=== PATIENT | female | born 1995 | race Caucasian/White ===

== ENCOUNTER 2021-07-13 09:11 | Outpatient (REF) | payer OTHER, SELFPAY ==
--- NOTE | ~2021-07-13 | XR_ITS ---
EXAMINATION: XR THORACIC SPINE XR LUMBAR SPINE CLINICAL INFORMATION: Mid back pain and low back pain. COMPARISON: None TECHNIQUE: Three views of the lumbar spine and 3 views of the dorsal spine. FINDINGS: LUMBAR SPINE: There is a mild levoscoliosis of the lumbar lordosis. The vertebral heights, alignment and disc heights are normal. No visible acute fracture, dislocation or lytic process is seen. The paravertebral soft tissues are normal. DORSAL SPINE: There is a moderate rotatory dextroscoliosis in the mid dorsal spine. The vertebral heights and alignment are otherwise well preserved. No acute fracture or dislocation. The paravertebral soft tissues are normal. XR/XR thoracic spine 2V IMPRESSION: Mild levoscoliosis lumbar spine with rotatory dextroscoliosis mid dorsal spine. No visible acute fracture, dislocation or lytic process seen in the dorsal or lumbar spine. The paravertebral soft tissues are normal.
--- NOTE | ~2021-07-13 | XR_ITS ---
EXAMINATION: XR THORACIC SPINE XR LUMBAR SPINE CLINICAL INFORMATION: Mid back pain and low back pain. COMPARISON: None TECHNIQUE: Three views of the lumbar spine and 3 views of the dorsal spine. FINDINGS: LUMBAR SPINE: There is a mild levoscoliosis of the lumbar lordosis. The vertebral heights, alignment and disc heights are normal. No visible acute fracture, dislocation or lytic process is seen. The paravertebral soft tissues are normal. DORSAL SPINE: There is a moderate rotatory dextroscoliosis in the mid dorsal spine. The vertebral heights and alignment are otherwise well preserved. No acute fracture or dislocation. The paravertebral soft tissues are normal. XR/XR lumbar spine 2-3V IMPRESSION: Mild levoscoliosis lumbar spine with rotatory dextroscoliosis mid dorsal spine. No visible acute fracture, dislocation or lytic process seen in the dorsal or lumbar spine. The paravertebral soft tissues are normal.
[2021-07-13 11:52] LABS: MANUAL DIFF FLAG NO
[2021-07-13 11:59] LABS: Basophils Percent Auto 0.4 % (0-2); Eosinophils Absolute Auto 0.1 X10*3/uL (0.0-0.4); Eosinophils Percent Auto 1.5 % (0-4); Hematocrit 37.7 % (37-47); Hemoglobin 11.2 g/dl (12.0-16.0); Imm Gran Abs Auto 0.02 X10*3/uL (0.00-0.03); Imm Gran Pct Auto 0.2 % (0.0-0.4); Lymphocytes Absolute Auto 1.8 X10*3/uL (1.2-4.9); Lymphocytes Percent Auto 21.4 % (20-40); Mean Corpuscular HGB Conc 29.7 g/dl (31.0-35.0); Mean Corpuscular Volume 70.6 fL (80-98); Mean Platelet Volume 8.7 fL (9.4-12.3); Monocytes Absolute Auto 0.5 X10*3/uL (0.1-1.2); Monocytes Percent Auto 6.3 % (2-11); Neutrophils Percent Auto 70.2 % (45-73); Platelet Count 465 X10*3/uL (160-400); Red Blood Count 5.34 X10*6/uL (4.20-5.50); Red Cell Distribution Width 17.2 % (11.0-16.0); White Blood Count 8.5 X10*3/uL (4.8-10.8)
[2021-07-13 12:32] LABS: TSH reflex Free T4 2.58 uIU/mL (0.32-4.0)
[2021-07-13 12:34] LABS: Alanine Aminotransferase 21 U/L (0-31); Albumin Level 3.9 g/dL (3.5-5.0); Alkaline Phosphatase 82 U/L (39-117); Anion Gap 11 (12-20); Aspartate Amino Transferase 16 U/L (5-31); Bilirubin Total 0.3 mg/dL (0.0-1.0); Blood Urea Nitrogen 12 mg/dL (9-16); Calcium 9.2 mg/dL (8.4-10.2); Carbon Dioxide 24 mmol/L (22-29); Chloride 108 mmol/L (96-108); Estimated Glomerular Filt Rate > 60; Glucose Random 105 mg/dL (60-115); Potassium 4.3 mmol/L (3.3-5.1); Sodium 139 mmol/L (135-145); Total Protein 7.5 g/dL (6.5-8.0)
== END 2021-07-13 09:12 | disposition home or self-care (01) ==
LOC: HO.HMGCX 09:11
PROVIDERS: PCP Internal Medicine; Visit Provider Internal Medicine
DX: I10 Essential (primary) hypertension (principal); R79.89 Other specified abnormal findings of blood chemistry; M54.9 Dorsalgia, unspecified; M54.50 Low back pain, unspecified
CPT/HCPCS: 36415; 72070; 72100; 80053; 84443; 85025

== ENCOUNTER → 2021-09-15 08:04 | Outpatient (BNVA) | payer OTHER, SELFPAY | PROVIDERS: PCP Internal Medicine; Visit Provider Nurse Practitioner Family | DX: M41.86 Other forms of scoliosis, lumbar region (principal); M79.18 Myalgia, other site; E66.01 Morbid (severe) obesity due to excess calories; I10 Essential (primary) hypertension; Z68.42 Body mass index [BMI] 45.0-49.9, adult | CPT/HCPCS: 99202 ==

== ENCOUNTER 2022-01-18 11:26 | Outpatient (REF) | payer OTHER, SELFPAY ==
--- NOTE | ~2022-01-18 | US_ITS ---
EXAMINATION: US VENOUS WITH DOPPLER UPPER EXTREMITY, RIGHT CLINICAL INFORMATION: Pain. Recent IV site. COMPARISON: None TECHNIQUE: Ultrasound of the upper extremity is performed using compression sonography and color and pulse Doppler flow with assessment of augmentation of flow. There is also imaging and Doppler assessment of the jugular and subclavian veins. Spectral analysis with color-flow imaging is performed. FINDINGS: The right internal jugular, subclavian, axillary, brachial and basilic veins are patent. The radial and ulnar veins in the forearm are patent. There is slow rouleaux flow seen in the brachial vein. There is no evidence of DVT. There is superficial thrombophlebitis seen in the cephalic vein. US/US venous duplex UE RT IMPRESSION: No DVT demonstrated in the right upper extremity. Superficial thrombophlebitis in the right cephalic vein.
--- NOTE | ~2022-01-18 | XR_ITS ---
EXAMINATION: XR ELBOW, RIGHT CLINICAL INFORMATION: M79.89 - Other specified soft tissue disorders COMPARISON: None TECHNIQUE: AP, lateral, and oblique views of the right elbow. FINDINGS: There is no acute or healing fracture, dislocation, destructive process, or visible capsular effusion. Bony mineralization is normal. There is no periostitis. No joint narrowing or erosive change or chondrocalcinosis. Visualized soft tissue planes are unremarkable on plain film. XR/XR elbow RT min 3V IMPRESSION: Normal right elbow.
[2022-01-18 14:06] LABS: MANUAL DIFF FLAG NO
[2022-01-18 14:09] LABS: Basophils Percent Auto 0.4 % (0-2); Eosinophils Absolute Auto 0.1 X10*3/uL (0.0-0.4); Eosinophils Percent Auto 0.9 % (0-4); Hematocrit 40.9 % (37.0-47.0); Hemoglobin 12.2 g/dl (12.0-16.0); Imm Gran Abs Auto 0.01 X10*3/uL (0.00-0.03); Imm Gran Pct Auto 0.1 % (0.0-0.4); Lymphocytes Absolute Auto 1.2 X10*3/uL (1.2-4.9); Lymphocytes Percent Auto 14.3 % (20-40); Mean Corpuscular HGB Conc 29.8 g/dl (31.0-35.0); Mean Corpuscular Hemoglobin 21.4 pg (27.0-33.0); Mean Corpuscular Volume 71.6 fL (80.0-98.0); Mean Platelet Volume 8.8 fL (9.4-12.3); Monocytes Absolute Auto 0.8 X10*3/uL (0.1-1.2); Monocytes Percent Auto 9.1 % (2-11); Neutrophils Absolute Auto 6.2 x10*3/uL (2.0-8.3); Neutrophils Percent Auto 75.2 % (45-73); Platelet Count 492 X10*3/uL (160-400); Red Blood Count 5.71 X10*6/uL (4.20-5.50); Red Cell Distribution Width 15.9 % (11.0-16.0); White Blood Count 8.2 X10*3/uL (4.8-10.8)
[2022-01-18 14:36] LABS: Alanine Aminotransferase 16 U/L (0-31); Albumin Level 3.8 g/dL (3.5-5.0); Alkaline Phosphatase 61 U/L (39-117); Anion Gap 14 (12-20); Aspartate Amino Transferase 14 U/L (5-31); Bilirubin Total 0.9 mg/dL (0.0-1.0); Blood Urea Nitrogen 9 mg/dL (9-16); Calcium 9.4 mg/dL (8.4-10.2); Carbon Dioxide 24 mmol/L (22-29); Chloride 104 mmol/L (96-108); Estimated Glomerular Filt Rate > 60; Glucose Random 85 mg/dL (60-115); Potassium 4.6 mmol/L (3.3-5.1); Sodium 137 mmol/L (135-145); Total Protein 7.3 g/dL (6.5-8.0)
== END 2022-01-18 11:27 | disposition home or self-care (01) ==
LOC: HO.HMGCX 11:26
PROVIDERS: Visit Provider Internal Medicine
DX: M79.602 Pain in left arm (principal); M79.89 Other specified soft tissue disorders; D50.9 Iron deficiency anemia, unspecified; E66.01 Morbid (severe) obesity due to excess calories; F33.9 Major depressive disorder, recurrent, unspecified; I10 Essential (primary) hypertension
CPT/HCPCS: 36415; 73080; 80053; 85025; 93971

== ENCOUNTER 2022-01-31 14:58 | Outpatient (REF) | payer OTHER, SELFPAY ==
[2022-01-31 16:51] LABS: Anion Gap 10 (12-20); Blood Urea Nitrogen 12 mg/dL (9-16); Calcium 9.7 mg/dL (8.4-10.2); Carbon Dioxide 31 mmol/L (22-29); Chloride 103 mmol/L (96-108); Estimated Glomerular Filt Rate > 60; Glucose Random 88 mg/dL (60-115); Magnesium 2.2 mg/dL (1.6-2.6); Potassium 4.1 mmol/L (3.3-5.1); Sodium 140 mmol/L (135-145)
== END 2022-01-31 14:59 | disposition home or self-care (01) ==
LOC: HO.HMGCLDS 14:58
PROVIDERS: PCP Internal Medicine; Visit Provider Nurse Practitioner Family
DX: I50.21 Acute systolic (congestive) heart failure (principal)
CPT/HCPCS: 36415; 80048; 83735

== ENCOUNTER 2022-02-22 13:00 | Outpatient (RCR) | payer OTHER, SELFPAY ==
[2022-01-31 14:08] VITALS: BP 108/78; PULSE 87
--- NOTE | 2022-01-31 14:54 | MHC.PT.EP ---
[facility] [place] Office [place] Office [place] Office [address] Jere Montano [address] [phone] F: [phone] F: [phone] F: [phone] F: [phone] Physical Therapy Plan of Care Date of Evaluation: Date of Surgery: Diagnosis: muscle spasm of back Assessment: 27 y/ o F referred to PT wtih muscle spasms of back. 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 Of note, she has recently been diagnosed with cardiomyopathy/ pulmonary edema and she has been restricted from exercise except for TM and elliptical. (Pt states they are aware she is coming to PT). Examination shows decreased lumbar AROM, decreased core/LE strength, scoliosis with LLD, increased tissue tension R scapular region and L lumbar region, decreased muscle length of piriformis/ hip rotators/HS, and impaired postural awareness. Recommend PT 2x/week for 5 weeks to address impairments, implement HEP, and optimize functional mobility. Frequency and Duration: The patient will be seen 2x/week for 5 weeks Short Term Goals: 3 weeks 1. Compliant with HEP 2. Improve Lumbar AROM to WNL 3. Decrease pain levels by 50% per report with functional activity (IR 7-8/10) [place] Goals: 5 weeks 1. I with HEP and self management of sx 2. Pt will be able to stand > 15 min with pain < 3/10 3. Improve B LE strength to 4+/5 throughout to faciliate walkign Treatment Plan: Modalities to reduce pain, spasms and effusion. Manual therapy to restore motion and function. Therapeutic exercise to improve strength and flexibility. Neuromuscular re-education for posture and balance. Therapeutic activities to return to functional activities of daily living. Electronically signed by: Shaye Chapin PT Please sign and return to therapist. Thank you for your referral.
--- NOTE | 2022-03-25 09:48 | MHC.PT.DC ---
[facility] [place] Office [place] Office [place] Office [address] Jere Montano 140 [facility] [phone] F: [phone] F: [phone] F: [phone] F: [phone] Physical Therapy Discharge Report Diagnosis: muscle spasm of back Date of Surgery: Date of Evaluation: 01/31/22 Date of Discharge: 03/25/22 Treatments to Date: 3 Cancellations to Date: 4 No Shows to Date: 2 Discharge Status: Visit Non-compliance Discharge Summary: Pt with poor attendance and noncompliance with scheduling policy therefore d/c at this time Electronically signed by: Shaye Chapin PT Please sign and return to therapist. Thank you for your referral.
== END 2022-03-25 09:49 | disposition home or self-care (01) ==
LOC: HO.PTCHIC 13:00
PROVIDERS: PCP Internal Medicine; Visit Provider Internal Medicine
DX: M62.830 Muscle spasm of back (principal)
CPT/HCPCS: 97110; 97112; 97140; 97162

== ENCOUNTER 2022-03-04 13:45 | Outpatient (REF) | payer OTHER, SELFPAY ==
[2022-03-04 17:00] LABS: Anion Gap 12 (12-20); Blood Urea Nitrogen 11 mg/dL (9-16); Calcium 9.9 mg/dL (8.4-10.2); Carbon Dioxide 27 mmol/L (22-29); Chloride 101 mmol/L (96-108); Estimated Glomerular Filt Rate > 60; Glucose Random 87 mg/dL (60-115); Sodium 136 mmol/L (135-145)
== END 2022-03-04 13:46 | disposition home or self-care (01) ==
LOC: HO.HMGCLDS 13:45
PROVIDERS: PCP Internal Medicine; Visit Provider Nurse Practitioner Family
DX: I50.82 Biventricular heart failure (principal)
CPT/HCPCS: 36415; 80048; 83735

== ENCOUNTER 2022-09-10 09:59 | Outpatient (REF) | payer OTHER, SELFPAY ==
--- NOTE | ~2022-09-10 | XR_ITS ---
EXAMINATION: XR KNEE, LEFT CLINICAL INFORMATION: Left knee pain COMPARISON: None TECHNIQUE: Four views of the left knee. FINDINGS: There is no evidence of acute fracture or dislocation of the left knee. No left knee effusion. Left knee joint spaces are maintained. XR/XR knee LT 4V IMPRESSION: No significant bony abnormality of the left knee.
[2022-09-10 11:01] LABS: MANUAL DIFF FLAG NO
[2022-09-10 11:04] LABS: Basophils Percent Auto 0.6 % (0-2); Eosinophils Absolute Auto 0.1 X10*3/uL (0.0-0.4); Eosinophils Percent Auto 1.5 % (0-4); Hematocrit 38.6 % (37.0-47.0); Hemoglobin 12.1 g/dl (12.0-16.0); Imm Gran Abs Auto 0.02 X10*3/uL (0.00-0.03); Imm Gran Pct Auto 0.3 % (0.0-0.4); Lymphocytes Absolute Auto 1.5 X10*3/uL (1.2-4.9); Lymphocytes Percent Auto 22.2 % (20-40); Mean Corpuscular HGB Conc 31.3 g/dl (31.0-35.0); Mean Corpuscular Hemoglobin 24.6 pg (27.0-33.0); Mean Corpuscular Volume 78.5 fL (80.0-98.0); Mean Platelet Volume 8.8 fL (9.4-12.3); Monocytes Absolute Auto 0.5 X10*3/uL (0.1-1.2); Monocytes Percent Auto 6.6 % (2-11); Neutrophils Absolute Auto 4.7 x10*3/uL (2.0-8.3); Neutrophils Percent Auto 68.8 % (45-73); Platelet Count 420 X10*3/uL (160-400); Red Blood Count 4.92 X10*6/uL (4.20-5.50); Red Cell Distribution Width 14.2 % (11.0-16.0); White Blood Count 6.8 X10*3/uL (4.8-10.8)
== END 2022-09-10 10:00 | disposition home or self-care (01) ==
LOC: HO.HMGCLDS 09:59
PROVIDERS: PCP Internal Medicine; Visit Provider Physician Assistant
DX: D70.9 Neutropenia, unspecified (principal); M25.569 Pain in unspecified knee
CPT/HCPCS: 36415; 73564; 85025

== ENCOUNTER 2022-10-11 12:27 | Outpatient (RCR) | payer OTHER, SELFPAY ==
--- NOTE | 2022-10-11 13:45 | MHC.PT.EP ---
[facility] [place] Office [place] Office [place] Office [address] Jere Montano [address] [phone] F: [phone] F: [phone] F: [phone] F: [phone] Physical Therapy Plan of Care Date of Evaluation: Date of Surgery: n/a Diagnosis: pain in L knee Assessment: Patient is a 27 year old female presenting to PT with complaints of pain in her L knee. Pt reports onset of pain began about 1 month ago due to insidious onset. She presents today with impairments in pain, knee strength, hip strength, and hs muscle length. 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 Pt expresses jail goal of reducing pain, and is motivated to work towards this in PT. Clinical presentation today is most consistent with signs and sx associated with L knee pain and pt will benefit from skilled PT to address the following problems and impairments noted upon evaluation: pain, knee strength, hip strength, and hs muscle length. These problems limit the patient with the following functional activities: squatting, stair negotiation, sleeping. The prescribed treatment plan of care is medically necessary. Co-morbidities of cardiomyopathy, DM, scoliosis, ICD defibrillator were identified and taken into considerations of plan of care. Pt was educated on HEP, role of PT, prognosis, POC. Frequency and Duration: The patient will be seen 2 x week x 4 weeks Short Term Goals: Pt will demonstrate improved hip MMT strength by 1/3 grade in 2 weeks for improved lumbopelvic stability. Pt will demonstrate improved knee MMT strength to 5/5 in 2 weeks. Residential Goals: Pt will demonstrate ability to sleep through the night with min to no pain in 4 weeks for improved QOL. Pt will demonstrate ability to ascend stairs with min to no pain in 4 weeks for improved access to her home. Pt will demonstrate ability to squat with min to no pain in 4 weeks for improved ability to complete ADLs. Treatment Plan: Modalities to reduce pain, spasms and effusion. Manual therapy to restore motion and function. Therapeutic exercise to improve strength and flexibility. Neuromuscular re-education for posture and balance. Therapeutic activities to return to functional activities of daily living. Electronically signed by: Lily Hidalgo, PT, DPT, ATC Please sign and return to therapist. Thank you for your referral.
--- NOTE | 2022-12-16 08:17 | MHC.PT.DC ---
[facility] [place] Office [place] Office [place] Office [address] Jere Montano [address] [phone] F: [phone] F: [phone] F: [phone] F: [phone] Physical Therapy Discharge Report Diagnosis: pain in L knee Date of Surgery: n/a Date of Evaluation: 10/11/22 Date of Discharge: 12/16/22 Treatments to Date: 1 Cancellations to Date: 5 No Shows to Date: 0 Discharge Status: Discharge Summary: Pt has been unable to attend PT due to heart issues. At this point it has been >30 days since eval or an attended appointment. Pt to be d/c at this time per policy. Electronically signed by: Lily Hidalgo, PT, DPT, ATC Please sign and return to therapist. Thank you for your referral.
== END 2022-12-16 08:18 | disposition home or self-care (01) ==
LOC: HO.PTCHIC 12:27
PROVIDERS: PCP Internal Medicine; Visit Provider Physician Assistant
DX: M25.562 Pain in left knee (principal)
CPT/HCPCS: 97110; 97162

== ENCOUNTER 2022-12-15 13:32 | Outpatient (REF) | payer OTHER, SELFPAY ==
--- NOTE | ~2022-12-15 | US_ITS ---
EXAMINATION: US PELVIS CLINICAL INFORMATION: Abnormal CT scan performed at [facility] COMPARISON: Pelvic ultrasound 10/31/2019 TECHNIQUE: Ultrasound of the pelvis is performed using both transabdominal and transvaginal transducers along with Doppler. Transvaginal imaging is performed due to inadequate visualization transabdominally. FINDINGS: UTERUS: The uterus is anteverted and measures 7.4 x 3.9 x 4.4 cm for a volume of 66 mL. Three uterine fibroids are present the largest at the fundus measuring 6.1 x 5.3 x 6.2 cm (previously 3.7 x 2.6 x 3.3 cm. Another fundal fibroid is present measuring 3.4 x 3.0 x 3.5 cm (previously 2.2 x 2.0 x 2.0 cm). The smallest fibroid is in the lower segment measuring 1.4 x 0.9 x 1.6 cm (previously 1.1 x 0.8 x 1.3 cm). ADNEXA: Both ovaries are visualized. There is normal color flow to the adnexa. There is no ovarian torsion. There is no pelvic ascites or fluid collection. Right ovary measures 3.1 x 2.9 x 2.4 cm for a volume of 10.9 mL and includes a complex 1.6 x 1.0 x 0.9 cm cyst. Left ovary measures 4.2 x 3.9 x 3.1 cm for a volume of 26.4 mL which includes a 1.8 x 1.3 x 1.9 cm minimally complex cyst. US/US pelvic and transvaginal IMPRESSION: 1. Uterine fibroids have increased in size. 2. Bilateral minimally complex ovarian cysts need no follow-up.
== END 2022-12-15 13:33 | disposition home or self-care (01) ==
LOC: HO.HMGCX 13:32
PROVIDERS: PCP Internal Medicine; Visit Provider Internal Medicine
DX: R93.5 Abnormal findings on diagnostic imaging of other abdominal regions, including retroperitoneum (principal)
CPT/HCPCS: 76830; 76856

== ENCOUNTER 2022-12-21 08:00 | Outpatient (REF) | payer OTHER, SELFPAY ==
[2022-12-21 13:41] LABS: CT PCR NOT DETECTED (Not Detect.); NG PCR NOT DETECTED (Not Detect.)
== END 2022-12-21 08:01 | disposition home or self-care (01) ==
LOC: HO.LNP 08:00
PROVIDERS: Visit Provider Obstetrics & Gynecology
DX: Z12.4 Encounter for screening for malignant neoplasm of cervix (principal); N93.9 Abnormal uterine and vaginal bleeding, unspecified; D21.9 Benign neoplasm of connective and other soft tissue, unspecified; N83.291 Other ovarian cyst, right side; N83.292 Other ovarian cyst, left side
CPT/HCPCS: 0353U; 88142; 99202

== ENCOUNTER 2023-01-13 08:13 | Outpatient (REF) | payer OTHER, SELFPAY ==
[2023-01-13 12:10] LABS: Estimated Average Glucose 117 mg/dL; Hemoglobin A1c % 5.7 %
[2023-01-13 12:21] LABS: Alanine Aminotransferase 14 U/L (0-31); Albumin Level 3.9 g/dL (3.5-5.0); Alkaline Phosphatase 69 U/L (39-117); Anion Gap 9 (12-20); Aspartate Amino Transferase 15 U/L (5-31); Bilirubin Total 0.6 mg/dL (0.0-1.0); Blood Urea Nitrogen 12 mg/dL (9-16); Calcium 9.4 mg/dL (8.4-10.2); Carbon Dioxide 26 mmol/L (22-29); Chloride 109 mmol/L (96-108); Estimated Glomerular Filt Rate > 60; Glucose Random 95 mg/dL (60-115); Potassium 4.4 mmol/L (3.3-5.1); Sodium 140 mmol/L (135-145); Total Protein 6.9 g/dL (6.5-8.0)
== END 2023-01-13 08:14 | disposition home or self-care (01) ==
LOC: HO.HMGCLDS 08:13
PROVIDERS: PCP Internal Medicine; Visit Provider Internal Medicine
DX: I50.9 Heart failure, unspecified (principal); E13.9 Other specified diabetes mellitus without complications
CPT/HCPCS: 36415; 80053; 83036

== ENCOUNTER 2023-04-13 16:18 | Outpatient (REF) | payer OTHER, SELFPAY ==
--- NOTE | ~2023-04-13 | US_ITS ---
EXAMINATION: US PELVIS CLINICAL INFORMATION: Other ovarian cysts, right side LMP 03/28/2023 COMPARISON: Pelvic ultrasound 12/15/2022 TECHNIQUE: Ultrasound of the pelvis is performed using both transabdominal and transvaginal transducers along with Doppler. Transvaginal imaging is performed due to inadequate visualization transabdominally. FINDINGS: Uterus: The uterus is anteverted and measures 8.0 x 4.6 x 5.1 cm. There are multiple fibroids including the largest fibroid, in the fundus, measuring 6.2 x 5.3 x 5.9 cm, previously measured 6.1 x 5.3 x 6.2 cm. The endometrial thickness is 9.8 mm. Adnexa: Both ovaries are visualized. There is normal color flow to the adnexa. There is no ovarian torsion. There is no pelvic ascites or fluid collection. Right ovary measures 3.8 x 2.4 x 3.0 cm. Volume is 14.3 cm. The right ovary is normal in appearance . Left ovary measures 5.7 x 2.7 x 2.6 cm for a volume of 21.0 cm. The left ovary contains a 3.2 x 1.9 x 1.5 cm minimally complex cyst. US/US pelvic and transvaginal IMPRESSION: 1. Multiple uterine fibroids. 2. The right ovary is normal in appearance. 3. 3.2 cm minimally complex left ovarian cyst is most likely physiologic in origin and needs no further follow-up.
== END 2023-04-13 16:19 | disposition home or self-care (01) ==
LOC: HO.US 16:18
PROVIDERS: PCP Internal Medicine; Visit Provider Obstetrics & Gynecology
DX: N83.292 Other ovarian cyst, left side (principal); N83.291 Other ovarian cyst, right side
CPT/HCPCS: 76830; 76856

== ENCOUNTER 2023-05-09 14:07 | Outpatient (AMB) | payer OTHER, SELFPAY ==
[2023-05-09 14:03] VITALS: BP 116/68; PULSE 115; O2SAT 99; BMI 39.5
--- NOTE | 2023-05-09 14:03 | A.OFFPC_ITS ---
Vital Signs 05/09/23 14:03 Height 5 ft 8 in Weight 260 lb 2 oz BMI 39.5 BP 116/68 Blood Pressure Location Rt brachial Position Sitting Pulse 115 H Pulse Source Pulse Oximeter Pulse Oximetry (%) 99 Oxygen Delivery Method Room Air Intake Visit Reasons: HDF ~ Post hospital discharge FU Allergies cyclobenzaprine [From Flexeril] Adverse Reaction (Unknown, Verified 05/09/23 14:03) syncope Tobacco use date assessed: 05/09/23 Dental Screening Dental Screen Date: 05/09/23 Did you have a dental visit in the last 12 months?: Yes Did you have a dental problem in the last 6 months where you did not have access to dental care?: No Was dental information given to patient?: No HPI HDF ~ Post hospital discharge FU HPI Details Patient is 28-year-old female with medical history of hypertension obesity nonischemic dilated cardiomyopathy diagnosed in 2021 last ejection fraction 20-25% with severe MR and biventricular dilatation. Status post ICD for primary prevention placed April 2022, currently Milrinone infusion pumps at home Presented to hospital emergency room as her PICC line was displaced in her right arm. Which was replaced in left arm Ultrasound legs were negative for DVT Patient is currently being evaluated for heart transplant Awaiting dental evaluation and pulmonary function testing, she has appointment for both coming up in a week time Came in today for evaluation post hospital discharge patient is back to her baseline In-hospital her last BNP was 2691 on 05/03/2023 Glucose 126 Electrolytes stable creatinine stable at 0.71 Hemoglobin 12.6 Her hemoglobin A1c is 5.3 patient is Faexiga 10 mg She wanted to go over her pelvic ultrasound report as well Which showed 1. Multiple uterine fibroids. 2. The right ovary is normal in appearance. 3. 3.2 cm minimally complex left ovarian cyst is most likely physiologic in origin and needs no further follow-up. Report printed and handed to patient she has appointment coming up with consumer electronic retail specialist this Monday in [facility] Medical History Nausea Surgical History History of surgery Family History Father Diabetes mellitus Mother No problems noted. Maternal Grandfather No problems noted. Maternal Grandmother No problems noted. Paternal Grandmother Diabetes mellitus Paternal Grandfather No problems noted. Brother No problems noted. Brother No problems noted. Sister No problems noted. Social History Housing: Apartment Alcohol intake: never Patient Tobacco Use Status: Never used Tobacco e-Cigarette/Vaping Use: Never Used Second Hand Smoke Exposure: No Current occupational status: employed Cognitive needs: No Hearing needs: No Vision needs: No Questionnaire PHQ-9 Over the last 2 weeks, how often have you been bothered by any of the following problems? 1. Little interest or pleasure in doing things: several days 2. Feeling down, depressed, or hopeless: more than half the days 3. Trouble falling or staying asleep, or sleeping too much: nearly every day 4. Feeling tired or having little energy: several days 5. Poor appetite or overeating: more than half the days 6. Feeling bad about yourself - or that you are a failure or have let yourself or your family down: more than half the days 7. Trouble concentrating on things, such as reading the newspaper or watching television: more than half the days 8. Moving or speaking so slowly that other people could have noticed. Or the opposite - being so fidgety or restless that you have been moving around a lot more than usual: not at all 9. Thoughts that you would be better off or of hurting yourself in some way: not at all Total score: 13 Depression Screening Interpretation: Positive 64700 - PHQ-9 Billing: Yes Source: Developed by Drs. eLx Rocha, Marianne Trevino, Eitan Davila and colleagues, with an educational abigail from [employer]. Thrive Questionnaire Date Thrive assessed: 05/09/23 I am a: Patient What is your living situation today?: I have a steady place to live Within the past 12 months, did the food you bought not last and you didn't have the money to get more?: Sometimes True Within the past 12 months, did you worry whether your food would run out before you got money to buy more?: Sometimes True Do you have trouble paying for medicines?: No Do you have trouble getting transportation to medical appointments?: No Do you have trouble paying your heating and electricity bill?: Yes Do you have trouble taking care of your child, family member or friend?: No Do you have trouble with day-to-day activities such as bathing, preparing meals, shopping, managing finances, etc.?: No Are you currently unemployed and looking for a job?: No Are you interested in more education?: Yes AUDIT C Alcohol Use Questionnaire (AUDIT-C) 1. How often do you have a drink containing alcohol?: Never 3. How often do you have six or more drinks on one occasion?: Never Total Score: 0 Score Reviewed/Action Taken: Yes BHARGAVI-7 AMB Questionnaire BHARGAVI-7 Date BHARGAVI - 7 assessed: 05/09/23 Feeling nervous, anxious, or on edge: 2 = More than half the days Not being able to stop or control worryin = More than half the days Worrying too much about different things: 2 = More than half the days Trouble relaxin = Nearly every day Being so restless that it is hard to sit still: 0 = Not at all Becoming easily annoyed or irritable: 2 = More than half the days Feeling afraid as if something awful might happen: 3 = Nearly every day Total BHARGAVI-7 score (0-4 normal; 5-9 mild; 10-14 moderate; 15-21 severe): 14 Source: Developed by Drs. Lex Rocha, Marianne Trevino, Eitan Davila and colleagues, with an educational abigail from [employer]. BHARGAVI-7 Assessment Billing BHARGAVI-7 Assessment Tool: BHARGAVI-7 Assessment 94246 Review of Systems Const Denies chills and Denies fever(s) ENT Denies epistaxis and Denies nasal discharge Card Denies chest pain Resp Denies chest congestion, Denies cough and Denies hemoptysis GI Denies diarrhea and Denies nausea Skin/Breast Denies rash Neuro Reports no additional complaints Psych Reports no additional complaints Endo Reports no additional complaints Physical exam (Primary Care) Vital Signs: Last Vital Signs Pulse 115 H 05/09/23 14:03 BP 116/68 05/09/23 14:03 Pulse Ox 99 05/09/23 14:03 Oxygen Delivery Method Room Air 05/09/23 14:03 BMI result Body Mass Index 39.5 Tobacco/Smoking Status: Tobacco use Status Tobacco use date assessed 05/09/23 05/09/23 14:04 Patient Tobacco Use Status Never used Tobacco 05/09/23 14:04 e-Cigarette/Vaping Use Never Used 05/09/23 14:04 PHQ-9: PHQ-9 Score PHQ-9: Total score 13 05/09/23 14:39 Depression Screening Interpretation: Positive Thrive Assessment: Date of Thrive Assessment Date Thrive assessed 05/09/23 05/09/23 14:39 Const General: cooperative, comfortable and no acute distress Orientation/consciousness: patient oriented x3 HENMT Head: Yes normocephalic Eyes General: appearance normal, both eyes and all related structures Neck Neck: Yes supple Resp Effort & Inspection: normal respiratory effort, no cough and no stridor Cardio Rhythm: regular rhythm Skin General skin exam: turgor normal Neuro General: patient oriented x3, tone normal and moves all extremities Extrem Right lower extremity: no edema Left lower extremity: no edema Results AMB Hemoglobin A1c AMB Hemoglobin A1c 5.3 % Last Edit by SERA Alexander on 05/09/23 14 :35 Results Reviewed Results Reviewed: Laboratory Last Values Hgb A1c (Clinic) 5.3 % (4.0-6.0) 05/09/23 14:34 Assessment and Plan Assessment & Plan (1) Hospital discharge follow-up: Code(s): Z09 - Encounter for follow-up examination after completed treatment for conditions other than malignant neoplasm (2) History of implantable cardioverter-defibrillator (ICD) placement: Code(s): Z95.810 - Presence of automatic (implantable) cardiac defibrillator (3) Diabetes 1.5, managed as type 2: Code(s): E13.9 - Other specified diabetes mellitus without complications (4) Ejection fraction < 50%: Code(s): R94.30 - Abnormal result of cardiovascular function study, unspecified Plan Patient is 28-year-old female with medical history of hypertension obesity nonischemic dilated cardiomyopathy diagnosed in 2021 last ejection fraction 20- 25% with severe MR and biventricular dilatation. Status post ICD for primary prevention placed April 2022, currently Milrinone infusion pumps at home Presented to hospital emergency room as her PICC line was displaced in her right arm. Which was replaced in left arm Ultrasound legs were negative for DVT Patient is currently being evaluated for heart transplant Awaiting dental evaluation and pulmonary function testing, she has appointment for both coming up in a week time Came in today for evaluation post hospital discharge patient is back to her baseline In-hospital her last BNP was 2691 on 05/03/2023 Glucose 126 Electrolytes stable creatinine stable at 0.71 Hemoglobin 12.6 Her hemoglobin A1c is 5.3 patient is Faexiga 10 mg She wanted to go over her pelvic ultrasound report as well Which showed 1. Multiple uterine fibroids. 2. The right ovary is normal in appearance. 3. 3.2 cm minimally complex left ovarian cyst is most likely physiologic in origin and needs no further follow-up. Report printed and handed to patient she has appointment coming up with consumer electronic retail specialist this Monday in [place] Orders: Orders AMB Hemoglobin A1c Today Z13.9 - Encounter for screening, unspecified Coding Level of Care Code Est Pt Level 4 (81651) Diagnoses Hospital discharge follow-up Z09 History of implantable cardioverter-defibrillator (ICD) placement Z95.810 Diabetes 1.5, managed as type 2 E13.9 Ejection fraction < 50% R94.30 Additional Codes BHARGAVI-7 Assessment Billing - BHARGAVI-7 Assessment Tool: BHARGAVI-7 Assessment 44132 ([id number])
== END 2023-05-09 14:46 | disposition home or self-care (01) ==
PROVIDERS: PCP Internal Medicine; Visit Provider Internal Medicine
DX: Z09 Encounter for follow-up examination after completed treatment for conditions other than malignant neoplasm (principal); Z95.810 Presence of automatic (implantable) cardiac defibrillator; E13.9 Other specified diabetes mellitus without complications; R94.30 Abnormal result of cardiovascular function study, unspecified; Z13.9 Encounter for screening, unspecified
CPT/HCPCS: 83036; 99214

== ENCOUNTER 2023-06-21 09:06 | Outpatient (AMB) | payer OTHER, SELFPAY ==
--- NOTE | 2023-06-21 09:10 | A.OFFPC_ITS ---
Intake Visit Reasons: Discharge Follow Up ~ Intake Note: [phone] Allergies cyclobenzaprine [From Flexeril] Adverse Reaction (Unknown, Verified 06/21/23 09:11) syncope Medication List - Last Reconciled 06/21/23 by Murray Dumont MD acetaminophen 650 mg PO Q4H PRN blood sugar diagnostic (FreeStyle Lite Strips) Use to check blood sugar daily once a day blood-glucose meter (FreeStyle Lite Meter kit) Use to check blood sugar daily dapagliflozin propanediol (Farxiga) 10 mg PO DAILY heparin lock flush (porcine) 50 units IV QWEEK lancets (FreeStyle Lancets) Use to check blood sugar once a day milrinone 0.25 mcg/kg/min x 115.3 kg via continuous IV infusion; ondansetron 4 mg PO TID PRN pantoprazole 40 mg PO DAILY potassium chloride (Klor-Con) 20 mEq PO TID sodium chloride 0.9 % (flush) (Normal Saline Flush 0.9 % injection syringe) 10 mL IV QWEEK spironolactone 50 mg PO DAILY torsemide 60 mg PO Tobacco use date assessed: 06/21/23 Dental Screening Dental Screen Date: 06/21/23 Did you have a dental visit in the last 12 months?: Yes Did you have a dental problem in the last 6 months where you did not have access to dental care?: No Was dental information given to patient?: Patient has dentist HPI Discharge Follow Up ~ HPI Details Patient is 28-year-old female with advanced heart failure admitted to [facility], 06/09/2023 for PICC line malfunction Her current medications are Tylenol as needed for aches and pain Forxiga milrinone Pantoprazole spironolactone Torsemide Labs done in ER reviewed Kidney functions intact electrolytes within normal limit Random glucose 94 CBC showed hemoglobin of 12.9 White count within normal limit Platelets 308 Liver enzymes within normal limit Magnesium 2.2 EKG showed sinus tachycardia Probable left atrial abnormality Borderline T-wave abnormality Chest x-ray showed no acute findings Patient have pacemaker/defibrillator , shown on chest x-ray she will have Mitral valve replacement next month in [place] 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 Maternal Grandfather No problems noted. Maternal Grandmother No problems noted. Paternal Grandmother Diabetes mellitus Paternal Grandfather No problems noted. Brother No problems noted. Brother No problems noted. Sister No problems noted. Social History Housing: Apartment Alcohol intake: never Patient Tobacco Use Status: Never used Tobacco e-Cigarette/Vaping Use: Never Used Second Hand Smoke Exposure: No Current occupational status: unemployed Cognitive needs: No Hearing needs: No Vision needs: No Questionnaire Thrive Questionnaire Date Thrive assessed: 05/09/23 AUDIT C Alcohol Use Questionnaire (AUDIT-C) 1. How often do you have a drink containing alcohol?: Monthly or less 2. How many drinks containing alcohol do you have on a typical day when you are drinking?: 1 or 2 3. How often do you have six or more drinks on one occasion?: Never Total Score: 1 BHARGAVI-7 AMB Questionnaire BHARGAVI-7 Date BHARGAVI - 7 assessed: 05/09/23 Source: Developed by Drs. Lex Rocha, Marianne Trevino, Eitan Davila and colleagues, with an educational abigail from [employer]. Review of Systems Const Denies chills and Denies fever(s) ENT Denies epistaxis and Denies nasal discharge Card Denies chest pain Resp Denies chest congestion, Denies cough and Denies hemoptysis GI Denies diarrhea and Denies nausea Skin/Breast Denies rash Neuro Reports no additional complaints Psych Reports no additional complaints Endo Reports no additional complaints Physical exam (Primary Care) Tobacco/Smoking Status: Tobacco use Status Tobacco use date assessed 06/21/23 06/21/23 09:12 Patient Tobacco Use Status Never used Tobacco 06/21/23 09:12 e-Cigarette/Vaping Use Never Used 06/21/23 09:12 Thrive Assessment: Date of Thrive Assessment Date Thrive assessed 05/09/23 06/21/23 09:12 Const General: cooperative, comfortable and no acute distress Orientation/consciousness: patient oriented x3 HENMT Head: Yes normocephalic Eyes General: appearance normal, both eyes and all related structures Neck Neck: Yes supple Resp Effort & Inspection: normal respiratory effort, no cough and no stridor Cardio Rhythm: regular rhythm Heart sounds: S1 normal heart sound present and S2 normal heart sound present Skin General skin exam: turgor normal Neuro General: patient oriented x3, tone normal and moves all extremities Extrem Right lower extremity: no edema Left lower extremity: no edema Telehealth Telehealth Location of provider rendering services: practice address Location of patient: address on file Patient Identification confirmed using: Name, : Yes Telehealth method: voice only Patient verbally consented to treatment: Yes Patient verbally consented to billing insurance company: Yes Patient informed of any privacy concerns related to visit: Yes Assessment and Plan Assessment & Plan (1) Hospital discharge follow-up: Code(s): Z09 - Encounter for follow-up examination after completed treatment for conditions other than malignant neoplasm (2) Heart failure: Code(s): I50.9 - Heart failure, unspecified Qualifiers: Heart failure type: combined systolic and diastolic Heart failure chronicity: chronic Qualified Code(s): I50.42 - Chronic combined systolic (congestive) and diastolic (congestive) heart failure Plan Patient is 28-year-old female with advanced heart failure admitted to [facility], 06/09/2023 for PICC line malfunction Her current medications are Tylenol as needed for aches and pain Forxiga milrinone Pantoprazole spironolactone Torsemide Labs done in ER reviewed Kidney functions intact electrolytes within normal limit Random glucose 94 CBC showed hemoglobin of 12.9 White count within normal limit Platelets 308 Liver enzymes within normal limit Magnesium 2.2 EKG showed sinus tachycardia Probable left atrial abnormality Borderline T-wave abnormality Chest x-ray showed no acute findings Patient have pacemaker/defibrillator , shown on chest x-ray she will have Mitral valve replacement next month in [place] she is seeing Dr Raven marcelo 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
== END 2023-06-21 12:15 | disposition home or self-care (01) ==
LOC: HO.HMGC 09:06
PROVIDERS: PCP Internal Medicine; Visit Provider Internal Medicine
DX: Z09 Encounter for follow-up examination after completed treatment for conditions other than malignant neoplasm (principal); I50.42 Chronic combined systolic (congestive) and diastolic (congestive) heart failure
CPT/HCPCS: 99214

== ENCOUNTER 2023-08-17 13:30 | Outpatient (AMB) | payer OTHER, SELFPAY ==
--- NOTE | 2023-08-17 13:47 | MHC.OFFVIS ---
Intake Vital Signs 08/17/23 13:50 Height 5 ft 8 in Weight 257 lb 15.053 oz BMI 39.2 BP 122/86 Intake Visit Reasons: Ultra sound follow up [employer] Required: No Information Interpreted: non-clinical & clinical Accompanied by: Self / Same As Patient Allergies cyclobenzaprine [From Flexeril] Adverse Reaction (Unknown, Verified 08/17/23 13:51) syncope Is last menstrual period known: Yes Last menstrual period: 08/04/23 HPI HPI Comments History of Present Illness Details Presenting for follow-up regarding bilateral complex ovarian cyst is seen on previous ultrasound done in 12/29. Ultrasound done on 04/30 showed the following: Uterus: The uterus is anteverted and measures 8.0 x 4.6 x 5.1 cm. There are multiple fibroids including the largest fibroid, in the fundus, measuring 6.2 x 5.3 x 5.9 cm, previously measured 6.1 x 5.3 x 6.2 cm. The endometrial thickness is 9.8 mm. Adnexa: Both ovaries are visualized. There is normal color flow to the adnexa. There is no ovarian torsion. There is no pelvic ascites or fluid collection. Right ovary measures 3.8 x 2.4 x 3.0 cm. Volume is 14.3 cm. The right ovary is normal in appearance . Left ovary measures 5.7 x 2.7 x 2.6 cm for a volume of 21.0 cm. The left ovary contains a 3.2 x 1.9 x 1.5 cm minimally complex cyst. The patient has been complaining of irregular menstrual cycles of the last few months. Last co testing/GC/CT in 12/29 were negative [facility] Medical History Nausea Surgical History History of surgery Family History Father Diabetes mellitus Mother No problems noted. Maternal Grandfather No problems noted. Maternal Grandmother No problems noted. Paternal Grandmother Diabetes mellitus Paternal Grandfather No problems noted. Brother No problems noted. Brother No problems noted. Sister No problems noted. Social History Housing: Apartment Alcohol intake: never Patient Tobacco Use Status: Never used Tobacco e-Cigarette/Vaping Use: Never Used Second Hand Smoke Exposure: No Current occupational status: unemployed Cognitive needs: No Hearing needs: No Vision needs: No Female Reproductive History Menstrual Date of last menstrual period: 08/04/23 Review of Systems Const All systems reviewed & are unremarkable except as noted in HPI and below Reports as per HPI and Reports no additional complaints GI Reports no additional complaints Reports no additional complaints Physical Exam Vital Signs: Last Vital Signs BP 122/86 08/17/23 13:50 BMI result Body Mass Index 39.2 Assessment & Plan Assessment & Plan (1) Complex ovarian cyst: Code(s): N83.299 - Other ovarian cyst, unspecified side Plan: Discussed with the patient ultrasound findings showing the previously identified right complex cyst has resolved, in addition left complex ovarian cyst was identified 3.2 cm compared to 1.5 cm by the radiologist impression is that it is a physiologic ovarian cyst and there is no need for further follow-up. Discussed with the patient the Ultrasound findings, the main limitation of transvaginal ultrasonography alone as a diagnostic tool to distinguish benign from malignant masses relates to its lack of specificity and low positive predictive value for cancer. The differential diagnosis discussed with the patient includes the following but not limited to: benign and malignant gynecological and non-gynecological causes. Discussed with the patient options of treatment including laparoscopy ovarian cystectomy/oophorectomy vs. expectant management with repeat US in repeating pelvic US 12 weeks from previous US. If the ovarian complex cyst is persistent larger and / or more complex looking, will refer to gynecologic Oncology. All pros, cons, risks and benefits of each approach were discussed with the patient including but not limited to a delay in the diagnosis and treatment of ovarian cancer affecting the prognosis; The patient decided to go ahead with expectant management. Instructions given the patient to schedule a follow-up ultrasound appointment. All questions were answered & the patient verbalized understanding and agreed with the plan. (2) Myoma: Code(s): D21.9 - Benign neoplasm of connective and other soft tissue, unspecified Plan: Discussed with the patient the findings on pelvic ultrasound & the risk of myosarcoma; discussed with the patient the options of treatment including expectant management versus hysterectomy; the pros and cons, risks benefits of each approach were discussed with the patient including the fact that in cases of myosarcoma, surgical treatment can lead to early diagnosis and positively affects the prognosis; after further discussion, the patient decided to proceed with expectant management. Will repeat pelvic ultrasound periodically. Instructions given to patient to call in case any of the following occurs: pressure symptoms, abnormal uterine bleeding, pelvic pain; and to schedule a future office follow-up appointment for reassessment and to order a repeat ultrasound . All questions answered, the patient verbalized understanding and agreed with the plan . (3) Abnormal uterine bleeding: Comment: Cardiomyopathy Code(s): N93.9 - Abnormal uterine and vaginal bleeding, unspecified Plan: CBC, TSH, HCG, and pelvic ultrasound ordered. Discussed with the patient the different causes of abnormal bleeding including thyroid disorders, uterine and ovarian pathology and other potential causes. Discussed with the patient the work up including CBC (to r/o anemia), TSH, pelvic Ultrasound. All questions answered and the patient verbalized understanding. Instructed the patient to schedule an appointment for an endometrial biopsy in 2 weeks. Orders: Orders TSH reflex Free T4 Today N93.9 - Abnormal uterine and vaginal bleeding, unspecified HCG Quantitative Today N93.9 - Abnormal uterine and vaginal bleeding, unspecified Complete Blood Count no Diff Today N93.9 - Abnormal uterine and vaginal bleeding, unspecified US pelvic and transvaginal 2 Weeks N83.299 - Other ovarian cyst, unspecified side Coding Level of Care Code Est Pt Level 3 (06440) Diagnoses Complex ovarian cyst N83.299 Myoma D21.9 Abnormal uterine bleeding N93.9
[2023-08-17 13:50] VITALS: BP 122/86; BMI 39.2
== END 2023-08-17 14:19 | disposition home or self-care (01) ==
PROVIDERS: PCP Internal Medicine; Visit Provider Obstetrics & Gynecology
DX: N83.299 Other ovarian cyst, unspecified side (principal); D21.9 Benign neoplasm of connective and other soft tissue, unspecified; N93.9 Abnormal uterine and vaginal bleeding, unspecified
CPT/HCPCS: 99213

== ENCOUNTER → 2023-08-17 13:30 | Outpatient (BNVA) | payer OTHER, SELFPAY | PROVIDERS: PCP Internal Medicine; Visit Provider Obstetrics & Gynecology | DX: N83.299 Other ovarian cyst, unspecified side (principal); N93.9 Abnormal uterine and vaginal bleeding, unspecified; D21.9 Benign neoplasm of connective and other soft tissue, unspecified | CPT/HCPCS: 99212 ==

== ENCOUNTER 2023-08-26 11:30 | Outpatient (AMB) | payer OTHER, SELFPAY ==
--- NOTE | 2023-08-26 11:52 | AM.OFFWIN_ITS ---
Intake Vital Signs 08/26/23 12:03 BP 106/70 Blood Pressure Location Lt brachial Pulse 118 H Pulse Source Pulse Oximeter Temp 98.3 F Temp Source Oral Pulse Oximetry (%) 95 Oxygen Delivery Method Room Air Intake Visit Reasons: EST/right knee pain/ [id number] Intake Note: Pt c/o of RT knee pain x 4-5 days. Difficulty getting in/out of vehicle. Has been limping around the house due to pain. Patient Tobacco Use Status: Never used Tobacco Allergies cyclobenzaprine [From Flexeril] Adverse Reaction (Unknown, Verified 08/26/23 12:02) syncope HPI EST/right knee pain/ [id number] HPI Details Patient is a 28-year-old female with history of multiple medical conditions including cardiomyopathy, however denies underlying musculoskeletal issues. She states that she started with acute right knee pain a few days ago, and heating and stretching is not relieving symptoms. She has a history of recent left knee pain for which she just completed a physical therapy course. She states that she was doing her physical therapy at home up until a few months ago. She denies acute trauma to the right knee, and denies chronic repetitive trauma. She reports a mostly sedentary lifestyle. She denies fever or chills, swelling or redness to the area, nausea vomiting or diarrhea, myalgias or malaise, or other significant symptoms associated with systemic infection. [facility] Medical History Nausea Surgical History History of surgery Family History Father Diabetes mellitus Mother No problems noted. Maternal Grandfather No problems noted. Maternal Grandmother No problems noted. Paternal Grandmother Diabetes mellitus Paternal Grandfather No problems noted. Brother No problems noted. Brother No problems noted. Sister No problems noted. Social History Housing: Apartment Alcohol intake: never Patient Tobacco Use Status: Never used Tobacco e-Cigarette/Vaping Use: Never Used Second Hand Smoke Exposure: No Current occupational status: unemployed Cognitive needs: No Hearing needs: No Vision needs: No Review of Systems Const All systems reviewed & are unremarkable except as noted in HPI and below Physical Exam Vital Signs: Last Vital Signs Temp 98.3 F 08/26/23 12:03 Pulse 118 H 08/26/23 12:03 BP 106/70 08/26/23 12:03 Pulse Ox 95 08/26/23 12:03 Oxygen Delivery Method Room Air 08/26/23 12:03 Extrem Other: Right knee with no visible trauma, including no gross edema or effusion. Full range of motion and good strength, although she has a mildly positive posterior drawer test there is no laxity with varus or valgus stress. Some mild lateral joint line tenderness. Steady gait with ambulation. No pedal edema, and neurovascularly intact distally Assessment & Plan Assessment & Plan (1) Knee pain: Code(s): M25.569 - Pain in unspecified knee Qualifiers: Chronicity: acute Laterality: right Qualified Code(s): M25.561 - Pain in right knee Plan Patient had no acute trauma, or apparent repetitive trauma to likely cause knee pain. She also has no signs of septic joint. No underlying inflammatory conditions noted. She has extensive comorbidities for her age however, and she lives overall sedentary lifestyle. She had similar symptoms recently to the left knee, for which she completed a course of physical therapy and seems to have mildly improved her symptoms. An x-ray of the knee is pending, which she will have done next week as radiologist was not available during her visit. We discussed icing the knee in the meantime, as this might be more effective than heating. She will continue Tylenol as needed for pain relief, she cannot tolerate NSAIDs due to her medical history. Orders: Orders XR knee RT 4V Today M25.569 - Pain in unspecified knee Coding Level of Care Code Est Pt Level 4 (90580) Diagnoses Acute pain of right knee M25.561 Chronicity: acute Laterality: right
[2023-08-26 12:03] VITALS: BP 106/70; PULSE 118; TEMP 36.8; O2SAT 95
== END 2023-08-26 12:56 | disposition home or self-care (01) ==
PROVIDERS: PCP Internal Medicine; Visit Provider Physician Assistant Medical
DX: M25.561 Pain in right knee (principal)
CPT/HCPCS: 99051; 99214

== ENCOUNTER 2023-08-28 14:04 | Outpatient (REF) | payer OTHER, SELFPAY ==
--- NOTE | ~2023-08-28 | XR_ITS ---
EXAMINATION: XR KNEE, RIGHT CLINICAL INFORMATION: Right knee pain COMPARISON: None available. TECHNIQUE: Four views of the right knee. FINDINGS: No fracture or joint effusion. Alignment is anatomic. Joint spaces are maintained. No abnormal soft tissue calcification. XR/XR knee RT 4V IMPRESSION: Unremarkable plain radiographs of the right knee.
--- NOTE | ~2023-08-28 | US_ITS ---
EXAMINATION: US PELVIS COMPLETE CLINICAL INFORMATION: Bilateral ovarian complex cysts; the last menstrual period was on 08/26/2023. COMPARISON: Pelvic ultrasound dated 04/13/2023. TECHNIQUE: Transabdominal and transvaginal imaging were performed. FINDINGS: The uterus is of normal size and echogenicity measuring 8.3 x 4.2 x 12.7 cm. The uterus is anteverted. A regular, homogeneous endometrium is identified measuring 0.6 cm. FIBROIDS: There are 5 fibroids seen. 1. Location: Lower leftward body, myometrial. Size: 1.5 x 0.9 x 2.1 cm. Prior: Not seen. Fibroid characteristics: Hypoechoic. 2. Location: Posterior rightward fundus, subserosal. Size: 3.5 x 3.1 x 3.4 cm. Prior: 2.5 x 2.9 x 2.7 cm. Fibroid characteristics: Heterogeneous echotexture. 3. Location: Mid fundus, myometrial. Size: 2.0 x 1.7 x 1.8 cm. Prior: Not seen. Fibroid characteristics: Heterogeneously hyperechoic. 4. Location: Upper anterior rightward body, myometrial. Size: 1.3 x 1.2 x 1.1 cm. Prior: 1.3 x 1.7 x 1.2 cm. Fibroid characteristics: Hypoechoic. 5. Location: Upper rightward body, subserosal. Size: 6.8 x 6.7 x 6.8 cm. Prior: 6.2 x 5.3 x 5.9 cm. Fibroid characteristics: Heterogeneous echotexture. Both ovaries are of normal size and echogenicity. The right ovary measures 3.3 x 2.2 x 2.4 cm for a volume of 9.0 mL. The left ovary measures 3.5 x 2.5 x 1.9 cm for a volume of 9.0 mL. Tiny physiologic follicles are incidentally noted within the bilateral ovaries. There is no pelvic free fluid. No adnexal mass is seen. US/US pelvic and transvaginal IMPRESSION: 1. There is uterine fibroid disease. 2. No complex ovarian cyst is presently seen.
== END 2023-08-28 14:05 | disposition home or self-care (01) ==
LOC: HO.HMGCX 14:04
PROVIDERS: PCP Internal Medicine; Visit Provider Obstetrics & Gynecology
DX: N83.299 Other ovarian cyst, unspecified side (principal); M25.561 Pain in right knee
CPT/HCPCS: 73564; 76830; 76856

== ENCOUNTER 2023-08-30 13:01 | Outpatient (AMB) | payer OTHER, SELFPAY ==
--- NOTE | 2023-08-30 13:15 | MHC.OFFVIS ---
Intake Vital Signs 08/30/23 13:20 Height 5 ft 8 in Weight 257 lb 15.053 oz BMI 39.2 BP 118/80 Intake Visit Reasons: Ultra sound follow up Accounting Policy Consultant Required: No Information Interpreted: non-clinical & clinical Accompanied by: Self / Same As Patient Allergies cyclobenzaprine [From Flexeril] Adverse Reaction (Unknown, Verified 08/30/23 13:21) syncope Is last menstrual period known: Yes Last menstrual period: 08/04/23 HPI HPI Comments History of Present Illness Details Presenting for ultrasound follow-up regarding complex ovarian cyst and EMB. The following was done for abnormal uterine H&H 12.1/38.6 TSH, hCG and prepped and not done yet GC/chlamydia negative Pelvic ultrasound showed the following: 'The uterus is of normal size and echogenicity measuring 8.3 x 4.2 x 12.7 cm. The uterus is anteverted. A regular, homogeneous endometrium is identified measuring 0.6 cm. FIBROIDS: There are 5 fibroids seen. 1. Location: Lower leftward body, myometrial. Size: 1.5 x 0.9 x 2.1 cm. Prior: Not seen. Fibroid characteristics: Hypoechoic. 2. Location: Posterior rightward fundus, subserosal. Size: 3.5 x 3.1 x 3.4 cm. Prior: 2.5 x 2.9 x 2.7 cm. Fibroid characteristics: Heterogeneous echotexture. 3. Location: Mid fundus, myometrial. Size: 2.0 x 1.7 x 1.8 cm. Prior: Not seen. Fibroid characteristics: Heterogeneously hyperechoic. 4. Location: Upper anterior rightward body, myometrial. Size: 1.3 x 1.2 x 1.1 cm. Prior: 1.3 x 1.7 x 1.2 cm. Fibroid characteristics: Hypoechoic. 5. Location: Upper rightward body, subserosal. Size: 6.8 x 6.7 x 6.8 cm. Prior: 6.2 x 5.3 x 5.9 cm. Fibroid characteristics: Heterogeneous echotexture. Both ovaries are of normal size and echogenicity. The right ovary measures 3.3 x 2.2 x 2.4 cm for a volume of 9.0 mL. The left ovary measures 3.5 x 2.5 x 1.9 cm for a volume of 9.0 mL. Tiny physiologic follicles are incidentally noted within the bilateral ovaries. There is no pelvic free fluid. No adnexal mass is seen. [facility] Medical History Nausea Surgical History History of surgery Family History Father Diabetes mellitus Mother No problems noted. Maternal Grandfather No problems noted. Maternal Grandmother No problems noted. Paternal Grandmother Diabetes mellitus Paternal Grandfather No problems noted. Brother No problems noted. Brother No problems noted. Sister No problems noted. Housing: Apartment Alcohol intake: never Patient Tobacco Use Status: Never used Tobacco e-Cigarette/Vaping Use: Never Used Second Hand Smoke Exposure: No Current occupational status: unemployed Cognitive needs: No Hearing needs: No Vision needs: No Female Reproductive History Menstrual Date of last menstrual period: 08/04/23 Review of Systems Const All systems reviewed & are unremarkable except as noted in HPI and below Reports as per HPI and Reports no additional complaints GI Reports no additional complaints Reports no additional complaints Physical Exam Vital Signs: Last Vital Signs BP 118/80 08/30/23 13:20 BMI result Body Mass Index 39.2 Office Procedures Endometrial Biopsy Details: The patient was counseled regarding the indication and benefits of endometrial sampling to rule out endometrial pathology including not limited to endometrial hyperplasia or endometrial cancer and others; The alternatives (Either do nothing vs. hysteroscopy D&C) & the risks were discussed with the patient including but not limited: pain, uterine perforation, bleeding, infection, possible injury to bladder, bowel, ureter, possible need for blood transfusion with all its possible risks. The patient verbalized understanding all questions answered and signed consent. Urine test done in the office was negative The patient was placed into the dorsal lithotomy position; a speculum was inserted in the vagina. Using aseptic technique for the procedure, the cervix was cleansed with Betadine. The anterior lip of the cervix was grasped with a single tooth tenaculum. The uterus was sounded to 7 cm with a 4 mm Pipelle was used. Tissues samples were obtained and placed in formalin, in a patient labeled container and sent to the pathology department. At the end of the procedure, there was minimal bleeding noted The patient tolerated the procedure well and was discharged in good condition with the following instructions: Nothing in the vagina until the bleeding stops. No sex until the bleeding stops, to call if any of the following occurs: fever (>100.4), flu-like symptoms, abdominal pain, heavy bleeding, four smelling vaginal discharge. The patient was instructed to schedule a Follow up appointment in 2 weeks to discuss pathology results of the biopsy and treatment options. This note was generated with a voice recognition program. Some errors may have been overlooked during the review of this note. Sometimes these errors may affect the content or meaning of a given sentence. [id number] Biopsy Assessment & Plan Assessment & Plan (1) Abnormal uterine bleeding: Comment: Cardiomyopathy Code(s): N93.9 - Abnormal uterine and vaginal bleeding, unspecified Plan: EMB done, see procedure note (2) Complex ovarian cyst: Code(s): N83.299 - Other ovarian cyst, unspecified side Plan: Discussed with the patient ultrasound findings showing the previously identified complex cyst has resolved. The patient was instructed to call if symptoms recur. All questions were answered the patient verbalized understanding. (3) Myoma: Code(s): D21.9 - Benign neoplasm of connective and other soft tissue, unspecified Plan: Discussed with the patient the results of the ultrasound and the size of the myomas has increased in size and multiple new onset myoma. Discussed with the patient risk of myosarcoma and symptoms that are caused by myomas including but not limited to pelvic pain, pressure symptoms, abnormal uterine bleeding. In addition discussed with the patient options of treatment for myomas including: Serial ultrasounds periodically to follow-up on the size of the myoma while targeting the treatment against fibroids related symptoms Mirena IUD, progesterone treatment, GnRH agonist/antagonist, uterine artery embolization or endometrial ablation) versus surgical treatment including hysterectomy and /or myomectomy in case the patient is not interested in future fertility. All pros and cons, risks and benefits of all options were discussed with the patient. Will discuss further after EMB results Orders: Orders AMB Endometrial Biopsy Today N93.9 - Abnormal uterine and vaginal bleeding, unspecified Coding Level of Care Code Est Pt Level 3 (07571) Procedure Only Diagnoses Abnormal uterine bleeding N93.9 Complex ovarian cyst N83.299 Myoma D21.9 CPT Codes Endometrial Biopsy - CPT: 15757-[id number] Biopsy ([id number])
[2023-08-30 13:20] VITALS: BP 118/80; BMI 39.2
== END 2023-08-30 14:44 | disposition home or self-care (01) ==
LOC: HO.HWS 13:01
PROVIDERS: PCP Internal Medicine; Visit Provider Obstetrics & Gynecology
DX: N93.9 Abnormal uterine and vaginal bleeding, unspecified (principal); N83.299 Other ovarian cyst, unspecified side; D21.9 Benign neoplasm of connective and other soft tissue, unspecified; Z32.02 Encounter for pregnancy test, result negative
CPT/HCPCS: 58100

== ENCOUNTER 2023-08-30 13:01 | Outpatient (REF) | payer OTHER, SELFPAY | END 2023-08-30 13:02 | disposition home or self-care (01) | LOC: HO.LNP 13:01 | PROVIDERS: PCP Internal Medicine; Visit Provider Obstetrics & Gynecology | DX: N93.9 Abnormal uterine and vaginal bleeding, unspecified (principal); N83.299 Other ovarian cyst, unspecified side; D21.9 Benign neoplasm of connective and other soft tissue, unspecified | CPT/HCPCS: 58100; 81025; 88305 ==

== ENCOUNTER 2023-09-05 14:02 | Outpatient (REF) | payer OTHER, SELFPAY ==
--- NOTE | ~2023-09-05 | XR_ITS ---
EXAMINATION: XR CHEST CLINICAL INFORMATION: PICC line placement confirmation COMPARISON: Chest 11/01/2021 TECHNIQUE: 2 views of the chest were obtained. FINDINGS: The lungs are well-expanded and clear. The heart size is enlarged. Pulmonary vascularity is normal. There is anterior chest wall electrode with hardware along the left lateral chest wall. There is moderate to significant dextroscoliosis of dorsal spine. Otherwise the bony thorax is unremarkable. XR/XR chest 2V IMPRESSION: 1. Mild cardiomegaly. No acute process seen. 2. Moderate to significant dextroscoliosis of dorsal spine.
== END 2023-09-05 14:03 | disposition home or self-care (01) ==
LOC: HO.HMGCX 14:02
PROVIDERS: PCP Internal Medicine; Visit Provider Nurse Practitioner Adult Health
DX: Z45.2 Encounter for adjustment and management of vascular access device (principal)
CPT/HCPCS: 71046

== ENCOUNTER 2023-09-19 13:51 | Outpatient (AMB) | payer OTHER, SELFPAY ==
[2023-09-19 13:52] VITALS: BP 118/76; PULSE 114; O2SAT 98; BMI 39.1
--- NOTE | 2023-09-19 13:52 | A.OFFPC_ITS ---
Vital Signs 09/19/23 13:52 Height 5 ft 8 in Weight 257 lb 2 oz BMI 39.1 BP 118/76 Blood Pressure Location Lt brachial Position Sitting Pulse 114 H Pulse Source Pulse Oximeter Pulse Oximetry (%) 98 Oxygen Delivery Method Room Air Intake Visit Reasons: Annual PE Allergies cyclobenzaprine [From Flexeril] Adverse Reaction (Unknown, Verified 09/19/23 13:53) syncope Tobacco use date assessed: 09/19/23 Dental Screening Dental Screen Date: 09/19/23 Did you have a dental visit in the last 12 months?: Yes Did you have a dental problem in the last 6 months where you did not have access to dental care?: No Was dental information given to patient?: Patient has dentist HPI Annual PE HPI Details Patient is 28-year-old female with cardiomyopathy and is on heart transplant list came in for physical exam At this time patient is stable. She has no shortness of breath no swelling of ankles Her primary management is through Cardiology office including diabetes I have ordered labs once a year patient comes in for physical exam and I also do the labs. She is going to be starting cosmetology program and is requesting a PT1 form We will assist patient Pap smear is up to date patient sees Dr. Chaidez BMI is elevated at 39.1 patient is trying to lose weight PFSH Medical History Nausea Surgical History History of surgery Family History Father Diabetes mellitus Mother No problems noted. Maternal Grandfather No problems noted. Maternal Grandmother No problems noted. Paternal Grandmother Diabetes mellitus Paternal Grandfather No problems noted. Brother No problems noted. Brother No problems noted. Sister No problems noted. Social History Housing: Apartment Alcohol intake: never Patient Tobacco Use Status: Never used Tobacco e-Cigarette/Vaping Use: Never Used Second Hand Smoke Exposure: No Current occupational status: unemployed Cognitive needs: No Hearing needs: No Vision needs: No Questionnaire Thrive Questionnaire Date Thrive assessed: 05/09/23 AUDIT C Alcohol Use Questionnaire (AUDIT-C) 1. How often do you have a drink containing alcohol?: Monthly or less 2. How many drinks containing alcohol do you have on a typical day when you are drinking?: 1 or 2 3. How often do you have six or more drinks on one occasion?: Never Total Score: 1 Score Reviewed/Action Taken: Yes BHARGAVI-7 AMB Questionnaire BHARGAVI-7 Date BHARGAVI - 7 assessed: 05/09/23 Source: Developed by Drs. Lex Rocha, Marianne Trevino, Eitan Davila and colleagues, with an educational abigail from [employer]. Review of Systems Const Denies chills, Denies fever(s) and Denies headache(s) Eyes Denies blurry vision ENT Denies headache(s), Denies nasal discharge, Denies nasal obstruction, Denies odynophagia and Denies sinus pain Card Denies chest pain at rest and Denies chest pain with activity Resp Denies cough and Denies hemoptysis GI Denies diarrhea, Denies odynophagia, Denies vomiting and Denies hematemesis Reports as per HPI Musc Denies abnormal gait Skin/Breast Reports as per HPI Neuro Denies Neuro-related abnormal movements, Denies Abnormal speech present, Denies abnormal gait, Denies headache(s) and Denies Sensory deficit (Neuro) Psych Denies mood swings and Denies paranoia Endo Reports as per HPI Tony/Lymph Reports as per HPI Aller/Immun Reports as per HPI Physical exam (Primary Care) Vital Signs: Last Vital Signs Pulse 114 H 09/19/23 13:52 BP 118/76 09/19/23 13:52 Pulse Ox 98 09/19/23 13:52 Oxygen Delivery Method Room Air 09/19/23 13:52 BMI result Body Mass Index 39.1 Tobacco/Smoking Status: Tobacco use Status Tobacco use date assessed 06/21/23 06/21/23 09:12 Patient Tobacco Use Status Never used Tobacco 08/26/23 11:53 e-Cigarette/Vaping Use Never Used 06/21/23 09:12 Thrive Assessment: Date of Thrive Assessment Date Thrive assessed 05/09/23 06/21/23 09:12 Const General: cooperative, comfortable and no acute distress Orientation/consciousness: patient oriented x3 HENMT Head: Yes normocephalic and Yes atraumatic Eyes General: appearance normal, both eyes and all related structures Pupils: Equal, round and reactive pupils present EOM: EOMs intact bilaterally Neck Neck: Yes supple and No lymphadenopathy Thyroid: Thyroid normal Lymphatic: no lymphadenopathy noted Resp Effort & Inspection: normal respiratory effort and able to speak in complete sentences Auscultation: clear to auscultation bilaterally Cardio Heart sounds: S1 normal heart sound present and S2 normal heart sound present GI Palpation (GI): Soft to palpation and nontender Auscultation: normal bowel sounds General: Yes no CVA tenderness Back/Spine/Pelvis Back: no CVA tenderness Skin General skin exam: elasticity normal and turgor normal Neuro General: patient oriented x3 and gait normal Cranial nerves: Yes Equal, round and reactive pupils present Speech: No Abnormal speech present Sensory Exam: No Sensory deficit (Neuro) Coordination: tandem gait normal and Romberg test negative Extrem General: Yes normal exam except as noted and No edema Assessment and Plan Assessment & Plan (1) Encounter for general adult medical examination with abnormal findings: Code(s): Z00.01 - Encounter for general adult medical examination with abnormal findings (2) Diabetes mellitus type 2 in obese: Code(s): E11.69 - Type 2 diabetes mellitus with other specified complication; E66.9 - Obesity, unspecified (3) Neutropenia: Code(s): D70.9 - Neutropenia, unspecified Qualifiers: Neutropenia type: unspecified Qualified Code(s): D70.9 - Neutropenia, unspecified (4) Cardiomyopathy: Code(s): I42.9 - Cardiomyopathy, unspecified Qualifiers: Cardiomyopathy type: dilated Qualified Code(s): I42.0 - Dilated cardiomyopathy (5) Morbid obesity due to excess calories: Code(s): E66.01 - Morbid (severe) obesity due to excess calories (6) Major depression, recurrent: Code(s): F33.9 - Major depressive disorder, recurrent, unspecified Qualifiers: Active/Remission status: in partial remission Qualified Code(s): F33.41 - Major depressive disorder, recurrent, in partial remission (7) History of implantable cardioverter-defibrillator (ICD) placement: Code(s): Z95.810 - Presence of automatic (implantable) cardiac defibrillator Plan Patient is 28-year-old female with cardiomyopathy and is on heart transplant list came in for physical exam At this time patient is stable. She has no shortness of breath no swelling of ankles Her primary management is through Cardiology office including diabetes I have ordered labs once a year patient comes in for physical exam and I also do the labs. She is going to be starting cosmetology program and is requesting a PT1 form We will assist patient Pap smear is up to date patient sees Dr. Chaidez BMI is elevated at 39.1 patient is trying to lose weight Orders: Orders Complete Blood Count Auto Diff Today D70.9 - Neutropenia, unspecified, E11.69 - Type 2 diabetes mellitus with other specified complication, E66.01 - Morbid (severe) obesity due to excess calories, E66.9 - Obesity, unspecified, F33.9 - Major depressive disorder, recurrent, unspecified, I42.9 - Cardiomyopathy, unspecified, Z00.01 - Encounter for general adult medical examination with abnormal findings, Z95.810 - Presence of automatic (implantable) cardiac defibrillator Comprehensive Met. Panel Today D70.9 - Neutropenia, unspecified, E11.69 - Type 2 diabetes mellitus with other specified complication, E66.01 - Morbid (severe) obesity due to excess calories, E66.9 - Obesity, unspecified, F33.9 - Major depressive disorder, recurrent, unspecified, I42.9 - Cardiomyopathy, unspecified, Z00.01 - Encounter for general adult medical examination with abnormal findings, Z95.810 - Presence of automatic (implantable) cardiac defi brillator LDL Cholesterol Direct Today D70.9 - Neutropenia, unspecified, E11.69 - Type 2 diabetes mellitus with other specified complication, E66.01 - Morbid (severe) obesity due to excess calories, E66.9 - Obesity, unspecified, F33.9 - Major depressive disorder, recurrent, unspecified, I42.9 - Cardiomyopathy, unspecified, Z00.01 - Encounter for general adult medical examination with abnormal findings, Z95.810 - Presence of automatic (implantable) cardiac defibrillator Microalbumin, Random (w Creat) Today D70.9 - Neutropenia, unspecified, E11.69 - Type 2 diabetes mellitus with other specified complication, E66.01 - Morbid (severe) obesity due to excess calories, E66.9 - Obesity, unspecified, F33.9 - Major depressive disorder, recurrent, unspecified, I42.9 - Cardiomyopathy, unspecified, Z00.01 - Encounter for general adult medical examination with abnormal findings, Z95.810 - Presence of automatic (implantable) cardiac defibrillator Hemoglobin A1c Today D70.9 - Neutropenia, unspecified, E11.69 - Type 2 diabetes mellitus with other specified complication, E66.01 - Morbid (severe) obesity due to excess calories, E66.9 - Obesity, unspecified, F33.9 - Major depressive disorder, recurrent, unspecified, I42.9 - Cardiomyopathy, unspecified, Z00.01 - Encounter for general adult medical examination with abnormal findings, Z95.810 - Presence of automatic (implantable) cardiac defibrillator Coding Level of Care Code Est Pt Formerly Named [facility] Care [id number]) Diagnoses Encounter for general adult medical examination with abnormal findings Z00.01 Diabetes mellitus type 2 in obese E11.69; E66.9 Neutropenia, unspecified type D70.9 Neutropenia type: unspecified Dilated cardiomyopathy I42.0 Cardiomyopathy type: dilated Morbid obesity due to excess calories E66.01 Recurrent major depressive disorder, in partial remission F33.41 Active/Remission status: in partial remission History of implantable cardioverter-defibrillator (ICD) placement Z95.810
== END 2023-09-19 15:13 | disposition home or self-care (01) ==
PROVIDERS: Visit Provider Internal Medicine
DX: Z00.00 Encounter for general adult medical examination without abnormal findings (principal); D70.9 Neutropenia, unspecified; E11.69 Type 2 diabetes mellitus with other specified complication; I42.0 Dilated cardiomyopathy; E66.01 Morbid (severe) obesity due to excess calories; F33.41 Major depressive disorder, recurrent, in partial remission; E66.9 Obesity, unspecified; Z95.810 Presence of automatic (implantable) cardiac defibrillator
CPT/HCPCS: 99395

== ENCOUNTER 2023-09-19 14:25 | Outpatient (REF) | payer OTHER, SELFPAY ==
[2023-09-19 16:10] LABS: MANUAL DIFF FLAG NO
[2023-09-19 16:24] LABS: Basophils Absolute Auto 0.1 X10*3/uL (0.0-0.2); Basophils Percent Auto 0.8 % (0-2); Eosinophils Absolute Auto 0.2 X10*3/uL (0.0-0.4); Eosinophils Percent Auto 2.4 % (0-4); Hematocrit 36.8 % (37.0-47.0); Hemoglobin 11.7 g/dl (12.0-16.0); Imm Gran Abs Auto 0.03 X10*3/uL (0.00-0.03); Imm Gran Pct Auto 0.5 % (0.0-0.4); Lymphocytes Absolute Auto 1.2 X10*3/uL (1.2-4.9); Lymphocytes Percent Auto 17.9 % (20-40); Mean Corpuscular HGB Conc 31.8 g/dl (31.0-35.0); Mean Corpuscular Hemoglobin 24.8 pg (27.0-33.0); Mean Corpuscular Volume 78.1 fL (80.0-98.0); Mean Platelet Volume 8.7 fL (9.4-12.3); Monocytes Absolute Auto 0.6 X10*3/uL (0.1-1.2); Monocytes Percent Auto 8.6 % (2-11); Neutrophils Absolute Auto 4.7 x10*3/uL (2.0-8.3); Neutrophils Percent Auto 69.8 % (45-73); Platelet Count 419 X10*3/uL (160-400); Red Blood Count 4.71 X10*6/uL (4.20-5.50); Red Cell Distribution Width 13.2 % (11.0-16.0); White Blood Count 6.7 X10*3/uL (4.8-10.8)
[2023-09-19 16:29] LABS: Estimated Average Glucose 105 mg/dL; Hemoglobin A1c % 5.3 % (<6.0)
[2023-09-19 16:35] LABS: Alanine Aminotransferase 25 U/L (0-31); Alkaline Phosphatase 67 U/L (39-117); Anion Gap 12 (12-20); Aspartate Amino Transferase 19 U/L (5-31); Bilirubin Total 0.3 mg/dL (0.0-1.0); Blood Urea Nitrogen 16 mg/dL (9-16); Calcium 9.7 mg/dL (8.4-10.2); Carbon Dioxide 25 mmol/L (22-29); Chloride 107 mmol/L (96-108); Estimated Glomerular Filt Rate > 60; Glucose Random 102 mg/dL (60-115); Potassium 3.6 mmol/L (3.3-5.1); Sodium 140 mmol/L (135-145); Total Protein 7.9 g/dL (6.5-8.0)
[2023-09-19 17:39] LABS: Creatinine Urine 199.99 mg/dL
[2023-09-20 07:43] LABS: LDL Cholesterol Direct 121 mg/dL (<100)
== END 2023-09-19 14:26 | disposition home or self-care (01) ==
LOC: HO.HMGCLDS 14:25
PROVIDERS: PCP Internal Medicine; Visit Provider Internal Medicine
DX: Z00.01 Encounter for general adult medical examination with abnormal findings (principal); E11.69 Type 2 diabetes mellitus with other specified complication; E66.9 Obesity, unspecified; D70.9 Neutropenia, unspecified; I42.9 Cardiomyopathy, unspecified; E66.01 Morbid (severe) obesity due to excess calories; F33.9 Major depressive disorder, recurrent, unspecified; Z95.810 Presence of automatic (implantable) cardiac defibrillator
CPT/HCPCS: 36415; 80053; 82043; 82570; 83036; 83721; 85025

== ENCOUNTER 2023-10-26 10:00 | Outpatient (AMB) | payer OTHER, SELFPAY ==
[2023-10-26 11:14] VITALS: BP 110/70; PULSE 97; TEMP 36.6; O2SAT 97; BMI 41.5
--- NOTE | 2023-10-26 11:14 | MHC.OFFWIV ---
Intake Vital Signs 10/26/23 11:14 Height 5 ft 8 in Weight 273 lb BMI 41.5 BP 110/70 Blood Pressure Location Lt brachial Position Sitting Pulse 97 Pulse Source Pulse Oximeter Temp 97.8 F Temp Source Temporal Artery Scan Pulse Oximetry (%) 97 Oxygen Delivery Method Room Air Intake Visit Reasons: Est/nausea/ weakness(lobby masked no car) Intake Note: pt is here today for nausea weakness started yesterday Patient Tobacco Use Status: Never used Tobacco Is last menstrual period known: Yes Allergies cyclobenzaprine [From Flexeril] Adverse Reaction (Unknown, Verified 10/26/23 11:19) syncope Do you need a note to return to daycare/school/sports/work: Yes HPI HPI Comments History of Present Illness Details The patient presents to urgent care for evaluation of nausea and vomiting. She reports she had an episode last Monday about a week ago that seemed to self resolve, throughout this past week she has been asymptomatic until last night when she developed vomiting again. She took a dose of Zofran this morning which was helpful. She denies diarrhea. Denies fever chills. She has mild cough but no chest pain/ shortness of breath. [facility] Medical History Nausea Surgical History History of surgery Family History Father Diabetes mellitus Mother No problems noted. Maternal Grandfather No problems noted. Maternal Grandmother No problems noted. Paternal Grandmother Diabetes mellitus Paternal Grandfather No problems noted. Brother No problems noted. Brother No problems noted. Sister No problems noted. Social History Housing: Apartment Alcohol intake: never Patient Tobacco Use Status: Never used Tobacco e-Cigarette/Vaping Use: Never Used Second Hand Smoke Exposure: No Current occupational status: unemployed Cognitive needs: No Hearing needs: No Vision needs: No Physical Exam Vital Signs: Last Vital Signs Temp 97.8 F 10/26/23 11:14 Pulse 97 10/26/23 11:14 BP 110/70 10/26/23 11:14 Pulse Ox 97 10/26/23 11:14 Oxygen Delivery Method Room Air 10/26/23 11:14 BMI result Body Mass Index 41.5 Const General: healthy appearing and no acute distress Orientation/consciousness: patient oriented x3 Eyes Corneas: corneas normal Pupils: Equal, round and reactive pupils present Chest Chest palpation & inspection: no tenderness Resp Effort & Inspection: normal respiratory effort and able to speak in complete sentences Auscultation: clear to auscultation bilaterally GI Palpation (GI): Soft to palpation and Tenderness to palpation present (GI) (Mild diffuse abdominal tenderness no rebound or rigidity) Neuro General: patient oriented x3 Cranial nerves: Yes Equal, round and reactive pupils present Psych Appearance: grossly normal Attitude: cooperative Assessment & Plan Assessment & Plan (1) Vomiting: Code(s): R11.10 - Vomiting, unspecified Plan The patient presents with 2 episodes of vomiting by about a week. Etiology unclear will send patient for outpatient blood work. Well-appearing tolerating clear liquids at this time. She already has Zofran at home we will continue to use if needed. Work note will be given for today. Patient advised to return go to the ER if symptoms change or worsen in any way Orders: Orders Comprehensive Met. Panel Today R10.9 - Unspecified abdominal pain Complete Blood Count Auto Diff Today R53.1 - Weakness Coding Level of Care Code Est Pt Level 3 (23530) Diagnoses Vomiting R11.10
== END 2023-10-26 11:55 | disposition home or self-care (01) ==
PROVIDERS: PCP Internal Medicine; Visit Provider Emergency Medicine
DX: R11.10 Vomiting, unspecified (principal)
CPT/HCPCS: 99213

== ENCOUNTER 2023-10-26 11:50 | Outpatient (REF) | payer OTHER, SELFPAY ==
[2023-10-26 13:16] LABS: MANUAL DIFF FLAG NO
[2023-10-26 13:33] LABS: Basophils Percent Auto 0.4 % (0-2); Eosinophils Absolute Auto 0.1 X10*3/uL (0.0-0.4); Eosinophils Percent Auto 1.2 % (0-4); Hematocrit 38.6 % (37.0-47.0); Imm Gran Abs Auto 0.02 X10*3/uL (0.00-0.03); Imm Gran Pct Auto 0.3 % (0.0-0.4); Lymphocytes Absolute Auto 1.2 X10*3/uL (1.2-4.9); Lymphocytes Percent Auto 16.7 % (20-40); Mean Corpuscular HGB Conc 31.1 g/dl (31.0-35.0); Mean Corpuscular Hemoglobin 24.1 pg (27.0-33.0); Mean Corpuscular Volume 77.7 fL (80.0-98.0); Mean Platelet Volume 8.7 fL (9.4-12.3); Monocytes Absolute Auto 0.5 X10*3/uL (0.1-1.2); Monocytes Percent Auto 7.6 % (2-11); Neutrophils Absolute Auto 5.1 x10*3/uL (2.0-8.3); Neutrophils Percent Auto 73.8 % (45-73); Platelet Count 400 X10*3/uL (160-400); Red Blood Count 4.97 X10*6/uL (4.20-5.50); Red Cell Distribution Width 13.4 % (11.0-16.0); White Blood Count 6.9 X10*3/uL (4.8-10.8)
[2023-10-26 13:58] LABS: Alanine Aminotransferase 25 U/L (0-31); Alkaline Phosphatase 79 U/L (39-117); Anion Gap 12 (12-20); Aspartate Amino Transferase 22 U/L (5-31); Bilirubin Total 0.8 mg/dL (0.0-1.0); Blood Urea Nitrogen 16 mg/dL (9-16); Calcium 9.6 mg/dL (8.4-10.2); Carbon Dioxide 28 mmol/L (22-29); Chloride 104 mmol/L (96-108); Estimated Glomerular Filt Rate > 60; Glucose Random 92 mg/dL (60-115); Potassium 3.6 mmol/L (3.3-5.1); Sodium 140 mmol/L (135-145); Total Protein 8.1 g/dL (6.5-8.0)
== END 2023-10-26 11:51 | disposition home or self-care (01) ==
LOC: HO.HMGCLDS 11:50
PROVIDERS: PCP Internal Medicine; Visit Provider Emergency Medicine
DX: R10.9 Unspecified abdominal pain (principal); R53.1 Weakness
CPT/HCPCS: 36415; 80053; 85025

== ENCOUNTER 2023-11-07 14:15 | Outpatient (AMB) | payer OTHER, SELFPAY ==
[2023-11-07 14:16] VITALS: BP 114/72; PULSE 111; O2SAT 94; BMI 41.7
--- NOTE | 2023-11-07 14:16 | MHC.PC.OV ---
Vital Signs 11/07/23 14:16 Height 5 ft 8 in Weight 274 lb 2 oz BMI 41.7 BP 114/72 Blood Pressure Location Lt brachial Position Sitting Pulse 111 H Pulse Source Pulse Oximeter Pulse Oximetry (%) 94 Oxygen Delivery Method Room Air Intake Visit Reasons: F/u Seizure~ Allergies cyclobenzaprine [From Flexeril] Adverse Reaction (Unknown, Verified 11/07/23 14:16) syncope Medication List - Last Reconciled 11/07/23 by Murray Dumont MD acetaminophen 650 mg PO Q4H PRN blood sugar diagnostic (FreeStyle Lite Strips) Use to check blood sugar daily once a day blood-glucose meter (FreeStyle Lite Meter kit) Use to check blood sugar daily dapagliflozin propanediol (Farxiga) 10 mg PO DAILY heparin lock flush (porcine) 50 units IV QWEEK lancets (FreeStyle Lancets) Use to check blood sugar once a day milrinone 0.25 mcg/kg/min x 115.3 kg via continuous IV infusion; ondansetron 4 mg PO ONCE PRN 90 days pantoprazole 40 mg PO DAILY potassium chloride (Klor-Con) 20 mEq PO TID sodium chloride 0.9 % (flush) (Normal Saline Flush 0.9 % injection syringe) 10 mL IV QWEEK spironolactone 50 mg PO DAILY torsemide 60 mg PO Tobacco use date assessed: 11/07/23 Dental Screening Dental Screen Date: 11/07/23 Did you have a dental visit in the last 12 months?: Yes Did you have a dental problem in the last 6 months where you did not have access to dental care?: No Was dental information given to patient?: Patient has dentist HPI F/u Seizure~ HPI Details Patient is 28-year-old female with a history of congestive heart failure, ejection fraction of 10-15% secondary to nonischemic cardiomyopathy status post ICD, and in on constant Milrinone infusion Patient developed 5 minute of tonic-clonic seizure at home prior to arrival to emergency room on 06 of November She has no seizure history. She did not sustain any injuries as patient was on her bed, there was no tongue bite or urinary incontinence Patient is currently on Trulicity and she did that 2 days before arrival to emergency room Her EKG and lab work was reassuring Patient was discharged home after evaluation with a diagnosis of seizure like activity She has appointment with the neurologist coming up on with [facility] neurology Meanwhile I have sent lorazepam 0.5 mg tablet patient may take 1 at night [facility] Medical History Nausea Surgical History History of surgery Family History Father Diabetes mellitus Mother No problems noted. Maternal Grandfather No problems noted. Maternal Grandmother No problems noted. Paternal Grandmother Diabetes mellitus Paternal Grandfather No problems noted. Brother No problems noted. Brother No problems noted. Sister No problems noted. Social History Housing: Apartment Alcohol intake: never Patient Tobacco Use Status: Never used Tobacco e-Cigarette/Vaping Use: Never Used Second Hand Smoke Exposure: No Current occupational status: unemployed Cognitive needs: No Hearing needs: No Vision needs: No Questionnaire Thrive Questionnaire Date Thrive assessed: 05/09/23 AUDIT C Alcohol Use Questionnaire (AUDIT-C) 1. How often do you have a drink containing alcohol?: Never 3. How often do you have six or more drinks on one occasion?: Never Total Score: 0 Score Reviewed/Action Taken: Yes BHARGAVI-7 AMB Questionnaire BHARGAVI-7 Date BHARGAVI - 7 assessed: 05/09/23 Source: Developed by Drs. Lex Rocha, Marianne Trevino, Eitan Davila and colleagues, with an educational abigail from [employer]. Review of Systems Const Denies chills and Denies fever(s) ENT Denies epistaxis and Denies nasal discharge Card Denies chest pain Resp Denies chest congestion, Denies cough and Denies hemoptysis GI Denies diarrhea and Denies nausea Skin/Breast Denies rash Neuro Reports no additional complaints Psych Reports no additional complaints Endo Reports no additional complaints Physical exam (Primary Care) Vital Signs: Last Vital Signs Pulse 111 H 11/07/23 14:16 BP 114/72 11/07/23 14:16 Pulse Ox 94 11/07/23 14:16 Oxygen Delivery Method Room Air 11/07/23 14:16 BMI result Body Mass Index 41.7 Tobacco/Smoking Status: Tobacco use Status Tobacco use date assessed 11/07/23 11/07/23 14:25 Patient Tobacco Use Status Never used Tobacco 11/07/23 14:16 e-Cigarette/Vaping Use Never Used 11/07/23 14:16 Thrive Assessment: Date of Thrive Assessment Date Thrive assessed 05/09/23 11/07/23 14:16 Const General: cooperative, comfortable and no acute distress Orientation/consciousness: patient oriented x3 HENMT Head: Yes normocephalic Eyes General: appearance normal, both eyes and all related structures Neck Neck: Yes supple Resp Effort & Inspection: normal respiratory effort, no cough and no stridor Cardio Rhythm: regular rhythm Heart sounds: S1 normal heart sound present and S2 normal heart sound present Skin General skin exam: turgor normal Neuro General: patient oriented x3, tone normal and moves all extremities Extrem Right lower extremity: no edema Left lower extremity: no edema Assessment and Plan Assessment & Plan (1) Seizure-like activity: Code(s): R56.9 - Unspecified convulsions (2) Diabetes mellitus type 2 in obese: Code(s): E11.69 - Type 2 diabetes mellitus with other specified complication; E66.9 - Obesity, unspecified (3) Cardiomyopathy: Code(s): I42.9 - Cardiomyopathy, unspecified Qualifiers: Cardiomyopathy type: dilated Qualified Code(s): I42.0 - Dilated cardiomyopathy (4) Congestive heart failure: Code(s): I50.9 - Heart failure, unspecified Plan Patient is 28-year-old female with a history of congestive heart failure, ejection fraction of 10-15% secondary to nonischemic cardiomyopathy status post ICD, and in on constant Milrinone infusion Patient developed 5 minute of tonic-clonic seizure at home prior to arrival to emergency room on 06 of November She has no seizure history. She did not sustain any injuries as patient was on her bed, there was no tongue bite or urinary incontinence Patient is currently on Trulicity and she did that 2 days before arrival to emergency room Her EKG and lab work was reassuring Patient was discharged home after evaluation with a diagnosis of seizure like activity She has appointment with the neurologist coming up on with [facility] neurology Meanwhile I have sent lorazepam 0.5 mg tablet patient may take 1 at night Medications: New lorazepam 0.5 mg PO BEDTIME 14 days PRN 14 tabs 0RF anxiety Coding Level of Care Code Est Pt Level 4 (74944) Diagnoses Seizure-like activity R56.9 Diabetes mellitus type 2 in obese E11.69; E66.9 Dilated cardiomyopathy I42.0 Cardiomyopathy type: dilated Congestive heart failure I50.9
== END 2023-11-07 16:28 | disposition home or self-care (01) ==
PROVIDERS: PCP Internal Medicine; Visit Provider Internal Medicine
DX: E11.69 Type 2 diabetes mellitus with other specified complication (principal); R56.9 Unspecified convulsions; I42.0 Dilated cardiomyopathy; I50.9 Heart failure, unspecified; E66.9 Obesity, unspecified
CPT/HCPCS: 99214

== ENCOUNTER 2023-12-12 12:14 | Outpatient (AMB) | payer OTHER, SELFPAY ==
[2023-12-12 12:22] VITALS: BP 116/72; BMI 41.7
--- NOTE | 2023-12-12 12:22 | MHC.OFFVIS ---
Intake Vital Signs 12/12/23 12:22 Height 5 ft 8 in Weight 274 lb BMI 41.7 BP 116/72 Intake Visit Reasons: emb follow up Regulatory Compliance Director Required: No Allergies cyclobenzaprine [From Flexeril] Adverse Reaction (Unknown, Verified 12/12/23 12:22) syncope Is last menstrual period known: Yes Last menstrual period: 11/16/23 Post menopausal: No HPI HPI Comments History of Present Illness Details Presenting for follow-up post EMB preop The following was done for abnormal uterine H&H 12.1/38.6 TSH, hCG and prepped and not done yet GC/chlamydia negative Endometrial biopsy pathology showed the following: Inactive endometrium; no atypia or hyperplasia identified Pelvic ultrasound showed the following: 'The uterus is of normal size and echogenicity measuring 8.3 x 4.2 x 12.7 cm. The uterus is anteverted. A regular, homogeneous endometriumis identified measuring 0.6 cm. FIBROIDS: There are 5 fibroids seen. 1. Location: Lower leftward body, myometrial. Size: 1.5 x 0.9 x 2.1 cm. Prior: Not seen. Fibroid characteristics: Hypoechoic. 2. Location: Posterior rightward fundus, subserosal. Size: 3.5 x 3.1 x 3.4 cm. Prior: 2.5 x 2.9 x 2.7 cm. Fibroid characteristics: Heterogeneous echotexture. 3. Location: Mid fundus, myometrial. Size: 2.0 x 1.7 x 1.8 cm. Prior: Not seen. Fibroid characteristics: Heterogeneously hyperechoic. 4. Location: Upper anterior rightward body, myometrial. Size: 1.3 x 1.2 x 1.1 cm. Prior: 1.3 x 1.7 x 1.2 cm. Fibroid characteristics: Hypoechoic. 5. Location: Upper rightward body, subserosal. Size: 6.8 x 6.7 x 6.8 cm. Prior: 6.2 x 5.3 x 5.9 cm. Fibroid characteristics: Heterogeneous echotexture. Both ovaries are of normal size and echogenicity. The right ovary measures 3.3 x 2.2 x 2.4 cm for a volume of 9.0 mL. The left ovary measures 3.5 x 2.5 x 1.9 cm for a volume of 9.0 mL. Tiny physiologic follicles are incidentally noted within the bilateral ovaries. There is no pelvic free fluid. No adnexal mass is seen. [facility] Medical History Nausea Surgical History History of surgery Family History Father Diabetes mellitus Mother No problems noted. Maternal Grandfather No problems noted. Maternal Grandmother No problems noted. Paternal Grandmother Diabetes mellitus Paternal Grandfather No problems noted. Brother No problems noted. Brother No problems noted. Sister No problems noted. Social History Housing: Apartment Alcohol intake: never Patient Tobacco Use Status: Never used Tobacco e-Cigarette/Vaping Use: Never Used Second Hand Smoke Exposure: No Current occupational status: unemployed Cognitive needs: No Hearing needs: No Vision needs: No Female Reproductive History Menstrual Date of last menstrual period: 11/16/23 control method: none Date of last pap smear: 12/21/22 (negative) Review of Systems Const All systems reviewed & are unremarkable except as noted in HPI and below Reports as per HPI and Reports no additional complaints GI Reports no additional complaints Reports no additional complaints Physical Exam Vital Signs: Last Vital Signs BP 116/72 12/12/23 12:22 BMI result Body Mass Index 41.7 Assessment & Plan Assessment & Plan (1) Myoma: Code(s): D21.9 - Benign neoplasm of connective and other soft tissue, unspecified Plan: Discussed with the patient the findings on pelvic ultrasound & the risk of myosarcoma; discussed with the patient the options of treatment including expectant management versus hysterectomy; the pros and cons, risks benefits of each approach were discussed with the patient including the fact that in cases of myosarcoma, surgical treatment can lead to early diagnosis and positively affects the prognosis; after further discussion, the patient decided to proceed with expectant management. Will repeat pelvic ultrasound in 6. Instructions given to patient to call in case any of the following occurs: pressure symptoms, abnormal uterine bleeding, pelvic pain; and to schedule a six-month follow-up appointment . All questions answered, the patient verbalized understanding and agreed with the plan . (2) Abnormal uterine bleeding: Comment: Cardiomyopathy Code(s): N93.9 - Abnormal uterine and vaginal bleeding, unspecified Plan: Discussed with the patient the results of the work up done and options of treatment including Mirena IUD, cyclic progesterone. All pros, cons, risks and benefits if each option was discussed with the patient and the patient decided to think about it and get back to us. All questions answered the patient verbalized understanding. Orders: Orders US pelvic and transvaginal 6 Months D21.9 - Benign neoplasm of connective and other soft tissue, unspecified Coding Level of Care Code Est Pt Level 3 (43621) Diagnoses Myoma D21.9 Abnormal uterine bleeding N93.9
== END 2023-12-12 12:41 | disposition home or self-care (01) ==
LOC: HO.HWS 12:15
PROVIDERS: PCP Internal Medicine; Visit Provider Obstetrics & Gynecology
DX: D21.9 Benign neoplasm of connective and other soft tissue, unspecified (principal); N93.9 Abnormal uterine and vaginal bleeding, unspecified
CPT/HCPCS: 99213

== ENCOUNTER → 2023-12-12 12:14 | Outpatient (BNVA) | payer OTHER, SELFPAY | PROVIDERS: PCP Internal Medicine; Visit Provider Obstetrics & Gynecology | DX: D21.9 Benign neoplasm of connective and other soft tissue, unspecified (principal); N93.9 Abnormal uterine and vaginal bleeding, unspecified | CPT/HCPCS: 99212 ==

== ENCOUNTER 2024-01-24 12:52 | Outpatient (AMB) | payer OTHER, SELFPAY ==
--- NOTE | 2024-01-24 12:58 | MHC.PC.OV ---
Vital Signs 01/24/24 12:59 Height 5 ft 8 in Weight 264 lb BMI 40.1 BP 108/80 Blood Pressure Location Rt brachial Position Sitting Pulse 114 H Pulse Source Pulse Oximeter Pulse Oximetry (%) 97 Oxygen Delivery Method Room Air Intake Visit Reasons: [facility] Follow up Allergies cyclobenzaprine [From Flexeril] Adverse Reaction (Unknown, Verified 01/24/24 13:00) syncope Medication List - Last Reconciled 01/24/24 by Murray Dumont MD acetaminophen 650 mg PO Q4H PRN blood sugar diagnostic (FreeStyle Lite Strips) Use to check blood sugar daily once a day blood-glucose meter (FreeStyle Lite Meter kit) Use to check blood sugar daily dapagliflozin propanediol (Farxiga) 10 mg PO DAILY heparin lock flush (porcine) 50 units IV QWEEK lancets (FreeStyle Lancets) Use to check blood sugar once a day milrinone 0.25 mcg/kg/min x 115.3 kg via continuous IV infusion; ondansetron 4 mg PO ONCE PRN 90 days pantoprazole 40 mg PO DAILY potassium chloride (Klor-Con) 20 mEq PO TID sodium chloride 0.9 % (flush) (Normal Saline Flush 0.9 % injection syringe) 10 mL IV QWEEK spironolactone 50 mg PO DAILY torsemide 60 mg PO Tobacco use date assessed: 01/24/24 Dental Screening Dental Screen Date: 01/24/24 Did you have a dental visit in the last 12 months?: Yes Did you have a dental problem in the last 6 months where you did not have access to dental care?: Yes Was dental information given to patient?: Patient has dentist HPI [facility] Follow up HPI Details Patient is 29-year-old female came in after having a visit to emergency room [facility] dated 01/10/2024 Patient have a history of severe cardiomyopathy She presented with a chief complaint of nausea and vomiting since morning of visit. There were no fever chills no headache no sore throat no urinary complaints She have recurrent emergency room visit and admissions secondary to congestive heart failure Her ejection fraction is around 15% with severe mitral regurgitation On examination she had mild left upper quadrant discomfort EKG showed rate of 57 normal sinus rhythm Chest x-ray showed cardiomegaly and thoracic scoliosis and small left pleural effusion which was unchanged from November of 2022 Her UA showed signs of infection with positive leuk esterase Her BNP was 488 She was started on Macrodantin And was discharged with a script of 14 tablets of Zofran and 10 tablets of nitrofurantoin Patient is feeling much better We will be repeating urine again today [facility] Medical History Nausea Surgical History History of surgery Family History Father Diabetes mellitus Mother No problems noted. Maternal Grandfather No problems noted. Maternal Grandmother No problems noted. Paternal Grandmother Diabetes mellitus Paternal Grandfather No problems noted. Brother No problems noted. Brother No problems noted. Sister No problems noted. Social History Housing: Apartment Alcohol intake: never Patient Tobacco Use Status: Never used Tobacco e-Cigarette/Vaping Use: Never Used Second Hand Smoke Exposure: No Current occupational status: unemployed Cognitive needs: No Hearing needs: No Vision needs: No Questionnaire PHQ-9 Over the last 2 weeks, how often have you been bothered by any of the following problems? 1. Little interest or pleasure in doing things: not at all 2. Feeling down, depressed, or hopeless: not at all 3. Trouble falling or staying asleep, or sleeping too much: not at all 4. Feeling tired or having little energy: not at all 5. Poor appetite or overeating: not at all 6. Feeling bad about yourself - or that you are a failure or have let yourself or your family down: not at all 7. Trouble concentrating on things, such as reading the newspaper or watching television: not at all 8. Moving or speaking so slowly that other people could have noticed. Or the opposite - being so fidgety or restless that you have been moving around a lot more than usual: not at all 9. Thoughts that you would be better off or of hurting yourself in some way: not at all Total score: 0 Depression Screening Interpretation: Negative Depression Screening Done: Yes 62282 - PHQ-9 Billing: Yes Source: Developed by Drs. Lex Rocha, Marianne Trevino, Eitan Davila and colleagues, with an educational abigail from [employer]. Thrive Questionnaire Date Thrive assessed: 01/24/24 I am a: Patient What is your living situation today?: I have a steady place to live Within the past 12 months, did the food you bought not last and you didn't have the money to get more?: Never true Within the past 12 months, did you worry whether your food would run out before you got money to buy more?: Never true Do you have trouble paying for medicines?: No Do you have trouble getting transportation to medical appointments?: No Do you have trouble paying your heating and electricity bill?: No Do you have trouble taking care of your child, family member or friend?: No Do you have trouble with day-to-day activities such as bathing, preparing meals, shopping, managing finances, etc.?: No Are you currently unemployed and looking for a job?: No Are you interested in more education?: No THRIVE Score: 0 AUDIT C Alcohol Use Questionnaire (AUDIT-C) 1. How often do you have a drink containing alcohol?: Never Total Score: 0 BHARGAVI-7 AMB Questionnaire BHARGAVI-7 Date BHARGAVI - 7 assessed: 01/24/24 Feeling nervous, anxious, or on edge: 0 = Not at all Not being able to stop or control worryin = Not at all Worrying too much about different things: 0 = Not at all Trouble relaxin = Not at all Being so restless that it is hard to sit still: 0 = Not at all Becoming easily annoyed or irritable: 0 = Not at all Feeling afraid as if something awful might happen: 0 = Not at all Total BHARGAVI-7 score (0-4 normal; 5-9 mild; 10-14 moderate; 15-21 severe): 0 Source: Developed by Drs. Lex Rocha, Marianne Trevino, Eitan Davila and colleagues, with an educational abigail from [employer]. Review of Systems Const Denies chills and Denies fever(s) ENT Denies epistaxis and Denies nasal discharge Card Denies chest pain Resp Denies chest congestion, Denies cough and Denies hemoptysis GI Denies diarrhea and Denies nausea Skin/Breast Denies rash Neuro Reports no additional complaints Psych Reports no additional complaints Endo Reports no additional complaints Physical exam (Primary Care) Vital Signs: Last Vital Signs Pulse 114 H 01/24/24 12:59 BP 108/80 01/24/24 12:59 Pulse Ox 97 01/24/24 12:59 Oxygen Delivery Method Room Air 01/24/24 12:59 BMI result Body Mass Index 40.1 Tobacco/Smoking Status: Tobacco use Status Tobacco use date assessed 01/24/24 01/24/24 13:01 Patient Tobacco Use Status Never used Tobacco 01/24/24 13:01 e-Cigarette/Vaping Use Never Used 01/24/24 13:01 PHQ-9: PHQ-9 Score PHQ-9: Total score 0 01/24/24 13:09 Depression Screening Interpretation: Negative Thrive Assessment: Date of Thrive Assessment Date Thrive assessed 01/24/24 01/24/24 13:04 Const General: cooperative, comfortable and no acute distress Orientation/consciousness: patient oriented x3 HENMT Head: Yes normocephalic Eyes General: appearance normal, both eyes and all related structures Neck Neck: Yes supple Resp Effort & Inspection: normal respiratory effort, no cough and no stridor Cardio Other: Murmur present Rhythm: regular rhythm Skin General skin exam: turgor normal Neuro General: patient oriented x3, tone normal and moves all extremities Extrem Right lower extremity: no edema Left lower extremity: no edema Assessment and Plan Assessment & Plan (1) Urinary tract infection: Code(s): N39.0 - Urinary tract infection, site not specified Qualifiers: Hematuria presence: without hematuria Urinary tract infection type: acute cystitis Qualified Code(s): N30.00 - Acute cystitis without hematuria (2) Nausea and vomiting: Code(s): R11.2 - Nausea with vomiting, unspecified Qualifiers: Vomiting type: unspecified Qualified Code(s): R11.2 - Nausea with vomiting, unspecified (3) Ejection fraction < 50%: Code(s): R94.30 - Abnormal result of cardiovascular function study, unspecified (4) Diabetes 1.5, managed as type 2: Code(s): E13.9 - Other specified diabetes mellitus without complications Plan Patient is 29-year-old female came in after having a visit to emergency room [facility] dated 01/10/2024 Patient have a history of severe cardiomyopathy She presented with a chief complaint of nausea and vomiting since morning of visit. There were no fever chills no headache no sore throat no urinary complaints She have recurrent emergency room visit and admissions secondary to congestive heart failure Her ejection fraction is around 15% with severe mitral regurgitation On examination she had mild left upper quadrant discomfort EKG showed rate of 57 normal sinus rhythm Chest x-ray showed cardiomegaly and thoracic scoliosis and small left pleural effusion which was unchanged from November of 2022 Her UA showed signs of infection with positive leuk esterase Her BNP was 488 She was started on Macrodantin And was discharged with a script of 14 tablets of Zofran and 10 tablets of nitrofurantoin Patient is feeling much better We will be repeating urine again today Orders: Orders UA CC w/rflx Micro + Cult Today N30.00 - Acute cystitis without hematuria Coding Level of Care Code Est Pt Level 3 (44430) Diagnoses Acute cystitis without hematuria N30.00 Hematuria presence: without hematuria Urinary tract infection type: acute cystitis Nausea and vomiting, unspecified vomiting type R11.2 Vomiting type: unspecified Ejection fraction < 50% R94.30 Diabetes 1.5, managed as type 2 E13.9
[2024-01-24 12:59] VITALS: BP 108/80; PULSE 114; O2SAT 97; BMI 40.1
== END 2024-01-24 13:36 | disposition home or self-care (01) ==
PROVIDERS: PCP Internal Medicine; Visit Provider Internal Medicine
DX: N30.00 Acute cystitis without hematuria (principal); E13.9 Other specified diabetes mellitus without complications; R11.2 Nausea with vomiting, unspecified; R94.30 Abnormal result of cardiovascular function study, unspecified
CPT/HCPCS: 99213

== ENCOUNTER 2024-03-08 08:51 | Outpatient (AMB) | payer OTHER, SELFPAY ==
[2024-03-08 08:58] VITALS: BP 110/80; PULSE 110; TEMP 36.3; O2SAT 97; BMI 40.3
--- NOTE | 2024-03-08 08:58 | MHC.OFFWIV ---
Intake Vital Signs 03/08/24 08:58 Height 5 ft 8 in Weight 265 lb BMI 40.3 BP 110/80 Blood Pressure Location Lt brachial Position Sitting Pulse 110 H Pulse Source Pulse Oximeter Temp 97.4 F Temp Source Temporal Artery Scan Pulse Oximetry (%) 97 Oxygen Delivery Method Room Air Intake Visit Reasons: Est/ top right foot pain (lobby) Intake Note: pt is here today for top rt foot pain started monday Patient Tobacco Use Status: Never used Tobacco Allergies cyclobenzaprine [From Flexeril] Adverse Reaction (Unknown, Verified 03/08/24 09:01) syncope Do you need a note to return to daycare/school/sports/work: No HPI HPI Comments History of Present Illness Details R foot pain on top of it Ongoing x a few days Tried soaking it without relief. Also tried elevated No trauma or injury Initially thought it was due to increase fluids in legs due to hx of CHF but she said pain only located in foot From ankle to toes No similar symptoms in past She said legs edema is stable and unchanged. No SOB or CP No redness or rashes No numbness or tingling Worse with walking PFSH Medical History Nausea Surgical History History of surgery Family History Father Diabetes mellitus Mother No problems noted. Maternal Grandfather No problems noted. Maternal Grandmother No problems noted. Paternal Grandmother Diabetes mellitus Paternal Grandfather No problems noted. Brother No problems noted. Brother No problems noted. Sister No problems noted. Social History Housing: Apartment Alcohol intake: never Patient Tobacco Use Status: Never used Tobacco e-Cigarette/Vaping Use: Never Used Second Hand Smoke Exposure: No Current occupational status: unemployed Cognitive needs: No Hearing needs: No Vision needs: No Review of Systems Const Denies chills and Denies fever(s) Card Denies chest pain, Denies pedal edema (no change from baseline), Reports leg edema (chronic and unchanged) and Denies dyspnea Resp Denies chest congestion and Denies dyspnea Musc Reports arthralgias (R foot), Denies numbness, Denies stiffness and Denies tingling Skin/Breast Denies lesions, Denies erythema, Denies rash and Denies sores Neuro Denies numbness and Denies tingling Physical Exam Vital Signs: Last Vital Signs Temp 97.4 F 03/08/24 08:58 Pulse 110 H 03/08/24 08:58 BP 110/80 03/08/24 08:58 Pulse Ox 97 03/08/24 08:58 Oxygen Delivery Method Room Air 03/08/24 08:58 BMI result Body Mass Index 40.3 General: Non-toxic, NAD. Speaking full sentences. Skin: Warm dry throughout. Feet and lower legs bilaterally are symmetrical without skin break down. erythema, rashes, lesions, wounds, discharge Eye: EOMI Respiratory: No respiratoyr distress or stridor Cardiac: No calf tenderness. DP pulse 2+ and equal in strength and timing. MSK: Full ROM dorsal and plantar flexion or R foot at ankle. Tenderness to palpation dorsal aspect R foot extending to MTP joints. No tenderness to palpation digits R foot. No medial or lateral malleoli tenderness to palpation RLE. Neurology: A/O. No aphasia or facial droop. Gait without abnormality Psych: Good mood and affect Assessment & Plan Assessment & Plan (1) Foot pain: Code(s): M79.673 - Pain in unspecified foot Qualifiers: Laterality: right Qualified Code(s): M79.671 - Pain in right foot Plan: Discussed with pt we will obtain xray to look for calcifications No erythema or signs of infection Appears consistent with tendonitis R foot XRay reviewed by myself as normal. No large calcifications or fx/dislocation BELIA badage applied We discussed role of BELIA and not to have too tight or leave on; only to wear when up and ambulating Ice, rest, elevate F/U with PCP Discussed warning signs and symptoms that warrant ED evaluation Pt provided verbal understanding and had no additional questions at time of discharge Orders: Orders XR foot RT min 3V Today M79.673 - Pain in unspecified foot Coding Level of Care Code Est Pt Level 3 (86658) Diagnoses Right foot pain M79.671 Laterality: right
== END 2024-03-08 12:41 | disposition home or self-care (01) ==
PROVIDERS: PCP Internal Medicine; Visit Provider Physician Assistant
DX: M79.671 Pain in right foot (principal)
CPT/HCPCS: 99213

== ENCOUNTER 2024-03-08 09:13 | Outpatient (REF) | payer OTHER, SELFPAY ==
--- NOTE | ~2024-03-08 | XR_ITS ---
EXAMINATION: XR FOOT, RIGHT CLINICAL INFORMATION: Right foot pain. COMPARISON: None available. TECHNIQUE: AP, lateral, and oblique views of the right foot. FINDINGS: Alignment is anatomic. Joint spaces are maintained. No displaced fracture or dislocation. Minimal Achilles enthesopathy. Mild dorsal soft tissue swelling. XR/XR foot RT min 3V IMPRESSION: No acute bony abnormality.
== END 2024-03-08 09:14 | disposition home or self-care (01) ==
LOC: HO.HMGCX 09:13
PROVIDERS: PCP Internal Medicine; Visit Provider Physician Assistant
DX: M79.671 Pain in right foot (principal)
CPT/HCPCS: 73630

== ENCOUNTER 2024-03-27 11:47 | Outpatient (AMB) | payer OTHER, SELFPAY ==
--- NOTE | 2024-03-27 12:13 | A.OFFPC_ITS ---
Vital Signs 03/27/24 12:14 Height 5 ft 8 in Weight 271 lb BMI 41.2 BP 126/80 Blood Pressure Location Rt brachial Position Sitting Pulse 102 H Pulse Source Pulse Oximeter Pulse Oximetry (%) 98 Oxygen Delivery Method Room Air Intake Visit Reasons: ER follow up Allergies cyclobenzaprine [From Flexeril] Adverse Reaction (Unknown, Verified 03/27/24 12:14) syncope Medication List - Last Reconciled 03/27/24 by Murray Dumont MD acetaminophen 650 mg PO Q4H PRN blood sugar diagnostic (FreeStyle Lite Strips) Use to check blood sugar daily once a day blood-glucose meter (FreeStyle Lite Meter kit) Use to check blood sugar daily dapagliflozin propanediol (Farxiga) 10 mg PO DAILY heparin lock flush (porcine) 50 units IV QWEEK lancets (FreeStyle Lancets) Use to check blood sugar once a day milrinone 0.25 mcg/kg/min x 115.3 kg via continuous IV infusion; ondansetron 4 mg PO ONCE PRN 90 days pantoprazole 40 mg PO DAILY potassium chloride (Klor-Con) 20 mEq PO TID sertraline 100 mg PO DAILY sodium chloride 0.9 % (flush) (Normal Saline Flush 0.9 % injection syringe) 10 mL IV QWEEK spironolactone 50 mg PO DAILY torsemide 60 mg PO trazodone 50 mg PO BEDTIME Tobacco use date assessed: 01/24/24 Dental Screening Dental Screen Date: 01/24/24 HPI ER follow up HPI Details Patient is 29-year-old female came in today to be evaluated for neck pain Patient says that it was worse yesterday she went to emergency room, where EKG and labs were done and then she was discharged Patient says that x-ray of neck was not done, she was given a medication in the emergency room And was told that they will send a script but nobody sent anything She is feeling slightly better today , she would like to have x-ray of her neck done which I have ordered for her I have also sent cyclobenzaprine 5 mg to be taken at night as needed until feeling better. PFSH Medical History Nausea Surgical History History of surgery Family History Father Diabetes mellitus Mother No problems noted. Maternal Grandfather No problems noted. Maternal Grandmother No problems noted. Paternal Grandmother Diabetes mellitus Paternal Grandfather No problems noted. Brother No problems noted. Brother No problems noted. Sister No problems noted. Social History Housing: Apartment Alcohol intake: never Patient Tobacco Use Status: Never used Tobacco e-Cigarette/Vaping Use: Never Used Second Hand Smoke Exposure: No Current occupational status: unemployed Cognitive needs: No Hearing needs: No Vision needs: No Questionnaire Thrive Questionnaire Date Thrive assessed: 01/24/24 BHARGAVI-7 AMB Questionnaire BHARGAVI-7 Date BHARGAVI - 7 assessed: 01/24/24 Source: Developed by Drs. Lex Rocha, Marianne Trevino, Eitan Davila and colleagues, with an educational abigail from [email or web address]. Review of Systems Const Denies chills and Denies fever(s) ENT Denies epistaxis and Denies nasal discharge Card Denies chest pain Resp Denies chest congestion, Denies cough and Denies hemoptysis GI Denies diarrhea and Denies nausea Skin/Breast Denies rash Neuro Reports no additional complaints Psych Reports no additional complaints Endo Reports no additional complaints Physical exam (Primary Care) Vital Signs: Last Vital Signs Pulse 102 H 03/27/24 12:14 BP 126/80 03/27/24 12:14 Pulse Ox 98 03/27/24 12:14 Oxygen Delivery Method Room Air 03/27/24 12:14 BMI result Body Mass Index 41.2 Tobacco/Smoking Status: Tobacco use Status Tobacco use date assessed 01/24/24 03/27/24 12:14 Patient Tobacco Use Status Never used Tobacco 03/27/24 12:14 e-Cigarette/Vaping Use Never Used 03/27/24 12:14 Thrive Assessment: Date of Thrive Assessment Date Thrive assessed 01/24/24 03/27/24 12:14 Const General: cooperative, comfortable and no acute distress Orientation/consciousness: patient oriented x3 HENMT Head: Yes normocephalic Eyes General: appearance normal, both eyes and all related structures Neck Other: Discomfort with movement left side cervical head of trapezius muscle, range of motion is intact with slight discomfort Resp Effort & Inspection: normal respiratory effort, no cough and no stridor Cardio Rhythm: regular rhythm Heart sounds: S1 normal heart sound present and S2 normal heart sound present Skin General skin exam: turgor normal Neuro General: patient oriented x3, tone normal and moves all extremities Extrem Right lower extremity: no edema Left lower extremity: no edema Assessment and Plan Assessment & Plan (1) Neck pain: Code(s): M54.2 - Cervicalgia Plan Patient is 29-year-old female came in today to be evaluated for neck pain Patient says that it was worse yesterday she went to emergency room, where EKG and labs were done and then she was discharged Patient says that x-ray of neck was not done, she was given a medication in the emergency room And was told that they will send a script but nobody sent anything She is feeling slightly better today , she would like to have x-ray of her neck done which I have ordered for her I have also sent cyclobenzaprine 5 mg to be taken at night as needed until feeling better. Orders: Orders XR cervical spine 2V Today M54.2 - Cervicalgia Medications: New cyclobenzaprine 5 mg PO BEDTIME 30 days 30 tabs 0RF Muscle spasms M54.9 - Dorsalgia, unspecified Coding Level of Care Code Est Pt Level 3 (89640) Diagnoses Neck pain M54.2
[2024-03-27 12:14] VITALS: BP 126/80; PULSE 102; O2SAT 98; BMI 41.2
== END 2024-03-27 12:40 | disposition home or self-care (01) ==
PROVIDERS: PCP Internal Medicine; Visit Provider Internal Medicine
DX: M54.2 Cervicalgia (principal)
CPT/HCPCS: 99213

== ENCOUNTER 2024-03-27 12:32 | Outpatient (REF) | payer OTHER, SELFPAY ==
--- NOTE | ~2024-03-27 | XR_ITS ---
EXAMINATION: XR CERVICAL SPINE CLINICAL INFORMATION: Neck pain COMPARISON: Thoracic spine of 07/13/2021. TECHNIQUE: 4 views of the cervical spine FINDINGS: Slight reversal of the normal cervical lordosis. Right central line tip projects towards the SVC. Mild spondylosis in the lower cervical spine with mild loss of disc space height at C5-C6 and C6-C7. Minimal anterolisthesis of C4 on C5 and C5 on C6. Epiglottis and aryepiglottic region appears prominent and somewhat difficult to assess due to overlying soft tissues. Correlation with clinical exam is recommended to determine further management including possible additional dedicated imaging. XR/XR cervical spine 2V IMPRESSION: 1. Mild spondylosis in the lower cervical spine. 2. Epiglottis and aryepiglottic region appears prominent and somewhat difficult to assess due to overlying soft tissues. Correlation with clinical exam is recommended to determine further management including possible additional dedicated imaging.
== END 2024-03-27 12:33 | disposition home or self-care (01) ==
LOC: HO.HMGCX 12:32
PROVIDERS: PCP Internal Medicine; Visit Provider Internal Medicine
DX: M54.2 Cervicalgia (principal)
CPT/HCPCS: 72040

== ENCOUNTER 2024-04-18 08:18 | Outpatient (AMB) | payer OTHER, SELFPAY ==
--- NOTE | 2024-04-18 08:35 | A.OFFPC_ITS ---
Intake Visit Reasons: Discuss X-Ray results~ [phone] Allergies cyclobenzaprine [From Flexeril] Adverse Reaction (Unknown, Verified 04/18/24 08:37) syncope Medication List - Last Reconciled 04/18/24 by Murray Dumont MD acetaminophen 650 mg PO Q4H PRN blood sugar diagnostic (FreeStyle Lite Strips) Use to check blood sugar daily once a day blood-glucose meter (FreeStyle Lite Meter kit) Use to check blood sugar daily dapagliflozin propanediol (Farxiga) 10 mg PO DAILY heparin lock flush (porcine) 50 units IV QWEEK lancets (FreeStyle Lancets) Use to check blood sugar once a day milrinone 0.25 mcg/kg/min x 115.3 kg via continuous IV infusion; ondansetron 4 mg PO ONCE PRN 90 days pantoprazole 40 mg PO DAILY potassium chloride (Klor-Con) 20 mEq PO TID sertraline 100 mg PO DAILY sodium chloride 0.9 % (flush) (Normal Saline Flush 0.9 % injection syringe) 10 mL IV QWEEK spironolactone 50 mg PO DAILY torsemide 60 mg PO trazodone 50 mg PO BEDTIME Tobacco use date assessed: 04/18/24 Dental Screening Dental Screen Date: 04/18/24 Did you have a dental visit in the last 12 months?: Yes Did you have a dental problem in the last 6 months where you did not have access to dental care?: No Was dental information given to patient?: Patient has dentist HPI Discuss X-Ray results~ [phone] HPI Details TV visit for neck pain X ray cervical spine showed cervical spondylisis she states flexeril has relieved her neck pain she is unclear finding of prominent epiglottis on xray i offered ENT apt to patient she states she will get back to me on that she always had difficulty swallowing large tablets since she was young she is able to swallow food and no difficulty talking PFSH Medical History Nausea Surgical History History of surgery Family History Father Diabetes mellitus Mother No problems noted. Maternal Grandfather No problems noted. Maternal Grandmother No problems noted. Paternal Grandmother Diabetes mellitus Paternal Grandfather No problems noted. Brother No problems noted. Brother No problems noted. Sister No problems noted. Social History Housing: Apartment Alcohol intake: never Patient Tobacco Use Status: Never used Tobacco e-Cigarette/Vaping Use: Never Used Second Hand Smoke Exposure: No Current occupational status: unemployed Cognitive needs: No Hearing needs: No Vision needs: No Questionnaire Thrive Questionnaire Date Thrive assessed: 01/24/24 AUDIT C Alcohol Use Questionnaire (AUDIT-C) 1. How often do you have a drink containing alcohol?: Never 3. How often do you have six or more drinks on one occasion?: Never Total Score: 0 Score Reviewed/Action Taken: Yes BHARGAVI-7 AMB Questionnaire BHARGAVI-7 Date BHARGAVI - 7 assessed: 01/24/24 Source: Developed by Drs. Lex Rocha, Marianne Trevino, Eitan Davila and colleagues, with an educational abigail from [employer]. Review of Systems Const Denies chills and Denies fever(s) ENT Denies epistaxis and Denies nasal discharge Card Denies chest pain Resp Denies chest congestion, Denies cough and Denies hemoptysis GI Denies diarrhea and Denies nausea Skin/Breast Denies rash Neuro Reports no additional complaints Psych Reports no additional complaints Endo Reports no additional complaints Physical exam (Primary Care) Tobacco/Smoking Status: Tobacco use Status Tobacco use date assessed 04/18/24 04/18/24 08:37 Patient Tobacco Use Status Never used Tobacco 04/18/24 08:37 e-Cigarette/Vaping Use Never Used 04/18/24 08:37 Thrive Assessment: Date of Thrive Assessment Date Thrive assessed 01/24/24 04/18/24 08:37 Telehealth Telehealth Telehealth Platform: [facility] Location of provider rendering services: practice address Location of patient: address on file Patient Identification confirmed using: Name, : Yes Telehealth method: voice only Patient verbally consented to treatment: Yes Patient verbally consented to billing insurance company: Yes Patient informed of any privacy concerns related to visit: Yes Minutes spent on Phone/Video with Pt.: 14 Assessment and Plan Assessment & Plan (1) Neck pain: Code(s): M54.2 - Cervicalgia Plan TV visit for neck pain X ray cervical spine showed cervical spondylisis she states flexeril has relieved her neck pain she is unclear finding of prominent epiglottis on xray i offered ENT apt to patient she states she will get back to me on that she always had difficulty swallowing large tablets since she was young she is able to swallow food and no difficulty talking Coding Level of Care Code Tele Est Pt Level 3 (53046) Diagnoses Neck pain M54.2
== END 2024-04-18 10:40 | disposition home or self-care (01) ==
LOC: HO.HMGC 08:18
PROVIDERS: PCP Internal Medicine; Visit Provider Internal Medicine
DX: M54.2 Cervicalgia (principal)
CPT/HCPCS: 99213

== ENCOUNTER 2024-06-28 11:34 | Outpatient (AMB) | payer OTHER, SELFPAY ==
[2024-06-28 11:41] VITALS: PULSE 121; O2SAT 96; BMI 39.6
--- NOTE | 2024-06-28 11:41 | MHC.PC.OV ---
Vital Signs 06/28/24 11:41 Height 5 ft 8 in Weight 260 lb 6 oz BMI 39.6 Pulse 121 H Pulse Source Pulse Oximeter Pulse Oximetry (%) 96 Oxygen Delivery Method Room Air Comment Pt has lvad, unable to do BP Intake Visit Reasons: Hospital follow up Allergies cyclobenzaprine [From Flexeril] Adverse Reaction (Unknown, Verified 06/28/24 11:41) syncope Medication List - Last Reconciled 06/28/24 by Murray Dumont MD acetaminophen 650 mg PO Q4H PRN blood sugar diagnostic (FreeStyle Lite Strips) Use to check blood sugar daily once a day blood-glucose meter (FreeStyle Lite Meter kit) Use to check blood sugar daily dapagliflozin propanediol (Farxiga) 10 mg PO DAILY heparin lock flush (porcine) 50 units IV QWEEK lancets (FreeStyle Lancets) Use to check blood sugar once a day lisinopril 2.5 mg PO DAILY milrinone 0.25 mcg/kg/min x 115.3 kg via continuous IV infusion; ondansetron 4 mg PO ONCE PRN 90 days pantoprazole 40 mg PO DAILY potassium chloride (Klor-Con) 20 mEq PO TID sertraline 100 mg PO DAILY sodium chloride 0.9 % (flush) (Normal Saline Flush 0.9 % injection syringe) 10 mL IV QWEEK spironolactone 50 mg PO DAILY torsemide 60 mg PO trazodone 50 mg PO BEDTIME warfarin mg PO warfarin mg PO Tobacco use date assessed: 06/28/24 Dental Screening Dental Screen Date: 06/28/24 Did you have a dental visit in the last 12 months?: Yes Did you have a dental problem in the last 6 months where you did not have access to dental care?: No Was dental information given to patient?: Patient has dentist [facility] Hospital follow up HPI Details Patient is 29-year-old female came in today for hospital discharge follow-up She presented to [facility] on 05/13/2024 with a chief complaint of unable to move her bowels and some abdominal discomfort Patient have nonischemic cardiomyopathy, right-sided heart failure and is on diuretics, she has [id number] mitral regurgitation She also noticed increased shortness a breath for the past 2 days before arrival. Her workup did not show any urine infection Hemoglobin was 10.6 hematocrit 34.7 white count 8.6 potassium 3.5 Chest x-ray showed pulmonary vascular prominence bilateral concerning for fluid overload Ultrasound legs showed no DVT Patient was admitted with a diagnosis of abdominal pain, constipation Worsening edema, congestive heart failure From [facility] patient was transferred to [facility] on May 15 Where she remained until discharge on 06/12/2024 Patient had left ventricular assisted device placed Which has helped her a lot, she is feeling more energy She is now on Coumadin Her last INR was 3.2 this past Monday her Coumadin of 12.5 was reduced to 10 She will be taking 10 mg today as Coumadin was on hold She was supposed to have INR order in the lab through the [facility] provider but it is not there I have ordered the INR for the patient She has scoliosis and continued to have back pain, Tylenol helps somewhat but not enough She said Lidoderm patches did not help her I have sent Percocet tablets patient may take 1 or half as needed. She is aware that while taking the Percocet she is not supposed to work with machines Patient does not drive. [facility] Medical History Nausea Surgical History History of surgery Family History Father Diabetes mellitus Mother No problems noted. Maternal Grandfather No problems noted. Maternal Grandmother No problems noted. Paternal Grandmother Diabetes mellitus Paternal Grandfather No problems noted. Brother No problems noted. Brother No problems noted. Sister No problems noted. Social History Housing: Apartment Alcohol intake: never Patient Tobacco Use Status: Never used Tobacco e-Cigarette/Vaping Use: Never Used Second Hand Smoke Exposure: No Current occupational status: unemployed Cognitive needs: No Hearing needs: No Vision needs: No Questionnaire PHQ-9 Over the last 2 weeks, how often have you been bothered by any of the following problems? 1. Little interest or pleasure in doing things: more than half the days 2. Feeling down, depressed, or hopeless: nearly every day 3. Trouble falling or staying asleep, or sleeping too much: several days 4. Feeling tired or having little energy: several days 5. Poor appetite or overeating: not at all 6. Feeling bad about yourself - or that you are a failure or have let yourself or your family down: nearly every day 7. Trouble concentrating on things, such as reading the newspaper or watching television: nearly every day 8. Moving or speaking so slowly that other people could have noticed. Or the opposite - being so fidgety or restless that you have been moving around a lot more than usual: not at all 9. Thoughts that you would be better off or of hurting yourself in some way: several days Total score: 14 Depression Screening Interpretation: Positive Depression Screening Follow-up: Existing condition and In treatment Depression Screening Done: Yes 96402 - PHQ-9 Billing: Yes Source: Developed by Drs. Lex Rocha, Marianne Trevino, Eitan Davila and colleagues, with an educational abigail from [employer]. Thrive Questionnaire Date Thrive assessed: 06/28/24 I am a: Patient What is your living situation today?: I have a steady place to live Within the past 12 months, did the food you bought not last and you didn't have the money to get more?: Often true Within the past 12 months, did you worry whether your food would run out before you got money to buy more?: Often true Do you have trouble paying for medicines?: Yes Do you have trouble getting transportation to medical appointments?: No Do you have trouble paying your heating and electricity bill?: No Do you have trouble taking care of your child, family member or friend?: No Do you have trouble with day-to-day activities such as bathing, preparing meals, shopping, managing finances, etc.?: No Are you interested in more education?: No Please select the resources that you would like help with: Food, Paying for medicine and Daily support Currently or been in a relationship where the following occur: No concerns reported THRIVE Score: 2 AUDIT C Alcohol Use Questionnaire (AUDIT-C) 1. How often do you have a drink containing alcohol?: Monthly or less 2. How many drinks containing alcohol do you have on a typical day when you are drinking?: 1 or 2 3. How often do you have six or more drinks on one occasion?: Never Total Score: 1 Score Reviewed/Action Taken: Yes BHARGAVI-7 AMB Questionnaire BHARGAVI-7 Date BHARGAVI - 7 assessed: 06/28/24 Feeling nervous, anxious, or on edge: 3 = Nearly every day Not being able to stop or control worryin = Nearly every day Worrying too much about different things: 3 = Nearly every day Trouble relaxin = Nearly every day Being so restless that it is hard to sit still: 3 = Nearly every day Becoming easily annoyed or irritable: 3 = Nearly every day Feeling afraid as if something awful might happen: 2 = More than half the days Total BHARGAVI-7 score (0-4 normal; 5-9 mild; 10-14 moderate; 15-21 severe): 20 Source: Developed by Drs. Lex Rocha, Marianne Trevino, Eitan Davila and colleagues, with an educational abigail from [employer]. BHARGAVI-7 Assessment Billing BHARGAVI-7 Assessment Tool: BHARGAVI-7 Assessment 60825 Review of Systems Const Denies chills and Denies fever(s) ENT Denies epistaxis and Denies nasal discharge Card Denies chest pain Resp Denies chest congestion, Denies cough and Denies hemoptysis GI Denies diarrhea and Denies nausea Skin/Breast Denies rash Neuro Reports no additional complaints Psych Reports no additional complaints Endo Reports no additional complaints Physical exam (Primary Care) Vital Signs: Last Vital Signs Pulse 121 H 06/28/24 11:41 Pulse Ox 96 06/28/24 11:41 Oxygen Delivery Method Room Air 06/28/24 11:41 BMI result Body Mass Index 39.6 Tobacco/Smoking Status: Tobacco use Status Tobacco use date assessed 06/28/24 06/28/24 11:41 Patient Tobacco Use Status Never used Tobacco 06/28/24 11:41 e-Cigarette/Vaping Use Never Used 06/28/24 11:41 PHQ-9: PHQ-9 Score PHQ-9: Total score 14 06/28/24 12:28 Depression Screening Interpretation: Positive Depression Screening Follow-up: Existing condition and In treatment Thrive Assessment: Date of Thrive Assessment Date Thrive assessed 06/28/24 06/28/24 11:41 Currently or been in a relationship where the following occur: No concerns reported Const General: cooperative, comfortable and no acute distress Orientation/consciousness: patient oriented x3 [facility] Head: Yes normocephalic Eyes General: appearance normal, both eyes and all related structures Neck Neck: Yes supple Resp Effort & Inspection: normal respiratory effort, no cough and no stridor Cardio Other: Buzzing sound from assistive device heard Rhythm: regular rhythm Heart sounds: S1 normal heart sound present and S2 normal heart sound present Skin General skin exam: turgor normal Neuro General: patient oriented x3, tone normal and moves all extremities Extrem Other: Minimal edema both ankles Assessment and Plan Assessment & Plan (1) Hospital discharge follow-up: Code(s): Z09 - Encounter for follow-up examination after completed treatment for conditions other than malignant neoplasm (2) Left ventricular assist device present: Code(s): Z95.811 - Presence of heart assist device (3) Cardiomyopathy: Code(s): I42.9 - Cardiomyopathy, unspecified Qualifiers: Cardiomyopathy type: dilated Qualified Code(s): I42.0 - Dilated cardiomyopathy (4) Ejection fraction < 50%: Code(s): R94.30 - Abnormal result of cardiovascular function study, unspecified (5) Levoscoliosis of lumbar spine: Code(s): M41.86 - Other forms of scoliosis, lumbar region (6) Lumbar pain: Code(s): M54.5 - Low back pain (7) Anticoagulated on Coumadin: Code(s): Z79.01 - nursing home (current) use of anticoagulants Plan Patient is 29-year-old female came in today for hospital discharge follow-up She presented to [facility] on 05/13/2024 with a chief complaint of unable to move her bowels and some abdominal discomfort Patient have nonischemic cardiomyopathy, right-sided heart failure and is on diuretics, she has baesmuuo-ac-glaeds mitral regurgitation She also noticed increased shortness a breath for the past 2 days before arrival. Her workup did not show any urine infection Hemoglobin was 10.6 hematocrit 34.7 white count 8.6 potassium 3.5 Chest x-ray showed pulmonary vascular prominence bilateral concerning for fluid overload Ultrasound legs showed no DVT Patient was admitted with a diagnosis of abdominal pain, constipation Worsening edema, congestive heart failure From [facility] patient was transferred to [facility] on May 15 Where she remained until discharge on 06/12/2024 Patient had left ventricular assisted device placed Which has helped her a lot, she is feeling more energy She is now on Coumadin Her last INR was 3.2 this past Monday her Coumadin of 12.5 was reduced to 10 She will be taking 10 mg today as Coumadin was on hold She was supposed to have INR order in the lab through the [facility] provider but it is not there I have ordered the INR for the patient She has scoliosis and continued to have back pain, Tylenol helps somewhat but not enough She said Lidoderm patches did not help her I have sent Percocet tablets patient may take 1 or half as needed. She is aware that while taking the Percocet she is not supposed to work with machines Patient does not drive. 45 minutes spent in care of this patient gathering information and obpz-uw-raov, coordination care Orders: Orders Prothrombin Time INR Today Z79.01 - nursing home (current) use of anticoagulants Medications: New oxycodone-acetaminophen 5-325 mg (Percocet) Partial Fill upon patient request. 1 tab PO Q8H PRN 21 tabs 0RF pain 7 days Coding Level of Care Code Est Pt Level 5 (64163) Diagnoses Hospital discharge follow-up Z09 Left ventricular assist device present Z95.811 Dilated cardiomyopathy I42.0 Cardiomyopathy type: dilated Ejection fraction < 50% R94.30 Levoscoliosis of lumbar spine M41.86 Lumbar pain M54.5 Anticoagulated on Coumadin Z79.01 Additional Codes BHARGAVI-7 Assessment Billing - BHARGAVI-7 Assessment Tool: BHARGAVI-7 Assessment 61897 ([id number])
== END 2024-06-28 13:05 | disposition home or self-care (01) ==
PROVIDERS: PCP Internal Medicine; Visit Provider Internal Medicine
DX: I42.0 Dilated cardiomyopathy (principal); Z95.811 Presence of heart assist device; Z09 Encounter for follow-up examination after completed treatment for conditions other than malignant neoplasm; R94.30 Abnormal result of cardiovascular function study, unspecified; M41.86 Other forms of scoliosis, lumbar region; M54.50 Low back pain, unspecified; Z79.01 Long term (current) use of anticoagulants

== ENCOUNTER → 2024-06-28 11:34 | Outpatient (BNVA) | payer OTHER, SELFPAY | PROVIDERS: PCP Internal Medicine; Visit Provider Internal Medicine ==

== ENCOUNTER 2024-06-28 12:12 | Outpatient (REF) | payer OTHER, SELFPAY ==
[2024-06-28 13:39] LABS: Hematocrit 30.2 % (37.0-47.0); Hemoglobin 9.2 g/dl (12.0-16.0); INTERNATIONAL NORM RATIO 2.4 (0.9-1.1); Mean Corpuscular HGB Conc 30.5 g/dl (31.0-35.0); Mean Corpuscular Hemoglobin 23.8 pg (27.0-33.0); Mean Corpuscular Volume 78.2 fL (80.0-98.0); Mean Platelet Volume 8.5 fL (9.4-12.3); Platelet Count 363 X10*3/uL (160-400); Prothrombin Time 27.9 SEC (10.9-12.4); Red Blood Count 3.86 X10*6/uL (4.20-5.50); Red Cell Distribution Width 15.5 % (11.0-16.0); White Blood Count 4.9 X10*3/uL (4.8-10.8)
[2024-06-28 14:23] LABS: Alanine Aminotransferase 20 U/L (0-31); Albumin Level 3.5 g/dL (3.5-5.0); Alkaline Phosphatase 92 U/L (39-117); Anion Gap 10 (12-20); Aspartate Amino Transferase 17 U/L (5-31); Bilirubin Total 0.3 mg/dL (0.0-1.0); Blood Urea Nitrogen 13 mg/dL (9-16); Calcium 9.6 mg/dL (8.4-10.2); Carbon Dioxide 31 mmol/L (22-29); Chloride 103 mmol/L (96-108); Estimated Glomerular Filt Rate > 60; Glucose Random 86 mg/dL (60-115); Lactate Dehydrogenase 241 U/L (122-220); Magnesium 2.1 mg/dL (1.6-2.6); Phosphorus 3.4 mg/dL (2.7-4.5); Potassium 3.4 mmol/L (3.3-5.1); Sodium 141 mmol/L (135-145); Total Protein 7.9 g/dL (6.5-8.0)
== END 2024-06-28 12:13 | disposition home or self-care (01) ==
LOC: HO.HMGCLDS 12:12
PROVIDERS: PCP Internal Medicine; Visit Provider Internal Medicine
DX: Z09 Encounter for follow-up examination after completed treatment for conditions other than malignant neoplasm (principal); I42.0 Dilated cardiomyopathy; R94.30 Abnormal result of cardiovascular function study, unspecified; M41.86 Other forms of scoliosis, lumbar region; M54.50 Low back pain, unspecified; Z79.01 Long term (current) use of anticoagulants; Z95.811 Presence of heart assist device
CPT/HCPCS: 36415; 80053; 83615; 83735; 84100; 85027; 85610; 96127; 99212

== ENCOUNTER 2024-07-01 13:53 | Outpatient (REF) | payer OTHER, SELFPAY ==
--- NOTE | ~2024-07-01 | US_ITS ---
EXAMINATION: US PELVIS CLINICAL INFORMATION: Uterine fibroids. COMPARISON: Ultrasound of the pelvis 08/28/2023, 04/13/2023. TECHNIQUE: Ultrasound of the pelvis is performed using both transabdominal and transvaginal transducers along with Doppler. Transvaginal imaging is performed due to inadequate visualization transabdominally. FINDINGS: UTERUS: The uterus is anteverted and enlarged measuring 9.4 x 4.5 x 13.0 cm for a volume of 286 mL. Four fibroids are seen with sizes as follows: Lower uterine segment 1.9 x 1.0 x 2.2 cm (previously 1.5 x 0.9 x 2.1 cm). Midline at the fundus 1.5 x 1.3 x 1.7 cm (previously 2.0 x 1.7 x 1.8 cm). Right side of the fundus 3.5 x 3.1 x 3.4 cm (previously 3.5 x 3.1 x 3.4 cm). Left side of the fundus: 7.6 x 7.6 x 8.0 cm (previously 6.8 x 6.7 x 6.8 cm). The double wall endometrial thickness is 10 mm. ADNEXA: Both ovaries are visualized. There is normal color flow to the adnexa. There is no ovarian torsion. There is no pelvic ascites or fluid collection. Right ovary measures 4.2 x 3.0 x 3.5 cm for a volume of 33 mL, which includes a complex probable corpus luteal cyst measuring 2.1 cm. Left ovary measures 3.4 x 2.4 x 1.6 cm for a volume of 6.7 mL. US/US pelvic and transvaginal IMPRESSION: Enlarged fibroid uterus. Electronically signed by: Napoleon Encarnacion MD 08/12/2024 12:33 AM [facility]
== END 2024-07-01 13:54 | disposition home or self-care (01) ==
LOC: HO.HMGCX 13:53
PROVIDERS: PCP Internal Medicine; Visit Provider Obstetrics & Gynecology
DX: D21.9 Benign neoplasm of connective and other soft tissue, unspecified (principal)
CPT/HCPCS: 76830; 76856

== ENCOUNTER 2024-08-14 10:27 | Outpatient (AMB) | payer OTHER, SELFPAY ==
[2024-08-14 10:37] VITALS: BP 128/88; PULSE 121; O2SAT 97; BMI 40.3
--- NOTE | 2024-08-14 10:37 | A.OFFPC_ITS ---
Vital Signs 08/14/24 10:37 Height 5 ft 8 in Weight 265 lb 6 oz BMI 40.3 BP 128/88 Blood Pressure Location Rt brachial Position Sitting Pulse 121 H Pulse Source Pulse Oximeter Pulse Oximetry (%) 97 Oxygen Delivery Method Room Air Intake Visit Reasons: EP- LT side rib pain, cardiology told to come in Allergies cyclobenzaprine [From Flexeril] Adverse Reaction (Unknown, Verified 08/14/24 10:40) syncope Medication List - Last Reconciled 08/14/24 by Murray Dumont MD acetaminophen 650 mg PO Q4H PRN blood sugar diagnostic (FreeStyle Lite Strips) Use to check blood sugar daily once a day blood-glucose meter (FreeStyle Lite Meter kit) Use to check blood sugar daily dapagliflozin propanediol (Farxiga) 10 mg PO DAILY heparin lock flush (porcine) 50 units IV QWEEK lancets (FreeStyle Lancets) Use to check blood sugar once a day lisinopril 2.5 mg PO DAILY milrinone 0.25 mcg/kg/min x 115.3 kg via continuous IV infusion; ondansetron 4 mg PO ONCE PRN 90 days oxycodone-acetaminophen 5-325 mg (Percocet) 1 tab PO Q8H PRN 7 days pantoprazole 40 mg PO DAILY potassium chloride (Klor-Con) 20 mEq PO TID sertraline 100 mg PO DAILY sodium chloride 0.9 % (flush) (Normal Saline Flush 0.9 % injection syringe) 10 mL IV QWEEK spironolactone 50 mg PO DAILY torsemide 60 mg PO trazodone 50 mg PO BEDTIME warfarin mg PO warfarin mg PO Tobacco use date assessed: 08/14/24 Dental Screening Dental Screen Date: 08/14/24 Did you have a dental visit in the last 12 months?: Yes Did you have a dental problem in the last 6 months where you did not have access to dental care?: No Was dental information given to patient?: Patient has dentist HPI EP- LT side rib pain, cardiology told to come in HPI Details Patient is 29-year-old female with severe cardiomyopathy Have LVAD [left ventricular assisted device] inserted left side chest Has been having noncardiac chest pain since that Patient called verification engineer who has sent her here for pain management She has already tried gabapentin and Lidoderm patches which did not help She has tried 1 Percocet in the past which does help but does not take the pain away Patient is having difficulty sleeping at night and can not find a comfortable position She is diabetic as well, her hemoglobin A1c is 5.3 I have sent Percocet tablets she may take 2 at night, 60 tablets sent Patient is aware of side effect [facility] Medical History Nausea Surgical History History of surgery Family History Father Diabetes mellitus Mother No problems noted. Maternal Grandfather No problems noted. Maternal Grandmother No problems noted. Paternal Grandmother Diabetes mellitus Paternal Grandfather No problems noted. Brother No problems noted. Brother No problems noted. Sister No problems noted. Social History Housing: Apartment Alcohol intake: never Patient Tobacco Use Status: Never used Tobacco e-Cigarette/Vaping Use: Never Used Second Hand Smoke Exposure: No Current occupational status: unemployed Cognitive needs: No Hearing needs: No Vision needs: No Questionnaire Thrive Questionnaire Date Thrive assessed: 06/28/24 BHARGAVI-7 AMB Questionnaire BHARGAVI-7 Date BHARGAVI - 7 assessed: 06/28/24 Source: Developed by Drs. Lex Rocha, Marianne Trevino, Eitan Davila and colleagues, with an educational abigail from [employer]. Review of Systems Const Denies chills and Denies fever(s) ENT Denies epistaxis and Denies nasal discharge Resp Denies chest congestion, Denies cough and Denies hemoptysis GI Denies diarrhea and Denies nausea Skin/Breast Denies rash Neuro Reports no additional complaints Psych Reports no additional complaints Endo Reports no additional complaints Physical exam (Primary Care) Vital Signs: Last Vital Signs Pulse 121 H 08/14/24 10:37 BP 128/88 08/14/24 10:37 Pulse Ox 97 08/14/24 10:37 Oxygen Delivery Method Room Air 08/14/24 10:37 BMI result Body Mass Index 40.3 Tobacco/Smoking Status: Tobacco use Status Tobacco use date assessed 08/14/24 08/14/24 10:41 Patient Tobacco Use Status Never used Tobacco 08/14/24 10:38 e-Cigarette/Vaping Use Never Used 08/14/24 10:38 Thrive Assessment: Date of Thrive Assessment Date Thrive assessed 06/28/24 08/14/24 10:38 Const General: cooperative, comfortable and no acute distress Orientation/consciousness: patient oriented x3 [facility] Head: Yes normocephalic Eyes General: appearance normal, both eyes and all related structures Neck Neck: Yes supple Chest Other: Left-sided ribs tender to palpation, no skin changes, LVAD device in Resp Effort & Inspection: normal respiratory effort, no cough and no stridor Cardio Heart sounds: S1 normal heart sound present and S2 normal heart sound present Skin General skin exam: turgor normal Neuro General: patient oriented x3, tone normal and moves all extremities Extrem Right lower extremity: no edema Left lower extremity: no edema Coding Level of Care Code Est Pt Level 4 (41178) Diagnoses Non-cardiac chest pain R07.89 Pain management R52 Left ventricular assist device present Z95.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, managed as type 2 E13.9 Assessment & Plan Assessment & Plan (1) Non-cardiac chest pain: Code(s): R07.89 - Other chest pain Category: Medical (2) Pain management: Code(s): R52 - Pain, unspecified Category: Medical (3) Left ventricular assist device present: Code(s): Z95.811 - Presence of heart assist device Category: Medical (4) Diabetes 1.5, managed as type 2: Code(s): 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 - Other specified diabetes mellitus without complications Category: Medical Plan Patient is 29-year-old female with severe cardiomyopathy Have LVAD [left ventricular assisted device] inserted left side chest Has been having noncardiac chest pain since that Patient called verification engineer who has sent her here for pain management She has already tried gabapentin and Lidoderm patches which did not help She has tried 1 Percocet in the past which does help but does not take the pain away Patient is having difficulty sleeping at night and can not find a comfortable position She is diabetic as well, her hemoglobin A1c is 5.3 I have sent Percocet tablets she may take 2 at night, 60 tablets sent Patient is aware of side effect Medications: Changed From oxycodone-acetaminophen 5-325 mg (Percocet) Partial Fill upon patient request. 1 tab PO Q8H 7 days PRN 21 tabs 0RF pain To oxycodone-acetaminophen 5-325 mg (Percocet) Partial Fill upon patient request. 2 tabs PO .qhs PRN 60 tabs 0RF pain 30 days
== END 2024-08-14 11:38 | disposition home or self-care (01) ==
PROVIDERS: PCP Internal Medicine; Visit Provider Internal Medicine
DX: R07.89 Other chest pain (principal); E13.9 Other specified diabetes mellitus without complications; Z95.811 Presence of heart assist device

== ENCOUNTER → 2024-08-14 10:27 | Outpatient (BNVA) | payer OTHER, SELFPAY | PROVIDERS: PCP Internal Medicine; Visit Provider Internal Medicine | DX: R07.89 Other chest pain (principal); E13.9 Other specified diabetes mellitus without complications; Z95.811 Presence of heart assist device | CPT/HCPCS: 99212 ==

== ENCOUNTER 2024-09-24 14:35 | Outpatient (AMB) | payer OTHER, SELFPAY ==
[2024-09-24 14:41] VITALS: BP 126/84; PULSE 64; O2SAT 98; BMI 40.4
--- NOTE | 2024-09-24 14:41 | A.OFFPC_ITS ---
Vital Signs 09/24/24 14:41 Height 5 ft 8 in Weight 266 lb BMI 40.4 BP 126/84 Blood Pressure Location Rt brachial Position Sitting Pulse 64 Pulse Source Pulse Oximeter Pulse Oximetry (%) 98 Oxygen Delivery Method Room Air Intake Visit Reasons: Annual PE- NEEDS A1C Allergies cyclobenzaprine [From Flexeril] Adverse Reaction (Unknown, Verified 09/24/24 14:45) syncope Medication List - Last Reconciled 09/24/24 by Murray Dumont MD acetaminophen 650 mg PO Q4H PRN blood sugar diagnostic (FreeStyle Lite Strips) Use to check blood sugar daily once a day blood-glucose meter (FreeStyle Lite Meter kit) Use to check blood sugar daily dapagliflozin propanediol (Farxiga) 10 mg PO DAILY heparin lock flush (porcine) 50 units IV QWEEK lancets (FreeStyle Lancets) Check blood sugar once a day lisinopril 2.5 mg PO DAILY milrinone 0.25 mcg/kg/min x 115.3 kg via continuous IV infusion; ondansetron 4 mg PO ONCE PRN 90 days oxycodone-acetaminophen 5-325 mg (Percocet) 2 tabs PO .qhs PRN 30 days pantoprazole 40 mg PO DAILY potassium chloride (Klor-Con) 20 mEq PO TID sertraline 100 mg PO DAILY sodium chloride 0.9 % (flush) (Normal Saline Flush 0.9 % injection syringe) 10 mL IV QWEEK spironolactone 50 mg PO DAILY torsemide 60 mg PO trazodone 50 mg PO BEDTIME warfarin mg PO warfarin mg PO Tobacco use date assessed: 09/24/24 Dental Screening Dental Screen Date: 09/24/24 Did you have a dental visit in the last 12 months?: Yes Did you have a dental problem in the last 6 months where you did not have access to dental care?: No Was dental information given to patient?: Patient has dentist HPI Annual PE- NEEDS A1C HPI Details Patient is 29-year-old female came in for a physical exam Patient is moving to [place] end of this month permanently due to loss her housing She has a history of cardiomyopathy and have history of implantable cardioverter defibrillator Patient is on heart transplant list She is diabetic, we did hemoglobin A1c today which is stable All her medications are through Cardiology office She offer no complaints today [facility] Medical History Nausea Surgical History History of surgery Family History Father Diabetes mellitus Mother No problems noted. Maternal Grandfather No problems noted. Maternal Grandmother No problems noted. Paternal Grandmother Diabetes mellitus Paternal Grandfather No problems noted. Brother No problems noted. Brother No problems noted. Sister No problems noted. Social History Housing: Apartment Alcohol intake: never Patient Tobacco Use Status: Never used Tobacco e-Cigarette/Vaping Use: Never Used Second Hand Smoke Exposure: No Current occupational status: unemployed Cognitive needs: No Hearing needs: No Vision needs: No Questionnaire Thrive Questionnaire Date Thrive assessed: 06/28/24 I am a: Patient What is your living situation today?: I have a steady place to live Within the past 12 months, did the food you bought not last and you didn't have the money to get more?: Often true Within the past 12 months, did you worry whether your food would run out before you got money to buy more?: Often true Do you have trouble paying for medicines?: Yes Do you have trouble getting transportation to medical appointments?: No Do you have trouble paying your heating and electricity bill?: No Do you have trouble taking care of your child, family member or friend?: No Do you have trouble with day-to-day activities such as bathing, preparing meals, shopping, managing finances, etc.?: No Are you currently unemployed and looking for a job?: No Are you interested in more education?: No Currently or been in a relationship where the following occur: No concerns reported THRIVE Score: 2 AUDIT C Alcohol Use Questionnaire (AUDIT-C) 1. How often do you have a drink containing alcohol?: Monthly or less 2. How many drinks containing alcohol do you have on a typical day when you are drinking?: 1 or 2 3. How often do you have six or more drinks on one occasion?: Never Total Score: 1 Score Reviewed/Action Taken: Yes BHARGAVI-7 AMB Questionnaire BHARGAVI-7 Date BHARGAVI - 7 assessed: 06/28/24 Source: Developed by Drs. Lex Rocha, Marianne Trevino, Eitan Davila and colleagues, with an educational abigail from [employer]. Review of Systems Const Denies chills, Denies fever(s) and Denies headache(s) Eyes Denies blurry vision ENT Denies headache(s), Denies nasal discharge, Denies nasal obstruction, Denies odynophagia and Denies sinus pain Card Denies chest pain at rest and Denies chest pain with activity Resp Denies cough and Denies hemoptysis GI Denies diarrhea, Denies odynophagia, Denies vomiting and Denies hematemesis Reports as per HPI Musc Denies abnormal gait Skin/Breast Reports as per HPI Neuro Denies Neuro-related abnormal movements, Denies Abnormal speech present, Denies abnormal gait, Denies headache(s) and Denies Sensory deficit (Neuro) Psych Denies mood swings and Denies paranoia Endo Reports as per HPI Tony/Lymph Reports as per HPI Aller/Immun Reports as per HPI Physical exam (Primary Care) Vital Signs: Last Vital Signs Pulse 64 09/24/24 14:41 BP 126/84 09/24/24 14:41 Pulse Ox 98 09/24/24 14:41 Oxygen Delivery Method Room Air 09/24/24 14:41 BMI result Body Mass Index 40.4 Tobacco/Smoking Status: Tobacco use Status Tobacco use date assessed 09/24/24 09/24/24 14:45 Patient Tobacco Use Status Never used Tobacco 09/24/24 14:42 e-Cigarette/Vaping Use Never Used 09/24/24 14:42 Thrive Assessment: Date of Thrive Assessment Date Thrive assessed 06/28/24 09/24/24 14:42 Currently or been in a relationship where the following occur: No concerns reported Const General: cooperative, comfortable and no acute distress Orientation/consciousness: patient oriented x3 HENMT Head: Yes normocephalic and Yes atraumatic Eyes General: appearance normal, both eyes and all related structures Pupils: Equal, round and reactive pupils present EOM: EOMs intact bilaterally Neck Neck: Yes supple and No lymphadenopathy Thyroid: Thyroid normal Lymphatic: no lymphadenopathy noted Resp Effort & Inspection: normal respiratory effort and able to speak in complete sentences Auscultation: clear to auscultation bilaterally Cardio Heart sounds: S1 normal heart sound present and S2 normal heart sound present GI Palpation (GI): Soft to palpation and nontender Auscultation: normal bowel sounds General: Yes no CVA tenderness Back/Spine/Pelvis Back: no CVA tenderness Skin General skin exam: elasticity normal and turgor normal Neuro General: patient oriented x3 and gait normal Cranial nerves: Yes Equal, round and reactive pupils present Speech: No Abnormal speech present Sensory Exam: No Sensory deficit (Neuro) Coordination: Romberg test negative Extrem General: Yes normal exam except as noted and No edema Coding Level of Care Code Est Pt Prev Care 18-39y(82697) Diagnoses Encounter for general adult medical examination without abnormal findings Z00.00 Diabetes mellitus type 2 in obese E11.69; E66.9 Assessment & Plan Assessment & Plan (1) Encounter for general adult medical examination without abnormal findings: Code(s): Z00.00 - Encounter for general adult medical examination without abnormal findings Category: Medical (2) Diabetes mellitus type 2 in obese: Code(s): E11.69 - Type 2 diabetes mellitus with other specified complication; E66.9 - Obesity, unspecified Category: Medical Plan Patient is 29-year-old female came in for a physical exam Patient is moving to [place] end of this month permanently due to loss her housing She has a history of cardiomyopathy and have history of implantable cardioverter defibrillator Patient is on heart transplant list She is diabetic, we did hemoglobin A1c today which is stable at 5.2 All her medications are through Cardiology office She offer no complaints today Medications: Discontinued oxycodone-acetaminophen 5-325 mg (Percocet) Partial Fill upon patient request. Discontinued Reason: Doctor's Order 2 tabs PO .qhs 30 days PRN 60 tabs 0RF pain
== END 2024-09-24 15:28 | disposition home or self-care (01) ==
PROVIDERS: PCP Internal Medicine; Visit Provider Internal Medicine
DX: Z00.00 Encounter for general adult medical examination without abnormal findings (principal); E11.69 Type 2 diabetes mellitus with other specified complication; E66.9 Obesity, unspecified; Z68.41 Body mass index [BMI] 40.0-44.9, adult

== ENCOUNTER → 2024-09-24 14:35 | Outpatient (BNVA) | payer OTHER, SELFPAY | PROVIDERS: PCP Internal Medicine; Visit Provider Internal Medicine | DX: Z00.00 Encounter for general adult medical examination without abnormal findings (principal); E11.69 Type 2 diabetes mellitus with other specified complication; E66.9 Obesity, unspecified; Z68.41 Body mass index [BMI] 40.0-44.9, adult | CPT/HCPCS: 83036; 99395 ==

== ENCOUNTER 2024-10-21 08:37 | Outpatient (AMB) | payer OTHER, SELFPAY ==
--- NOTE | 2024-10-21 08:37 | A.OFFVIS_ITS ---
Intake Visit Reasons: u/s results Allergies cyclobenzaprine [From Flexeril] Adverse Reaction (Unknown, Verified 09/24/24 14:45) syncope HPI Comments Details: The patient scheduled an ultrasound follow-up appointment to discuss the results which showed the following: The uterus is anteverted and enlarged measuring 9.4 x 4.5 x 13.0 cm for a volume of 286 mL. Four fibroids are seen with sizes as follows: Lower uterine segment 1.9 x 1.0 x 2.2 cm (previously 1.5 x 0.9 x 2.1 cm). Midline at the fundus 1.5 x 1.3 x 1.7 cm (previously 2.0 x 1.7 x 1.8 cm). Right side of the fundus 3.5 x 3.1 x 3.4 cm (previously 3.5 x 3.1 x 3.4 cm). Left side of the fundus: 7.6 x 7.6 x 8.0 cm (previously 6.8 x 6.7 x 6.8 cm). The double wall endometrial thickness is 10 mm. ADNEXA: Both ovaries are visualized. There is normal color flow to the adnexa. There is no ovarian torsion. There is no pelvic ascites or fluid collection. Right ovary measures 4.2 x 3.0 x 3.5 cm for a volume of 33 mL, which includes a complex probable corpus luteal cyst measuring 2.1 cm. Left ovary measures 3.4 x 2.4 x 1.6 cm for a volume of 6.7 mL. The patient moved permanently to [place] and is in the process of looking for a new OBGYN. [facility] Medical History Nausea Surgical History History of surgery Family History Father Diabetes mellitus Mother No problems noted. Maternal Grandfather No problems noted. Maternal Grandmother No problems noted. Paternal Grandmother Diabetes mellitus Paternal Grandfather No problems noted. Brother No problems noted. Brother No problems noted. Sister No problems noted. Social History Housing: Apartment Alcohol intake: never Patient Tobacco Use Status: Never used Tobacco e-Cigarette/Vaping Use: Never Used Second Hand Smoke Exposure: No Current occupational status: unemployed Cognitive needs: No Hearing needs: No Vision needs: No Review of Systems Const All systems reviewed & are unremarkable except as noted in HPI and below Reports as per HPI and Reports no additional complaints GI Reports no additional complaints Reports no additional complaints Telehealth Telehealth Telehealth Platform: Telephone Location of provider rendering services: practice address Location of patient: address on file Patient Identification confirmed using: Name, : Yes Telehealth method: video Patient verbally consented to treatment: Yes Patient verbally consented to billing insurance company: Yes Patient informed of any privacy concerns related to visit: Yes Assessment & Plan Assessment & Plan (1) Uterine myoma: Comment: incresing in size Code(s): D25.9 - Leiomyoma of uterus, unspecified Category: Medical Plan: Discussed with the patient the results of the ultrasound and the size of the myomas. Discussed with the patient risk of myosarcoma and symptoms that are caused by myomas including but not limited to pelvic pain, pressure symptoms, abnormal uterine bleeding. In addition discussed with the patient options of treatment for myomas including: Serial ultrasounds periodically to follow-up on the size of the myoma while targeting the treatment against fibroids related symptoms (Mirena IUD, GnRH agonist/antagonist, uterine artery embolization or endometrial ablation) versus surgical treatment including hysterectomy and or myomectomy. All pros and cons, risks and benefits of all options were discussed with the patient. In addition, recommended the patient pelvic MRI to assess the risk of myosarcoma although not highly accurate and endometrial sampling to rule out endometrial pathology including endometrial hyperplasia and malignancy. Recommended the patient to schedule an appointment with a local OBGYN for further management. All questions answered, the patient verbalized understanding and agreed with the plan. I spent a total of 20 minutes reviewing the chart, talking to the patient via video and documenting in the medical record. Coding Level of Care Code Est Pt Level 3 (30454) Diagnoses Uterine myoma D25.9
== END 2024-10-21 09:12 | disposition home or self-care (01) ==
LOC: HO.HWS 08:37
PROVIDERS: PCP Internal Medicine; Visit Provider Obstetrics & Gynecology
DX: D25.9 Leiomyoma of uterus, unspecified (principal)
CPT/HCPCS: 99213

== ENCOUNTER → 2024-10-21 08:37 | Outpatient (BNVA) | payer OTHER, SELFPAY | PROVIDERS: PCP Internal Medicine; Visit Provider Obstetrics & Gynecology | DX: D25.9 Leiomyoma of uterus, unspecified (principal) | CPT/HCPCS: 99212 ==

== ENCOUNTER 2025-05-20 14:52 | Outpatient (REF) | payer MEDICARE, MEDICAID, SELFPAY ==
[2025-05-20 18:37] LABS: CT PCR NOT DETECTED (Not Detect.); NG PCR NOT DETECTED (Not Detect.)
== END 2025-05-20 14:53 | disposition home or self-care (01) ==
LOC: HO.LNP 14:52
PROVIDERS: PCP Internal Medicine; Visit Provider Obstetrics & Gynecology
DX: N93.9 Abnormal uterine and vaginal bleeding, unspecified (principal); I42.9 Cardiomyopathy, unspecified; R10.2 Pelvic and perineal pain; Z32.02 Encounter for pregnancy test, result negative
CPT/HCPCS: 81025; 87491; 87591; 99212

== ENCOUNTER 2025-05-20 14:52 | Outpatient (AMB) | payer MEDICARE, MEDICAID, SELFPAY ==
--- OUTSIDE RECORDS SUMMARY | 2025-04-14 04:15 | XMS_ITS ---
Author Organization [facility], [facility] Address [address] [place] [address] Care Team Providers Care Log Carrier Operator Name Role Phone Herbert Sinha Primary Care Provider [phone] Andrew Muñoz Unavailable [phone] Eyad Gordon Unavailable REASON FOR VISIT PER DR Encounters Encounter Location Date Provider Diagnosis [address] [place] [address] 04/14/2025 Eyad Franks Plan Of Treatment No Information Progress Notes * BELKYS GLOVERDOB:1995 ( 30 yo F)Acc No.[id number]:04/14/2025 Progress Notes Patient: Frandy WALTERS BELKYS Appointment Provider: EMIR Coronel :1995 A ge:30 Y S ex:Female Date:04/14/2025 Address:[address] [place], [place] [id number] Pcp:Herbert Sinha Subjective: * Chief Complaints: * 1 . PER DRJeniffer * Medical History: Objective: * Vitals: Assessment: Plan: * Treatment: * Images: Care Plan Details* * Electronic signature of Eyad Franks APRN on 05/20/2025 at 03:45 PM EDT Sign off status: Pending * Appointment Provider: EMIR Coronel Date: 04/14/2025 Generated for Printi ng/Faxing/eTransmitting on: 05/20/2025 03:45 PM EDT
--- NOTE | 2025-05-20 15:00 | A.OFFVIS_ITS ---
Intake Visit Reasons: AUB/ pelvic pain Intake Note: Patient concerned of mid pelvic pain and right sided ovary pain, a couple of months. Heavier menses, last 2 months more painful some days can't get out of bed. 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 History Present (ALVARO Ho ) Accompanied by: Self / Same As Patient Allergies cyclobenzaprine (From Flexeril) Adverse Reaction (Unknown, Verified 09/24/24 14:45) syncope Is last menstrual period known: Yes Last menstrual period: 05/10/25 Post menopausal: No Patient : No HPI Comments Details: Presenting complaining of few months' history of irregular heavy menstrual cycles associated with passage of blood clots in pelvic cramping. The patient moved to [place] was not able to see an OBGYN and just moved back permanently to the area. Last co testing in 02/28 was negative Last pelvic ultrasound in 08/01 showed multiple myomas [facility] Medical History (Updated 05/20/25 @ 15:32 by Daren Chaidez MD) Congestive heart failure Nausea Surgical History History of surgery Family History Father Diabetes mellitus Mother No problems noted. Maternal Grandfather No problems noted. Maternal Grandmother No problems noted. Paternal Grandmother Diabetes mellitus Paternal Grandfather No problems noted. Brother No problems noted. Brother No problems noted. Sister No problems noted. Social History Housing: Apartment Alcohol intake: never Patient Tobacco Use Status: Never used Tobacco e-Cigarette/Vaping Use: Never Used Second Hand Smoke Exposure: No Patient : No Current occupational status: unemployed Cognitive needs: No Hearing needs: No Vision needs: No Female Reproductive History Menstrual Duration of menses: 6-7 days Date of last menstrual period: 05/10/25 control method: none Review of Systems Const All systems reviewed & are unremarkable except as noted in HPI and below Physical Exam General: Yes no CVA tenderness External Female Exam: normal external appearance and normal appearance of the urethra Speculum Exam - Vagina: normal appearance of the vagina, normal palpation, no lesions and no masses Speculum Exam - Cervix: normal appearance of the cervix, normal palpation, no lesions, no masses and nontender Bimanual exam- vagina & uterus: normal bimanual exam, normal palpation, uterine size normal, normal palpation, uterine shape normal, No Cervical tenderness present and non-tender Bimanual Exam- Adnexa, other: normal adnexae Back/Spine/Pelvis Back: no CVA tenderness Results AMB Test Urine AMB Test Urine Negative Last Edit by Nikki Carolina CMA on 15:23 Assessment & Plan Assessment & Plan (1) Abnormal uterine bleeding: Comment: Cardiomyopathy Uterine myomas Code(s): N93.9 - Abnormal uterine and vaginal bleeding, unspecified Category: Medical Plan: GC and chlamydia taken CBC, TSH, HCG, and pelvic ultrasound ordered. Discussed with the patient the different causes of abnormal bleeding including thyroid disorders, uterine and ovarian pathology, and other potential causes. Discussed with the patient the work up including CBC (to r/o anemia), TSH, pelvic Ultrasound. All questions answered and the patient verbalized understanding. Instructed the patient to schedule an follow-up appointment in 2 weeks Orders: Orders AMB HCG Urine Test Today Z32.02 - Encounter for test, result negative TSH reflex Free T4 Today N93.9 - Abnormal uterine and vaginal bleeding, uns pecified US pelvic and transvaginal Today N93.9 - Abnormal uterine and vaginal bleeding, unspecified AMB Urinalysis Dipstick Today R10.2 - Pelvic and perineal pain CT NG by PCR Vag/Cerv Today N93.9 - Abnormal uterine and vaginal bleeding, unspecified Complete Blood Count no Diff Today N93.9 - Abnormal uterine and vaginal bleeding, unspecified Coding Level of Care Code Est Pt Level 3 (16000) Diagnoses Abnormal uterine bleeding N93.9
--- OUTSIDE RECORDS SUMMARY | 2025-05-20 15:44 | XMS_ITS | Clinical Summary ---
Author Organization [facility]ly [facility] Address [address] [place] [address] Care Team Providers Care Environmental Program Manager Name Role Phone Jose Qucik MD Unavailable [phone] Pcp, No Primary Care Provider Unavailabl e Allergies Active Allergy Reactions Criticality Noted Date Comments Cyclobenzaprine Nausea And Vomiting,Nausea,Unknown Medium 11/01/2021 Other Reaction(s): LOSS OF CONSCIOUSNES Passed out Other reaction(s): Unknown Passed out Other reaction(s): Unknown Passed out Passed out Flavoring Agent Diarrhea,Hives,Nause a And Vomiting,Rash Low 04/14/2023 Latex Hives,Itching,Rash Low 03/10/2022 Medications ARIPiprazole (Abilify) 2 MG tablet Take 1 tablet (2 mg total) by mouth 1 (one) time each day. Active atorvastatin (Lipitor) 10 MG tablet Take 1 tablet (10 mg total) by mouth 1 (one) time each day at the same time. 10/25/2024 Active busPIRone (Buspar) 10 MG tablet Take 1 tablet (10 mg total) by mouth 1 (one) time each day. Active dapagliflozin (Farxiga) 10 MG Take 1 tablet (10 mg total) by mouth 1 (one) time each day at the same time. Active lisinopril 2.5 MG tablet Take 1 tablet (2.5 mg total) by mouth 1 (one) time each day. 06/12/2024 Active metFORMIN (Glucophage) 500 MG tablet Take 1 tablet (500 mg total) by mouth 1 (one) time each day at the same time. 10/25/2024 Active metoprolol succinate XL (Toprol-XL) 25 MG 24 hr tablet Take 0.5 tablets (12.5 mg total) by mouth 1 (one) time each day. 08/26/2024 Active pantoprazole (Protonix) 40 MG EC tablet Take 1 tablet (40 mg total) by mouth 1 (one) time each day before breakfast. 09/23/2024 Active tiZANidine (Zanaflex) 4 MG tablet Take 1 tablet (4 mg total) by mouth every 6 (six) hours if needed. 12/19/2024 Active torsemide (Demadex) 100 MG tablet Take 1 tablet (100 mg total) by mouth 1 (one) time each day. 02/24/2024 Active traZODone (Desyrel) 50 MG tablet Take 1 tablet (50 mg total) by mouth every night. Active zolpidem (Ambien) 10 MG tablet Take 0.5-1 tablets (5-10 mg total) by mouth at night if needed for sleep. 04/25/2024 Active Immunizations Immunization Administration Dates Next Due Covid-19, Mrna, Lnp-s, Pf, 50 Mcg/0.5 Ml 023 Hep B, adult 05/18/2024 Influenza, injectable, quadr ivalent, preservative free 12/06/2022,07/21/2021 Influenza, seasonal, injectable 08/20/2023,07/17,07/31/2019 Pneumococcal Conjugate Pcv20 05/18/2024 Tdap 05/18/2024,02/15/2011 Social History Tobacco Use Types Packs/Day Years Used Date Smoking Tobacco: Never Assessed Comments Unknown Sex and Gender Information Value Date Recorded Sex Assigned at Not on file Legal Sex Female 8:50 PM EDT Gender Identity Not on file Sexual Orientation Not on file Plan of Treatment Health Maintenance Due Date Last Done Comments MMR Vaccines (1 of 1 - Standard series) 01/02/1996 Annual Physical 07/04/1997 Depression Screening 2007 Varicella Vaccines (1 of 2 - 13+ 2-dose series) 01/02/2008 Pap Smear 01/02/2016 HPV Vaccines (1 - 3-dose SCDM series) 2022 Hepatitis B Vaccines (2 of 3 - 19+ 3-dose series) 06/15/2024 05/18/2024 Cervical Cancer Screening 2025 HPV/Cotest 2025 Influenza Vaccine (#1) 2025 , 12/06/2022, 07/17/2022, Additional history exists DTaP/Tdap/Td Vaccines (3 - Td or Tdap) 05/18/2034 05/18/2024, 02/15/2011 Zoster Vaccines (1 of 2) 2045 Respiratory Syncytial Virus (RSV) 60 years and older and/or patients (1 - 1-dose 75+ series) 2070 Hepatitis C Screening Completed 05/15/2024 , 03/29/2023, 03/29/2023, Additional history exists Pneumococcal: Pediatrics (0 to 5 Yrs) and At-Risk Patients (6 to 49 Years) Aged Out 05/18/2024 No longer eligi ble based on patient's age to complete this topic Hepatitis A Vaccines Aged Out No long er eligible based on patient's age to complete this topic Meningococcal B Vaccine Aged Out No l onger eligible based on patient's age to complete this topic Meningococcal Vaccine Aged Out No lucas kimberly eligible based on patient's age to complete this topic Respiratory Syncytial Virus (RSV) <20 months Aged Out No longer eligible based on patient's age to complete this topic Insurance [facility] MEDICAID Care Teams Environmental Program Manager Relationship Specialty Start Date End Date Pcp, No PCP - General 10/15/24 Jose Quick MD [address] [facility] [address] [place] [id number] Referring Physician Cardiology 10/14/24
--- OUTSIDE RECORDS SUMMARY | 2025-05-20 15:45 | XMS_ITS | Clinical Summary ---
Author Organization [facility] Address [address] [place] [address] Care Team Providers Care An/Syq 13 Nav/C2 Operator Name Role Phone Murray Dumont MD Primary Care Provider [phone] Allergies Active Allergy Reactions Criticality Noted Date Comments Cyclobenzaprine 05/02/2022 Latex 05/02/2022 Medications Medication Sig Dispensed Refills Start Date End Date Status carvedilol (COREG) 25 MG tablet Take 25 mg by mouth 2 (two) times a day with meals. 0 03/11/2022 Active Vericiguat 10 MG TABS Take 1 tablet by mouth daily. 0 04/13/2022 Active Semaglutide,0.25 or 0.5MG/DOS, 2 MG/1.5ML SOPN Inject 0.25 mg under the skin every 7 days. 0 04/13/2022 Active empagliflozin (JARDIANCE) tablet 10 mg Take 10 mg by mouth daily. 0 11/10/2021 Active spironolactone (ALDACTONE) tablet 25 mg Take 1 tablet by mouth daily. 0 11/10/2021 Active torsemide (DEMADEX) 20 MG tablet Take 60 mg by mouth daily. 0 04/22/2022 Active Entresto 97-103 MG TABS per tablet Take 1 tablet by mouth 2 (two) times a day. 0 04/17/2022 Active amitriptyline (ELAVIL) 10 MG tablet Take 10 mg by mouth every night at bedtime as needed. 0 12/23/2021 Active oxyCODONE (ROXICODONE) 5 MG immediate release tablet Take 5 mg by mouth 4 (four) times a day as needed for pain. 0 05/05/2022 Active Active Problems Problem Noted Date Diagnosed Date Biventricular heart failure 05/02/2022 Family History Medical History Relation Name Comments Diabetes Brother COPD Father Hypertension Father Diabetes Maternal Grandmother COPD Mother Relation Name Status Comments Brother Father Maternal Grandmother Mother Social History Tobacco Use Types Packs/Day Years Used Date Smoking Tobacco: Never Smokeless Tobacco: Never Alcohol Use Standard Drinks/Week Comments Yes 0 (1 standard drink = 0.6 oz pur e alcohol) RARELY CONSUMES Sex and Gender Information Value Date Recorded Sex Assigned at Female 04/28/2022 2:50 PM EDT Gender Identity Not on file Sexual Orientation Not on file Job Start Date Occupation Industry Not on file Not on file Not on file Last Filed Vital Signs Vital Sign Reading Time Taken Comments Blood Pressure 118/57 05/09/2022 1:33 PM EDT Pulse 95 05/09/2022 1:33 PM EDT Temperature 36.2 C (97.2 F) 05/09/2022 1:33 PM EDT Respiratory Rate 14 05/02/2022 1:38 PM EDT Oxygen Saturation 100% 05/09/2022 1:33 PM EDT Inhaled Oxygen Concentration - - Weight 132.5 kg (292 lb) 05/02/2022 1:38 PM EDT ACTUAL WEIGHT Height - - Body Mass Index - - Plan of Treatment Health Maintenance Due Date Last Done Comments Hepatitis B Vaccines (1 of 3 - 3-dose series) 1995 Hepatitis C Screening 1995 COVID-19 Vaccine (#1) 1995 Depression Screening 2007 Preventative Health Evaluation 2013 DTap / Tdap / Td (1 - Tdap) 2014 Cervical Cancer Screening (P ap Smear) 01/02/2016 Influenza Vaccine (#1) 2025 07/21/2021 Pneumococcal Vaccine Aged Out No long er eligible based on patient's age to complete this topic RSV Ped < 20 months Aged Out No longe r eligible based on patient's age to complete this topic Care Teams An/Syq 13 Nav/C2 Operator Relationship Specialty Start Date End Date Murray Dumont MD [address] [place] [id number] PCP - General Internal Medicine 05/02/22
--- OUTSIDE RECORDS SUMMARY | 2025-05-20 15:45 | XMS_ITS | Clinical Summary ---
Author Organization [address] [phone] Phone Care Team Providers Care Die Finisher Forging Name Role Phone Murray Dumont MD Primary Care Provider [phone] Social History Tobacco Use Types Packs/Day Years Used Date Smoking Tobacco: Never Assessed Comments Unknown Sex and Gender Information Value Date Recorded Sex Assigned at Not on file Legal Sex Female 3:26 PM EST Gender Identity Female 11/15/2023 5:00 PM EST Sexual Orientation Lesbian or Ryan 11/15/2023 5: 00 PM EST Plan of Treatment Health Maintenance Due Date Last Done Comments HIV screening 01/02/2008 Hepatitis C screening 2013 Cervical cancer screening 01/02/2016 Tetanus adult (Td q 10,TDAP once) 02/15/2021 02/15/2011 Covid-19 vaccine series ( season) 2024 08/20/2023 Influenza vaccine 06/09/2025 08/20/2023, , 07/17/2022, Additional history exists RSV Immunization (1 - 1-dose 75+ series) 2070 Meningococcal Vaccine Aged Out No lucas kimberly eligible based on patient's age to complete this topic Pneumococcal Vaccine (2 - 49 years) Aged Out No longer eligible based on patient's age to complete this topic Insurance COMMERCIAL GENERIC COMMERCIAL GENERIC COMMERCIAL GENERIC Care Teams Die Finisher Forging Relationship Specialty Start Date End Date Murray Dumont MD [facility] [place] [phone] PCP - General Internal Medicine 11/15/23
--- OUTSIDE RECORDS SUMMARY | 2025-05-20 15:45 | XMS_ITS | Clinical Summary ---
Author Organization [address] Address [address] [place] [phone] Phone Care Team Providers Care President & Founder Name Role Phone Murray Dumont MD Primary Care Provider [phone] Surgical History Surgery Date Site/Laterality Comments OTHER SURGICAL HISTORY PROCEDURE: HISTORY OTHER; COMMENT: Gallstone Extraction OTHER SURGICAL HISTORY 05/04/2022 PROCEDURE: HISTORICAL ICD Medical History Medical History Date Comments Diabetes ([facility] V24, [facility] V28) DX:Diabetes (HCC) Morbid obesity (CMS/HCC V24, [facility] V28) DX:Morbid obesity (HCC) Chest pain DX:Chest pain; C OMMENT: D/C'd from [facility] on 01/08/22 History of non-insulin depen dent diabetes mellitus DX:History of non-insulin de pendent diabetes mellitus; COMMENT: D/C'd from [facility] on 01/08/22 Anxiety and depression DX:Anxiet y and depression; COMMENT: D/C'd from [facility] on 01/08/22 Insomnia DX:Insomnia; COM MENT: D/C'd from [facility] on 01/08/22 DVT prophylaxis DX:DVT prophylax is; COMMENT: D/C'd from [facility] on 01/08/22 Atypical pneumonia DX:Atypical p neumonia; COMMENT: D/C'd from [facility] on 11/10/21 Hypoxia DX:Hypoxia; COMM ENT: D/C'd from [facility] on 11/10/21 Hypomagnesemia DX:Hypomagnesemi a Hypokalemia DX:Hypokalemia URI (upper respiratory infection) DX:URI (upper respiratory infection) Cardiac device in situ DX:Cardia c device in situ Pneumonia DX:Pneumonia Acute COVID-19 DX:Acute COVID-1 9 Type 2 diabetes mellitus ([facility] V24, [facility] V28) DX:Type 2 diabetes mellitus (HCC) Obesity DX:Obesity Neutropenia ([facility] V24) DX:Tonny tropenia (HCC) Covid-19 DX:COVID-19 Vomiting DX:Vomiting Severe obesity (CMS/[facility] V24, [facility] V28) DX:Severe obesity (HCC) Prediabetes DX:Prediabetes Family History Medical History Relation Name Comments Diabetes Brother Diabetes Father Heart failure Father's side Diabetes Maternal Grandmother Relation Name Status Comments Brother Father Father's side Alive Maternal Grandmother Social History Tobacco Use Types Packs/Day Years Used Date Smoking Tobacco: Never Smokeless Tobacco: Never Alcohol Use Standard Drinks/Week Comments Yes 0 (1 standard drink = 0.6 oz pur e alcohol) Comments Unknown Sex and Gender Information Value Date Recorded Sex Assigned at Not on file Legal Sex Female 9:36 PM EST Gender Identity Not on file Sexual Orientation Not on file Obstetrics History Last Filed Vital Signs Vital Sign Reading Time Taken Comments Blood Pressure 132/100 11/22/2022 12:52 PM EST Sitting L Arm Pulse 110 11/22/2022 12:52 PM EST Temperature - - Respiratory Rate - - Oxygen Saturation - - Inhaled Oxygen Concentration - - Weight 130 kg (286 lb 3.2 oz) 12:52 PM EST Height 172.7 cm (5' 8 ) 11/22/2022 12:5 2 PM EST Body Mass Index 43.52 11/22/2022 12:52 PM EST Plan of Treatment Health Maintenance Due Date Last Done Comments Diabetes: Annual Foot Exam 2005 Diabetes: Annual Retina Eye Exam 2005 Cervical Cancer Screening: Pap Smear 01/02/2016 HIV Screening 09/18/2022 Medicare Annual Wellness Visit 09/18/2022 Social Influencers of Health Screening 09/18/2022 Diabetes: Annual Urine Albumin-Creatinine Ratio (uACR) 09/21/2022 COVID-19 Vaccine ( season) 2024 08/20/2023, 01/17/2022, 04/05/2021, Additional history exists Hepatitis B Vaccines (2 of 3 - 19+ 3-dose series) 06/15/2024 05/18/2024 Depression Screening 10/09/2024 Diabetes: Blood Sugar Control Test (HGBA1C) 01/28/2025 07/30/2024, 05/15/2024 Influenza Vaccine (#1) 2025 , 12/06/2022, 07/17/2022, Additional history exists Diabetes: Annual GFR (Glomerular Filtration Rate) 08/29/2025 08/29/2024, 08/20/2024, 08/13/2024, Additional history exists Hypertension/CHF/CAD Annual BMP Blood Test 08/29/2025 08/29/2024, 08/20/2024, 08/13/2024, Additional history exists Cholesterol Screening (Lipid Panel) 05/15/2029 05/15/2024 DTaP,Tdap,and Td Vaccines (3 - Td or Tdap) 05/18/2034 05/18/2024, 02/15/2011 Hepatitis C Screening Completed 05/15/2024 Pneumococcal Vaccine: Pediatrics (0 to 5 Years) and At-Risk Patients (6 to 49 Years) Completed 05/18/2024 HIB Vaccines Aged Out No longer eligi ble based on patient's age to complete this topic HPV Vaccines Aged Out No longer eligi ble based on patient's age to complete this topic Hepatitis A Vaccines Aged Out No long er eligible based on patient's age to complete this topic IPV Vaccines Aged Out No longer eligi ble based on patient's age to complete this topic MMR Vaccines Aged Out No longer eligi ble based on patient's age to complete this topic Meningococcal ACWY Vaccine Aged Out N o longer eligible based on patient's age to complete this topic Meningococcal B Vaccine Aged Out No l onger eligible based on patient's age to complete this topic RSV Immunization Patients Under 20 months Aged Out No longer eligible based on patient's age to complete this topic Varicella Vaccines Aged Out No longer eligible based on patient's age to complete this topic Procedures Procedure Name Priority Date/Time Associated Diagnosis Comments COMPREHENSIVE METABOLIC PANEL Routine 08/29/2024 12:00 AM EST Essential (primary) hypertension from Last 3 Months or Most Recently Relevant to Health Maintenance Results * (ABNORMAL) Comprehensive metabolic panel (08/29/2024 12:00 AM EST) Sodium 138 133 - 145 mmol/L LAB CHEMISTRY METHOD 08/29/2024 4:42 PM [facility] Potassium 3.6 3.5 - 5.5 mmol/L LAB CHEMISTRY METHOD 08/29/2024 4:42 PM [facility] Chloride 104 96 - 110 mmol/L LAB CHEMISTRY METHOD 08/29/2024 4:42 PM [facility] CO2 26 21 - 32 mmol/L LAB CHEMISTRY METHOD 08/29/2024 4:42 PM [facility] Anion Gap 8 3 - 11 LAB CHEMISTRY METHOD 08/29/2024 4:42 PM [facility] Glucose 157(H) 70 - 100 mg/dL LAB CHEMISTRY METHOD 08/29/2024 4:42 PM [facility] BUN 11 5 - 25 mg/dL LAB CHEMISTRY METHOD 08/29/2024 4:42 PM [facility] Creatinine 0.80 0.50 - 1.10 mg/dL LAB CHEMISTRY METHOD 08/29/2024 4:42 PM [facility] eGFR 102 >=60 mL/min/1. 73m2 LAB CHEMISTRY METHOD 08/29/2024 4:42 PM [facility] Comment:Calculation based on the Chronic Kidney Disease Epidemiology Collaboration (CKD-EPI) equation refit without adjustment for race. BUN/Creatinine Ratio 13.8 LAB CHEMISTRY METHOD 08/29/2024 4:42 PM [facility] Calcium 9.4 8.5 - 10.5 mg/dL LAB CHEMISTRY METHOD 08/29/2024 4:42 PM [facility] AST (SGOT) 22 10 - 42 unit/L LAB CHEMISTRY METHOD 08/29/2024 4:42 PM [facility] ALT (SGPT) 33 10 - 60 unit/L LAB CHEMISTRY METHOD 08/29/2024 4:42 PM EST [facility] Alkaline Phosphatase 78 42 - 121 unit/L LAB CHEMISTRY METHOD 08/29/2024 4:42 PM EST [facility] Total Protein 8.1(H) 6.0 - 8.0 g/dL LAB CHEMISTRY METHOD 08/29/2024 4:42 PM EST [facility] Albumin 3.6 3.2 - 5.0 g/dL LAB CHEMISTRY METHOD 08/29/2024 4:42 PM EST [facility] Total Bilirubin 0.5 0.0 - 1.4 mg/dL LAB CHEMISTRY METHOD 08/29/2024 4:42 PM EST [facility] Blood Venous blood specimen / Unknown 08/29/2024 08/29/2024 3:40 PM EST us Catarina Riley NP LAB BLOOD ORDERABLES Final Res ult [facility] [address] [place] [address], from Last 3 Months or Most Recently Relevant to Health Maintenance Insurance [facility] MEDICARE ADVANTAGE Advance Directives Documents on File Type Date Recorded Patient Field Support Engineer Expl anation Health Care Decision (hx) 05/05/2022 AD RADER DIRECTIVE Health Care Decision (hx) 05/05/2022 AD RADER DIRECTIVE Health Care Decision (hx) 05/05/2022 AD RADER DIRECTIVE Health Care Decision (hx) 05/05/2022 AD RADER DIRECTIVE Health Care Decision (hx) 05/05/2022 AD RADER DIRECTIVE Health Care Decision (hx) 05/05/2022 AD RADER DIRECTIVE Health Care Decision (hx) 05/05/2022 AD RADER DIRECTIVE Health Care Decision (hx) 05/05/2022 AD RADER DIRECTIVE Health Care Decision (hx) 05/05/2022 AD RADER DIRECTIVE Health Care Decision (hx) 05/05/2022 AD RADER DIRECTIVE Health Care Decision (hx) 05/05/2022 AD RADER DIRECTIVE Health Care Decision (hx) 05/05/2022 AD RADER DIRECTIVE Health Care Decision (hx) 05/05/2022 AD RADER DIRECTIVE Health Care Decision (hx) 05/05/2022 AD RADER DIRECTIVE Health Care Decision (hx) 05/05/2022 AD RADER DIRECTIVE Health Care Decision (hx) 05/05/2022 AD RADER DIRECTIVE Health Care Decision (hx) 05/05/2022 AD RADER DIRECTIVE Health Care Decision (hx) 05/05/2022 AD RADER DIRECTIVE Health Care Decision (hx) 05/05/2022 AD RADER DIRECTIVE Health Care Decision (hx) 05/05/2022 AD RADER DIRECTIVE Health Care Decision (hx) 05/05/2022 AD RADER DIRECTIVE Health Care Decision (hx) 05/05/2022 AD RADER DIRECTIVE Health Care Decision (hx) 05/05/2022 AD RADER DIRECTIVE Health Care Decision (hx) 05/05/2022 AD RADER DIRECTIVE Health Care Decision (hx) 05/05/2022 AD RADER DIRECTIVE Health Care Decision (hx) 05/05/2022 AD RADER DIRECTIVE Health Care Decision (hx) 05/05/2022 AD RADER DIRECTIVE Health Care Decision (hx) 05/05/2022 AD RADER DIRECTIVE Care Teams President & Founder Relationship Specialty Start Date End Date Murray Dumont MD [address] [place] [id number] PCP - General Internal Medicine 01/19/22
--- OUTSIDE RECORDS SUMMARY | 2025-05-20 15:45 | XMS_ITS ---
[facility] Name [facility] Organization Unknown Encounters Encounter Type Encounter Reason Primary Diagnosis Location Date Inpatient Unspecified syst olic (congestive) heart failure [facility] 11/01/2021 Care Team Organization Name Specialty Phone Email Start Date End Da te [employer] 11/01/2021 05/27/2024 [facility] 11/01/2021 11/01/2021
--- OUTSIDE RECORDS SUMMARY | 2025-05-20 15:45 | XMS_ITS | Encounter Summary ---
Author Organization [facility] Address [address] [place] [address] Care Team Providers Care Supervisor [employer] Name Role Phone Murray Dumont MD Primary Care Provider [phone] Encounter Details Date Type Department Care Team (Late st Contact Info) Description 05/01/2025 Results Follow-Up [facility] Cardiology [facility] [address] [place] [id number] Dolly Jeong, DNP, SOUND MIXER [address] [facility] [address] [place], [place] [id number] Basic Metabolic Panel Social History Tobacco Use Types Packs/Day Years Used Date Smoking Tobacco: Never Passive Smoke Exposure: Current Smokeless Tobacco: Never Alcohol Use Standard Drinks/Week Comments Not Currently 0 (1 standard drink = 0.6 oz pur e alcohol) Utilities Answer Date Recorded In the past 12 months has [place], gas, oil, or water [employer] threatened to shut off services in your home? No 03/27/2025 Hunger Vital Sign Answer Date Recorded Within the past 12 months, y ou worried that your food would run out before you got the money to buy more. Never true 03/27/20 25 Within the past 12 months, t he food you bought just didn't last and you didn't have money to get more. Never true 03/27/2025 PRAPARE - Transportation Answer Date Re corded In the past 12 months, has l ack of transportation kept you from medical appointments or from getting medications? No 03/09 In the past 12 months, has l ack of transportation kept you from meetings, work, or from getting things needed for daily living? No 03/27/2025 Housing Stability Vital Sign Answer Brayan e Recorded In the last 12 months, was t here a time when you were not able to pay the mortgage or rent on time? No 03/27/2025 Number of Times Moved in the Last Year Not on fi le 03/27/2025 At any time in the past 12 m [facility], were you homeless or living in a retirement (including now)? No 03/27/2025 Comments No Sex and Gender Information Value Date Recorded Sex Assigned at Not on file Legal Sex Female 2:32 PM EST Gender Identity Not on file Sexual Orientation Not on file documented as of this encounter Plan of Treatment Not on file documented as of this encounter Visit Diagnoses Not on filedocumented in this encounter Care Teams Supervisor [employer] Relationship Specialty Start Date End Date Murray Dumont MD [address] [place] [address] [place] [address] PCP - General Family Medicine 11/18/24 documented as of this encounter
--- OUTSIDE RECORDS SUMMARY | 2025-05-20 15:45 | XMS_ITS | Clinical Summary ---
Author Organization [facility] Address [address] [place] [address] Care Team Providers Care Extension Work Director Name Role Phone Unknown Primary Care Provider [phone] Allergies Active Allergy Reactions Criticality Noted Date Comments Cyclobenzaprine Unknown/Patient and Family Unable to Define Medium 11/01/2021 Medications ferrous gluconate (FERGON) 324 MG tablet Take 324 mg by mouth every morning with breakfast. Take 2 hours before or 4 hours after acid reducers. Active empagliflozin (JARDIANCE) 10 MG tabletIndicatio ns:HFrEF (heart failure with reduced ejection fraction) ([facility]) Take 1 tablet (10 mg total) by mouth daily. 30 tablet 11/10/2021 Active carvedilol (COREG) 12.5 MG tabletIndicatio ns:HFrEF (heart failure with reduced ejection fraction) ([facility]) Take 1 tablet (12.5 mg total) by mouth 2 (two) times a day. 60 tablet 11/10/2021 Active spironolactone (ALDACTONE) 25 MG tabletIndicatio ns:HFrEF (heart failure with reduced ejection fraction) ([facility]) Take 1 tablet (25 mg total) by mouth daily. 30 tablet 11/10/2021 Active torsemide (DEMADEX) 20 MG tabletIndicatio ns:HFrEF (heart failure with reduced ejection fraction) ([facility]) Take 2 tablets (40 mg total) by mouth daily. 60 tablet 11/10/2021 Active sacubitril-vals kylie (ENTRESTO) 24-26 mg per tabletIndicatio ns:HFrEF (heart failure with reduced ejection fraction) ([facility]) Take 1 tablet by mouth 2 (two) times a day. 60 tablet 11/10/2021 Active Active Problems Problem Noted Date Diagnosed Date Acute systolic heart failure 11/10/2021 Hypoxia 11/02/2021 Primary hypertension 11/02/2021 Resolved Problems Problem Noted Date Diagnosed Date Resolved Date Atypical pneumonia 11/02/2021 Family History Medical History Relation Name Comments Diabetes Father Pulmonary Hypertension Father Diabetes Maternal Grandmother Relation Name Status Comments Father Maternal Grandmother Social History Tobacco Use Types Packs/Day Years Used Date Smoking Tobacco: Never Smokeless Tobacco: Never Alcohol Use Standard Drinks/Week Comments Yes 0 (1 standard drink = 0.6 oz pur e alcohol) Comments No Sex and Gender Information Value Date Recorded Sex Assigned at Not on file Legal Sex Female 12:05 PM EDT Gender Identity Not on file Sexual Orientation Not on file Last Filed Vital Signs Vital Sign Reading Time Taken Comments Blood Pressure 102/60 11/10/2021 1:38 PM EST Pulse 88 11/10/2021 1:38 PM EST Temperature 36.7 C (98 F) 11/10/2021 1:38 PM EST Respiratory Rate 18 11/10/2021 1:38 PM EST Oxygen Saturation 94% 11/10/2021 1:38 PM EST Inhaled Oxygen Concentration - - Weight 129 kg (283 lb 9.6 oz) 11/10/2021 8:00 AM EST Height 172.7 cm (5' 8 ) 11/04/2021 8:44 AM EST Body Mass Index 43.12 11/04/2021 8:44 AM EST Plan of Treatment Health Maintenance Due Date Last Done Comments Hepatitis C Virus Screening 1995 DTaP/Tdap/Td Vaccines (1 - Tdap) 2014 Hepatitis B Vaccines (1 of 3 - 19+ 3-dose series) 2014 Pneumococcal Vaccine: Pediat jose (0-5 Years) and At-Risk Patients (6 to 49 Years) (1 of 2 - PCV) 2014 Pap Smear (Ages 21-65) 01/02/2016 COVID-19 Vaccine ( - 2023-2 5 season) 2024 Influenza Vaccine 05/09/2025 HIV Screening Completed 11/02/2021 HPV Vaccines Aged Out No longer eligi ble based on patient's age to complete this topic Procedures Procedure Name Priority Date/Time Associated Diagnosis Comments HIV 1/2 AG/AB CMIA REFLEX TO CONFIRMATION STAT 11/02/2021 4:50 PM EST from Last 3 Months or Most Recently Relevant to Health Maintenance Results * HIV 1/2 Ag/Ab CMIA Reflex to Confirmation (11/02/2021 4:50 PM EST) HIV 1/2 Ag/Ab CMIA Nonreactive Nonreactive 11/03/2021 11:32 AM EST [employer] Comment:Results show no evid ence of infection by HIV 1/2. If clinically indicated, repeat CMIA or test by nucleic acid amplification. Blood specimen (specimen) Serum specimen / Unknown 11/02/2021 4:50 PM EST 11/02/2021 5:14 PM EST Kehinde Moffett PA-C LAB BLOOD ORDERABLES Final Re sult Performing Organization Address City/State/[facility] Co de Phone Number HOSPITAL LAB [employer] [address] [place] [address] from Last 3 Months or Most Recently Relevant to Health Maintenance [place] [facility] [place] * Full Code (Latest Code Status on File) Date Activated Date Inactivated Comments 11/01/2021 3:56 PM Care Teams Extension Work Director Relationship Specialty Start Date End Date Unknown Unknow Provider Address PCP - General 11/01/21
--- OUTSIDE RECORDS SUMMARY | 2025-05-20 15:45 | XMS_ITS | Patient Health Record ---
Author Organization [facility] Location Address [address] [address] Care Team Providers Care Tracing Lathe Set Up Operator Name Role Phone Madelin De Santiago Unavailable [phone] Reason For Referral No Information Plan Of Treatment No Information Insurance Providers Payer Name Payer Address Payer Phone Subscriber Number Group Number Insured Name Patient Relationship to Insured Coverage Start Date Coverage End Date Aetna Medicaid [facility] [address] [address] [place] [address] [phone] [id number] BELKYS GLOVER Self - patient is the insured
== END 2025-05-20 15:37 | disposition home or self-care (01) ==
LOC: HO.HWS 14:53
PROVIDERS: PCP Internal Medicine; Visit Provider Obstetrics & Gynecology
DX: Z32.02 Encounter for pregnancy test, result negative (principal); N93.9 Abnormal uterine and vaginal bleeding, unspecified
CPT/HCPCS: 99213

== ENCOUNTER 2025-05-21 10:08 | Outpatient (AMB) | payer MEDICARE, MEDICAID, SELFPAY ==
--- OUTSIDE RECORDS SUMMARY | 2025-04-14 04:15 | XMS_ITS ---
Author Organization [facility], [facility] Address [address] [place] [address] Care Team Providers Care Business Office Associate Name Role Phone Herbert Sinha Primary Care Provider [phone] Andrew Muñoz Unavailable [phone] Eyad Gordon Unavailable REASON FOR VISIT PER DR Encounters Encounter Location Date Provider Diagnosis [address] [place] [address] 04/14/2025 Eyad Franks Plan Of Treatment No Information Progress Notes * BELKYS GLOVERDOB:1995 ( 30 yo F)Acc No.[id number]:04/14/2025 Progress Notes Patient: Frandy WALTERS BELKYS Appointment Provider: EMIR Coronel :1995 A ge:30 Y S ex:Female Date:04/14/2025 Address:[address] [place], [place] [id number] Pcp:Herbert Sinha Subjective: * Chief Complaints: * 1 . PER DRJeniffer * Medical History: Objective: * Vitals: Assessment: Plan: * Treatment: * Images: Care Plan Details* * Electronic signature of Eyad Franks APRN on 05/21/2025 at 10:48 AM EDT Sign off status: Pending * Appointment Provider: EMIR Coronel Date: 04/14/2025 Generated for Printi ng/Faxing/eTransmitting on: 05/21/2025 10:48 AM EDT
[2025-05-21 10:12] VITALS: BP 126/82; PULSE 75; O2SAT 100; BMI 40.1
--- NOTE | 2025-05-21 10:12 | A.OFFPC_ITS ---
Vital Signs 05/21/25 10:12 Height 5 ft 8 in Weight 264 lb BMI 40.1 BP 126/82 Blood Pressure Location Lt brachial Position Sitting Pulse 75 Pulse Source Pulse Oximeter Pulse Oximetry (%) 100 Oxygen Delivery Method Room Air Intake Visit Reasons: HDF Allergies cyclobenzaprine (From Flexeril) Adverse Reaction (Unknown, Verified 05/21/25 10:12) syncope Medication List - Last Reconciled 05/21/25 by Murray Dumont MD acetaminophen 650 mg PO Q4H PRN apixaban (Eliquis) 5 mg PO BID aripiprazole 2 mg PO DAILY blood sugar diagnostic (FreeStyle Lite Strips) Use to check blood sugar daily once a day blood-glucose meter (FreeStyle Lite Meter kit) Use to check blood sugar daily buspirone 10 mg PO TID dapagliflozin propanediol (Farxiga) 10 mg PO DAILY lancets (FreeStyle Lancets) Check blood sugar once a day lisinopril 2.5 mg PO DAILY ondansetron 4 mg PO ONCE PRN 90 days pantoprazole 40 mg PO DAILY potassium chloride ER 10 mEq PO BID spironolactone 50 mg PO DAILY torsemide 60 mg PO trazodone 50 mg PO BEDTIME Tobacco use date assessed: 05/21/25 Dental Screening Dental Screen Date: 05/21/25 Did you have a dental visit in the last 12 months?: Yes Did you have a dental problem in the last 6 months where you did not have access to dental care?: No Was dental information given to patient?: Patient has dentist HPI HDF HPI Details Chief Complaint Hospital discharge follow-up due to ankle swelling History The patient is a 30-year-old female presenting with management and follow-up of lower extremity swelling and cardiac concerns. Ankle swelling: - The patient reports extreme swelling i n her ankle, which led to hospitalization. - The swelling started last week and was associated with fluid weight. - No associated shortness of breath repo rted. - The patient was initially evaluated at [facility] and subsequently transferred to [facility] for further evaluation. - At [facility], tests were conducted, with r esults indicating overall stability, apart from extra fluid weight. - There was symptomatic improvement with Lasix administered during hospitalization. Cardiac concerns: - The patient has a history of cardiac i ssues and is awaiting a cardiac transplant. - She was removed from the transplant [facility] due to relocation to [place] but is now back in the state and expects to resume placement on the list following an upcoming cardiology appointment. - The patient has a defibrillator and an LVAD in place, which were noted to generate significant noise. - No recent heart-related complications were reported. Medical History: - cardiomyopathy requiring heart transpl ant - History of lower extremity swelling du e to fluid retention - Use of defibrillator and LVAD - Previous prescription of diuretics and anticoagulant therapy Surgical History: - Implementation of a defibrillator - LVAD insertion Medications: - Lasix: 60 mg regular dose for managing fluid retention, with additional 60 mg for excess swelling - Eliquis - Abilify - Buspirone - Farxiga - Zestril - Toprol - Pantoprazole - Potassium - Spironolactone - Torsemide: 60 mg dosage - Trazodone Social History: - The patient has recently moved back to the area from [place], appreciating the healthcare system in the current state. - Intentions to re-establish care with a psychiatrist. Problem List - Lower Extremity Edema - Cardiac Condition with Defibrillator a nd LVAD - Awaiting Cardiac Transplant Evaluation - Anxiety/Depression - Fibroids under OBGYN evaluation Diagnostic results reviewed from hospital visit - Labs: - Potassium: Initially low, daren ected with IV fluids - Potassium: 4.2 (Normal) - Creatinine: Normal - GFR: 112 - Glucose: 111 (Normal) - Hemoglobin: 12.4 - Platelets: 339 - Magnesium: 2.4 - Albumin: 4.1 - BNP: 1394 (Elevated) - Liver enzymes: Normal - Tests and diagnostics: - Planning for ultrasound evaluation for fibroids repetition [place] of Care The patient plans to follow up with a sports writer on June 04 to discuss her readiness for cardiac transplant list reactivation. She is also interacting with her OBGYN for fibroid management and re-establishing psychiatric care. Patient Instructions - Continue taking Lasix as prescribed an d monitor for any increase in swelling. - Attend the scheduled sports writer appo intment on June 04. - Discuss with the OBGYN about fibroid m anagement and further testing. - Contact psychiatric services to resume care. Review of Systems General: No fever no chills neurological: No headaches no dizziness ear nose throat: No sore throat no hearing difficulty no ear pain cardiovascular: No syncope, no chest pain, no palpitations gastrointestinal: No nausea vomiting or diarrhea endocrine: No polyuria polydipsia no heat intolerance genitourinary: No dysuria skin: No new complaints Physical Exam general: No acute distress HEENT: No acute findings neck: Supple respiratory system: Unable to hear lungs clearly due to noise from defibrillator and LVAD cardiovascular: S1-S2 RRR, defibrillator and LVAD present gastrointestinal: No pain extremities: Mild ankle swelling bilateral QUILT SEWER: Alert awake oriented x3 motor sensory intact skin: Normal turgor [facility] Medical History Congestive heart failure Nausea Surgical History History of surgery Family History Father Diabetes mellitus Mother No problems noted. Maternal Grandfather No problems noted. Maternal Grandmother No problems noted. Paternal Grandmother Diabetes mellitus Paternal Grandfather No problems noted. Brother No problems noted. Brother No problems noted. Sister No problems noted. Social History Housing: Apartment Alcohol intake: never Patient Tobacco Use Status: Never used Tobacco e-Cigarette/Vaping Use: Never Used Second Hand Smoke Exposure: No Current occupational status: unemployed Cognitive needs: No Hearing needs: No Vision needs: No Questionnaire PHQ-9 Over the last 2 weeks, how often have you been bothered by any of the following problems? 1. Little interest or pleasure in doing things: several days 2. Feeling down, depressed, or hopeless: several days 3. Trouble falling or staying asleep, or sleeping too much: more than half the days 4. Feeling tired or having little energy: more than half the days 5. Poor appetite or overeating: several days 6. Feeling bad about yourself - or that you are a failure or have let yourself or your family down: not at all 7. Trouble concentrating on things, such as reading the newspaper or watching television: several days 8. Moving or speaking so slowly that other people could have noticed. Or the opposite - being so fidgety or restless that you have been moving around a lot more than usual: not at all 9. Thoughts that you would be better off or of hurting yourself in some way: not at all Total score: 8 Depression Screening Interpretation: Positive Depression Screening Done: Yes 69633 - PHQ-9 Billing: Yes Source: Developed by Drs. Lex Rocha, Marianne Trevino, Eitan Davila and colleagues, with an educational abigail from [employer]. Thrive Questionnaire Date Thrive assessed: 05/21/25 I am a: Patient What is your living situation today?: I do not have a steady places to live I am temporarily staying with others Within the past 12 months, did the food you bought not last and you didn't have the money to get more?: Often true Within the past 12 months, did you worry whether your food would run out before you got money to buy more?: Sometimes True Do you have trouble paying for medicines?: No Do you have trouble getting transportation to medical appointments?: Yes Do you have trouble paying your heating and electricity bill?: No Do you have trouble taking care of your child, family member or friend?: No Do you have trouble with day-to-day activities such as bathing, preparing meals, shopping, managing finances, etc.?: No Are you currently unemployed and looking for a job?: No Are you interested in more education?: Yes Please select the resources that you would like help with: Housing/M[facility], Food and Transportation Currently or been in a relationship where the following occur: No concerns reported THRIVE Score: 4 AUDIT C Alcohol Use Questionnaire (AUDIT-C) 1. How often do you have a drink containing alcohol?: Monthly or less 2. How many drinks containing alcohol do you have on a typical day when you are drinking?: 1 or 2 3. How often do you have six or more drinks on one occasion?: Never Total Score: 1 Score Reviewed/Action Taken: Yes BHARGAVI-7 AMB Questionnaire BHARGAVI-7 Date BHARGAVI - 7 assessed: 05/21/25 Feeling nervous, anxious, or on edge: 1 = Several days Not being able to stop or control worryin = Nearly every day Worrying too much about different things: 2 = More than half the days Trouble relaxin = More than half the days Being so restless that it is hard to sit still: 2 = More than half the days Becoming easily annoyed or irritable: 2 = More than half the days Feeling afraid as if something awful might happen: 2 = More than half the days Total BHARGAVI-7 score (0-4 normal; 5-9 mild; 10-14 moderate; 15-21 severe): 14 Source: Developed by Drs. Lex Rocha, Marianne Trevino, Eitan Davila and colleagues, with an educational abigail from [employer]. BHARGAVI-7 Assessment Billing BHARGAVI-7 Assessment Tool: BHARGAVI-7 Assessment 75770 Physical exam (Primary Care) Vital Signs: Last Vital Signs Pulse 75 05/21/25 10:12 BP 126/82 05/21/25 10:12 Pulse Ox 100 05/21/25 10:12 Oxygen Delivery Method Room Air 05/21/25 10:12 BMI result Body Mass Index 40.1 Tobacco/Smoking Status: Tobacco use Status Tobacco use date assessed 05/21/25 05/21/25 10:13 Patient Tobacco Use Status Never used Tobacco 05/21/25 10:13 e-Cigarette/Vaping Use Never Used 05/21/25 10:13 PHQ-9: PHQ-9 Score PHQ-9: Total score 8 05/21/25 10:40 Depression Screening Interpretation: Positive Thrive Assessment: Date of Thrive Assessment Date Thrive assessed 05/21/25 05/21/25 10:13 Currently or been in a relationship where the following occur: No concerns reported Coding Level of Care Code Est Pt Level 5 (81895) Diagnoses Hospital discharge follow-up Z09 Diabetes 1.5, managed as type 2 E13.9 History of implantable cardioverter-defibrillator (ICD) placement Z95.810 Dilated cardiomyopathy I42.0 Cardiomyopathy type: dilated Ejection fraction < 50% R94.30 Recurrent major depressive disorder, in partial remission F33.41 Active/Remission status: in partial remission Additional Codes BHARGAVI-7 Assessment Billing - BHARGAVI-7 Assessment Tool: BHARGAVI-7 Assessment 91179 ([id number]) PHQ-9 - 27363 - PHQ-9 Billing: Yes ([id number]) Time Spent (min) 40 Comment Reviewing chart/labs/hospital [id number] with the patient/coordination of care Assessment & Plan Assessment & Plan (1) Hospital discharge follow-up: Code(s): Z09 - Encounter for follow-up examination after completed treatment for conditions other than malignant neoplasm Category: Medical (2) Diabetes 1.5, managed as type 2: Code(s): E13.9 - Other specified diabetes mellitus without complications Category: Medical (3) History of implantable cardioverter-defibrillator (ICD) placement: Code(s): Z95.810 - Presence of automatic (implantable) cardiac defibrillator Category: Surgical (4) Cardiomyopathy: Code(s): I42.9 - Cardiomyopathy, unspecified Category: Medical Qualifiers: Cardiomyopathy type: dilated Qualified Code(s): I42.0 - Dilated cardiomyopathy (5) Ejection fraction < 50%: Code(s): R94.30 - Abnormal result of cardiovascular function study, unspecified Category: Medical (6) Major depression, recurrent: Code(s): F33.9 - Major depressive disorder, recurrent, unspecified Category: Medical Qualifiers: Active/Remission status: in partial remission Qualified Code(s): F33.41 - Major depressive disorder, recurrent, in partial remission Plan Chief Complaint Hospital discharge follow-up due to ankle swelling History The patient is a 30-year-old female presenting with management and follow-up of lower extremity swelling and cardiac concerns. Ankle swelling: - The patient reports extreme swelling in her ankle, which led to hospitalization. - The swelling started last week and was associated with fluid weight. - No associated shortness of breath reported. - The patient was initially evaluated at [facility] and subsequently transferred to [facility] for further evaluation. - At [facility], tests were conducted, with results indicating overall stability, apart from extra fluid weight. - There was symptomatic improvement with Lasix administered during hospital ization. Cardiac concerns: - The patient has a history of cardiac issues and is awaiting a cardiac transplant. - She was removed from the transplant list due to relocation to [place] but is now back in the state and expects to resume placement on the list following an upcoming cardiology appointment. - The patient has a defibrillator and an LVAD in place, which were noted to generate significant noise. - No recent heart-related complications were reported. Medical History: - cardiomyopathy requiring heart transplant - History of lower extremity swelling due to fluid retention - Use of defibrillator and LVAD - Previous prescription of diuretics and anticoagulant therapy Surgical History: - Implementation of a defibrillator - LVAD insertion Medications: - Lasix: 60 mg regular dose for managing fluid retention, with additional 60 mg for excess swelling - Eliquis - Abilify - Buspirone - Farxiga - Zestril - Toprol - Pantoprazole - Potassium - Spironolactone - Torsemide: 60 mg dosage - Trazodone Social History: - The patient has recently moved back to the area from [place], appreciating the healthcare system in the current state. - Intentions to re-establish care with a psychiatrist. Problem List - Lower Extremity Edema - Cardiac Condition with Defibrillator and LVAD - Awaiting Cardiac Transplant Evaluation - Anxiety/Depression - Fibroids under OBGYN evaluation Diagnostic results reviewed from hospital visit - Labs: - Potassium: Initially low, corrected with IV fluids - Potassium: 4.2 (Normal) - Creatinine: Normal - GFR: 112 - Glucose: 111 (Normal) - Hemoglobin: 12.4 - Platelets: 339 - Magnesium: 2.4 - Albumin: 4.1 - BNP: 1394 (Elevated) - Liver enzymes: Normal - Tests and diagnostics: - Planning for ultrasound evaluation for fibroids repetition [place] of Care The patient plans to follow up with a sports writer on June 04 to discuss her readiness for cardiac transplant list reactivation. She is also interacting with her OBGYN for fibroid management and re-establishing psychiatric care. Patient Instructions - Continue taking Lasix as prescribed and monitor for any increase in swelling. - Attend the scheduled sports writer appointment on June 04. - Discuss with the OBGYN about fibroid management and further testing. - Contact psychiatric services to resume care.
--- OUTSIDE RECORDS SUMMARY | 2025-05-21 10:48 | XMS_ITS | Patient Health Record ---
Author Organization [facility] Location Address [address] [address] Care Team Providers Care Foot Orthopedist Name Role Phone Madelin De Santiago Unavailable [phone] Reason For Referral No Information Plan Of Treatment No Information Insurance Providers Payer Name Payer Address Payer Phone Subscriber Number Group Number Insured Name Patient Relationship to Insured Coverage Start Date Coverage End Date [employer] Medicaid [facility] [address] [address] [place] [id number] BELKYS GLOVER Self - patient is the insured
--- OUTSIDE RECORDS SUMMARY | 2025-05-21 10:48 | XMS_ITS | Clinical Summary ---
Author Organization [facility] Address [address] [place] [address] Care Team Providers Care Orchestra Musician Name Role Phone Jose Quick MD Unavailable [phone] Pcp, No Primary Care Provider Unavailabl [...] patient's age to complete this topic Insurance [facility] MEDICAID Care Teams Orchestra Musician Relationship Specialty Start Date End Date Pcp, No PCP - General 10/15/24 Jose Quick MD [address] [facility] [address] [place] [phone] Referring Physician Cardiology 10/14/24
--- OUTSIDE RECORDS SUMMARY | 2025-05-21 10:48 | XMS_ITS | Clinical Summary ---
Author Organization [address] [address] Phone Care Team Providers Care Cricket Coach Name Role Phone Murray Dumont MD Primary Care Provider [phone] Social History Tobacco Use Types Packs/Day Years [...] GENERIC COMMERCIAL GENERIC COMMERCIAL GENERIC Care Teams Cricket Coach Relationship Specialty Start Date End Date Murray Dumont MD [facility] [place] [phone] PCP - General Internal Medicine 11/15/23
--- OUTSIDE RECORDS SUMMARY | 2025-05-21 10:48 | XMS_ITS | Encounter Summary ---
Author Organization [facility] Address [address] [place] [address] Care Team Providers Care Development Geologist Name Role Phone Murray Dumont MD Primary Care Provider [phone] Encounter Details Date Type Department Care Team (Late st Contact Info) Description 05/01/2025 Results Follow-Up [facility] [address] [place] [id number] Dolly Jeong, DNP, GM MOBILE [address] [facility] [address] [place], [place] [id number] Basic Metabolic Panel Social History Tobacco Use Types Packs/Day Years Used Date Smoking Tobacco: Never Passive Smoke Exposure: Current Smokeless Tobacco: Never Alcohol Use Standard Drinks/Week Comments Not Currently 0 (1 standard drink = 0.6 oz pur e alcohol) Utilities Answer Date Recorded In the past 12 months has [employer], gas, oil, or water [employer] threatened to shut off services in your [...] any time in the past 12 m [facility], were you homeless or living in a m[facility]p (including now)? No 03/27/2025 Comments No Sex and Gender Information Value Date Recorded Sex Assigned at Not on file Legal Sex Female 2:32 PM EST Gender Identity Not on file Sexual Orientation Not on file documented as of this encounter Plan of Treatment Not on file documented as of this encounter Visit Diagnoses Not on filedocumented in this encounter Care Teams Development Geologist Relationship Specialty Start Date End Date Murray Dumont MD [address] [place] [address] [place] [address] PCP - General Family Medicine 11/18/24 documented as of this encounter
--- OUTSIDE RECORDS SUMMARY | 2025-05-21 10:49 | XMS_ITS | Clinical Summary ---
Author Organization [facility] Address [address] [place] [address] Care Team Providers Care Entry Driver Operator Name Role Phone Unknown Primary Care Provider [phone] Allergies Active Allergy Reactions Criticality Noted Date Comments Cyclobenzaprine Unknown/Patient and Family Unable to Define Medium 11/01/2021 Medications ferrous gluconate (FERGON) 324 MG tablet Take 324 mg by mouth every morning with breakfast. Take 2 hours before or 4 hours after acid reducers. Active empagliflozin (JARDIANCE) 10 MG tabletIndicatio ns:HFrEF (heart failure with reduced ejection fraction) ([facility]) Take 1 tablet (10 mg total) by mouth daily. 30 tablet 11/10/2021 Active carvedilol (COREG) 12.5 MG tabletIndicatio ns:HFrEF (heart failure with reduced ejection fraction) ([facility]) Take 1 tablet (12.5 mg total) by mouth 2 (two) times a day. 60 tablet 11/10/2021 Active spironolactone (ALDACTONE) 25 MG tabletIndicatio ns:HFrEF (heart failure with reduced ejection fraction) ([facility]) Take 1 tablet (25 mg total) by mouth daily. 30 tablet 11/10/2021 Active torsemide (DEMADEX) 20 MG tabletIndicatio ns:HFrEF (heart failure with reduced ejection fraction) ([facility]) Take 2 tablets (40 mg total) by mouth daily. 60 tablet 11/10/2021 Active sacubitril-vals kylie (ENTRESTO) 24-26 mg per tabletIndicatio ns:HFrEF (heart failure with reduced ejection fraction) ([facility]) Take 1 tablet by mouth 2 (two) [...] CMIA Nonreactive Nonreactive 11/03/2021 11:32 AM EST [facility] Comment:Results show no evid ence of infection by HIV 1/2. If clinically indicated, repeat CMIA or test by nucleic acid amplification. Blood specimen (specimen) Serum specimen / Unknown 11/02/2021 4:50 PM EST 11/02/2021 5:14 PM EST Kehinde Moffett PA-C LAB BLOOD ORDERABLES Final Re sult Performing Organization Address City/State/[facility] Co de Phone Number HOSPITAL LAB [facility] [address] [email or web address] [address] from Last 3 Months or Most Recently Relevant to Health Maintenance Insurance [place] [facility] [place]ives * Full Code (Latest Code Status on File) Date Activated Date Inactivated Comments 11/01/2021 3:56 PM Care Teams Entry Driver Operator Relationship Specialty Start Date End Date Unknown Unknow Provider Address PCP - General 11/01/21
--- OUTSIDE RECORDS SUMMARY | 2025-05-21 10:49 | XMS_ITS | Clinical Summary ---
Author Organization [employer] [facility] Address [address] [place] [address] Care Team Providers Care Pharmacy Operations Coordinator Name Role Phone Murray Dumont MD Primary Care Provider [phone] Allergies Active Allergy Reactions Criticality Noted Date [...] age to complete this topic Care Teams Pharmacy Operations Coordinator Relationship Specialty Start Date End Date Murray Dumont MD [address] [place] [address] PCP - General Internal Medicine 05/02/22
--- OUTSIDE RECORDS SUMMARY | 2025-05-21 10:49 | XMS_ITS | Clinical Summary ---
Author Organization [address] Address [address] [place] [address] Phone Care Team Providers Care Sap Ppm Consultant Name Role Phone Murray Dumont MD Primary Care Provider [phone] Surgical History Surgery Date Site/Laterality Comments OTHER SURGICAL HISTORY PROCEDURE: HISTORY OTHER; COMMENT: Gallstone Extraction OTHER SURGICAL HISTORY 05/04/2022 PROCEDURE: HISTORICAL ICD Medical History Medical History Date Comments Diabetes ([facility] V24, [facility] V28) DX:Diabetes (HCC) Morbid obesity ([facility] V24, [facility] V28) DX:Morbid obesity (HCC) Chest pain DX:Chest pain; C OMMENT: D/C'd from [facility] on 01/08/22 History of non-insulin depen dent diabetes mellitus DX:History of non-insulin de pendent diabetes mellitus; COMMENT: D/C'd from [facility] on 01/08/22 Anxiety and depression DX:Anxiet y and depression; COMMENT: D/C'd from [facility] on 01/08/22 Insomnia DX:Insomnia; COM MENT: D/C'd from [facility] on 01/08/22 DVT prophylaxis DX:DVT prophylax is; COMMENT: D/C'd from [facility] on 01/08/22 Atypical pneumonia DX:Atypical p neumonia; COMMENT: [facility] 11[facility]10[facility]21 Hypoxia DX:Hypoxia; COMM ENT: D/C'd from [facility] on 11/10/21 Hypomagnesemia DX:Hypomagnesemi a Hypokalemia DX:Hypokalemia URI (upper respiratory infection) DX:URI (upper respiratory infection) Cardiac device in situ DX:Cardia c device in situ Pneumonia DX:Pneumonia Acute COVID-19 DX:Acute COVID-1 9 Type 2 diabetes mellitus ([facility] V24, [facility] V28) DX:Type 2 diabetes mellitus (HCC) Obesity DX:Obesity Neutropenia ([facility] V24) DX:Tonny tropenia (HCC) Covid-19 DX:COVID-19 Vomiting DX:Vomiting Severe obesity ([facility] V24, [facility] V28) DX:Severe obesity (HCC) Prediabetes DX:Prediabetes Family [...] mmol/L LAB CHEMISTRY METHOD 08/29/2024 4:42 PM [facility] Potassium 3.6 3.5 - 5.5 mmol/L LAB CHEMISTRY METHOD 08/29/2024 4:42 PM [facility] Chloride 104 96 - 110 mmol/L LAB CHEMISTRY METHOD 08/29/2024 4:42 PM [facility] CO2 26 21 - 32 mmol/L LAB CHEMISTRY METHOD 08/29/2024 4:42 PM [facility] Anion Gap 8 3 - 11 LAB CHEMISTRY METHOD 08/29/2024 4:42 PM [facility] Glucose 157(H) 70 - 100 mg/dL LAB CHEMISTRY METHOD 08/29/2024 4:42 PM [facility] BUN 11 5 - 25 mg/dL LAB CHEMISTRY METHOD 08/29/2024 4:42 PM [facility] Creatinine 0.80 0.50 - 1.10 mg/dL LAB CHEMISTRY METHOD 08/29/2024 4:42 PM [facility] eGFR 102 >=60 mL/min/1. 73m2 LAB CHEMISTRY METHOD 08/29/2024 4:42 PM [facility] Comment:Calculation based on the Chronic Kidney Disease Epidemiology Collaboration (CKD-EPI) equation refit without adjustment for race. BUN/Creatinine Ratio 13.8 LAB CHEMISTRY METHOD 08/29/2024 4:42 PM [facility] Calcium 9.4 8.5 - 10.5 mg/dL LAB CHEMISTRY METHOD 08/29/2024 4:42 PM [facility] AST (SGOT) 22 10 - 42 unit/L LAB CHEMISTRY METHOD 08/29/2024 4:42 PM [facility] ALT (SGPT) 33 10 - 60 unit/L LAB CHEMISTRY METHOD 08/29/2024 4:42 PM EST [facility] Alkaline Phosphatase 78 42 - 121 unit/L LAB CHEMISTRY METHOD 08/29/2024 4:42 PM EST [facility] Total Protein 8.1(H) 6.0 - 8.0 g/dL LAB CHEMISTRY METHOD 08/29/2024 4:42 PM EST [facility] Albumin 3.6 3.2 - 5.0 g/dL LAB CHEMISTRY METHOD 08/29/2024 4:42 PM EST [facility] Total Bilirubin 0.5 0.0 - 1.4 mg/dL LAB CHEMISTRY METHOD 08/29/2024 4:42 PM EST [facility] Blood Venous blood specimen / Unknown 08/29/2024 08/29/2024 3:40 PM EST us Catarina Riley NP LAB BLOOD ORDERABLES Final Res ult [facility] [address] [place] [address], from Last 3 Months or Most Recently Relevant to Health Maintenance Insurance [facility] MEDICARE ADVANTAGE Advance Directives Documents on File Type Date Recorded 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
== END 2025-05-21 10:53 | disposition home or self-care (01) ==
LOC: HO.HMCC 10:09
PROVIDERS: PCP Internal Medicine; Visit Provider Internal Medicine
DX: E13.9 Other specified diabetes mellitus without complications (principal); I42.0 Dilated cardiomyopathy; Z09 Encounter for follow-up examination after completed treatment for conditions other than malignant neoplasm; Z95.810 Presence of automatic (implantable) cardiac defibrillator; R94.30 Abnormal result of cardiovascular function study, unspecified; F33.41 Major depressive disorder, recurrent, in partial remission

== ENCOUNTER → 2025-05-21 10:08 | Outpatient (BNVA) | payer MEDICARE, MEDICAID, SELFPAY | PROVIDERS: PCP Internal Medicine; Visit Provider Internal Medicine | DX: Z09 Encounter for follow-up examination after completed treatment for conditions other than malignant neoplasm (principal); E13.9 Other specified diabetes mellitus without complications; I42.9 Cardiomyopathy, unspecified; R94.30 Abnormal result of cardiovascular function study, unspecified; F33.41 Major depressive disorder, recurrent, in partial remission; Z95.810 Presence of automatic (implantable) cardiac defibrillator | CPT/HCPCS: 96127; 99212 ==

== ENCOUNTER 2025-06-06 09:02 | Outpatient (REF) | payer MEDICARE, MEDICAID, SELFPAY ==
--- OUTSIDE RECORDS SUMMARY | 2025-01-22 07:30 | XMS_ITS ---
Author Organization [facility], [facility]. Address [address] [place] [address] Care Team Providers Care Ibm Websphere Portal Developer Name Role Phone Herbert Sinha Primary Care Provider [phone] Andrew Muñoz [phone] REASON FOR VISIT F/UP REFILL Encounters Encounter Location Date Provider Diagnosis [address] [place] [address] 01/22/2025 Andrew Cage Plan Of Treatment No Information Progress Notes * BELKYS GLOVERDOB:1995 ( 30 yo F)Acc No.[id number]:01/22/2025 Progress Notes Patient: Frandy WALTERSBELKYS Appointment Provider: BRANDON Philip :1995 A ge:30 Y S ex:Female Date:01/22/2025 Address:[address] [place], [place] [phone] Pcp:Herbert Sinha Subjective: * Chief Complaints: * 1 . F/UP REFILL. * Medical History: Objective: * Vitals: Assessment: Plan: * Treatment: * Images: Care Plan Details* * Electronic signature of Vidal Cage APRN on 06/06/2025 at 09:55 AM EDT Sign off status: Pending * Appointment Provider: BRANDON Philip Date: 01/22/2025 Generated for Printing/Faxing/eTransmitting on: 06/06/2025 09:55 AM EDT
--- OUTSIDE RECORDS SUMMARY | 2025-02-11 05:45 | XMS_ITS ---
Author Organization [facility], [facility] Address [address] [place] [address] Care Team Providers Care Aviation Tactical Readiness Officer Name Role Phone Herbert Sinha Primary Care Provider Andrew Muñoz Unavailable [phone] Eyad Gordon Unavailable [phone] REASON FOR VISIT F/UP Encounters Encounter Location Date Provider Diagnosis [address] [place] [address] 02/11/2025 Eyad Franks Plan Of Treatment No Information Progress Notes * BELKYS GLOVERDOB:1995 ( 30 yo F)Acc No.[id number]:02/11/2025 Progress Notes Patient: BELKYS BORRERO Appointment Provider: EMIR Coronel :1995 A ge:30 Y S ex:Female Date:02/11/2025 Address:[address] [place], [place] [id number] Pcp:Herbert Sinha Subjective: * Chief Complaints: * 1 . F/UP. * Medical History: Objective: * Vitals: Assessment: Plan: * Treatment: * Images: Care Plan Details* * Electronic signature of Eyad Franks APRN on 06/06/2025 at 09:54 AM EDT Sign off status: Pending * Appointment Provider: EMIR Coronel Date: 02/11/2025 Generated for Printi ng/Faxing/eTransmitting on: 06/06/2025 09:54 AM EDT
--- OUTSIDE RECORDS SUMMARY | 2025-04-14 04:15 | XMS_ITS ---
Author Organization [facility], [facility] Address [address] [place] [address] Care Team Providers Care Concrete Puddler Name Role Phone Herbert Sinha Primary Care Provider Andrew Muñoz Unavailable [phone] Eyad Gordon Unavailable REASON FOR VISIT PER DR Encounters Encounter Location Date Provider Diagnosis [address] [place] [address] 04/14/2025 yEad Franks Plan Of Treatment No Information Progress Notes * BELKYS GLOVERDOB:1995 ( 30 yo F)Acc No.[id number]:04/14/2025 Progress Notes Patient: Frandy WALTERS BELKYS Appointment Provider: EMIR Coronel :1995 A ge:30 Y S ex:Female Date:04/14/2025 Address:[address] [place], [place] [id number] Pcp:Herbert Sinha Subjective: * Chief Complaints: * 1 . PER DRJeniffer * Medical History: Objective: * Vitals: Assessment: Plan: * Treatment: * Images: Care Plan Details* * Electronic signature of Eyad Franks APRN on 06/06/2025 at 09:54 AM EDT Sign off status: Pending * Appointment Provider: EMIR Coronel Date: 04/14/2025 Generated for Printi ng/Faxing/eTransmitting on: 06/06/2025 09:54 AM EDT
--- OUTSIDE RECORDS SUMMARY | 2025-04-22 11:15 | XMS_ITS ---
Author Organization [facility] Frandy cortez Location Address [address] [address] Care Team Providers Care Patient Financial Services Specialist Name Role Phone Madelin De Santiago [phone] REASON FOR VISIT new gynecologic visit Encounters Encounter Location Date Provider Diagnosis [facility] [place] Location [address] [address] [place] [address] 04/22/2025 Madelin De Santiago Plan Of Treatment No Information Progress Notes * BELKYS GLOVERDOB:1995 ( 30 yo F)Acc No.[id number]:04/22/2025 Progress Notes Patient: BELKYS BORRERO Provider: Hailey De Santiago NP :1995 A ge:30 Y S ex:Female Date:04/22/2025 [facility] Subjective: * Chief Complaints: * N ew gynecologic visit * Electronic signature of Ellis De Santiago APRN on 06/06/2025 at 09:54 AM EDT Sign off status: Pending * Provider: Hailey De Santiago NP Date: 04/22/2025 Generated for Williei ng/Faxing/eTransmitting on: 06/06/2025 09:54 AM EDT
--- OUTSIDE RECORDS SUMMARY | 2025-06-04 12:00 | XMS_ITS | Encounter Summary ---
Author Organization [facility] Address [address] [facility] [address] [place] [address] Care Team Providers Care Senior Quality Technician Name Role Phone Murray Dumont MD Primary Care Provider [phone] Daren Chaidez MD Unavailable Nilda Navarrete Unavailable [phone] Elijah Mcbride MD Unavailable [phone] Hyun Chappell MD Unavailable Reason for Referral * Consultation (Routine) - Authorized Specialty Diagnoses / Procedures Referred By Maisha espitia Referred To Contact Bariatrics Diagnoses Class 2 obesity due to excess calories with body mass index (BMI) of 38.0 to 38.9 in adult, unspecified whether serious comorbidity present Procedures ND OFFICE NEW 60 - 74 MIN Hyun Chappell MD [address] [place] [address] Phone: tel: fax: [facility] [address] [place] [address] Phone: tel: Referral ID Status Reason Start Date Expiration Date Visits Requested Visits Authorized [id number] Authorized Specialty Services Required 06/05/2025 06/05/2026 12 12 * Consultation (Routine) - Authorized Specialty Diagnoses / Procedures Referred By Maisha espitia Referred To Contact Bariatrics Diagnoses Chronic systolic (congestive) heart failure (Multi-HCC) Procedures ND OFFICE NEW 60 - 74 MIN Hyun Chappell MD [address] [facility] [address] [place] [address] Phone: tel: fax: [facility] [address] [facility] [address] [place] [address] Phone: tel: fax: Referral ID Status Reason Start Date Expiration Date Visits Requested Visits Authorized [id number] Authorized Specialty Services Required 06/04/2025 06/04/2026 12 12 Encounter Details Date Type Department Care Team (Late st Contact Info) Description 06/04/2025 12:00 PM EDT Office Visit [facility] Cardiac [facility]specialty [address] [facility] 6th [place] [address] Hyun Chappell MD [address] [facility] [address] [place] [address] Chronic systolic (congestive) heart failure (Multi-HCC) (Primary Dx); LVAD (left ventricular assist device) present (Multi-HCC); Other residential (current) drug therapy; Class 2 obesity due to excess calories with body mass index (BMI) of 38.0 to 38.9 in adult, unspecified whether serious comorbidity present Social History Tobacco Use Types Packs/Day Years Used Date Smoking Tobacco: Never Smokeless Tobacco: Never Alcohol Use Standard Drinks/Week Comments Not Currently 0 (1 standard drink = 0.6 oz pure alcohol) only on holidays , one drink. Utilities Answer Date Recorded In the past 12 months has [employer], [employer], or water [employer] threatened to shut off services in your home? No 05/14/2025 AUDIT-C Answer Date Recorded Q1: How often do you have a drink containing alcohol? Never 05/14/2025 Q2: How many drinks containi ng alcohol do you have on a typical day when you are drinking? Patient does not drink Q3: How often do you have si x or more drinks on one occasion? Never 05/14/2025 Overall Financial Resource Strain (CARDIA) Answe r Date Recorded How hard is it for you to pa y for the very basics like food, housing, medical care, and heating? Not very hard 05/14/2025 PHQ-2 Answer Date Recorded Patient Health Questionnaire-2 Score 2 04/14/2023 Hunger Vital Sign Answer Date Recorded Within the past 12 months, y ou worried that your food would run out before you got the money to buy more. Never true 05/14/20 25 Ran Out of Food in the Last Year Not on file 05/14/2025 PRAPARE - Transportation Answer Date Re corded In the past 12 months, has l ack of transportation kept you from medical appointments or from getting medications? No 03/2025 In the past 12 months, has l ack of transportation kept you from meetings, work, or from getting things needed for daily living? No 05/14/2025 Housing Stability Vital Sign Answer Brayan e Recorded Unable to Pay for Housing in the Last Year Not o n file 05/15/2024 Number of Places Lived in the Last Year Not on f ile 05/15/2024 In the last 12 months, was t here a time when you did not have a steady place to sleep or slept in a alf (including now)? No 05/15/2024 Housing Stability Vital Sign Answer Brayan e Recorded Unable to Pay for Housing in the Last Year Not o n file 05/14/2025 Number of Times Moved in the Last Year Not on fi le 05/14/2025 At any time in the past 12 m [facility], were you homeless or living in a alf (including now)? No 05/14/2025 Comments No Sex and Gender Information Value Date Recorded Sex Assigned at Female 01/13/2022 3:44 PM EDT Legal Sex Female 3:04 PM EDT Gender Identity Female 01/13/2022 3:44 PM EDT Sexual Orientation Bisexual 06/09/2023 11 :54 PM EDT Travel History Travel Start Travel End [place] 04/13/2025 05/07/2025 documented as of this encounter Last Filed Vital Signs Vital Sign Reading Time Taken Comments Blood Pressure 90/0 06/04/2025 11:00 AM EDT CUFF BP_ NO READING Pulse - - Temperature 37.2 C (99 F) 06/04/2025 11:00 AM EDT Respiratory Rate - - Oxygen Saturation - - Inhaled Oxygen Concentration - - Weight 121.5 kg (267 lb 12.8 oz) 06/04/2025 11:00 AM EDT Height - - Body Mass Index 41.94 05/14/2025 6:09 AM EDT documented in this encounter Functional Status * Are you deaf or do you have serious difficulty hearing? Answer Date of Assessment Author No 05/14/2025 6:16 AM EDT Marcellus Moyer RN * Are you blind or do you have serious difficulty seeing, even when wearing glasses? Answer Date of Assessment Author No 05/14/2025 6:16 AM EDT Marcellus Moyer RN * Do you have serious difficulty walking or climbing stairs? Answer Date of Assessment Author No 05/14/2025 6:16 AM EDT Marcellus Moyer RN * Do you have serious difficulty dressing or bathing? Answer Date of Assessment Author No 05/14/2025 6:16 AM EDT Marcellus Moyer RN * Because of a physical, mental, or emotional condition, do you have difficulty doing errands such asvisiting the doctor's office or shopping? Answer Date of Assessment Author No 05/14/2025 6:16 AM ELMAT Marcellus Moyer RN documented as of this encounter Mental Status * Because of a physical, mental, or emotional condition, do you have serious difficulty concentrating, remembering, or making decisions? Answer Entry Date Author No 05/14/2025 6:16 AM Marcellus Galo RN documented in this encounter Plan of Treatment Upcoming Encounters Date Type Department Care Team (Late st Contact Info) Description 10/06/2025 10:00 AM EST Telemedicine [facility] [address] [place] [address] Corine Rolle PA [address] [place] [id number] Scheduled Orders Name Type Priority Associated Diagnoses Orde r Schedule CBC and differential Lab STAT LVAD (left ventricular assist device) present (Multi-HCC) Expected: 06/04/2025 (Approximate), Expires: 06/04/2026 Comprehensive metabolic panel Lab STAT LVAD (left ventricular assist device) present (Multi-HCC) Expected: 06/04/2025 (Approximate), Expires: 06/04/2026 Lactate dehydrogenase Lab STAT LVAD (left ventricular assist device) present (Multi-HCC) Expected: 06/04/2025 (Approximate), Expires: 06/04/2026 Magnesium Lab STAT LVAD (left ventricular assist device) present (Multi-HCC) Expected: 06/04/2025 (Approximate), Expires: 06/04/2026 Protime-INR (aka PT) Lab STAT LVAD (left ventricular assist device) present (Multi-HCC) Expected: 06/04/2025 (Approximate), Expires: 06/04/2026 NT pro BNP Lab Routine LVAD (left ventricular assist device) present (Multi-HCC) Chronic systolic (congestive) heart failure (Multi-HCC) Expected: 06/04/2025 (Approximate), Expires: 06/04/2026 Scheduled Referrals Name Type Priority Associated Diagnoses Orde r Schedule [facility] to [facility] Outpatient Referral Routine Chronic systolic (congestive) heart failure (Multi-HCC) Expected: 06/04/2025 (Approximate), Expires: 06/04/2026 Ambulatory [facility] to [facility] Outpatient Referral Routine Class 2 obesity due to excess calories with body mass index (BMI) of 38.0 to 38.9 in adult, unspecified whether serious comorbidity present Expected: 06/05/2025 (Approximate), Expires: 06/05/2026 documented as of this encounter Visit Diagnoses Diagnosis Chronic systolic (congestive) heart failure (Multi-HCC)- Primary LVAD (left ventricular assist device) present (Multi-HCC) Other level vial marker (current) drug therapy Class 2 obesity due to excess calories with body mass index (BMI) of 38.0 to 38.9 in adult, unspecified whether serious comorbidity present documented in this encounter Additional Health Concerns Assessment Noted Time PHQ-9 Depression Total Score: 4 04/14/20 23 1:04 PM EDT documented as of this encounter Care Teams Senior Quality Technician Relationship Specialty Start Date End Date Murray Dumont MD [address] [place] [address] PCP - General 01/13/22 Daren Chaidez MD [address] [address] Director Of Teenage Activities/Gynecologi st 02/06/24 Nilda Navarrete PA [address] [place] [phone] 1st Contact Physician Players Club Representative 02/16/24 Elijah Mcbride MD [address] [place] [address] Joiner Children'S Counselor 02/11/25 Hyun Chappell MD [address] [address] Consulting Physician Advanced Heart Failure and Transplant Cardiology 06/04/25 documented as of this encounter
--- OUTSIDE RECORDS SUMMARY | 2025-06-06 09:54 | XMS_ITS | Encounter Summary ---
Author Organization [facility] Address [address] [place] [address] Care Team Providers Care Patient Services Manager Name Role Phone Murray Dumont MD Primary Care Provider [phone] Reason for Visit * Reason Onset Date Comments External Labs 04/04/2025 Encounter Details Date Type Department Care Team (Late st Contact Info) Description 04/07/2025 Documentation Encounter [facility] [address] [place] [address] Elijah Mcbride MD [address] [facility] [address] [place] [address] External Labs Social History Tobacco Use Types Packs/Day Years Used Date Smoking Tobacco: Never Passive Smoke Exposure: Current Smokeless Tobacco: Never Alcohol Use Standard Drinks/Week Comments Not Currently 0 (1 standard drink = 0.6 oz pur e alcohol) Utilities Answer Date Recorded In the past 12 months has [employer], gas, oil, or water [employer] threatened to shut off services in your [...] any time in the past 12 m [facility], were you homeless or living in a assisted (including now)? No 03/27/2025 Comments No Sex and Gender Information Value Date Recorded Sex Assigned at Not on file Legal Sex Female 2:32 PM EST Gender Identity Not on file Sexual Orientation Not on file documented as of this encounter Progress Notes * Joanne Smith APRN - 04/07/2025 8:59 AM EDT Pt is not on coumadin. documented in this encounter Plan of Treatment Not on file documented as of this encounter Procedures Procedure Name Priority Date/Time Associated Diagnosis Comments PROTIME-INR Routine 04/04/2025 1:52 PM EDT documented in this encounter Results * PROTIME-INR (04/04/2025 1:52 PM EDT) INR 1.0 EXTERNAL LAB Blood us Elijah Mcbride MD BLOOD ORDERABLES Final Result EXTERNAL LAB documented in this encounter Visit Diagnoses Not on filedocumented in this encounter Care Teams Patient Services Manager Relationship Specialty Start Date End Date Murray Dumont MD [employer] [facility] [place] [address] PCP - General Family Medicine 11/18/24 documented as of this encounter
--- OUTSIDE RECORDS SUMMARY | 2025-06-06 09:54 | XMS_ITS | Encounter Summary ---
Author Organization [facility] Address [address] [place] [address] Care Team Providers Care Assembler Dc Field Ring Name Role Phone Murray Dumont MD Primary Care Provider [phone] Encounter Details Date Type Department Care Team (Late st Contact Info) Description 05/01/2025 Results Follow-Up [facility] [address] [place] [phone] Dolly Jeong, DNP, FOOD DEMONSTRATOR [address] [facility] [address] [place], [place] [id number] Basic Metabolic Panel Social History Tobacco Use Types Packs/Day Years Used Date Smoking Tobacco: Never Passive Smoke Exposure: Current Smokeless Tobacco: Never Alcohol Use Standard Drinks/Week Comments Not Currently 0 (1 standard drink = 0.6 oz pur e alcohol) Utilities Answer Date Recorded In the past 12 months has [employer], gas, oil, or water [employer] threatened to shut off services in your [...] any time in the past 12 m [facility], were you homeless or living in a half-way (including now)? No 03/27/2025 Comments No Sex and Gender Information Value Date Recorded Sex Assigned at Not on file Legal Sex Female 2:32 PM EST Gender Identity Not on file Sexual Orientation Not on file documented as of this encounter Plan of Treatment Not on file documented as of this encounter Visit Diagnoses Not on filedocumented in this encounter Care Teams Assembler Dc Field Ring Relationship Specialty Start Date End Date Murray Dumont MD [address] [place] [address] [place] [address] PCP - General Family Medicine 11/18/24 documented as of this encounter
--- OUTSIDE RECORDS SUMMARY | 2025-06-06 09:54 | XMS_ITS | Patient Health Record ---
Author Organization [facility] Location Address [address] [address] Care Team Providers Care Obstetrics Gyn Name Role Phone Madelin De Santiago Unavailable [phone] Reason For Referral No Information Plan Of Treatment No Information Insurance Providers Payer Name Payer Address Payer Phone Subscriber Number Group Number Insured Name Patient Relationship to Insured Coverage Start Date Coverage End Date [employer] [facility] [address] [address] [place] [phone] [id number] [id number] GLOVER Self - patient is the insured
--- OUTSIDE RECORDS SUMMARY | 2025-06-06 09:54 | XMS_ITS | Referral Summary ---
Author Organization [facility] Address [address] [place] [address] Care Team Providers Care Wood Borer Name Role Phone Murray Dumont MD Primary Care Provider [phone] Encounters Date Type Department Care Team Description 05/01/2025 Results Follow-Up [place] [id number] Dolly Jeong, DNP, SETTLEMENT CLERK Basic Metabolic Panel 04/30/2025 Documentation Encounter [place] [id number] Kiya Moreno RN VAD DLES 04/30/2025 8:49 AM EDT - 04/30/2025 11:59 PM EDT Hospital Encounter LAB - [facility] OUTPATIENT [address] [place] [address] Elijah Mcbride MD NICM (nonischemic cardiomyopathy) (CMS-HCC: 227); LVAD (left ventricular assist device) present Discharge Disposition: Discharge to Home or Self Care 04/30/2025 9:15 [place] [address] Elijah Mcbride MD Chronic systolic heart failure (CMS-HCC: 226); NICM (nonischemic cardiomyopathy) (CMS-HCC: 227); LVAD (left ventricular assist device) present; ICD (implantable cardioverter-defibril lator) in place 04/07/2025 [place] [address] Elijah Mcbride MD External Labs 03/31/2025 [place] [address] Dolly Jeong DNP, SETTLEMENT CLERK Culture, Wound 03/27/2025 [place] [address] Kiya Moreno, AGUSTIN VAD DLES 03/27/20[place] [address] Dolly Jeong DNP, SETTLEMENT CLERK LVAD (left ventricular assist device) present 03/27/2025 1:30 [place] [address] 03/27/2025 8:30 AM EDT - 03/27/2025 9:00 AM EDT Surgery [facility] [address] [place] [address] Elijah Mcbride MD RIGHT HEART CATHETERIZATION w/ Echo @ bedside 03/27/2025 9:00 AM EDT - 03/27/2025 11:59 PM EDT Hospital Encounter ECHO CARDIOGRAPHY - ADULT (UB) [address] [place] [address] Joanne Smith, OTIS Chronic systolic heart failure (CMS-HCC: 226); SOB (shortness of breath) Discharge Disposition: Discharge to Home or Self Care 03/27/2025 1:00 PM [place] [address] Elijah Mcbride MD Rickman, Allison, GC Cardiovascular Genetic Counseling 03/27/2025 7:14 AM EDT - 03/27/2025 10:56 AM EDT Hospital Encounter [facility] [address] [place] [address] Elijah Mcbride MD Chronic systolic heart failure (CMS-HCC: 226); LVAD (left ventricular assist device) present Discharge Disposition: Discharge to Home or Self Care 03/11/2025 Orders Only [facility] [address] [place], [place] [phone] Dolly Jeong, CHUY, SETTLEMENT CLERK 03/11/2025 Telephone [place] [phone] Elijah Mcbride MD VAD Driveline drainage from Last 3 Months Allergies Active Allergy Reactions Criticality Noted Date Comments Cyclobenzaprine Other (See Comments),Nausea And Vomiting Medium 11/01/2021 Other reaction(s): Unknown Passed out Passed out Egg Solids, Whole Diarrhea Low 04/04/2023 Fish Allergy Other (See Comments) Low 03/25/2023 GI issues Flavoring Agent Diarrhea,Nausea And Vomiting,Rash Low 04/14/2023 Latex Itching,Other (See Comments),Rash Low 03/10/2022 Medications acetaminophen (TYLENOL) 500 MG Oral Tablet Take 500 mg by mouth every 6 hours as needed. Active metoprolol succinate (TOPROL-XL) 25 MG Oral Tablet Extended Release 24 Hour Take 25 mg by mouth daily. Active dapagliflozin (FARXIGA) 10 MG Oral Tablet Take 10 mg by mouth every morning. 4 Active HYDROcodone-acet aminophen (NORCO) 5-325 MG Oral Tablet Take 1 tablet by mouth as needed. Active lisinopril (ZESTRIL) 2.5 MG Oral Tablet Take 2.5 mg by mouth daily. 4 06/12/20 25 Active metoprolol succinate (TOPROL-XL) 25 MG Oral Tablet Extended Release 24 Hour Take 12.5 mg by mouth daily. 4 08/26/20 25 Active oxyCODONE-acetam inophen (PERCOCET) 5-325 MG Oral Tablet Take 1 tablet by mouth every 6 hours as needed. FOR PAIN Active pantoprazole (PROTONIX) 40 MG Oral Tablet Delayed Release Take 1 tablet by mouth daily. 4 Active potassium chloride (KLOR-CON) 10 MEQ Oral Tablet Extended Release Take 10 mEq by mouth 2 times daily (with meals). 5 Active potassium chloride (KLOR-CON) 20 MEQ Oral Packet Take 60 mEq by mouth. 4 Active Potassium Chloride 10 MEQ Oral Packet Take 10 mEq by mouth daily. Active sertraline (ZOLOFT) 100 MG Oral Tablet Take 100 mg by mouth. 4 Active spironolactone (ALDACTONE) 50 MG Oral Tablet Take 50 mg by mouth daily. 4 Active sulfamethoxazole -trimethoprim (BACTRIM DS) 800-160 MG Oral Tablet Take 1 tablet by mouth 2 times daily. FOR 7 DAYS 5 Active Tirzepatide (Mounjaro) 5 MG/0.5ML Subcutaneous Solution Auto-injector Inject 5 mg into the skin. 4 Active tiZANidine (ZANAFLEX) 4 MG Oral Tablet Active torsemide (DEMADEX) 100 MG Oral Tablet Take 100 mg by mouth daily. 4 Active torsemide (DEMADEX) 20 MG Oral Tablet Take 60 mg by mouth daily. 4 07/30/20 25 Active traZODone (DESYREL) 50 MG Oral Tablet Take by mouth as needed. 1-2 TABLETS Active zolpidem (AMBIEN) 10 MG Oral Tablet Take 5-10 mg by mouth. 4 Active cetirizine (ZyrTEC) 10 MG Oral Tablet Chewable Chew 10 mg as needed. Active busPIRone (BUSPAR) 10 MG Oral Tablet Take 10 mg by mouth 3 times daily. Active Abilify 2 MG Oral Tablet Take 2 mg by mouth every morning. Active Acetaminophen 325 MG Oral Capsule Take 650 mg by mouth every 6 hours as needed. Active pantoprazole (PROTONIX) 40 MG Oral Tablet Delayed Release Acti ve apixaban (Eliquis) 5 MG Oral Tablet Take 1 (one) tablet by mouth 2 times daily. 60 tablet 11 5 Active doxycycline (MONODOX) 100 MG Oral Capsule Take 1 (one) capsule by mouth 2 times daily. 20 capsule 5 Active Additional Information Patient not taking.Reported on 04/30/2025 Active Problems Patient Care Coordination No te Formatting of this note is d ifferent from the original. HeartMate 3 Implant Date: 05/28/24 @ [facility] Important Alerts DME [employer] INR Range On Eliquis Managed by [employer] GABRIELLE Antiplatelet Therapy Primary Ext Lab Pending VAD Coordinator Joanne Smith Dr. Patient Goals: [facility] VAD Coordinator #: [phone] Problem Noted Date Diagnosed Date Chronic systolic heart failure ([facility]-HCC: 226) NICM (nonischemic cardiomyopathy) ([facility]-HCC: 227) 01/29/2025 ICD (implantable cardioverter-defibrillator) in place 01/29/2025 LVAD (left ventricular assist device) present CHF (congestive heart failure) Social History Tobacco Use Types Packs/Day Years Used Date Smoking Tobacco: Never Passive Smoke Exposure: Current Smokeless Tobacco: Never Tobacco Cessation:Counseling Given: Not Answered Alcohol Use Standard Drinks/Week Comments Not Currently 0 (1 standard drink = 0.6 oz pur e alcohol) Utilities Answer Date Recorded In the past 12 months has th e [employer], gas, oil, or water [employer] threatened to shut off services in your [...] any time in the past 12 m [facility], were you homeless or living in a long term (including now)? No 03/27/2025 Comments No Sex and Gender Information Value Date Recorded Sex Assigned at Not on file Legal Sex Female 2:32 PM EST Gender Identity Not on file Sexual Orientation Not on file Last Filed Vital Signs Vital Sign Reading Time Taken Comments Blood Pressure 87/68 03/27/2025 10:00 AM EDT Pulse 160 03/27/2025 10:00 AM EDT Temperature 36.4 C (97.5 F) 04/30/2025 7:56 AM EDT Respiratory Rate 28 03/27/2025 10:00 AM EDT Oxygen Saturation 96% 04/30/2025 7:56 AM EDT Inhaled Oxygen Concentration - - Weight 119.7 kg (264 lb) 04/30/2025 7:56 AM EDT Height 167.6 cm (5' 6 ) 04/30/2025 7:56 AM EDT Body Mass Index 42.61 04/30/2025 7:56 AM EDT Plan of Treatment Not on file Procedures Procedure Name Priority Date/Time Associated Diagnosis Comments CBC AND DIFFERENTIAL Routine 04/30/2025 8:54 AM EDT NICM (nonischemic cardiomyopathy) (CMS-HCC: 227) LVAD (left ventricular assist device) present CBC AUTODIFF Routine 04/30/2025 8:54 AM EDT NICM (nonischemic cardiomyopathy) (CMS-HCC: 227) LVAD (left ventricular assist device) present LACTATE DEHYDROGENASE Routine 04/30/2025 8:54 AM EDT NICM (nonischemic cardiomyopathy) (CMS-HCC: 227) LVAD (left ventricular assist device) present BASIC METABOLIC PANEL Routine 04/30/2025 8:54 AM EDT NICM (nonischemic cardiomyopathy) (CMS-HCC: 227) LVAD (left ventricular assist device) present INTERROGATION VAD IN PRSON W/PHYS/QHP ANALYSIS Routine 04/30/2025 8:49 AM EDT LVAD (left ventricular assist device) present PROTIME-INR Routine 04/04/2025 1:52 PM EDT CARDIOLOGY TESTING 03/27/2025 8: 51 PM EDT CULTURE, WOUND Routine 03/27/2025 11:45 AM EDT LVAD (left ventricular assist device) present CTA CARDIAC STRUCTURES IVCON WO/W STAT 03/27/2025 11:42 AM EDT ECHO-TTE LTD W/ ULTRASOUND CONTRAST Routine 03/27/2025 10:51 AM EDT Chronic systolic heart failure (CMS-HCC: 226) SOB (shortness of breath) CARDIAC CATHETERIZATION Routine 03/27/2025 9:24 AM EDT Chronic systolic heart failure (CMS-HCC: 226) LVAD (left ventricular assist device) present CBC AND DIFFERENTIAL Routine 03/27/2025 9:18 AM EDT CBC AUTODIFF Routine 03/27/2025 9:18 AM EDT LACTATE DEHYDROGENASE Routine 03/27/2025 9:18 AM EDT LVAD (left ventricular assist device) present COMPREHENSIVE METABOLIC PANEL Routine 03/27/2025 9:18 AM EDT LVAD (left ventricular assist device) present CARDIAC CATHETERIZATION 03/27/2025 9:16 AM EDT POC [id number] OXIMETRY Routine 9:13 AM EDT POC [id number] OXIMETRY Routine 9:04 AM EDT RIGHT HEART CATHETERIZATION - [id number] 03/27/2025 8:20 AM EDT Chronic systolic heart failure (CMS-HCC: 226) LVAD (left ventricular assist device) present Special Needs [place] [id number] Rh w/ECHO arrive 0730 opDx Chronic systolic heart failure ([facility]-HCC: 85) [I50.22]Cpt [id number] Ahmed 02/25 cdw03/26 Confirmed. cdw from Last 3 Months Results * (ABNORMAL) CBC with Differential panel result (04/30/2025 8:54 AM EDT) Only the most recent of2 resultswithin the time period is included. WBC 6.2 4.0 - 10.0 x10E3/ L 04/30/2025 11:15 AM EDT [facility] RBC 5.19 4.00 - 5.20 x10E6/ L 04/30/2025 11:15 AM EDT [facility] Hemoglobin 12.3 12.0 - 16.0 g/dL 04/30/2025 11:15 AM EDT [facility] Hematocrit 37.8 35.0 - 45.0 % 04/30/2025 11:15 AM EDT [facility] MCV 72.8(L) 78.0 - 100.0 fL 04/30/2025 11:15 AM EDT [facility] MCH 23.6(L) 26.0 - 34.0 pg 04/30/2025 11:15 AM EDT [facility] MCHC 32.5 31.0 - 37.0 g/dL 04/30/2025 11:15 AM EDT [facility] RDW 15.2(H) 11.0 - 14.0 % 04/30/2025 11:15 AM EDT [facility] Platelet Count 320 150 - 450 x10E3/ L 04/30/2025 11:15 AM EDT [facility] MPV 6.9 6.0 - 10.0 fL 04/30/2025 11:15 AM EDT [facility] Neutrophils % 69.8 40.0 - 80.0 % 04/30/2025 11:15 AM EDT [facility] Lymphs % 17.3(L) 20.0 - 45.0 % 04/30/2025 11:15 AM EDT [facility] Monocytes % 10.2(H) 2.0 - 10.0 % 04/30/2025 11:15 AM EDT [facility] Eos % 2.2 0.0 - 8.0 % 04/30/2025 11:15 AM EDT [facility] Basos % 0.5 0.0 - 2.0 % 04/30/2025 11:15 AM EDT [facility] Neutrophils Absolute 4.33 1.70 - 7.00 x10E3/ L 04/30/2025 11:15 AM EDT [facility] Lymphocytes Absolute 1.07 1.00 - 3.20 x10E3/ L 04/30/2025 11:15 AM EDT [facility] Monocytes Absolute 0.63 0.20 - 0.70 x10E3/ L 04/30/2025 11:15 AM EDT [facility] Eosinophils Absolute 0.14 0.03 - 0.46 x10E3/ L 04/30/2025 11:15 AM EDT [facility] Basophils Absolute 0.03 0.02 - 0.09 x10E3/ L 04/30/2025 11:15 AM EDT [facility] NRBC % 0.0 0.0 % 04/30/2025 11:15 AM EDT [facility] Lymphocytes W/Atypicals Abs 04/30/2025 11:15 AM EDT [facility] DIFF TYPE Auto 04/30/2025 11:15 AM EDT [facility] Blood Venipuncture / Unknown 04/30/2025 8:54 AM EDT 04/30/2025 8:54 AM EDT us Dolly Jeong DNP, SETTLEMENT CLERK BLOOD ORDERABLES Final Result [facility] [address] [place] [address] * Lactate Dehydrogenase (04/30/2025 8:54 AM EDT) Only the most recent of2 resultswithin the time period is included. LD Total 214 135 - 225 IU/L 04/30/2025 11:47 AM EDT [facility] Blood Venipuncture / Unknown 04/30/2025 8:54 AM EDT 04/30/2025 8:54 AM EDT Dolly Jeong DNP, SETTLEMENT CLERK BLOOD ORDERABLES Final Result [facility] [address] [place] [address] * Basic Metabolic Panel (04/30/2025 8:54 AM EDT) Sodium 139 136 - 145 mmol/L 04/30/2025 11:47 AM EDT [facility] Potassium 3.4 3.3 - 5.1 mmol/L 04/30/2025 11:47 AM EDT [facility] Chloride 101 98 - 107 mmol/L 04/30/2025 11:47 AM EDT [facility] CO2 29 22 - 30 mmol/L 04/30/2025 11:47 AM EDT [facility] Urea Nitrogen 15.0 6.0 - 21.0 mg/dL 04/30/2025 11:47 AM EDT [facility] Creatinine 0.77 0.38 - 1.02 mg/dL 04/30/2025 11:47 AM EDT [facility] BUN/Creatinine Ratio 19.5 (CALC) 04/30/2025 11:47 AM EDT [facility] Glucose 72 65 - 99 mg/dL 04/30/2025 11:47 AM EDT [facility] Calcium 10.1 8.4 - 10.2 mg/dL 04/30/2025 11:47 AM EDT [facility] Anion Gap 9 8 - 16 mmol/L 04/30/2025 11:47 AM EDT [facility] EGFR (CKD-EPI) 106 >=60 mL/min/1.7 3m2 04/30/2025 11:47 AM EDT [facility] Comment:Calculation based on the Chronic Kidney Disease Epidemiology Collaboration ([id number]) equation refit without adjustment for race Blood Venipuncture / Unknown 04/30/2025 8:54 AM EDT 04/30/2025 8:54 AM EDT Dolly Jeong DNP, APRN BLOOD ORDERABLES Final Result Performing Organization Address [facility] Co de Phone Number [facility] [address] [place] [address] * PROTIME-INR (04/04/2025 1:52 PM EDT) INR 1.0 EXTERNAL LAB Blood Elijah Mcbride MD BLOOD ORDERABLES Final Result Performing Organization Address [facility] Co de Phone Number EXTERNAL LAB * CARDIOLOGY TESTING (03/27/2025 8:51 PM EDT) Narrative 03/27/2025 8:51 PM EDT Ordered by an unspecified provider. us Document Onb Scanned SCANNED ORDERS Final Resul t * Culture, Wound (03/27/2025 11:45 AM EDT) Culture Result 4+ Normal lindy SARITA 03/31/2025 9:53 AM EDT [facility] Other SPECIMEN FROM WOUND / Unknown Collection / Unknown 03/27/2025 11:45 AM EDT 03/27/2025 1:41 PM EDT Dolly Jeong DNP, APRN MICROBIOLOGY - G ENERAL ORDERABLES Final Result Performing Organization Address [facility]/ZIP Co de Phone Number [facility] [address] [place] [address] * CTA Cardiac Structures IVcon wo/w (03/27/2025 11:42 AM EDT) Anatomical Region Laterality Modality Cardiac Computed Tomogra phy 03/27/2025 11:0 6 AM EDT Impressions 03/27/2025 9:17 PM EDT LVAD appears to be appropriately positioned with likely small volume nonocclusive thrombus in the outflow cannula without significant narrowing. Leonides Hart MD, personally reviewed the images and the report and concur with these findings. Narrative 03/27/2025 9:17 PM EDT HISTORY: Abnormal hemodynamics consistent with a poor LV unloading, evaluate for outflow graft obstruction or taking EXAM: CTA CARDIAC STRUCTURES IVCON WO/W. Routine cardiac CTA was performed per protocol following administration of 150 cc Omnipaque IV contrast followed by a normal saline flush. Images were obtained both prior to and following contrast administration. Multiplanar and 3D reformations were performed at the workstation to aid in interpretation of this study. No adverse contrast reactions were noted. PRIOR STUDY: None FINDINGS: GROSS CARDIAC ANATOMY: There is cardiomegaly with severe dilation of the left ventricle and moderate to severe dilation of the left atrium. There is an LVAD with inflow cannula in the LV and outflow tract appropriately anastomosed to the ascending aorta. There are findings suggesting nonocclusive thrombus in the outflow tract without significant narrowing (series 15 image 564). Evaluation of the proximal cannula is limited from streak artifact from the LVAD pump. Visualized portion of the driveline is intact without associated collection or inflammatory stranding. There is a very poor opacification of the vasculature with contrast which greatly limits evaluation for luminal stenosis and obstruction. Severe dilation of the pulmonary artery measuring 3 cm, the right and left pulmonary arteries are also dilated. EXTRACARDIAC ANATOMY: Left lateral chest wall ICD with lead in the subcutaneous tissues overlying the sternum. Thyroid gland is unremarkable. No axillary mediastinal or hilar lymphadenopathy. Gallbladder surgically absent. Otherwise no concerning abnormality seen in the upper abdomen. Dextroscoliosis of the thoracic spine. Median sternotomy with intact cerclage wires without findings to suggest dehiscence. Subsegmental atelectasis/scarring in the left upper and lower lobes. Mosaic attenuation, especially the right lower lobe. Study was reviewed with Dr. Sharp. Procedure Note Leonides Murray MD - 03/27/2025 HISTORY: Abnormal hemodynamics consistent with a poor LV unloading,evaluate for outflow graft obstruction or taking EXAM: CTA CARDIAC STRUCTURES IVCON WO/W. Routine cardiac CTA was performed per protocol following administration of150 cc Omnipaque IV contrast followed by a normal saline flush. Images were obtained bothprior to and following contrast administration. Multiplanar and 3D reformations were performed atthe workstation to aid in interpretation of this study. No adverse contrast reactions were noted. PRIOR STUDY: None FINDINGS: GROSS CARDIAC ANATOMY: There is cardiomegaly with severe dilation of the left ventricle andmoderate to severe dilation of the left atrium. There is an LVAD with inflow cannula in the LV and outflow tractappropriately anastomosed to the ascending aorta. There are findings suggesting nonocclusive thrombus in the outflow tractwithout significant narrowing (series 15 image 564). Evaluation of the proximal cannula islimited from streak artifact from the LVAD pump. Visualized portion of the driveline is intact without associatedcollection or inflammatory stranding. There is a very poor opacification of the vasculature with contrast whichgreatly limits evaluation for luminal stenosis and obstruction. Severe dilation of the pulmonary artery measuring 3 cm, the right and leftpulmonary arteries are also dilated. EXTRACARDIAC ANATOMY: Left lateral chest wall ICD with lead in the subcutaneous tissuesoverlying the sternum. Thyroid gland is unremarkable. No axillary mediastinal or hilarlymphadenopathy. Gallbladder surgically absent. Otherwise no concerning abnormality seen inthe upper abdomen. Dextroscoliosis of the thoracic spine. Median sternotomy with intact cerclage wires without findings to suggestdehiscence. Subsegmental atelectasis/scarring in the left upper and lower lobes.Mosaic attenuation, especially the right lower lobe. Study was reviewed with Dr. Sharp. IMPRESSION: LVAD appears to be appropriately positioned with likely small volumenonocclusive thrombus in the outflow cannula without significant narrowing. I, Leonides Murray MD, personally reviewed the images and the report andconcur with these findings. us Elijah Mcbride MD RAD CT ORDERABLES F inal Result * Echo-TTE ltd w/ ultrasound contrast (03/27/2025 10:51 AM EDT) Anatomical Region Laterality Modality Ultrasound 03/27/2025 9:53 AM EDT Narrative 03/27/2025 11:10 AM EDT Version: 1 Study ID: [id number] Echocardiography Laboratory Adult [facility] [address] [place], [place] Postal Code : [id number] Name: BELEN, Study Date: BP: 84 / 46 mmHg BELKYS ECHEVERRIA 03/27/2025, 9:53 AM HR: 83 bpm : 1995 Gender: Height: 170.18 cm Female Age: 30 Years Weight: 113.4 kg BSA: 2.22 m2 Performed By: Saul Shultz, ANTONIO,RVS Reason For Study: Chronic systolic heart failure (CMS- HCC: 85) Conclusions No prior study for comparison. The left ventricular (LV) cavity is severely enlarged. Estimated LVEF 15-19%. Severe global hypokinesis. Moderately to severely reduced right ventricular systolic function. An LVAD intake catheter is in the LV apex with normal flows. There is mild aortic insufficiency. There is mild mitral regurgitation. Degree of mitral regurgitation likely underestimated. Procedure Echo-TTE ltd with ultrasound enhancing agent. Technically difficult study. The apical views were difficult to obtain and are suboptimal in quality. A contrast injection of Optison was performed to improve assessment of LV function. Left Ventricle The left ventricular (LV) cavity is severely enlarged. There is normal left ventricular wall thickness. An LVAD intake catheter is in the LV apex with normal flows. Estimated LVEF 15-19%. Ultrasound contrast used to optimize visualization of the left ventricle. No evidence of left ventricle thrombus. Severe global hypokinesis. LVEDP estimated to be normal. Left Atrium The left atrium is severely enlarged. The left atrial volume index is 52.3 ml/m2. The atrial septum is intact by color Doppler. Right Atrium The right atrium is enlarged. The IVC is enlarged with reduced inspiratory collapse (RAP = 15 mmHg). Right Ventricle The right ventricle is normal in size. Moderately to severely reduced right ventricular systolic function. The tricuspid annular plane systolic excursion (TAPSE) is 8.4 (normal > 17). The right ventricular S' is 8.4 (normal > 9.5). Aortic Valve The aortic valve is trileaflet. The aortic valve intermittently open during systolic contraction. There is mild aortic insufficiency. There is no hemodynamically significant aortic valve stenosis. Mitral Valve Mitral leaflet tethering due to annular or LV dilitation. There is mild mitral regurgitation. Degree of mitral regurgitation likely underestimated. No hemodynamically significant valvular mitral stenosis was detected. Tricupid Valve The tricuspid valve is not well visualized, but is grossly normal. No evidence of tricuspid stenosis detected by spectral Doppler flow analysis. There is no tricuspid regurgitation. Pulmonic Valve There is no evidence of pulmonic valve stenosis. There is trivial pulmonic insufficiency. Pericardium No pericardial effusion. Aorta The aortic LVAD outflow catheter is not identified and the flow profile could not be assessed. + + 2D Measurements IVSd: 0.57 cm LVIDd: 7.6 cm LVPWd: 0.88 cm LV mass Index LA Volume Index LVOT diam: 2.30 BSA: 113.4 (BP): 52.3 ml/m2 cm grams/m2 Ao root diam: LVIDs: 7.0 cm FS: 7.2 % 2.47 cm LV systolic LV diastolic Med Peak E' Sean: E/Med E': 9.3 MV E max sean: 14.4 cm/sec 132.9 cm/sec Right Ventricle RV S Sean: 8.4 TAPSE: 8.44 mm cm/sec Aortic valve Mitral Valve Tricuspid Valve + + Electronically Barry 03/27/2025, 11:10 AM signed by: Thanh hart MD Procedure Note Barry Montilla MD - 03/27/2025 Version: 1 Study ID:[id number] Echocardiography Laboratory Adult [facility] [address] [place], [place] Postal Code : [address] Name: BELEN, Study Date: BP: 84 / 46mmHg BELKYS ECHEVERRIA 03/27/2025, 9:53 AM HR: 83 bpm : 1995 Gender: Height: 170.18cm Female Age: 30 Years Weight: 113.4kg BSA: 2.22 m2 Performed By: ANTONIO Moses,IGO Reason For Study: Chronic systolic heart failure ([facility]- HCC: 85) Conclusions No prior study for comparison. The left ventricular (LV) cavity is severely enlarged. Estimated LVEF 15-19%. Severe global hypokinesis. Moderately to severely reduced right ventricular systolic function. An LVAD intake catheter is in the LV apex with normal flows. There is mild aortic insufficiency. There is mild mitral regurgitation. Degree of mitral regurgitation likely underestimated. Procedure Echo-TTE ltd with ultrasound enhancing agent. Technically difficult study. The apical views were difficult to obtain and are suboptimal in quality. A contrast injection of Optison was performed to improve assessment of LV function. Left Ventricle The left ventricular (LV) cavity is severely enlarged. There is normal left ventricular wall thickness. An LVAD intake catheter is in the LV apex with normal flows. Estimated LVEF 15-19%. Ultrasound contrast used to optimize visualization of the left ventricle. No evidence of left ventricle thrombus. Severe global hypokinesis. LVEDP estimated to be normal. Left Atrium The left atrium is severely enlarged. The left atrial volume index is 52.3 ml/m2. The atrial septum is intact by color Doppler. Right Atrium The right atrium is enlarged. The IVC is enlarged with reduced inspiratory collapse (RAP = 15 mmHg). Right Ventricle The right ventricle is normal in size. Moderately to severely reduced right ventricular systolic function. The tricuspid annular plane systolic excursion (TAPSE) is 8.4 (normal > 17). The right ventricular S' is 8.4 (normal > 9.5). Aortic Valve The aortic valve is trileaflet. The aortic valve intermittently open during systolic contraction. There is mild aortic insufficiency. There is no hemodynamically significant aortic valve stenosis. Mitral Valve Mitral leaflet tethering due to annular or LV dilitation. There is mild mitral regurgitation. Degree of mitral regurgitation likely underestimated. No hemodynamically significant valvular mitral stenosis was detected. Tricupid Valve The tricuspid valve is not well visualized, but is grossly normal. No evidence of tricuspid stenosis detected by spectral Doppler flow analysis. There is no tricuspid regurgitation. Pulmonic Valve There is no evidence of pulmonic valve stenosis. There is trivial pulmonic insufficiency. Pericardium No pericardial effusion. Aorta The aortic LVAD outflow catheter is not identified and the flow profile could not be assessed. + + 2D Measurements IVSd: 0.57 cm LVIDd: 7.6 cm LVPWd: 0.88cm LV mass Index LA Volume Index LVOT diam:2.30 BSA: 113.4 (BP): 52.3 ml/m2 cm grams/m2 Ao root diam: LVIDs: 7.0 cm FS: 7.2 % 2.47 cm LV systolic LV diastolic Med Peak E' Sean: E/Med E': 9.3 MV E max sean: 14.4 cm/sec 132.9 cm/sec Right Ventricle RV S Sean: 8.4 TAPSE: 8.44 mm cm/sec Aortic valve Mitral Valve Tricuspid Valve + + Electronically Barry 03/27/2025, 11:10 AM signed by: Thanh hart MD Joanne Smith SETTLEMENT CLERK CARD [facility] ORDERABLES Edited Result - Final * CARDIAC CATHETERIZATION (03/27/2025 9:24 AM EDT) 03/27/2025 8:31 AM EDT Narrative ANNA-XPER - 03/27/2025 9:44 AM EDT Cardiac Catheterization Lab [address] [place] [address] Procedure Report: Right Heart Catheterization Patient Name: BELEN RIZVI Accession Number: [id number] Date of : 1995 Age: 30 years Gender: female Attending Physician(s): Elijah Mcbride MD Fellow(s): Date of Study: 03/27/2025 Height: 67 in/170 cm Weight: 253.9 lbs/115 kg BSA : 2.23 BMI: 39.8 Referring Physician: CONCLUSIONS 1) Baseline hemodynamics obtained on continuous support with a HM3 LVAD at 6000 RPM and a MAP 70mmHg. - RA 11 mmHg. - PA 59/23 (40) mmHg. - PCW 26 mmHg. - CO/CI = 7.25/3.24 by Elaine calculation. 2) Elevated right sided filling pressures 3) Pulmonary venous hypertension 4) Baseline LVAD Parameters: Speed 6000 RPM Flow 4.8 PI 3.1 Power 5 5) An LVAD RAMP study was then performed, and in increments of 100 - 200 RPM every 2-3 minutes, speed was increased to 6800 RPM, at which time repeat hemodynamics demonstrate: a) Normalization of right sided filling pressures b) Minimal improvement in pulmonary artery and PCW pressures with persistent pulmonary venous hypertension 6) LVAD Parameters: Speed 6800 RPM Flow 5.6 PI 3.1 Power 6.6 7) At the conclusion of the case, speed returned to baseline of 6000 RPM 8) Ultrasound guidance utilized for access RECOMMENDATIONS 1) Given evidence of poor LV unloading despite a high baseline set speed, which is not overcome during LVAD RAMP to 6800 RPM, and in the context of a normal MAP, will assess for outflow graft obstruction and/or presence of aortic insufficiency with echocardiogram and cardiac structures CTA CLINICAL PROFILE AND INDICATIONS Indications: Nonischemic Cardiomyopathy Chronuic Systolic Heart Failure LVAD Present Sedation start time - 03/27/2025 8:50:11 AM Procedure End Time - 03/27/2025 9:20:24 AM Sedation services and direct patient observation were provided by the same provider for a total of 30 minutes and required the presence of a one to one independent trained observer. PROCEDURE(S) PERFORMED RHC - 37193 Ultrasound guidance for vascular access - [id number] LVAD RAMP Study U1575 DESCRIPTION OF PROCEDURE The patient arrived to the procedure room. Informed consent was obtained / verified and the Timeout was completed, verifying the correct patient and procedure. The patient's procedural site was prepped and draped in the usual fashion. Ultrasound guided access was obtained at the vein and sheath placed. RHC performed with hemodynamics as noted. ADDITIONAL PROCEDURE INFORMATION The venous sheath was then removed and manual compression applied until hemostasis achieved Following the procedure the patient was transferred to the PACU. Contrast: Omnipaque_350 0 ml's Total Fluoro Time: 3.4 mins Total Fluoro Dose: 98.7 mGy Total DAP: 9.60 Gycm2 Estimated Blood Loss: < 10 mls COMPLICATION No Complications EQUIPMENT /DEVICES HALYARD Cardiac Cath Pack Medline Right Heart Manifold Kit Fluidin[employer] 5F STIFF Micropuncture 10cm TerDinglepharb 5F [place] 10cm Introducer [employer] [place] 5F Pressure Catheter SUMMARY OF HEMODYNAMIC DATA Time AIR REST ECG 08:42:29 RA 13/14 (11) SV 09:04:32 RV 53/11, 10 09:04:53 PW 2030 (26) PV 09:07:42 PA 59/23 (40) PA 09:08:51 Condition 2 PA 54/25 (37) PA 09:15:32 RA 8/11 (8) SV 09:15:32 PW / (19) PV 09:16:12 Type SV CO (l/m) CI (l/m/ HR Time AIR REST Elaine 81.40 7.25 3.24 89 08:42:22 Condition 2 Elaine 96.50 9.55 4.28 99 09:15:25 O2 Saturations: Label % O2 Pres/Loc Time AIR REST PA 67 PA 09:09:03 AO 96 PV 09:10:11 Condition 2 AO 96 PV 09:17:08 PA 74 PA 09:17:56 Signed By Elijah Mcbride MD On 03/27/2025 9:43:24 AM Elijah Mcbride MD I was present for the performance of this procedure and the interpretation of the results. Procedure Note Elijah Mcbride MD - 03/27/2025 Cardiac Catheterization Lab [address] [place] [address] Procedure Report: Right Heart Catheterization Patient Name: BELEN RIZVI Accession Number: [id number] Date of : 1995 Age: 30 years Gender: female Attending Physician(s): Elijah Mcbride MD Fellow(s): Date of Study: 03/27/2025 Height: 67 in/170 cm Weight: 253.9 lbs/115 kg BSA : 2.23 BMI: 39.8 Referring Physician: CONCLUSIONS 1) Baseline hemodynamics obtained on continuous support with a [id number] at 6000 RPM and a MAP 70mmHg. - RA 11 mmHg. - PA 59/23 (40) mmHg. - PCW 26 mmHg. - CO/CI = 7.25/3.24 by Elaine calculation. 2) Elevated right sided filling pressures 3) Pulmonary venous hypertension 4) Baseline LVAD Parameters: Speed 6000 RPM Flow 4.8 PI 3.1 Power 5 5) An LVAD RAMP study was then performed, and in increments of 100 - 200 RPM every 2-3 minutes, speed was increased to 6800 RPM, at which time repeat hemodynamics demonstrate: a) Normalization of right sided filling pressures b) Minimal improvement in pulmonary artery and PCW pressureswith persistent pulmonary venous hypertension 6) LVAD Parameters: Speed 6800 RPM Flow 5.6 PI 3.1 Power 6.6 7) At the conclusion of the case, speed returned to baseline of 6000RPM 8) Ultrasound guidance utilized for access RECOMMENDATIONS 1) Given evidence of poor LV unloading despite a high baseline setspeed, which is not overcome during LVAD RAMP to 6800 RPM, and in the context ofa normal MAP, will assess for outflow graft obstruction and/or presence of aortic insufficiency with echocardiogram and cardiac structures CTA CLINICAL PROFILE AND INDICATIONS Indications: Nonischemic Cardiomyopathy Chronuic Systolic Heart Failure LVAD Present Sedation start time - 03/27/2025 8:50:11 AM Procedure End Time - 03/27/2025 9:20:24 AM Sedation services and direct patient observation were provided by [facility] provider for a total of 30 minutes and required the presence of a one to one independent trained observer. PROCEDURE(S) PERFORMED RHC - 96795 Ultrasound guidance for vascular access - 65100 LVAD RAMP Study U1575 DESCRIPTION OF PROCEDURE The patient arrived to the procedure room. Informed consent was obtained/ verified and the Timeout was completed, verifying the correct patientand procedure. The patient's procedural site was prepped and draped in the usual fashion. Ultrasound guided access was obtained at the vein andsheath placed. RHC performed with hemodynamics as noted. ADDITIONAL PROCEDURE INFORMATION The venous sheath was then removed and manual compression applieduntil hemostasis achieved Following the procedure the patient was transferred to the PACU. Contrast: Omnipaque_350 0 ml's Total Fluoro Time: 3.4 mins Total Fluoro Dose: 98.7 mGy Total DAP:9.60 Gycm2 Estimated Blood Loss: < 10 mls COMPLICATION No Complications EQUIPMENT /DEVICES HALYARD Cardiac Cath Pack Medline Right Heart Manifold Kit [employer] - [employer] 5F STIFF Micropuncture 10cm TerDinglepharb 5F [place] 10cm Introducer [employer] [place] 5F Pressure Catheter SUMMARY OF HEMODYNAMIC DATA Time AIR REST ECG 08:42:29 RA 13/14 (11) SV 09:04:32 RV 53/11, 10 09:04:53 PW 20/30 (26) PV 09:07:42 PA 59/23 (40) PA 09:08:51 Condition 2 PA 54/25 (37) PA 09:15:32 RA 8/11 (8) SV 09:15:32 PW / (19) PV 09:16:12 Type SV CO (l/m) CI (l/m/ HR Time AIR REST Elaine 81.40 7.25 3.24 89 08:42:22 Condition 2 Elaine 96.50 9.55 4.28 99 09:15:25 O2 Saturations: Label % O2 Pres/Loc Time AIR REST PA 67 PA 09:09:03 AO 96 PV 09:10:11 Condition 2 AO 96 PV 09:17:08 PA 74 PA 09:17:56 Signed By Elijah Mcbride MD On 03/27/2025 9:43:24 AM Elijah Mcbride MD I was present for the performance of this procedure and theinterpretation of the results. us Joanne Smith APRN CV CARDIAC CATH ORDERA DRAGAN Edited Result - Final ANNA-XPER * (ABNORMAL) Comprehensive Metabolic Panel (03/27/2025 9:18 AM EDT) Sodium 140 136 - 145 mmol/L 03/27/2025 10:06 AM EDT [facility] Potassium 4.0 3.3 - 5.1 mmol/L 03/27/2025 10:06 AM EDT [facility] Chloride 107 98 - 107 mmol/L 03/27/2025 10:06 AM EDT [facility] CO2 26 22 - 30 mmol/L 03/27/2025 10:06 AM EDT [facility] Urea Nitrogen 9.0 6.0 - 21.0 mg/dL 03/27/2025 10:06 AM EDT [facility] Creatinine 0.55 0.38 - 1.02 mg/dL 03/27/2025 10:06 AM EDT [facility] BUN/Creatinine Ratio 16.4 (CALC) 03/27/2025 10:06 AM EDT [facility] Glucose 92 65 - 99 mg/dL 03/27/2025 10:06 AM EDT [facility] Calcium 8.8 8.4 - 10.2 mg/dL 03/27/2025 10:06 AM EDT [facility] Total Protein 7.3 6.4 - 8.3 g/dL 03/27/2025 10:06 AM EDT [facility] Albumin 3.8 3.5 - 5.2 g/dL 03/27/2025 10:06 AM EDT [facility] Calc Total Globulin 3.5 g/dL 03/27/2025 10:06 AM EDT [facility] Albumin/Globulin Ratio 1.1 (CALC) 03/27/2025 10:06 AM EDT [facility] Total Bilirubin 0.4 0.0 - 1.0 mg/dL 03/27/2025 10:06 AM EDT [facility] Alkaline Phosphatase 47 33 - 133 IU/L 03/27/2025 10:06 AM EDT [facility] AST 15 0 - 37 IU/L 03/27/2025 10:06 AM EDT [facility] ALT 8 0 - 35 IU/L 03/27/2025 10:06 AM EDT [facility] Anion Gap 7(L) 8 - 16 mmol/L 03/27/2025 10:06 AM EDT [facility] EGFR (CKD-EPI) 126 >=60 mL/min/1.7 3m2 03/27/2025 10:06 AM EDT [facility] Comment:Calculation based on the Chronic Kidney Disease Epidemiology Collaboration ([id number]) equation refit without adjustment for race Blood Venipuncture / Unknown 03/27/2025 9:18 AM EDT 03/27/2025 9:28 AM EDT Elijah Mcbride MD BLOOD ORDERABLES Final Result [facility] [address] [place] [address] * CARDIAC CATHETERIZATION (03/27/2025 9:16 AM EDT) Narrative 03/27/2025 9:16 AM EDT Ordered by an unspecified provider. us Document Onb Scanned SCANNED ORDERS Edited Resu lt - Final * (ABNORMAL) [id number] (03/27/2025 9:13 AM EDT) Only the most recent of2 resultswithin the time period is included. Oxyhgb saturation 73.5(L) 95.0 - 99.0 % 03/27/2025 9:13 AM EDT [facility] Oxygen content 10.8 mL O2/dL% 03/27/2025 9:13 AM EDT [facility] Tl Hemoglobin 10.5(L) 12.0 - 16.0 g/dL 03/27/2025 9:13 AM EDT [facility] Technologist ID (Point of Care) [id number] 03/27/2025 9:13 AM EDT [facility] Blood 03/27/2025 9:13 AM EDT 03/27/2025 9:12 AM EDT us Elijah Mcbride MD BLOOD ORDERABLES Final Result Performing Organization Address City/[facility]/ZIP Co de Phone Number [facility] [address] [place] [address] from Last 3 Months [facility] Advance Directives For more information, please contact: [phone] Healthcare Agents on File Name Relationship Healthcare Agent Relationshi p Communication Calista Pack Mother [facility] Surrogate Care Teams Wood Borer Relationship Specialty Start Date End Date Murray Dumont MD [facility] [place] [address] PCP - General Family Medicine 11/18/24
--- OUTSIDE RECORDS SUMMARY | 2025-06-06 09:54 | XMS_ITS | Clinical Summary ---
Author Organization [facility] Address [address] [place] [address] Care Team Providers Care Barrel Marker Name Role Phone Murray Dumont MD Primary Care Provider [phone] Allergies Active Allergy Reactions Criticality Noted Date [...] original. HeartMate 3 Implant Date: 05/28/24 @ [facility] Important Alerts DME [employer] INR Range On Eliquis Managed by INR Company GABRIELLE Antiplatelet Therapy Primary Ext Lab Pending VAD Coordinator Joanne Smith Dr. Patient Goals: [facility] VAD Coordinator #: [phone] Problem Noted Date Diagnosed Date Chronic systolic heart failure (CMS-HCC: 226) NICM (nonischemic cardiomyopathy) (CMS-HCC: 227) 01/29/2025 ICD (implantable cardioverter-defibrillator) in place 01/29/2025 LVAD (left ventricular assist device) present CHF (congestive heart failure) Encounters Date Type Department Care Team Description 05/01/2025 Results Follow-Up [place] [address] Dolly Jeong, DNP, FOOD TRUCK CATERER Basic Metabolic Panel 04/30/2025 9:15 [place] [address] Elijah Mcbride MD Chronic systolic heart failure (CMS-HCC: 226); NICM (nonischemic cardiomyopathy) (CMS-HCC: 227); LVAD (left ventricular assist device) present; ICD (implantable cardioverter-defibril lator) in place 04/30/2025 8:49 AM EDT - 04/30/2025 11:59 PM EDT Hospital Encounter LAB - [facility] OUTPATIENT [address] [place] [address] Elijah Mcbride MD NICM (nonischemic cardiomyopathy) (CMS-HCC: 227); LVAD (left ventricular assist device) present Discharge Disposition: Discharge to Home or Self Care 04/30/2025 Documentation [facility]counter [facility] [place] [address] Kiya Moreno, AGUSTIN VAD DLES 04/07/2025 Documentation Encounter [place] [address] Elijah Mcbride MD External Labs 03/31/2025 Results Follow-Up [place] [address] Dolly Jeong DNP, FOOD TRUCK CATERER Culture, Wound 03/27/2025 1:30 PM EDT Office Visit [place] [address] 03/27/2025 1:00 PM EDT Documentation Encounter [place] [address] Elijah Mcbride MD Rickman, Allison, GC Cardiovascular Genetic Counseling 03/27/2025 9:00 AM EDT - 03/27/2025 11:59 PM EDT Hospital Encounter ECHO CARDIOGRAPHY - ADULT (UB) [address] [place] [address] Joanne Smith APRN Chronic systolic heart failure (CMS-HCC: 226); SOB (shortness of breath) Discharge Disposition: Discharge to Home or Self Care 03/27/2025 8:30 AM EDT - 03/27/2025 9:00 AM EDT Surgery CARDIAC ALTERATION SPECIALIST (UB) [address] [place] [address] Elijah Mcbride MD RIGHT HEART CATHETERIZATION w/ Echo @ bedside 03/27/2025 7:14 AM EDT - 03/27/2025 10:56 AM EDT Hospital Encounter [facility] Operating Room [address] [place] [address] Elijah Mcbride MD Chronic systolic heart failure (CMS-HCC: 226); LVAD (left ventricular assist device) present Discharge Disposition: Discharge to Home or Self Care 03/27/2025 Documentation Encounter [facility] [address] [place] [phone] Kiya Moreno RN VAD DLES 03/27/2025 Orders Only [place] [phone] Dolly Jeong DNP, FOOD TRUCK CATERER LVAD (left ventricular assist device) present 03/11/2025 Orders Only [address] [address] Dolly Jeong DNP, FOOD TRUCK CATERER 03/11/[address] [phone] Elijah Mcbride MD VAD Driveline drainage from Last 3 Months Family History Medical History Relation Comments Heart Disease Father Hypertension Father Relation Status Comments Father Alive Mother Alive Social History Tobacco Use Types Packs/Day Years Used Date Smoking Tobacco: Never Passive Smoke Exposure: Current Smokeless Tobacco: Never Tobacco Cessation:Counseling Given: Not Answered Alcohol Use Standard Drinks/Week Comments Not Currently 0 (1 standard drink = 0.6 oz pur e alcohol) Utilities Answer Date Recorded In the past 12 months has e [employer], gas, oil, or water [employer] threatened to shut off services in your [...] [facility] the [facility] were [facility] or living in [...] CARDIAC CATHETERIZATION 03/27/2025 9:16 AM EDT POC [id number] OXIMETRY Routine 9:13 AM EDT POC [id number] OXIMETRY Routine 9:04 AM EDT RIGHT HEART CATHETERIZATION - [address] 03/27/2025 8:20 AM EDT Chronic systolic heart failure ([facility]-HCC: 226) LVAD (left ventricular assist device) present Special Needs [place] [address] [facility] w/ECHO arrive 0730 opDx Chronic systolic heart failure (CMS-HCC: 85) [I50.22]Cpt [id number] Ahmed 02/25 cdw03/26 Confirmed. cdw from Last 3 Months Results * (ABNORMAL) CBC with Differential panel result (04/30/2025 8:54 AM EDT) Only the most recent of2 resultswithin the time period is included. Pathologist [facility] WBC 6.2 4.0 - 10.0 x10E3/ L [...] 8:54 AM EDT us Dolly Jeong DNP, FOOD TRUCK CATERER BLOOD ORDERABLES Final Result [facility] [address] [place] [address] * Lactate Dehydrogenase (04/30/2025 8:54 AM EDT) Only the most recent of2 resultswithin the time period is included. Pathologist [facility] Total 214 135 - 225 IU/L 04/30/2025 11:47 AM EDT [facility] Blood Venipuncture / Unknown 04/30/2025 8:54 AM EDT 04/30/2025 8:54 AM EDT Dolly Jeong DNP, FOOD TRUCK CATERER BLOOD ORDERABLES Final Result [facility] [address] [place] [id number] * Basic Metabolic Panel (04/30/2025 8:54 AM EDT) Pathologist [facility] Sodium 139 136 - 145 mmol/L 04/30/2025 [...] on the Chronic Kidney Disease Epidemiology Collaboration ([id number]) equation refit without adjustment for race Blood Venipuncture / Unknown 04/30/2025 8:54 AM EDT 04/30/2025 8:54 AM EDT Dolly Jeong DNP, FOOD TRUCK CATERER BLOOD ORDERABLES Final Result Performing Organization Address [facility]/ZIP Co de Phone Number CORE LAB BEAKER [address] [place] [address] * PROTIME-INR (04/04/2025 1:52 PM EDT) INR 1.0 EXTERNAL LAB Blood Elijah Mcbride MD BLOOD ORDERABLES Final Result Performing Organization Address [facility] Co de Phone Number EXTERNAL LAB * [...] 03/27/2025 1:41 PM EDT Dolly Jeong DNP, FOOD TRUCK CATERER MICROBIOLOGY - G ENERAL ORDERABLES Final Result Performing Organization Address City/[facility]/ZIP Co de Phone Number CORE LAB BEAKER [address] [place] [address] * CTA Cardiac Structures IVcon wo/w (03/27/2025 [...] in the outflow cannula without significant narrowing. ILeonides MD, personally reviewed the images and the report andconcur with these findings. us Elijah Mcbride MD RAD CT ORDERABLES F inal Result * Echo-TTE ltd w/ ultrasound contrast (03/27/2025 10:51 AM EDT) Anatomical Region Laterality Modality Ultrasound 03/27/2025 9:53 AM EDT Narrative 03/27/2025 11:10 AM EDT Version: 1 Study ID: [id number] Echocardiography Laboratory Adult [facility] [address] [facility], [place] Postal Code : [address] Name: BELEN, Study Date: BP: 84 / 46 mmHg BELKYS ECHEVERRIA 03/27/2025, 9:53 AM HR: 83 bpm : 1995 Gender: Height: 170.18 cm Female Age: 30 Years Weight: 113.4 kg BSA: 2.22 m2 Performed By: ANTONIO Moses,RVS Reason For Study: Chronic systolic heart failure ([facility]- HCC: 85) Conclusions No prior [...] Montilla MD - 03/27/2025 Version: 1 Study ID:[id number] Echocardiography Laboratory Adult [facility] [address] [place], [place] Postal Code : [address] Name: BELEN, Study Date: BP: 84 / 46mmHg BELKYS ECHEVERRIA 03/27/2025, 9:53 AM HR: 83 bpm : 1995 Gender: Height: 170.18cm Female Age: 30 Years Weight: 113.4kg BSA: 2.22 m2 Performed By: ANTONIO Moses RVS Reason For Study: Chronic systolic heart failure ([facility]- HCC: 85) Conclusions No prior [...] signed by: Thanh hart MD Joanne Smith FOOD TRUCK CATERER CARD [facility] ECH ORDERABLES Edited Result - Final * CARDIAC CATHETERIZATION (03/27/2025 9:24 AM EDT) 03/27/2025 8:31 AM EDT Narrative ANNA-XPER - 03/27/2025 9:44 AM EDT Cardiac Catheterization Lab [address] [place] [address] Procedure Report: Right Heart Catheterization Patient Name: BELEN RIZVI Accession Number: [id number] Date of : 1995 Age: 30 years [...] to one independent trained observer. PROCEDURE(S) PERFORMED [facility] - [address] Ultrasound guidance for vascular access - 83432 LVAD RAMP Study U1575 DESCRIPTION OF PROCEDURE [...] 10 mls COMPLICATION No Complications EQUIPMENT /DEVICES HALYAGameleon Cardiac Cath Pack Medline Right Heart Manifold Kit Beats Music 5F STIFF Micropuncture 10cm Glider.io 5F Dunsmuir 10cm Introducer InSpa [place] Jono 5F Pressure Catheter SUMMARY OF HEMODYNAMIC DATA Time AIR REST ECG 08:42:29 RA 13/14 (11) SV 09:04:32 RV 53/11, 10 09:04:53 PW (26) PV 09:07:42 PA 59/23 (40) PA 09:08:51 Condition 2 PA 54/25 (37) PA 09:15:32 RA 8 (8) SV 09:15:32 PW (19) PV 09:16:12 Type SV CO (l/m) [...] the interpretation of the results. Procedure Note Eliajh Mcbride MD - 03/27/2025 Cardiac Catheterization Lab [address] [place] [address] Procedure Report: Right Heart Catheterization Patient Name: BELEN RIZVI Accession Number: [id number] Date of : 1995 Age: 30 years Gender: female Attending Physician(s): Elijah Mcbride MD Fellow(s): Date of Study: 03/27/2025 Height: 67 in/170 cm Weight: 253.9 lbs/115 kg BSA : 2.23 BMI: 39.8 Referring Physician: RONNI 1) Baseline hemodynamics obtained on continuous support with a EW3YGPR at 6000 RPM and a MAP 70mmHg. [...] and direct patient observation were [facility] for a total of 30 minutes and required the presence of a one to one independent trained observer. PROCEDURE(S) PERFORMED [facility] - [address] Ultrasound guidance for vascular access - 33470 LVAD RAMP Study U1575 DESCRIPTION OF PROCEDURE [...] Cath Pack Medline Right Heart Manifold Kit Beats Music 5F STIFF Micropuncture 10cm Glider.io 5F Dunsmuir 10cm Introducer InSpa [place] Jono 5F Pressure Catheter SUMMARY OF HEMODYNAMIC DATA Time AIR REST ECG 08:42:29 RA 13/14 (11) SV 09:04:32 RV 53/11, 10 09:04:53 PW 2030 (26) PV 09:07:42 PA 59/23 (40) PA 09:08:51 Condition 2 PA 54/25 (37) PA 09:15:32 RA 8/11 (8) SV 09:15:32 PW (19) PV 09:16:12 Type SV CO (l/m) [...] Joanne Smith APRN CV CARDIAC CATH ORDERA BLES Edited Result - Final ANNA-XPER * (ABNORMAL) [...] on the Chronic Kidney Disease Epidemiology Collaboration ([id number]) equation refit without adjustment for race Blood Venipuncture / Unknown 03/27/2025 9:18 AM EDT 03/27/2025 9:28 AM EDT us Elijah Mcbride MD BLOOD ORDERABLES Final Result [facility] [address] [place] [address] * CARDIAC CATHETERIZATION (03/27/2025 9:16 AM EDT) Narrative 03/27/2025 9:16 AM EDT Ordered by an unspecified provider. us Document Onb Scanned SCANNED ORDERS Edited Resu lt - Final * (ABNORMAL) [id number] (03/27/2025 9:13 AM EDT) Only the most recent of2 resultswithin the time period is included. Oxyhgb saturation 73.5(L) 95.0 - 99.0 % 03/27/2025 9:13 AM EDT [facility] Oxygen content 10.8 mL O2/dL% 03/27/2025 9:13 AM EDT [facility] Tl Hemoglobin 10.5(L) 12.0 - 16.0 g/dL 03/27/2025 9:13 AM EDT [facility] Technologist ID (Point of Care) [id number] 03/27/2025 9:13 AM EDT [facility] Blood 03/27/2025 9:13 AM EDT 03/27/2025 9:12 AM EDT us Elijah Mcbride MD BLOOD ORDERABLES Final Result [facility] [address] [place] [address] from Last 3 Months Insurance MEDICAID [employer] [facility] MEDICARE PART A AND B Advance Directives For more information, please contact: [phone] Healthcare Agents on File Name Relationship Healthcare Agent Relationshi p Communication Calista Pack Mother dilan. Health Care Surrogate Care Teams Barrel Marker Relationship Specialty Start Date End Date Murray Dumont MD [facility] [place] [address] PCP - General Family Medicine 11/18/24
--- OUTSIDE RECORDS SUMMARY | 2025-06-06 09:54 | XMS_ITS ---
Author Organization [facility] Address [address] [facility] [address] [place] [address] Care Team Providers Care Splicer Apprentice Name Role Phone Murray Dumont MD Primary Care Provider [phone] Daren Chaidez MD Unavailable Nilda Navarrete PA Unavailable [phone] Elijah Mcbride MD Unavailable [phone] Hyun Chappell MD Unavailable RxSp Cardiology Status:Enrolled (Active) Start date:06/05/2025 Enrollment date:06/06/2025 Current support & services provided:Clinical Management, Refill Management, Benefits and PA Management Linked medications:tirzepatide (Active) Continued Care and Services Coordination
--- OUTSIDE RECORDS SUMMARY | 2025-06-06 09:54 | XMS_ITS | Encounter Summary ---
Author Organization [facility] Address [address] [place] [id number] Care Team Providers Care [employer] Special Education Teacher Name Role Phone Murray Dumont MD Primary Care Provider [phone] Encounter Details Date Type Department Care Team (Late st Contact Info) Description 01/30/2025 Prep For Surgery [facility] [address] [place] [address] Elijah Mcbride MD [address] [facility] [id number] [place] [address] Chronic systolic heart failure (CMS-HCC: 226); LVAD (left ventricular assist device) present Social History Tobacco Use Types Packs/Day [...] this encounter Visit Diagnoses Diagnosis Chronic systolic heart failure (CMS-HCC: 226) Chronic systolic heart failure LVAD (left ventricular assist device) present Other specified cardiac device in situ documented in this encounter Care Teams [employer] Special Education Teacher Relationship Specialty Start Date End Date Murray Dumont MD [facility] [place] [address] PCP - General Family Medicine 11/18/24 documented as of this encounter
--- OUTSIDE RECORDS SUMMARY | 2025-06-06 09:54 | XMS_ITS | Clinical Summary ---
Author Organization [facility] Address [address] [place] [address] Care Team Providers Care Wood Strip Block Floor Installer Name Role Phone Jose Quick MD Unavailable [phone] Pcp, No Primary Care Provider Unavailabl [...] patient's age to complete this topic Insurance [facility] MEDICAID Care Teams Wood Strip Block Floor Installer Relationship Specialty Start Date End Date Pcp, No PCP - General 10/15/24 Jose Quick MD [address] [facility] [address] [place] [id number] Referring Physician Cardiology 10/14/24
--- OUTSIDE RECORDS SUMMARY | 2025-06-06 09:54 | XMS_ITS | Encounter Summary ---
Author Organization [facility] Address [address] [facility] [address] [place] [address] Care Team Providers Care Ethanol Maintenance Mechanic Name Role Phone Murray Dumont MD Primary Care Provider [phone] Daren Chaidez MD Unavailable Nilda Navarrete Unavailable [phone] Elijah Mcbride MD Unavailable [phone] Hyun Chappell MD Unavailable Encounter Details Date Type Department Care Team (Latest Contact Info) Description 06/04/2025 Travel Social History Tobacco Use Types Packs/Day Years Used Date Smoking Tobacco: Never Smokeless Tobacco: Never Alcohol Use Standard Drinks/Week Comments Not Currently 0 (1 standard drink = 0.6 oz pure alcohol) only on holidays , one drink. Utilities Answer Date Recorded In the past 12 months has [employer], or water [employer] threatened to shut off services in your [...] place to sleep or slept in a retirement (including now)? No 05/15/2024 Housing Stability Vital Sign Answer Brayan e Recorded Unable to Pay for Housing in the Last Year Not o n file 05/14/2025 Number of Times Moved in the Last Year Not on fi le 05/14/2025 At any time in the past 12 m [facility], were you homeless or living in a retirement (including now)? No 05/14/2025 Comments No Sex and Gender Information Value Date Recorded Sex Assigned at Female 01/13/2022 3:44 PM EDT Legal Sex Female 3:04 PM EDT Gender Identity Female 01/13/2022 3:44 PM EDT Sexual Orientation Bisexual 06/09/2023 11 :54 PM EDT Travel History Travel Start Travel End [place] 04/13/2025 05/07/2025 documented as of this encounter Functional Status * Are you [...] 05/14/2025 6:16 AM EDT Marcellus Moyer RN documented as of this encounter Mental Status * Because of a physical, mental, or emotional condition, do you have serious difficulty concentrating, remembering, or making decisions? Answer Entry Date Author No 05/14/2025 6:16 AM ELMAT Marcellus Moyer RN documented in this encounter Plan of Treatment Upcoming Encounters Date Type Department Care Team (Late st Contact Info) Description 10/06/2025 10:00 AM EST Telemedicine [facility] Weight and Wellness [address] [facility] [address] [place] [address] Corine Rolle PA [address] [place] [address] documented as of this encounter Visit Diagnoses Not on filedocumented in this encounter Additional Health Concerns Assessment Noted Time PHQ-9 Depression Total Score: 4 04/14/20 23 1:04 PM EDT documented as of this encounter Care Teams Ethanol Maintenance Mechanic Relationship Specialty Start Date End Date Murray Dumont MD [address] [place] [address] PCP - General 01/13/22 Daren Chaidez MD [address] [address] Gymnastics Coach/Gynecologi st 02/06/24 Nilda Navarrete PA [address] [place] [address] 1st Contact Physician Roofing Layer 02/16/24 Elijah Mcbride MD [address] [place] [address] Implementation Architect Cook Starch 02/11/25 Hyun Chappell MD [address] [place] [address] [place] [address] Consulting Physician Advanced Heart Failure and Transplant Cardiology 06/04/25 documented as of this encounter
--- OUTSIDE RECORDS SUMMARY | 2025-06-06 09:54 | XMS_ITS | Clinical Summary ---
Author Organization [facility] Address [address] [place] [address] Care Team Providers Care Math Instructor Name Role Phone Murray Dumont MD Primary Care Provider [phone] Daren Chaidez MD Unavailable Nilda Navarrete Unavailable Elijah Mcbride MD Unavailable [phone] Hyun Chappell MD Unavailable Allergies Active Allergy Reactions Criticality Noted Date Comments Cyclobenzaprine Unknown Medium 11/01/2021 Passed out Fish Containing Products 03/25/2023 Guava Diarrhea,Rash,Nausea / Vomiting Low 04/14/2023 Latex Itching,Rash Low 03/10/2022 Medications traZODone (Desyrel) 50 mg tablet Take 50 mg by mouth if needed at bedtime. 3-4 times per week 11/17/19 24 Active dapagliflozin propanediol (Farxiga) 10 mgIndications: Heart failure (Multi-HCC) Take 1 tablet (10 mg) by mouth once daily. 30 tablet 3 4 1:17 PM EST 06/12/20 24 Active acetaminophen (Tylenol) 325 mg capsule Take 650 mg by mouth every 6 (six) hours if needed for pain score 1-3. Taking as needed for pain Active metoprolol succinate XL (Toprol XL) 25 mg 24 hr tabletIndicati ons:LVAD (left ventricular assist device) present (Multi-HCC) Take 0.5 tablets (12.5 mg) by mouth once daily. Do not crush or chew. 15 tablet 11 08/26/20 24 025 Active pantoprazole (ProtoNix) 40 mg EC tabletIndicati ons:Other dysphagia TAKE 1 TABLET BY MOUTH EVERY DAY 90 tablet 3 09/23/20 24 Active spironolactone (Aldactone) 50 mg tabletIndicati ons:LVAD (left ventricular assist device) present (Multi-HCC) Take 1 tablet (50 mg) by mouth once daily. 90 tablet 4 3:37 PM EST 09/26/20 24 Active apixaban (Eliquis) 5 mg tabletIndicati ons:LVAD (left ventricular assist device) present (Multi-HCC) Take 1 tablet (5 mg) by mouth twice daily. 180 tablet 09/27/20 24 Active ARIPiprazole (Abilify) 2 mg tablet Take 2 mg by mouth once daily. Active HYDROcodone-ac etaminophen (Munger) 5-325 mg tablet Take 1 tablet by mouth every 4 (four) hours if needed for pain score 7-10 (severe) (acute pain). Active busPIRone (Buspar) 10 mg tablet Take 10 mg by mouth three times daily. Active potassium chloride ER (Micro-K) 10 mEq ER capsule Take 10 mEq by mouth twice daily. Do not crush or chew. Active torsemide (Demadex) 20 mg tabletIndicati ons:Bilateral lower extremity edema,LVAD (left ventricular assist device) present (Multi-HCC) Take 3 tablets (60 mg) by mouth in the morning. May also take 3 tablets (60 mg) if needed at bedtime (Take additional 60mg of Torsemide in afternoon if noticing increased swelling in legs). Take 60 mg by mouth every morning. Take additional 60mg of torsemide in afternoon if noticing worsening swelling in legs. 90 tablet 3 05/22/20 25 Active valsartan (Diovan) 40 mg tabletIndicati ons:Chronic systolic (congestive) heart failure (Multi-HCC) Take 0.5 tablets (20 mg) by mouth once daily. 15 tablet 11 06/04/20 25 026 Active tirzepatide (Mounjaro) 2.5 mg/0.5 mL pen injectorIndica tions:type 2 diabetes mellitus Inject 0.5 mL (2.5 mg) under the skin 1 (one) time per week for 28 days. 2 mL 06/05/20 025 Active lisinopril (ZestriL) 2.5 mg tabletIndicati ons:Heart failure (Multi-HCC) Take 1 tablet (2.5 mg) by mouth once daily. 30 tablet 3 4 1:17 PM EST 06/12/20 025 Discontinued torsemide (Demadex) 20 mg tabletIndicati ons:Heart failure (Multi-HCC) Take 4 tablets (80 mg) by mouth twice daily. 240 tablet 11 07/30/20 025 Discontinued(St op Taking at Discharge) oxyCODONE-acet aminophen (Percocet) 5-325 mg tablet Take 2 tablets by mouth if needed at bedtime. 08/14/20 025 Discontinued(St op Taking at Discharge) sertraline (Zoloft) 100 mg tabletIndicati ons:Awaiting organ transplant Take 1 tablet (100 mg) by mouth once daily. 30 tablet 08/30/20 025 Discontinued(St op Taking at Discharge) doxycycline (Monodox) 100 mg capsule Take 100 mg by mouth if needed in the morning and at bedtime (infection). Take with at least 8 ounces (large glass) of water, do not lie down for 30 minutes after 025 Discontinued(St op Taking at Discharge) tiZANidine (Zanaflex) 4 mg capsule Take 4 mg by mouth if needed at bedtime for muscle spasms. 025 Discontinued(St op Taking at Discharge) amoxicillin (Amoxil) 500 mg capsule Take 500 mg by mouth if needed (1-2 hours prior to dental procedure). Take 4 capsules 1 time if needed before dental procedure 025 Discontinued(St op Taking at Discharge) torsemide 60 mg tabletIndicati ons:Bilateral lower extremity edema Take 60 mg by mouth once daily. Take additional 60mg Dose of torsemide in afternoon if noticing worsening swelling in legs 60 tablet 05/16/20 025 Discontinued(Do se adjustment) Active Problems Problem Noted Date Diagnosed Date Bilateral lower extremity edema 05/14/2025 Iron deficiency 08/27/2024 Nonintractable headache 07/15/2024 Rib pain on left side 07/15/2024 Pericardial effusion ([facility]) 06/19/2024 Assessment & Plan (06/25/2024 11:38 AM EDT): TTE 05/31 notable for moderate effusion, not reported on subsequent echo optimization 06/07. We will plan to repeat an echo in the next couple of weeks. HD stable at this time Assessment & Plan (06/19/2024 12:14 PM EDT): TTE 05/31 notable for moderate effusion, not reported on subsequent echo optimization 06/07. We will plan to repeat an echo in the next couple of weeks. HD stable at this time Wound of sternal region 06/19/2024 Assessment & Plan (06/25/2024 11:41 AM EDT): Small pea-sized superficial wound noted at upper pole of sternotomy incision last week. She has been cleansing daily with betadine and site looks improved today, closing up with dried drainage only. Continue to monitor closely, reassuringly WBC was stable last week and no systemic S/Sx infection Assessment & Plan (06/19/2024 12:20 PM EDT): Small pea-sized wound noted at upper pole of sternotomy incision. This looks superficial, slough noted. Dressing was applied on discharge, but patient had not been changing it since then. I cleansed it with Betadine, and DSD applied, educated patient and mom. Continue to monitor closely, reassuringly WBC is stable and no systemic S/Sx infection LVAD (left ventricular assist device) present ( [facility]) 06/12/2024 Assessment & Plan (06/25/2024 11:37 AM EDT): Newly s/p LVAD, no significant surgical concerns, though did have residual pericardial effusion. She reports feeling comfortable with LVAD equipment, changing driveline dressing twice a week with Biopatch. Site looks overall stable, some serous crusty drainage and erythema around stay sutures, so these were removed today. LDH is stable, INR within goal 2-3. Not on ASA per [facility] update. We again reviewed using a different carrying device to help more evenly distribute weight of LVAD and batteries, in the effort to reduce neck strain. She has a backpack she is using for back-up equipment so I suggested trialing that instead. We also discussed use of a vest or her looking into buying a device shirt. For thoracotomy region pain - she will con't tylenol for now, up to 4000mg in 24hr period. We could consider trialing gabapentin if no improvement and pain persists. Assessment & Plan (06/19/2024 12:13 PM EDT): Newly s/p LVAD, no significant surgical concerns, though did have residual pericardial effusion. She reports feeling comfortable with LVAD equipment, changing driveline dressing twice a week with Biopatch. Site looks overall stable, suture was removed from the exit site due to overflowing slough/tissue. Some crusted drainage noted, stay sutures remain in place, but may need to come out next week. LDH is stable, INR within goal 2-3. Not on ASA per [facility] update. Reports intermittent bloody sputum when she blows her note but no sustained epistaxis or other bleeding issues. Alteration in self-care ability 06/03/2024 Decreased functional mobility and endurance 05/10 Assessment & Plan (06/25/2024 11:42 AM EDT): Improving conditioning, we discussed ways to slowly increase physical activity. She would benefit from cardiac rehab once cleared from sternal precautions. Assessment & Plan (06/19/2024 12:17 PM EDT): Improving conditioning, we discussed ways to slowly increase physical activity. She would benefit from cardiac rehab once cleared from sternal precautions. She does note left-sided sternoclavicular musculoskeletal pain which I suspect is related to asymmetric carrying of the LVAD device via cross body bag. We reviewed ways to evenly distribute the device, utilize backpack potentially or LVAD shirt if she were able to acquire one. Can take Tylenol 1000 mg 3 times daily as needed Morbid obesity with BMI of 40.0-44.9, adult 02/07 Assessment & Plan (05/05/2024 9:15 PM EDT): She is on Mounjaro GLP agonist but has not tolerated more than 2.5mg daily. As above she has attempted to increase her activity levels to assist with weight loss. She knows that her weight is a limitation to being reactivated on the cardiac transplant wait list. Has worked with nutrition team in the past. May be able to tolerate GLP-1 better on LVAD support Assessment & Plan (02/29/2024 12:01 PM EDT): She is on Mounjaro GLP agonist. As above she is attempted to increase her activity levels to assist with weight loss. She knows that her weight is a limitation to being reactivated on the cardiac transplant wait list. He has worked with nutrition team in the past. Nonischemic cardiomyopathy (Multi-HCC) Pain, dental 02/07/2024 Assessment & Plan (02/07/2024 3:44 PM EDT): Right upper tooth is bothering her. No obvious abscess. She is seeing dentist next week. Advised she can use tylenol PRN per bottle instructions but should see emergency dental care if any pus or acute changes. Seizure-like activity (Multi-HCC) 11/12/2023 Assessment & Plan (02/07/2024 3:40 PM EDT): One time episode as noted in HPI. This happened within 48 hr of first trulicity dose. Discussed with our pharmacist who noted Trulicity isn't commonly known to cause seizure unless associated with hypoglycemia, though given timing, Belkys Goyal wishes to avoid. She is following with local neurologist Dr. Paco Robertson, [facility], who did not feel she needed antiepileptic medication but does plan to get MRI (per pt ICD was confirmed MRI safe). Assessment & Plan (11/12/2023 1:30 PM EST): One time episode as noted in HPI. This happened within 48 hr of first trulicity dose. Discussed with our pharmacist who noted Trulicity isn't commonly known to cause seizure unless associated with hypoglycemia. There is no mention of this in her ED notes (though notes are fairly brief). She was advised to follow-up with neurology and she did see a local neurologist yesterday, Dr. Paco Robertson, [facility]. There are currently no notes visible in care everywhere, however per Erlinda, the recommendation was to get an MRI and the neurology office is reaching out to [facility] to inquire regarding MRI safety with her ICD. I told her I agree this was appropriate. We will try to obtain neurology notes once available. Given the temporal relationship with Trulicity initiation, I advised her not to take it for now, but if another culprit is identified for the seizure-like activity, we could consider restarting, so I asked her to hold onto her remaining supply. Obstructive sleep apnea syndrome 08/04/2023 Assessment & Plan (05/05/2024 9:16 PM EDT): She reports she was diagnosed with mild sleep apnea, planned for CPAP fitting Assessment & Plan (02/29/2024 12:02 PM EDT): She reports she was diagnosed with mild sleep apnea on home study and is scheduled for a full study locally. Assessment & Plan (02/07/2024 3:43 PM EDT): She reports she was diagnosed with mild sleep apnea on home study and is scheduled for a full study locally in Mid February. Assessment & Plan (11/12/2023 1:34 PM EST): She reports she was diagnosed with mild sleep apnea on home study and is scheduled for a full study in November. Assessment & Plan (10/30/2023 3:38 PM EST): She reports she was diagnosed with mild sleep apnea on home study and is scheduled for a full study in November. Assessment & Plan (08/25/2023 6:06 AM EST): She reports she was diagnosed with mild sleep apnea on home study and is scheduled for a full study in November. Assessment & Plan (08/04/2023 5:00 PM EDT): She reports she was diagnosed with mild sleep apnea on home study and is scheduled for a full study in November. Other dysphagia 05/24/2023 Assessment & Plan (02/07/2024 3:42 PM EDT): Regarding her history of difficulty swallowing pills, no true dysphagia per recent MBS. She is able to take some smaller pills with water but notes it is difficult. Encouraged to continue to work on this, especially looking ahead to post transplant medications, she was agreeable. Assessment & Plan (11/12/2023 1:34 PM EST): Regarding her history of difficulty swallowing pills, no true dysphagia per recent MBS. She is able to take some smaller pills with water. Encouraged to continue to work on this, especially looking ahead to post transplant medications. Pharmacy team is aware. Assessment & Plan (10/30/2023 3:38 PM EST): Regarding her history of difficulty swallowing pills, no true dysphagia on recent MBS. She is able to take some smaller pills with water. Encouraged to continue to work on this, especially looking ahead to post transplant medications. Pharmacy team is aware. Assessment & Plan (08/25/2023 6:07 AM EST): Regarding her history of difficulty swallowing pills, no true dysphagia on recent MBS. She is able to take some smaller pills with water. Encouraged to continue to work on this, especially looking ahead to post transplant medications. Hypokalemia 04/14/2023 Assessment & Plan (06/25/2024 11:40 AM EDT): potassium chloride 40 mEq 3 times daily. She has difficulty with pills, on packets. Follow-up labs this week Assessment & Plan (06/19/2024 12:15 PM EDT): K+ 3.2, increase potassium to 40 mEq 3 times daily. She has difficulty with pills, on packets Assessment & Plan (04/14/2023 3:42 PM EDT): Increase KCl to 40 mEq BID. Acute on chronic systolic (c ongestive) heart failure (Multi-HCC) 03/25/2023 Assessment & Plan (05/05/2024 9:16 PM EDT): AHA stage D. NYHA II on inotropic support (baseline IV). INTERMACS profile 3. Appears volume overloaded, weight up and severely elevated PAPs/PCW. She is reluctant to increase torsemide but ultimately agreed to add extra 40mg in afternoon. Increase KCl 40meq BID. She does not like to take 100mg at a time due to feeling fatigued after. I reviewed with Dr. Hair and admission was recommended for optimization however she declined as she was not prepared for this. She did agree to come back in 2 weeks for hospitalization with repeat RHC. I do not think a repeat outpatient RHC is going to show much difference, particularly given the significant change in PAPs from prior, thus we will plan for direct admit with RHC to follow, per her preference. She is interested in moving forward with LVAD (previously had not made a decision), she stated she has done more research, feels this will help her being able to be at home, go to [employer] school, and delay transplant. She may benefit from meeting another patient to understanding benefits/limitations from a patient perspective. Blood pressure is more robust than normal for her; given planned admission in 2 weeks we will not make changes to GDMT today. On high-dose MRA therapy and on SGLT2i therapy. No beta-roz given inotrope dependency. GDMT: Inotrope dependent BELIA/ARB/ARNI: Lisinopril 2.5 mg daily MRA: spironolactone 50mg bid SGLT2i: dapa 10mg daily Diuretic: 100 mg daily Other: milrinone 0.375 mcg/kg/min Device: ICD Transplant: inactive (UNOS 7) due to obesity (BMI > 40) Assessment & Plan (02/29/2024 12:00 PM EDT): AHA stage D. NYHA II on inotropic support (baseline IV). INTERMACS PP 3. Appears near euvolemic. Wt up 3lbs on home scale. Feels well and symptomatically improved on higher dose milrinone. Double home torsemide to 100mg twice daily for 1 days until weight back to baseline, otherwise can repeat for 2nd dose. Will increase KCL from 40meq tid to 60meq tid on date takes additional torsemide. If wt continues to climb on torsemide 100mg daily will need to increase maintenance dose to 100qam and 40-60mg qpm. RN will call to assess by phone next week. Had labs yesterday that are not available, but we will call to obtain. Only you know status 7 on the wait list due to morbid obesity with a BMI greater than 40. We again discussed the importance of weight loss. She is joined a gym and plans to increase activity levels. She is on milrinone and I discussed moderate level of exertion not strenuous or high intensity. She is hemodynamically stable. We also discussed LVAD as potential bridge to transplant. She is continuing to do this discussed this with her mother and has not made a final decision regarding her interest. We discussed concerns regarding her weight and the probability of gaining weight after transplant given the need for high-dose steroid therapy. Transplant will likely include either an extended hospitalization versus BTT LVAD which will be able to wait for transplant at home. We discussed concerns that she is required escalating doses of milrinone and that this is not a great long-term option as she waits for transplant. She will be due for repeat screening right heart catheterization in 6 months. Loop diuretic adjustment as above, no further changes made to her medical regimen. Blood pressure prohibits further titration of her BELIA inhibitor. Her last cardiac index was stable. No indication for further dose titration at this time. He is on high- dose MRA therapy and on S GLT 2 therapy. No beta-roz given inotrope dependency. GDMT: Inotrope dependent BELIA/ARB/ARNI: Lisinopril 2.5 mg daily MRA: spironolactone 50mg bid SGLT2i: dapa 10mg daily Diuretic: 100 mg daily Other: milrinone 0.25 mcg/kg/min Device: ICD Adolescent idiopathic scoliosis of thoracolumbar region 03/11/2022 Obesity with serious comorbidity 03/11/2022 Assessment & Plan (06/25/2024 11:40 AM EDT): Previously on Mounjaro, we will consider restarting pending stability in the next few weeks Assessment & Plan (06/19/2024 12:14 PM EDT): Previously on Mounjaro, we will consider restarting pending stability in the next few weeks Assessment & Plan (02/07/2024 3:41 PM EDT): BMI still >42 but weight down slightly. She is tolerating Mounjaro well. It is prescribed by our office, we'd like to increase but there are supply issues, we are hoping to just maintain 2.5 mg for now as there is some supply but ideally would increase in the future if she is tolerating and if supply allows. See above regarding transplant, BMI goals. Assessment & Plan (11/12/2023 1:33 PM EST): BMI >42. as noted above, we will have her hold Trulicity given recent seizure, but it might be worth revisiting if another culprit is identified for the seizure activity with her neurology workup. she looks close to euvolemic on exam and feels she is euvolemic, however as noted in the heart failure section above, BNP is rising suggesting that she is holding onto more fluid than she appreciates and more than was appreciated on exam. Torsemide increased as noted above. Assessment & Plan (10/30/2023 3:37 PM EST): BMI 42.2, though her weight has been more stable at home. She is aware BMI needs to be lower for transplant, working with transplant order tracer. Reports prior intolerance of Ozempic due to severe nausea/vomiting with 1 dose only, but she is willing to try an alternate agent and Trulicity approved so will have pharmacy- driven GLP-1 titration. Assessment & Plan (08/25/2023 6:06 AM EST): BMI 42.5, though her weight has been more stable at home, 116kg by report. She is aware BMI needs to be lower for transplant, will continue to work on this. Reports intolerance of GLP-1 (Ozempic) due to severe nausea/vomiting with 1 dose only. She has had phone follow-up with transplant order tracer who recommended referral to [facility]. We will do this after her MitraClip procedure Assessment & Plan (08/04/2023 4:59 PM EDT): Weight is up 1.5 kg from last visit, BMI 42.5, though she didn't take any diuretic this am, feels weight will be back in range once she takes the dose. She is aware BMI needs to be lower for transplant, will continue to work on this. Reports intolerance of GLP-1 (Ozempic) due to severe nausea/vomiting with 1 dose only. Assessment & Plan (04/20/2023 4:50 PM EDT): She reports she stopped taking semiglutide due to nausea and vomiting but encouragingly, her weight is decreasing, BMI 38.47 today. Assessment & Plan (04/14/2023 3:40 PM EDT): Her weight has decreased nicely with semaglutide. Continue ongoing weight counseling. Assessment & Plan (03/11/2022 4:57 PM EDT): I referred her to our order tracer to discuss weight loss strategies. I also briefly discussed the possibility of using GLP 1 receptor agonist like semaglutide as a pharmacologic weight loss strategy in the future. Nonrheumatic mitral valve regurgitation 03/11/20 Assessment & Plan (02/07/2024 3:38 PM EDT): No hemodynamic benefit observed during Mitraclip, so procedure aborted. Assessment & Plan (11/12/2023 1:14 PM EST): No hemodynamic benefit observed during Mitraclip, so procedure aborted. Assessment & Plan (10/30/2023 3:35 PM EST): No hemodynamic benefit observed during approximation, so procedure aborted. Assessment & Plan (08/25/2023 6:05 AM EST): See above plan for MitraClip. Assessment & Plan (08/04/2023 4:55 PM EDT): See above plan for MitraClip. Assessment & Plan (04/20/2023 4:44 PM EDT): Above, MitraClip procedure is still being considered, though plan is to complete her transplant evaluation first. Assessment & Plan (04/14/2023 3:39 PM EDT): She has been evaluated for MitraClip and the procedure seems technically possible. She does have severe LV dilation, so I worry that the potential benefit will be attenuated. However she is young, and if it is effective, it may offer her a period of stabilization prior to needing a heart transplant. I recommended that she wait until the heart transplant evaluation is complete prior to getting this procedure. That way in case she decompensates, we would potentially have a bailout option. Assessment & Plan (03/11/2022 4:58 PM EDT): Appears functional due to LV dilation. If her mitral vegetation remains severe on repeat echo, we will refer her for MitraClip. Chronic systolic heart failure (Multi-HCC) 11/10 Assessment & Plan (06/25/2024 11:42 AM EDT): niCMP with [id number] systolic HF, now s/p HM3 LVAD as BTT 05/28/24. Grossly uncomplicated post-op course. Feeling well overall, improved activity tolerance and dyspnea since that implant. Improving surgical discomfort, ongoing musculoskeletal neck pain, somewhat improved with heat/ice, likely related to asymmetric weight from LVAD cross-body bag (see plan below in LVAD section). Feels generally well from a fluid standpoint - reports stable weight at home 248lb, though up on our scales. Does not look overloaded on exam and has not resumed GLP-1 since VAD. Unable to stay for labs today and was hypokalemic on labs last week, so we will ask for VNA draw this week prior to considering increase in torsemide to 100mg BID given weights overall appear to be climbing. GDMT: RAAS: lisinopril 2.5mg daily BB: not yet initiated post-VAD, consider in the next 2-4 weeks pending stability MRA: spironolactone 25mg daily SGLT2i: dapa 10mg daily Loop: Torsemide 80 mg twice daily - low threshold to increase to 100mg BID if weight con't to uptrend. Assessment & Plan (06/19/2024 12:09 PM EDT): niCMP with [id number] systolic HF, now s/p HM3 LVAD as BTT 05/28/24. Grossly uncomplicated post-op course. Feeling well overall, improved activity tolerance and dyspnea since that implant. Has some surgical discomfort and musculoskeletal neck pain. Feels generally well from a fluid standpoint, weight is up a few pounds since discharge though reports being stable by home weights. She looks euvolemic on exam, we will continue torsemide at current dose for now, 80 mg twice daily. Hypokalemic, KCl adjusted. GDMT: RAAS: lisinopril 2.5mg daily BB: not yet initiated post-VAD, consider in the next 2-4 weeks pending stability MRA: spironolactone 25mg daily SGLT2i: dapa 10mg daily Loop: Torsemide 80 mg twice daily Assessment & Plan (02/07/2024 3:37 PM EDT): Feeling well, NYHA I-II. She appears euvolemic on torsemide 60 mg daily. Uses extra 20 mg a few x a month as needed. She felt too dry on higher standing torsemide dosing. GDMT: Evidence-based beta roz: held in setting of low output state, inotrope dependent BELIA/ARB/ARNI: Lisinopril 2.5 mg at night, tolerating well. SBP 130s, could consider increasing but typically SBP 110-120 at home, will continue current dose for now. MRA: spironolactone 50mg daily SGLT2i: dapa 10mg daily Diuretic: torsemide 60 mg daily Other: milrinone 0.25 mcg/kg/min Device: ICD Advanced therapeis. Inactive on transplant list due to elevated BMP. Weight has trended down somewhat on Mounjaro but BMI still > 40, so she will remain inactive on heart transplant list, discussed that she should continue to strive for weight loss, if possible try to go towards 35 but at least <40. She remains opposed to BTT LVAD, but admits to never having seen one in person. She is not interested in meeting someone with an LVAD but I encouraged her to consider doing this as she may need this type of support in the future. I told her we'd be happy to arrange this. She is getting weekly labs, last week she had stable end organ function. We'll plan to see her back in 1 month, telehealth per her request, provided she is clinically stable and RTC in 2 months at which point we will repeat RHC as she has not had once since September. Assessment & Plan (11/12/2023 1:36 PM EST): Dilated cardiomyopathy, HFrEF with EF 20 -25% NYHA class: NYHA Class: II-III, on inotropic support ACC stage: D. Of note, she had some beeping from her infusion pump on the way to her visit today, she changed to a different pump and continued to have beeping but this resolved prior to her visit, there was no evidence of kinks or obstruction. I told her to contact her infusion company and report the issue (more urgently so if the beeping returns). Also, her tunneled line dressing was changed at her clinic visit. She looks close to euvolemic, states she does not feel she is holding extra fluid, but she is up slightly from last visit and above prior documented dry weight EDW 116kg. Pro BNP trending up (2408, up from 1400). As noted above, MitraClip was aborted as no hemodynamic benefit was observed. We ordered labs today but it appears they did not all get drawn. She had mild transaminitis on labs earlier this week, repeat next week. GDMT: Evidence-based beta roz: held in setting of low output state, inotrope dependent BELIA/ARB/ARNI: initially held due to hypotension, but she has been normotensive, will add Lisinopril 2.5 mg at night and monitor how she tolerates this as well as her labs. MRA: spironolactone 50mg daily SGLT2i: dapa 10mg daily Diuretic: torsemide > increase 100 mg daily as noted above Other: milrinone 0.25 mcg/kg/min Device: ICD Advanced therapeis. She remains active on the transplant list, UNOS status 4 0 BMI is again over 40 today, so this bears watching. We discussed that BTT LVAD may be a good option for her but she said she is still not interested. I asked her some questions about this and noted that she reported never having seen an actual person with an LVAD on and she had some misconceptions, such as she thought she would need someone else to bathe her as long as she had an LVAD. I clarified that once healing takes place, independent showering would be okay with the proper equipment. She is still not interested but I mentioned it may be helpful for her to meet a patient who has an LVAD (or has had one and moved on to transplant). She agreed to think about this. Assessment & Plan (10/30/2023 3:35 PM EST): Dilated cardiomyopathy, HFrEF with EF 20 -25% NYHA class: NYHA Class: II-III, on inotropic support ACC stage: D Grossly euvolemic and well supported on milrinone, though weight is up from EDW 116kg. As above, MitraClip was aborted as no hemodynamic benefit was observed. She denies LE edema, though notably, did not have edema during recent brief hospitalization when PCW was elevated. Recommended increase in torsemide to 80mg daily. Her school schedule limits BID dosing, so if wt con't to increase, may need 100mg daily. Labs show stable end-organ function, downtrending though still elevated proBNP. She is still hesitant about DCD/HCV donors, also wishes to avoid LVAD if possible, though we did review pros and cons of this today, as it relates to her age and functional status. She remains active on the transplant list, UNOS status 4. GDMT: Evidence-based beta roz: held in setting of low output state, inotrope dependent BELIA/ARB/ARNI: held due to hypotension, though BP has stabilized, could consider adding low-dose ACEi MRA: spironolactone 50mg daily SGLT2i: dapa 10mg daily Diuretic: torsemide > increase 80mg daily; will take 60mg BID tomorrow as she will miss today's dose due to NPO status and not interested in IV lasix while here. Other: milrinone 0.25 mcg/kg/min Device: ICD Line: she will undergo exchange to tunneled line today due to recurrent issues with PICC lines. She requires anesthesia so is NPO for this. Assessment & Plan (08/25/2023 6:04 AM EST): Dilated cardiomyopathy, HFrEF with EF 20 -25% NYHA class: NYHA Class: II ACC stage: D Grossly euvolemic and well supported on milrinone. Generally improved functional status on milrinone, which she has maintained, though not overly active. She feels well. Local labs yesterday look stable so we did not repeat today. She is scheduled for MitraClip 09/07 with plan for admission 1 day prior for hemodynamic optimization. It remains to be seen whether the MitraClip will temporize her symptoms and disease progression. If MitraClip does not yield significant benefit and/or she has deterioration, plan to remain hospitalized until transplantation although could also consider BTT LVAD. If the MitraClip procedure goes well with improvement in severity of mitral regurgitation, plan would be to attempt inotrope wean in the future. She remains active on the transplant list, UNOS status 4. She has not consented for DCD or HCV not positive donors, she would like to get through the MitraClip procedure first. GDMT: Evidence-based beta roz: held in setting of low output state, inotrope dependent BELIA/ARB/ARNI: held due to hypotension, though BP has stabilized. No changes today, re-eval after MitraClip MRA: spironolactone 50mg daily SGLT2i: dapa 10mg daily Diuretic: torsemide 60 daily with extra 20mg PRN Other: milrinone 0.25 mcg/kg/min Device: ICD Assessment & Plan (08/04/2023 5:02 PM EDT): Dilated cardiomyopathy, HfrEF with EF 20 -25% NYHA class: NYHA Class: II ACC stage: D Grossly euvolemic and well supported on milrinone. Improved functional status on milrinone, which she has maintained. Local labs yesterday look reasonably stable except for a mildly elevated ALT 46. BUN and creatinine appear not to have been drawn in recent weeks. I called [facility] reference labs and sent an add-on order and also updated her standing order. She was initially scheduled for MitraClip procedure this month, however that has been moved to 09/07. Erlinda and her mom verbalized understanding that it remains to be seen whether the MitraClip will temporize her symptoms and disease progression. She remains active on the transplant list, UNOS status 4. She has not consented for DCD or HCV not positive donors, she would like to get through the MitraClip procedure first. If MitraClip does not yield significant benefit and she has deterioration, plan to remain hospitalized until transplantation although could also consider BTT LVAD. If the MitraClip procedure goes well with improvement in severity of mitral regurgitation, plan would be to attempt inotrope wean in the future. GDMT: Evidence-based beta roz: held in setting of low output state, inotrope dependent BELIA/ARB/ARNI: held due to hypotension, though BP has been 110's/80s recently. No changes for the time being as Erlinda is hesitant to change anything as she is feeling well but I'll discuss with team given delay in MitraClip to 09/07. MRA: spironolactone 50mg daily SGLT2i: dapa 10mg daily Diuretic: torsemide 60 daily with extra 20mg PRN Other: milrinone 0.25 mcg/kg/min Device: ICD Advanced therapies status: UNOS 4 (home inotrope) Advised to get seasonal flu vaccine, COVID booster. Regarding her history of difficulty swallowing pills, no true dysphagia on recen MBS completed, she is able to take some smaller pills with water. Encouraged to continue to work on this, especially looking ahead to post transplant medications. Assessment & Plan (06/01/2023 12:40 PM EDT): AHA stage D. Stable on home milrinone. NYHA III on inotropic support. Currently, listed UNOS status 4 awaiting her transplant. Plan for attempted mitraclip TMVR in July. We discussed that this may not improve Hf syndrome but the goal is to improve functional status and delay heart transplant and potentially wean off of inotropic support. She understands if no improvement otherwise we will continue to progress towards cardiac transplantation. No change in meds. Will return to clinic in 2 weeks and will continue to monitor. GDMT RAASi/ARNI: BB: MRA: spironolactone 50 mg daily SGLTI: dapa 10 mg Loop: torsemide 60 mg daily Other: milrinone 250 CFU/mL mcg Assessment & Plan (04/20/2023 4:46 PM EDT): Medications: Evidence-based beta roz: held due to low output BELIA/ARB/ARNI: held due to hypotension MRA: spironolactone 50 mg daily SGLT2i: dapa 10 mg daily Other: milrinone 0.25 mcg/kg/min Device: ICD Advanced therapies status: undergoing OHT eval Ms. Glover is responding well to milrinone. Heart transplant evaluation is ongoing. She understands MitraClip may still be pursued but that would like to complete transplant evaluation first so that we have a backup plan. She had an apparent PICC line infection and was hospitalized at [facility] for 3 days. She looks euvolemic on exam, but her weight is down about 2 kg from last week. She reports she was on lower dose of torsemide 20 mg daily at [facility] but felt she should return to her usual dose of 60 mg. She does not look dry on exam and she has stable renal function on labs. Her blood pressure is adequate to consider adding a vasodilator, but given the 2 kg weight loss and the reintroduction of her 60 mg torsemide dose, I will defer further adjustments until next week. Her potassium today is 3.4. She reports she has been taking 40 mEq daily in powder form. Increase to 60 mEq daily which she wants to take in 3 divided doses of 20 mEq each. Regarding her transplant evaluation, she unfortunately missed a scheduled dental appointment due to her admission to [facility]. This was rescheduled for 06/06, though she is on a cancellation list and is trying to be seen sooner. She did complete a pelvic ultrasound and we are waiting to get report on that. She is scheduled for PFTs next week. She reports she is continuing to break and crush her pills due to longstanding issue with pill taking. We discussed having her see OT as if she were to need a transplant, medication management would be much easier if she were able to at least swallow small to medium sized capsules. We will look into a local CAREER DEVELOPMENT COORDINATOR referral. Assessment & Plan (04/14/2023 3:38 PM EDT): Medications: Evidence-based beta roz: held due to low output BELIA/ARB/ARNI: held due to hypotension MRA: spironolactone 50 SGLT2i: dapa 10 Other: milrinone 0.25 mcg/kg/min Device: ICD Advanced therapies status: undergoing OHT eval Ms. Glover is responding well to milrinone. Heart transplant evaluation is ongoing. She has her pelvic ultrasound and dental evaluation scheduled locally. We will coordinate the remainder of her testing. With regards to medications, her blood pressure looks appropriate to gently restart vasodilator therapy. We will consider this at her next visit if her blood pressure remains robust. Assessment & Plan (03/11/2022 4:56 PM EDT): Medications: Evidence-based beta roz: carvedilol 12.5mg BID BELIA/ARB/ARNI: entresto 97/103 MRA: spironolactone 25 SGLT2i: empagliflozin 10 Other: Device: none currently Advanced therapies status: f/u CPET results today, appears too well Ms. Glover is euvolemic and well compensated today. She has NYHA class II-III symptoms, ACC stage C heart failure. The etiology of her cardiomyopathy is likely nonischemic given her age and other risk factors, though her PET perfusion scan from [facility] did show a fixed defect. While CTA was recommended, she has not had a direct assessment of her coronaries. I would recommend a left heart catheterization to exclude obstructive coronary disease. At the same time, a right heart catheterization could be performed now that she appears euvolemic on exam to document her filling pressures, as the last right heart catheterization showed elevated filling pressures. She is on an excellent medical regimen. We will increase her carvedilol to 25 mg twice daily. In addition, her vericiguat can be uptitrated to 5 mg and ultimately 10 mg daily every 2 weeks. In addition, her labs show iron deficiency, and we recommend IV iron repletion. She should have a repeat echocardiogram to screen for LVEF improvement on medical therapy, and if her LVEF remains depressed, an ICD would be indicated. Her QRS is narrow, so ADDING MACHINE MECHANIC is not appropriate. She and her mother were interested in discussing heart transplantation. I discussed that she is likely too well at this time, though her CPET results today are pending and may show that she is sicker than she looks. However I did discuss that her BMI is currently contraindication to transplant. She would require BMI less than 40 kg/m to be eligible. I will have our order tracer reach out to her to discuss weight loss strategies. Finally I counseled her that many of the medications she is taking are teratogenic, and if she were considering conception, she would need to call me or her local household cook to discuss the safety of and how to manage her medications. Until then, I instructed her that she must use effective contraception if she is sexually active. Primary hypertension 11/02/2021 Assessment & Plan (06/25/2024 11:39 AM EDT): Doppler BP 90, stable on lisinopril 2.5 mg daily. CTM. Assessment & Plan (06/19/2024 12:14 PM EDT): BP 90, on lisinopril 2.5 mg daily. CTM. DM (diabetes mellitus) (Multi-HCC) Assessment & Plan (10/30/2023 3:37 PM EST): Recent HA1C 5.8% Resolved Problems Problem Noted Date Diagnosed Date Resolved Date Nausea & vomiting 02/16/2024 09/24/2024 Needs peripherally inserted central catheter (PICC) 06/10/2023 06/19/2024 Problem with vascular access 05/03/2023 05/05/2023 Infection of peripherally in serted central venous catheter (PICC) 04/14/2023 05/05/2024 Assessment & Plan (04/20/2023 4:51 PM EDT): Line replaced at [facility] during recent admission, she completed prescribed course of Keflex today and her new PICC line looks well. I am not able to see final blood culture results from [facility], so we will see if we can have those sent over. She agreed to call if any new infectious concerns. Stable CBC yesterday. Assessment & Plan (04/14/2023 3:40 PM EDT): PICC line site looks erythematous but she is overall nontoxic-appearing. We will check blood cultures today. Discussed that she should present to the emergency department if her decline site looks worse over the coming days. Otherwise we will reevaluate at her next clinic visit next week. 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; Class 2 obesity due to excess calories with body mass index (BMI) of 38.0 to 38.9 in adult, unspecified whether serious comorbidity present 06/04/2025 Travel 05/22/2025 Telephone [facility] [place] [address] [place] [address] Jeni Vaca, RN 05/20/2025 Orders Only [facility] [address] [phone] Catarina Montgomery, AGUSTIN LVAD (left ventricular assist device) present (Multi-HCC) 05/20/2025 Telephone [facility] [address] [phone] Eliana Melgar Med Refill 05/14/2025 5:45 AM EDT - 05/15/2025 1:53 PM EDT Hospital Encounter [facility] [address] [place] [phone] Kristen Hair MD Bilateral lower extremity edema (Primary Dx); Heart failure (Multi-HCC) Discharge Disposition: Home or self care 05/14/2025 Travel 05/13/2025 Telephone [facility] [address] [place] [phone] Faisal Miranda MD 04/04/2025 Telephone [facility] [address] [phone] Nusrat Murray LCSW 03/21/2025 Telephone [facility] [address] [phone] Sheng Covarrubias from Last 3 Months Immunizations Immunization Administration Dates Next Due HPV 9-Valent 05/16/2025 Hep B, adult 05/18/2024 Influenza, injectable, quadr ivalent, preservative free 12/06/2022,07/21/2021 Influenza, seasonal, injectable 08/20/20,07/17/2022,07/21/2021,2018 Pneumococcal Conjugate Pcv 20 05/18/2024 Spikevax COVID-19 Vaccine Formula 12+ 08/20/2023 Tdap 05/18/2024,02/15/2011 Family History Medical History Relation Name Comments Diabetes Brother Diabetes Father dextrocardia Father Diabetes Maternal Grandmother Relation Name Status Comments Brother Alive Father Alive Maternal Grandmother Social History Tobacco Use Types Packs/Day Years Used Date Smoking Tobacco: Never Smokeless Tobacco: Never Tobacco Cessation:Counseling Given: Not Answered Alcohol Use Standard Drinks/Week Comments Not Currently 0 (1 standard drink = 0.6 oz pure alcohol) only on holidays , one drink. Utilities Answer Date Recorded In the past 12 months has [employer], [employer], oil, or water [employer] threatened to shut off services in your [...] place to sleep or slept in a fpc (including now)? No 05/15/2024 Housing Stability Vital Sign Answer Brayan e Recorded Unable to Pay for Housing in the Last Year Not o n file 05/14/2025 Number of Times Moved in the Last Year Not on fi le 05/14/2025 At any time in the past 12 [facility], were you homeless or living in a fpc (including now)? No 05/14/2025 Comments No Sex and Gender Information Value Date Recorded Sex Assigned at Female 01/13/2022 3:44 PM EDT Legal Sex Female 3:04 PM EDT Gender Identity Female 01/13/2022 3:44 PM EDT Sexual Orientation Bisexual 06/09/2023 11 :54 PM EDT Travel History Travel Start Travel End [place] 04/13/2025 05/07/2025 Last Filed Vital Signs Vital Sign Reading Time Taken Comments Blood Pressure 90/0 06/04/2025 11:00 AM EDT CUFF BP_ NO READING Pulse 89 05/15/2025 12:36 PM EDT Temperature 37.2 C (99 F) 06/04/2025 11:00 AM EDT Respiratory Rate 17 05/15/2025 5:05 AM EDT Oxygen Saturation 96% 05/15/2025 12: 36 PM EDT Inhaled Oxygen Concentration - - Weight 121.5 kg (267 lb 12.8 oz) 06/04/2025 11:00 AM EDT Height 170.2 cm (5' 7 ) 05/14/2025 6:09 AM EDT Body Mass Index 41.94 05/14/2025 6:09 AM EDT Plan of Treatment Upcoming Encounters Date Type Department Care Team (Late st Contact Info) Description 10/06/2025 10:00 AM EST Telemedicine [facility] [address] [facility] [address] [place] [address] Corine Rolle PA [address] [place] [address] Health Maintenance Due Date Last Done Comments Welcome to Medicare Visit (IPPE) 1995 Diabetes: Retinopathy Screening 1995 MMR Vaccines (1 of 1 - Standard series) 01/02/1996 Diabetes: Foot Exam 2005 Varicella Vaccines (1 of 2 - 13+ 2-dose series) 01/02/2008 Pap Smear 01/02/2016 Diabetes: Urine Protein Screening 03/30/2024 03/30/2023, 03/25/2023 COVID-19 Vaccine ( season) 2024 08/20/2023, 01/17/2022, 04/05/2021, Additional history exists Hepatitis B Vaccines (2 of 3 - 19+ 3-dose series) 06/15/2024 05/18/2024 Depression Screening 10/09/2024 04/14/2023 Cervical Cancer Screening 2025 HPV/Cotest 2025 High Risk LDL 06/03/2025 06/03/2024, 08/0 04/2024, 03/25/2023 Lipid Panel 06/03/2025 06/03/2024, 08/0 04/2024, 03/25/2023 Influenza Vaccine (#1) 2025 , 12/06/2022, 07/17/2022, Additional history exists HPV Vaccines (2 - 3-dose SCDM series) 06/13/2025 05/16/2025 Diabetes: Hemoglobin A1C 07/30/2025 024, 05/15/2024, 02/16/2024, Additional history exists DTaP/Tdap/Td Vaccines (3 - Td or Tdap) 05/18/2034 05/18/2024, 02/15/2011 HIV Screening Completed 05/15/2024, 03/10, 03/25/2023, Additional history exists Hepatitis C Screening Completed 05/15/2024 , 03/29/2023, 03/29/2023, Additional history exists Pneumococcal Vaccine: Pediatrics (0 to 5 Years) and At-Risk Patients (6 to 49 Years) Completed 05/18/2024 Diabetes Screening Discontinued 07/30/2024, 0 05/15/2024, 02/16/2024, Additional history exists HIB Vaccines Aged Out No longer eligi [...] on patient's age to complete this topic Rotavirus Vaccines Aged Out No longer eligible based on patient's age to complete this topic Medical Devices Implanted Type Area Radio Repairer Domestic Device Identifier Shelf Expiration Date Model / Serial / Lot Kit Powerline Cath 6f 2lum - [id number] Implanted:Qty: 1 on 10/30/2023 by Bill Alvarado MD at [facility]/Per ipheral Catheter and Port Right: Vein [employer] 01/06/2026 [id number] / / [id number] Description:6FR DL Powerline Right IJ Kit Powerline Cath 6f 2lum - [id number] Implanted:Qty: 1 on 02/19/2024 by Deion Glass MD at [facility]/Per ipheral Catheter and Port Right: Vein [employer] 05/08/2027 [id number] / / [id number] Description:6FR DL POWERLINE Membrane Preclude [id number] - [id number] - [id number] Implanted:Qty: 1 on 05/28/2024 by Buck Baptiste MD at [facility] Heart Valve N/A: Heart [employer] 03/24/2029 [id number] / [id number] / Membrane Preclude [id number] - [id number] - [id number] Implanted:Qty: 1 on 05/28/2024 by Buck Baptiste MD at [facility] Valve N/A: Heart [employer] 03/09/2029 [id number] / [id number] / Icd-04/08/2022 Implanted:04/08 (Quantity not on file) ICD Left: Chest Wall Description:SICD placed April 2022 Heartmate 3 Apical Cuff - [id number] - [id number] Implanted:Qty: 1 on 05/28/2024 by Buck Baptiste MD at [facility] LVAD N/A: Heart [employer] 01/24/2027 [id number] / [id number] / Heartmate 3 Sealed Outflow Graft With Bend Relief - [id number] - [id number] Implanted:Qty: 1 on 05/28/2024 by Buck Baptiste MD at [facility] LVAD N/A: Heart [employer] 12/08/2025 [id number] / [id number] / Heartmate 3 Ventricular Assist Device - Blood Pump - [id number] - [id number] Implanted:Qty: 1 on 05/28/2024 by Buck Baptiste MD at [facility] LVAD N/A: Heart [employer] 01/24/2027 [id number] / [id number] / Procedures Procedure Name Priority Date/Time Associated Diagnosis Comments PHOSPHORUS Routine 05/15/2025 5:29 AM EDT MAGNESIUM Routine 05/15/2025 5:29 AM EDT HEPATIC FUNCTION PANEL Routine 05/15/2025 5:29 AM EDT PTT Routine 05/15/2025 5:29 AM EDT PROTIME-INR Routine 05/15/2025 5:29 AM EDT BASIC METABOLIC PANEL Routine 05/15/2025 5:29 AM EDT CBC Routine 05/15/2025 5:29 AM EDT PHOSPHORUS Routine 05/14/2025 7:21 PM EDT MAGNESIUM Routine 05/14/2025 7:21 PM EDT BASIC METABOLIC PANEL Routine 05/14/2025 7:21 PM EDT VASC US LOWER EXTREMITY VENOUS DUPLEX RIGHT Routine 05/14/2025 2:30 PM EDT XR ANKLE 3+ VIEWS RIGHT Routine 05/14/2025 2:02 PM EDT XR CHEST 2 VIEWS Routine 05/14/2025 2:02 PM EDT TTE COMPLETE 2D W/ SPECTRAL AND COLOR DOPPLER (84030) Routine 05/14/2025 11:27 AM EDT URIC ACID Add-On 05/14/2025 7:21 AM EDT NT PRO BNP STAT Add-on 05/14/2025 7:21 AM EDT LDH Add-On 05/14/2025 7:21 AM EDT CBC WITH DIFFERENTIAL STAT 05/14/2025 7:21 AM EDT PTT STAT 05/14/2025 7:21 AM EDT PROTIME-INR STAT 05/14/2025 7:21 AM EDT HEPATIC FUNCTION PANEL STAT 05/14/2025 7:21 AM EDT BASIC METABOLIC PANEL STAT 05/14/2025 7:21 AM EDT CBC W/DIFF STAT 05/14/2025 7:21 AM EDT XR CHEST PORTABLE STAT 05/14/2025 7:1 8 AM EDT HEMOGLOBIN A1C Routine 07/30/2024 12:05 PM EDT LVAD (left ventricular assist device) present (Multi-HCC) Awaiting organ transplant HCV AB W/REFLEX QUANT PCR (SCREENING) Add-On 05/15/2024 6:57 PM EDT HIV AB/AG SCREEN Add-On 05/15/2024 6:57 PM EDT LIPID PANEL Add-On 05/15/2024 6:57 PM EDT ALBUMIN, URINE, RANDOM (INCLUDING CREATININE) Routine 03/30/2023 4:35 PM EDT from Last 3 Months or Most Recently Relevant to Health Maintenance Results * APTT (05/15/2025 5:29 AM EDT) Only the most recent of2 resultswithin the time period is included. aPTT 34.5 25.7 - 35.7 Seconds 05/15/2025 6:27 AM EDT [facility] Blood Venous blood specimen / Unknown Venipuncture / Unknown 05/15/2025 5:29 AM EDT 05/15/2025 6:10 AM EDT us Kristen Hair MD LAB BLOOD ORDERABLES Final Res ult [facility] [address] [place] [address], * Protime-INR (05/15/2025 5:29 AM EDT) Only the most recent of2 resultswithin the time period is included. Protime 12.3 9.7 - 14.0 seconds 05/15/2025 6:27 AM EDT [facility] INR 1.07 See Comment 05/15/2025 6:27 AM EDT [facility] Comment: NORMAL PATIENTS NOT ON ANTICOAGULANTS: INR: 0.9-1.3 RECOMMENDED INR WITH WARFARIN/COUMADIN THERAPY: INR: 2.00-3.00 Deep vein thrombosis Atrial Fibrillation Tissue Prosthetic Valve Stroke Prevention INR:2.50-3.50 Mechanical Prosthetic Valve and Recurrent Systemic Embolism Blood Venous blood specimen / Unknown Venipuncture / Unknown 05/15/2025 5:29 AM EDT 05/15/2025 6:10 AM EDT us Kristen Hair MD LAB BLOOD ORDERABLES Final Res ult [facility] [address] [place] [address], * (ABNORMAL) CBC (05/15/2025 5:29 AM EDT) WBC 5.7 4.0 - 11.0 K/uL 05/15/2025 6:19 AM EDT [facility] RBC 5.21(H) 3.70 - 5.20 M/uL 05/15/2025 6:19 AM EDT [facility] Hemoglobin 12.4 11.0 - 16.0 g/dL 05/15/2025 6:19 AM EDT [facility] Hematocrit 39.8 32.0 - 47.0 % 05/15/2025 6:19 AM EDT [facility] MCV 76.4(L) 80.0 - 100.0 fL 05/15/2025 6:19 AM EDT [facility] MCH 23.8(L) 26.0 - 34.0 pg 05/15/2025 6:19 AM EDT [facility] MCHC 31.2 31.0 - 37.0 g/dL 05/15/2025 6:19 AM EDT [facility] RDW-SD 39.1 35.0 - 51.0 fL 05/15/2025 6:19 AM EDT [facility] RDW-CV 14.3 11.5 - 14.5 % 05/15/2025 6:19 AM EDT [facility] Platelets 339 150 - 400 K/uL 05/15/2025 6:19 AM EDT [facility] MPV 8.9(L) 9.1 - 12.4 fL 05/15/2025 6:19 AM EDT [facility] NRBC % 0.0 0.0 - 0.0 % 05/15/2025 6:19 AM EDT [facility] NRBC Absolute 0.00 0.00 - 2.00 K/uL 05/15/2025 6:19 AM EDT [facility] Blood Venous blood specimen / Unknown Venipuncture / Unknown 05/15/2025 5:29 AM EDT 05/15/2025 6:10 AM EDT Kristen Hair MD LAB BLOOD ORDERABLES Final Res ult Performing Organization Address City/[facility]/ZIP Co de Phone Number [facility] [address] [place] [address], [place] * Phosphorus (05/15/2025 5:29 AM EDT) Only the most recent of2 resultswithin the time period is included. Phosphorus 3.9 2.4 - 4.9 mg/dL 05/15/2025 7:08 AM EDT [facility] Blood Venous blood specimen / Unknown Venipuncture / Unknown 05/15/2025 5:29 AM EDT 05/15/2025 6:10 AM EDT Kristen Hair MD LAB BLOOD ORDERABLES Final Res ult [facility] [address] [place] [address], [place] * Magnesium (05/15/2025 5:29 AM EDT) Only the most recent of2 resultswithin the time period is included. Magnesium 2.4 1.6 - 2.6 mg/dL 05/15/2025 7:08 AM EDT [facility] Blood Venous blood specimen / Unknown Venipuncture / Unknown 05/15/2025 5:29 AM EDT 05/15/2025 6:10 AM EDT Kristen Hair MD LAB BLOOD ORDERABLES Final Res ult Performing Organization Address [facility] de Phone Number [facility] [address] [place] [address], * Hepatic function panel (05/15/2025 5:29 AM EDT) Only the most recent of2 resultswithin the time period is included. Albumin 4.1 3.2 - 5.0 g/dL 05/15/2025 7:08 AM EDT [facility] Bilirubin, total 0.4 0.2 - 1.2 mg/dL 05/15/2025 7:08 AM EDT [facility] Bilirubin, direct 0.1 0.0 - 0.5 mg/dL 05/15/2025 7:08 AM EDT [facility] Alkaline phosphatase 72 30 - 130 U/L 05/15/2025 7:08 AM EDT [facility] AST 26 6 - 42 U/L 05/15/2025 7:08 AM EDT [facility] ALT 26 0 - 55 U/L 05/15/2025 7:08 AM EDT [facility] Protein, total 8.1 6.0 - 8.4 g/dL 05/15/2025 7:08 AM EDT [facility] Blood Venous blood specimen / Unknown Venipuncture / Unknown 05/15/2025 5:29 AM EDT 05/15/2025 6:10 AM EDT Kristen Hair MD LAB BLOOD ORDERABLES Final Res ult Performing Organization Address [facility] Co de Phone Number [facility] [address] [place] [address], * Basic metabolic panel (05/15/2025 5:29 AM EDT) Only the most recent of3 resultswithin the time period is included. Sodium 136 135 - 146 mmol/L 05/15/2025 7:08 AM EDT [facility] Potassium 4.2 3.6 - 5.2 mmol/L 05/15/2025 7:08 AM EDT [facility] Chloride 102 98 - 110 mmol/L 05/15/2025 7:08 AM EDT [facility] CO2 (Bicarbonate) 22 20 - 32 mmol/L 05/15/2025 7:08 AM EDT [facility] Anion Gap 12 3 - 14 mmol/L 05/15/2025 7:08 AM EDT [facility] BUN 14 6 - 24 mg/dL 05/15/2025 7:08 AM EDT [facility] Creatinine 0.74 0.55 - 1.30 mg/dL 05/15/2025 7:08 AM EDT [facility] eGFRcr 112 >=60 mL/min/1.7 3m*2 05/15/2025 7:08 AM EDT [facility] Comment:Calculated using CKD -EPI 2020 creatinine equation. Glucose 111 70 - 139 mg/dL 05/15/2025 7:08 AM EDT [facility] Fasting? Unknown [facility] OMAYRA INFINITY 05/15/2025 7:08 AM EDT [facility] Calcium 9.3 8.5 - 10.5 mg/dL 05/15/2025 7:08 AM EDT [facility] Blood Venous blood specimen / Unknown Venipuncture / Unknown 05/15/2025 5:29 AM EDT 05/15/2025 6:10 AM EDT Kristen Hair MD LAB BLOOD ORDERABLES Final Res ult Performing Organization Address City/State/[facility] Co de Phone Number [facility] [address] [place] [address], * Vascular US lower extremity venous duplex right (05/14/2025 2:30 PM EDT) Anatomical Region Laterality Modality Lower Extremities Other 05/14/2025 2:31 PM EDT Narrative 05/14/2025 4:23 PM EDT NAME: BELKYS BECKMANJAGUARBAHMAN : 1995 AGE: 30 years GENDER: Female ORD PHYS: KRISTEN HAIR LOCATION: [facility] 05/14/2025 2:30 PM EDT [id number] (VASC US LOWER EXTREMITY VENOUS DUPLEX RIGHT) [id number] VASC US LOWER EXTREMITY VENOUS DUPLEX RIGHT PERFORMED BY: Magda Monsalve RVT, YASH INDICATION: Unilateral RL extremity swelling and pain FINDINGS: RIGHT: CFV: no thrombus CFV Doppler: normal phasicity FV: no thrombus POPV: no thrombus PTV: no thrombus PER V: no thrombus LEFT: CFV: no thrombus CFV Doppler: normal phasicity IMPRESSIONS: No evidence of deep vein thrombosis in the right lower extremity. APPROVED BY STAFF RADIOLOGIST: Cristopher Aparicio 05/14/2025 4:23 PM EDT Procedure Note Cristopher Aparicio MD - 05/14/2025 NAME: BELKYS GLOVER : 1995 AGE: 30 years GENDER: Female ORD PHYS: KRISTEN HAIR LOCATION: [facility] 05/14/2025 2:30 PM EDT [id number] ([facility] US LOWER EXTREMITY VENOUS DUPLEX RIGHT) [id number] [facility] US LOWER EXTREMITY VENOUS DUPLEX RIGHT PERFORMED BY: Magda Monsalve RVT, YASH INDICATION: Unilateral RL extremity swelling and pain FINDINGS: RIGHT: CFV: no thrombus CFV Doppler: normal phasicity FV: no thrombus POPV: no thrombus PTV: no thrombus PER V: no thrombus LEFT: CFV: no thrombus CFV Doppler: normal phasicity IMPRESSIONS: No evidence of deep vein thrombosis in the right lowerextremity. APPROVED BY STAFF RADIOLOGIST: Cristopher Aparicio 05/14/2025 4:23 PM EDT Kristen Hair MD CV VASCULAR PROCEDURES Final R esult * XR ANKLE RIGHT 3+ VIEWS (05/14/2025 2:02 PM EDT) Anatomical Region Laterality Modality Lower Extremities, Ankle Right Compute d Radiography 05/14/2025 2:07 PM EDT Impressions 05/14/2025 2:08 PM EDT No acute osseous abnormality seen. If indicated consider follow-up imaging. APPROVED BY STAFF RADIOLOGIST: Katerina Hernandez 05/14/2025 2:08 PM EDT Narrative 05/14/2025 2:08 PM EDT NAME: BELKYS GLOVER : 1995 AGE: 30 years GENDER: Female ORD PHYS: KRISTEN HAIR LOCATION: [facility] 05/14/2025 2:02 PM EDT [id number] (XR ANKLE RIGHT 3+ VIEWS) [id number] History: right ankle swelling and pain COMPARISONS: None FINDINGS: No acute fracture or malalignment is seen. There is diffuse soft tissue prominence. No significant degenerative changes. No suspicious bone lesions. No soft tissue emphysema or radiopaque foreign body. Procedure Note Katerina Hernandez MD - 05/14/2025 NAME: BELKYS GLOVER : 1995 AGE: 30 years GENDER: Female ORD PHYS: KRISTEN HAIR LOCATION: [facility] 05/14/2025 2:02 PM EDT [id number] (XR ANKLE RIGHT 3+ VIEWS) [id number] History: right ankle swelling and pain COMPARISONS: None FINDINGS: No acute fracture or malalignment is seen. There is diffuse soft tissueprominence. No significant degenerative changes. No suspicious bonelesions. No soft tissue emphysema or radiopaque foreign body. IMPRESSION: No acute osseous abnormality seen. If indicated consider follow-upimaging. APPROVED BY STAFF RADIOLOGIST: Katerina Hernandez 05/14/2025 2:08 PM EDT Kristen Hair MD IMG XR PROCEDURES Final Result * XR CHEST 2 VIEWS (05/14/2025 2:02 PM EDT) Anatomical Region Laterality Modality Chest Computed Radiogr aphy 05/14/2025 2:05 PM EDT Impressions 05/14/2025 2:07 PM EDT No new congestion or new consolidation in the visualized lungs. APPROVED BY STAFF RADIOLOGIST: AMALIA JOHNSON 05/14/2025 2:07 PM EDT Narrative 05/14/2025 2:07 PM EDT NAME: BELKYS GLOVER : 1995 AGE: 30 years GENDER: Female ORD PHYS: KRISTEN HAIR LOCATION: [facility] 05/14/2025 2:02 PM EDT IMG36 (XR CHEST 2 VIEWS) [id number] REASON FOR STUDY: evaluate lung parenchyma TECHNIQUE: AP semierect and lateral views of the chest Comparison: 05/14/2025 earlier FINDINGS: The heart and sternal wires and subcutaneous pacer lead are unchanged. EKG leads overlie the chest. LVAD is seen as previously. It obscures much of the left base as previously. There is no pneumothorax or new congestion or new consolidation in the visualized lungs. There is no new right pleural effusion. The left base as seen is not significantly changed. No pleural effusion is seen posteriorly in the lateral view. Procedure Note Amalia Johnson MD - 05/14/2025 NAME: BELKYS GLOVER : 1995 AGE: 30 years GENDER: Female ORD PHYS: KRISTEN HAIR LOCATION: [facility] 05/14/2025 2:02 PM EDT IMG36 (XR CHEST 2 VIEWS) [id number] REASON FOR STUDY: evaluate lung parenchyma TECHNIQUE: AP semierect and lateral views of the chest Comparison: 05/14/2025 earlier FINDINGS: The heart and sternal wires and subcutaneous pacer lead areunchanged. EKG leads overlie the chest. LVAD is seen as previously. Itobscures much of the left base as previously. There is no pneumothorax or new congestion or new consolidation in thevisualized lungs. There is no new right pleural effusion. The left base asseen is not significantly changed. No pleural effusion is seen posteriorlyin the lateral view. IMPRESSION: No new congestion or new consolidation in the visualized lungs. APPROVED BY STAFF RADIOLOGIST: AMALIA JOHNSON 05/14/2025 2:07 PM EDT Kristen Hair MD IMG XR PROCEDURES Final Result * TTE COMPLETE 2D W/ SPECTRAL AND COLOR DOPPLER ([id number]) (05/14/2025 11:27 AM EDT) Anatomical Region Laterality Modality Other 05/14/2025 10:4 4 AM EDT Narrative 05/14/2025 1:17 PM EDT [facility] [address] [place] [address] Transthoracic Echocardiogram Name: BELKYS GLOVER Study Date: 05/14/2025 10:44 AM : 1995 Gender: Female Age: 30 yrs Ethnicity: Patient Location: [facility]^P807^P807-1^[facility] Referring Physician: UNKNOWN, UNKNOWN Performed By: Daria Medellin Ordering Physician: KRISTEN HAIR Reason For Study: Hx of Heart failure with LE Edema, evaluation of LVAD placement Height: 67 in Weight: 260 lb BSA: 2.3 m2 BP: 74/ mmHg CPT/Quality/Location Complete 2D TTE with spectral and color Doppler (14256). Location performed: Floor. MMode/2D Measurements & Calculations IVSd: 0.70 cm LVIDd: 7.0 cm Ao root diam: 3.0 cm LVIDs: 6.4 cm Ao root area: 7.1 cm2 LVPWd: 1.1 cm LA dimension: 5.2 cm asc Aorta Diam: 3.3 cm LVOT diam: 2.2 cm Left Ventricle The left ventricle is severely dilated. There is normal left ventricular wall thickness. Left ventricular systolic function is severely reduced. Ejection Fraction = 10%. There is severe global hypokinesis of the left ventricle. Right Ventricle The right ventricle is grossly normal size. Rv function not well visualized. Atria The left atrium is severely dilated. Right atrium not well visualized. The inferior vena cava is normal size with > 50% respirophasic variation, consistent with normal right atrial pressure. Mitral Valve The mitral valve is grossly normal. There is no mitral valve stenosis. There is mild to moderate mitral regurgitation. Tricuspid Valve The tricuspid valve is not well visualized. Insufficient tricuspid regurgitation jet for estimation of right ventricular systolic pressure. Aortic Valve The aortic valve is trileaflet. Appears to partial open. No hemodynamically significant valvular aortic stenosis. Trace aortic regurgitation. Pulmonic Valve The pulmonic valve is not well seen, but is grossly normal. Great Vessels The aortic root is normal size. The ascending aorta is normal size. Pericardium/Pleural There is no pericardial effusion. Interpretation Summary I have personally reviewed the study and confirm the fellow's findings. Please see full report for findings. Electronically signed by:Abhijeet Yadav M.D. 05/14/2025 01:17 PM Procedure Note Abhijeet Yadav MD - 05/14/2025 [facility] [address] [place] [address] TransthoracicEchocardiogram Name: BELKYS GLOVER Study Date:05/14/2025 10:44 AM : 1995 Gender: Female Age: 30 yrs Ethnicity: Patient Location: [facility]^P807^P807-1^[facility] Referring Physician: UNKNOWN, UNKNOWN Performed By: Daria Medellin Ordering Physician: KRISTEN HAIR Reason For Study: Hx of Heart failure with LE Edema, evaluation of LVADplacement Height: 67 in Weight: 260 lb BSA: 2.3 m2 BP:74/ mmHg CPT/Quality/Location Complete 2D TTE with spectral and color Doppler (08030). Locationperformed: Floor. MMode/2D Measurements & Calculations IVSd: 0.70 cm LVIDd: 7.0 cm Ao rootdiam: 3.0 cm LVIDs: 6.4 cm Ao rootarea: 7.1 cm2 LVPWd: 1.1 cm LAdimension: 5.2 cm asc Aorta Diam: 3.3 cm LVOTdiam: 2.2 cm Left Ventricle The left ventricle is severely dilated. There is normal left ventricularwall thickness. Left ventricular systolic function is severely reduced. Ejection Fraction = 10%. There is severe globalhypokinesis of the left ventricle. Right Ventricle The right ventricle is grossly normal size. Rv function not wellvisualized. Atria The left atrium is severely dilated. Right atrium not well visualized. Theinferior vena cava is normal size with > 50% respirophasic variation, consistent with normal right atrial pressure. Mitral Valve The mitral valve is grossly normal. There is no mitral valve stenosis.There is mild to moderate mitral regurgitation. Tricuspid Valve The tricuspid valve is not well visualized. Insufficient tricuspidregurgitation jet for estimation of right ventricular systolic pressure. Aortic Valve The aortic valve is trileaflet. Appears to partial open. Nohemodynamically significant valvular aortic stenosis. Trace aortic regurgitation. Pulmonic Valve The pulmonic valve is not well seen, but is grossly normal. Great Vessels The aortic root is normal size. The ascending aorta is normal size. Pericardium/Pleural There is no pericardial effusion. Interpretation Summary I have personally reviewed the study and confirm the fellow's findings.Please see full report for findings. Electronically signed by:Abhijeet Yadav M.D. 05/14/2025 01:17 PM us Kristen Hair MD CV ECHO PROCEDURES Final Resul t * (ABNORMAL) CBC w/ Differential (05/14/2025 7:21 AM EDT) WBC 5.6 4.0 - 11.0 K/uL 05/14/2025 7:41 AM EDT [facility] RBC 4.81 3.70 - 5.20 M/uL 05/14/2025 7:41 AM EDT [facility] Hemoglobin 11.4 11.0 - 16.0 g/dL 05/14/2025 7:41 AM EDT [facility] Hematocrit 36.4 32.0 - 47.0 % 05/14/2025 7:41 AM EDT [facility] MCV 75.7(L) 80.0 - 100.0 fL 05/14/2025 7:41 AM EDT [facility] MCH 23.7(L) 26.0 - 34.0 pg 05/14/2025 7:41 AM EDT [facility] MCHC 31.3 31.0 - 37.0 g/dL 05/14/2025 7:41 AM EDT [facility] RDW-CV 14.3 11.5 - 14.5 % 05/14/2025 7:41 AM EDT [facility] RDW-SD 38.6 35.0 - 51.0 fL 05/14/2025 7:[facility] 285 150 - 400 K/uL 05/14/2025 7:41 AM T [facility] MPV 8.5(L) 9.1 - 12.4 fL 05/14/2025 7:41 AM [facility] Neutrophil % 70.7 % 05/14/2025 7:41 AM [facility] Lymphocyte % 16.6 % 05/14/2025 7:41 AM [facility] Monocytes % 9.4 % 05/14/2025 7:41 AM T [facility] Eosinophils % 2.7 % 05/14/2025 7:41 AM [facility] Basophils % 0.4 % 05/14/2025 7:41 AM [facility] Immature Granulocytes % 0.2 % 05/14/2025 7:41 AM [facility] NRBC % 0.0 0.0 - 0.0 % 05/14/2025 7:41 AM [facility] Neutrophils Absolute 3.97 1.50 - 7.95 K/uL 05/14/2025 7:41 AM T [facility] Lymphocytes Absolute 0.93 0.70 - 4.00 K/uL 05/14/2025 7:41 AM [facility] Monocytes Absolute 0.53 0.36 - 0.77 K/uL 05/14/2025 7:41 AM [facility] Eosinophils Absolute 0.15 0.00 - 0.50 K/uL 05/14/2025 7:41 AM [facility] Basophils Absolute 0.02 0.00 - 0.22 K/uL 05/14/2025 7:41 AM [facility] Immature Granulocytes Absolute 0.01 0.00 - 0.10 K/uL 05/14/2025 7:41 AM [facility] NRBC Absolute 0.00 0.00 - 2.00 K/uL 05/14/2025 7:41 AM [facility] Blood Venous blood specimen / Unknown Venipuncture / Unknown 05/14/2025 7:21 AM EDT 05/14/2025 7:37 AM EDT Kristen Hair MD LAB BLOOD ORDERABLES Final Res ult [facility] [address] [place] [address], * (ABNORMAL) NT pro BNP (05/14/2025 7:21 AM EDT) NT-proBNP 1,394(H) 0 - 125 pg/mL 05/14/2025 11:10 AM EDT [facility] Blood Venous blood specimen / Unknown Venipuncture / Unknown 05/14/2025 7:21 AM EDT 05/14/2025 7:36 AM EDT Narrative [facility] - 05/14/2025 11:10 AM EDT The 2020 [place] Definition and Classification of Heart Failure states that a diagnosis of heart failure (HF) requires symptoms and/or signs of HF caused by structural and/or functional cardiac abnormalities, accompanied by objective evidence of congestion and/or: Test Ambulatory Patients Hospitalized/Decompensated NT-proBNP (pg/mL) >=125 >=300 Patients with heart failure with preserved ejection fraction (HFpEF) have lower levels of the natriuretic peptides than patients with a similar severity of heart failure with reduced ejection fraction (HFrEF). In dyspneic patients in emergency department settings,2 NT-proBNP cut-offs for diagnosis of acute HF were 450, 900, and 1,800 pg/ml for ages <50, 50 to 75, and >75 years. (1) Lamar B et al. J Cardiac Fail 202;27:387-413 (2) Ava SANCHEZ et al. J Am Irma Cardiol 2018;71:3929-3719. Kristen Hair MD LAB BLOOD ORDERABLES Final Res ult [facility] [address] [place] [address], * Uric acid (05/14/2025 7:21 AM EDT) Uric Acid 6.6 2.6 - 8.0 mg/dL 05/14/2025 11:21 AM EDT [facility] Blood Venous blood specimen / Unknown Venipuncture / Unknown 05/14/2025 7:21 AM EDT 05/14/2025 7:36 AM EDT Narrative [facility] - 05/14/2025 11:21 AM EDT Although the reference interval for men extends up to 8.0 mg/dL, patients with gout may benefit from uric acid levels <6.0 mg/dL. Kristen Hair MD LAB BLOOD ORDERABLES Final Res ult Performing Organization Address [facility] Co de Phone Number [facility] [address] [place] [address], * LDH (05/14/2025 7:21 AM EDT) LDH 237 110 - 250 U/L 05/14/2025 8:04 AM EDT [facility] Blood Venous blood specimen / Unknown Venipuncture / Unknown 05/14/2025 7:21 AM EDT 05/14/2025 7:36 AM EDT Kristen Hair MD LAB BLOOD ORDERABLES Final Res ult Performing Organization Address [facility] Co de Phone Number [facility] [address] [place] [address], [place] * XR CHEST PORTABLE (05/14/2025 7:18 AM EDT) Anatomical Region Laterality Modality Chest Right Computed Radiogr aphy 05/14/2025 8:43 AM EDT Impressions 05/14/2025 8:45 AM EDT No new congestion or new right pleural effusion. APPROVED BY STAFF RADIOLOGIST: AMALIA JOHNSNO 05/14/2025 8:45 AM EDT Narrative 05/14/2025 8:45 AM EDT NAME: BELKYS GLOVER : 1995 AGE: 30 years GENDER: Female ORD PHYS: KRISTEN HAIR LOCATION: [facility] 05/14/2025 7:18 AM EDT [id number] (XR CHEST PORTABLE) [id number] REASON FOR STUDY: Concern for volume overload TECHNIQUE: AP semierect and lateral, outside images COMPARISON: 05/14/2025 earlier FINDINGS: The heart and sternal wires are not significantly changed. Subcutaneous pacer lead is unchanged. EKG leads overlie the chest. LVAD is seen as previously. There is no pneumothorax or new congestion or new consolidations in the visualized lungs. LVAD obscures the left lower chest. No change in interstitial markings. There is no new blunting of the right costophrenic angle. Procedure Note Amalia Johnson MD - 05/14/2025 NAME: BELKYS GLOVER : 1995 AGE: 30 years GENDER: Female ORD PHYS: KRISTEN HAIR LOCATION: [facility] 05/14/2025 7:18 AM EDT [id number] (XR CHEST PORTABLE) [id number] REASON FOR STUDY: Concern for volume overload TECHNIQUE: AP semierect and lateral, outside images COMPARISON: 05/14/2025 earlier FINDINGS: The heart and sternal wires are not significantly changed.Subcutaneous pacer lead is unchanged. EKG leads overlie the chest. LVAD isseen as previously. There is no pneumothorax or new congestion or new consolidations in thevisualized lungs. LVAD obscures the left lower chest. No change ininterstitial markings. There is no new blunting of the right costophrenicangle. IMPRESSION: No new congestion or new right pleural effusion. APPROVED BY STAFF RADIOLOGIST: AMALIA JOHNSON 05/14/2025 8:45 AM EDT Kristen Hair MD IMG XR PROCEDURES Final Result * Hemoglobin A1c (07/30/2024 12:05 PM EDT) HgbA1C 5.5 4.8 - 5.6 % [facility] 1 Comment: Prediabetes: 5.7 - 6.4 Diabetes: >6.4 Glycemic control for adults with diabetes: <7.0 Blood Venous blood specimen / Unknown 07/30/2024 12:05 PM EDT 07/30/2024 Narrative [facility] - 07/31/2024 5:45 AM EDT Performed at: [facility] [id number] Dental Office Coordinator: Catalina Guzman MD, Phone: [phone] Catarina Riley NP LAB BLOOD ORDERABLES Final Resul t [facility] [address] [place] [address], [facility] 1 * HIV Ab/Ag screen (05/15/2024 6:57 PM EDT) [facility] HIV-1/2 Ab/Ag, P24 Ag screen Non Reactive Non Reactive 05/15/2024 7:48 PM EDT [facility] Comment:This assay was perfo rmed using the 4th generation HIV test (Omayra mattie), measuring both HIV-1 and HIV-2 antibodies, and p24 antigen. Blood Venous blood specimen / Unknown Venipuncture / Unknown 05/15/2024 6:57 PM EDT 05/15/2024 7:01 PM EDT Result [facility] Natalia Gates MD LAB BLOOD ORDERABLES Idania l Result Performing Organization Address [facility] Co de Phone Number [facility] [address] [place] [address], * Hepatitis C antibody (05/15/2024 6:57 PM EDT) [facility] Hepatitis C antibody Non Reactive Non Reactive 05/15/2024 7:48 PM EDT [facility] Comment: Antibodies to HCV not detected; does not exclude the possibility of exposure to HCV. The positive predictive value of this antibody test varies with the prevalence of Hepatitis C virus. Clinical confirmation of Hepatitis C using a qualitative Hepatitis C RNA determination may be indicated. Blood Venous blood specimen / Unknown Venipuncture / Unknown 05/15/2024 6:57 PM EDT 05/15/2024 7:01 PM EDT Natalia Gates MD LAB BLOOD ORDERABLES Idania l Result Performing Organization Address City/[facility]/ZIP Co de Phone Number [facility] [address] [place] [address], * Lipid panel (05/15/2024 6:57 PM EDT) [facility] Triglycerides 63 <=150 mg/dL 05/15/2024 8:04 PM EDT [facility] Cholesterol 159 <=200 mg/dL 05/15/2024 8:04 PM EDT [facility] HDL cholesterol 49 >=40 mg/dL 8:04 PM EDT [facility] LDL cholesterol, calculated 97 0 - 130 mg/dL 05/15/2024 8:04 PM EDT [facility] Cholesterol/HDL Ratio 3.2 05/15/2024 8:04 PM EDT [facility] Non-HDL Calculation 110 <160 mg/dL 05/15/2024 8:04 PM EDT [facility] Comment:Non-HDL cholesterol is simply total cholesterol minus HDL cholesterol. Its major advantage over calculated LDL cholesterol is that it can be run on non- fasting specimens. Also, it includes all forms of atherogenic cholesterols. It is now the preferred marker on many websites for calculating cholesterol cardiac risk. Blood Venous blood specimen / Unknown Venipuncture / Unknown 05/15/2024 6:57 PM EDT 05/15/2024 7:01 PM EDT us Natalia Gates MD LAB BLOOD ORDERABLES Idania lopez Result [facility] [address] [place] [address], * (ABNORMAL) Albumin, Urine, Random (Microalbumin Random, Including Creatinine) (03/30/2023 4:35 PM EDT) Albumin, urine (INT/EXT) 2.9 mg/dL 03/30/2023 5:07 PM EDT [facility] Creatinine, urine, random (INT/EXT) 31.50 15.00 - 328.00 mg/dL 03/30/2023 5:07 PM EDT [facility] Albumin/Creatin ine ratio 92(H) <=30 mg/g Creat 03/30/2023 5:07 PM EDT [facility] Urine Urine specimen / Unknown Non-blood Collection / Unknown 03/30/2023 4:35 PM EDT 03/30/2023 4:38 PM EDT us Maureen Posey SKIN CARE CONSULTANT LAB URINE ORDERABLES Final Resul t [facility] [address] [place] [address], from Last 3 Months or Most Recently Relevant to Health Maintenance Insurance MEDICAID STANDARD MEDICARE PART A AND B MEDICAID STANDARD Advance Directives Documents on File Type Date Recorded Patient Pathologist Expl anation Health Care Proxy 05/17/2025 11:56 AM Health Care Proxy 04/09/2023 11:50 PM Advance Directives and Living Will 05/15/2025 Health Care Proxy Advance Directives and Living Will 03/28/2023 Calista [email or web address] Oliva Health Care Proxy * Full Code (Latest Code Status on File) Date Activated Date Inactivated Comments 05/14/2025 6:54 AM * Full Code Date Activated Date Inactivated Comments 05/15/2024 7:01 PM 08/26/2024 9:57 AM * Full Code Date Activated Date Inactivated Comments 02/16/2024 3:15 PM 02/24/2024 3:57 PM * Full Code Date Activated Date Inactivated Comments 09/06/2023 4:46 PM 09/10/2023 4:47 PM * Full Code Date Activated Date Inactivated Comments 06/10/2023 1:05 AM 06/11/2023 5:49 PM Healthcare Agents on File Name Relationship Healthcare Agent Relationshi p Communication Calista glover Mother Health Care Agent Care Teams Math Instructor Relationship Specialty Start Date End Date Murray Dumont MD [address] [place] [address] PCP - General 01/13/22 Daren Chaidez MD [address] [place] [address] Building Engineer/Gynecologi st 02/06/24 Nilda Navarrete PA [address] [place] [id number] 1st Contact Physician Weld Lay Out Worker 02/16/24 Elijah Mcbride MD [address] [place] [address] Extractor Tender Raw [place] Services Manager 02/11/25 Hyun Chappell MD [address] [place] [address] Consulting Physician Advanced Heart Failure and Transplant Cardiology 06/04/25
--- OUTSIDE RECORDS SUMMARY | 2025-06-06 09:54 | XMS_ITS ---
Author Organization [facility] Address [address] [id number] Care Team Providers Care Disk Recordist Name Role Phone Murray Dumont MD Primary Care Provider [phone] Transplant Episode Heart Candidate Referred on 11/18/2024 Marked as Active on 11/18/2024 Heart CoordinatorDolly Jeong DNP, REBRANDER Email: N/A Care Team Name Role Phone Fax Email Dolly Jeong DNP, REBRANDER Shirt Ironer [phone] N/A Elijah Mcbride MD Shoes Hand Sewer [phone] N/A Mirian Turner Transplant Carpenter Mine N/A N/A N/A Joanne Smith APRN VAD/HF/Transplant TER[facility] [phone] N/A Events Pre-Transplant Referred: 11/18/2024
--- OUTSIDE RECORDS SUMMARY | 2025-06-06 09:54 | XMS_ITS | Clinical Summary ---
Author Organization [address] [address] Phone Care Team Providers Care Ceramic Coater Name Role Phone Murray Dumont MD Primary Care Provider [phone] Social History Tobacco Use Types Packs/Day Years [...] (1 - 1-dose 75+ series) 2070 Meningococcal B Vaccine Aged Out No l onger eligible based on patient's age to complete this topic Meningococcal Vaccine Aged Out No lucas kimberly eligible based on patient's age to complete this topic Pneumococcal Vaccine (2 - 49 years) Aged Out No longer eligible based on patient's age to complete this topic Insurance COMMERCIAL GENERIC COMMERCIAL GENERIC COMMERCIAL GENERIC Care Teams Ceramic Coater Relationship Specialty Start Date End Date Murray Dumont MD [address] [place] [address] PCP - General Internal Medicine 11/15/23
--- OUTSIDE RECORDS SUMMARY | 2025-06-06 09:54 | XMS_ITS | Encounter Summary ---
Author Organization [facility] Address [address] [facility] [address] [place] [address] Care Team Providers Care Lunch Truck Operator Name Role Phone Murray Dumont MD Primary Care Provider [phone] [employer] temporary help agency referral clerk Unavailable Unavailable Tesha SpencerD Unavailable [phone] Daren Chaidez MD Unavailable Nilda Navarrete Unavailable Elijah Mcbride MD Unavailable [phone] Hyun Chappell MD Unavailable Reason for Visit * Reason Comments Med Refill Encounter Details Date Type Department Care Team (Late st Contact Info) Description 09/27/2024 Refill [facility] Cardiac Subspecialty [address] [address] Catarina Riley, EUGENIO [address] [place] [address] Awaiting organ transplant Social History Tobacco Use Types Packs/Day Years Used Date Smoking Tobacco: Never Smokeless Tobacco: Never Alcohol Use Standard Drinks/Week Comments Not Currently 0 (1 standard drink = 0.6 oz pure alcohol) only on holidays , one drink. AUDIT-C Answer Date Recorded Q1: How often do you have a drink containing alcohol? Never 05/15/2024 Q2: How many drinks containi ng alcohol do you have on a typical day when you are drinking? Patient does not drink Q3: How often do you have si x or more drinks on one occasion? Never 05/15/2024 Overall Financial Resource Strain (CARDIA) Answe r Date Recorded How hard is it for you to pa y for the very basics like food, housing, medical care, and heating? Not very hard 05/15/2024 PHQ-2 Answer Date Recorded Patient Health Questionnaire-2 Score 2 04/14/2023 Hunger Vital Sign Answer Date Recorded Within the past 12 months, y ou worried that your food would run out before you got the money to buy more. Never true 05/15/20 24 Ran Out of Food in the Last Year Not on file 05/15/2024 PRAPARE - Transportation Answer Date Re corded In the past 12 months, has l ack of transportation kept you from medical appointments or from getting medications? No 04/2024 In the past 12 months, has l ack of transportation kept you from meetings, work, or from getting things needed for daily living? No 05/15/2024 Housing Stability Vital Sign Answer Brayan e Recorded Unable to Pay for Housing in the Last Year Not o n file 05/15/2024 Number of Places Lived in the Last Year Not on f ile 05/15/2024 In the last 12 months, was t here a time when you did not have a steady place to sleep or slept in a senior living (including now)? No 05/15/2024 Comments No Sex and Gender Information Value Date Recorded Sex Assigned at Female 01/13/2022 3:44 PM EDT Legal Sex Female 3:04 PM EDT Gender Identity Female 01/13/2022 3:44 PM EDT Sexual Orientation Bisexual 06/09/2023 11 :54 PM EDT Travel History Travel Start Travel End [place] 04/13/2025 05/07/2025 documented as of this encounter Functional Status * Are you deaf or do you have serious difficulty hearing? Answer Date of Assessment Author No 05/15/2024 4:24 PM EDT Daina Montgomery ra, RN * Are you blind or do you have serious difficulty seeing, even when wearing glasses? Answer Date of Assessment Author No 05/15/2024 4:24 PM EDT Daina Montgomery ra, RN * Do you have serious difficulty walking or climbing stairs? Answer Date of Assessment Author No 05/15/2024 4:24 PM EDT Daina Montgomery ra, RN * Do you have serious difficulty dressing or bathing? Answer Date of Assessment Author No 05/15/2024 4:24 PM EDT Daina Montgomery ra, RN * Because of a physical, mental, or emotional condition, do you have serious difficulty doing errandsalone such as visiting the doctor? Answer Date of Assessment Author No 05/15/2024 4:24 PM EDT Daina Montgomery ra, RN documented as of this encounter Mental Status * Because of a physical, mental, or emotional condition, do you have serious difficulty concentrating, remembering, or making decisions? (5 years old or older) Answer Entry Date Author No 05/15/2024 4:24 PM EDT Daina Montgomery ra, RN documented in this encounter Plan of Treatment Upcoming Encounters Date Type Department Care Team (Late st Contact Info) Description 10/06/2025 10:00 AM EST Telemedicine [facility] [address] [address] Corine Rolle PA [address] [place] [address] documented as of this encounter Visit Diagnoses Diagnosis Awaiting organ transplant Awaiting organ transplant status documented in this encounter Additional Health Concerns Assessment Noted Time PHQ-9 Depression Total Score: 4 04/14/20 23 1:04 PM EDT documented as of this encounter Care Teams Lunch Truck Operator Relationship Specialty Start Date End Date Murray Dumont MD [address] [place] [address] PCP - General 01/13/22 [employer] [facility] CPhT Contract Technical Writer Pharmacy 03/29/23 01/14/25 Tesha Spencer, RahulD [address] [place] [address] Pharmacist Pharmacy 01/18/24 01/14/25 Daren Chaidez MD [address] [place], [place] [address], [place] [address] Knot Tier/Gynecologi 02/06/24 Nilda Navarrete PA [address] [place] [address] 1st Contact Physician Saw Cleaner 02/16/24 Elijah Mcbride MD [address] [place] [address] Gastroenterology Professor Tank Assembler 02/11/25 Hyun Chappell MD [address] [address] Consulting Physician Advanced Heart Failure and Transplant Cardiology 06/04/25 documented as of this encounter
--- OUTSIDE RECORDS SUMMARY | 2025-06-06 09:54 | XMS_ITS | Encounter Summary ---
Author Organization [facility] Address [address] [place] [address] Care Team Providers Care Radiology Asst Name Role Phone Murray Dumont MD Primary Care Provider [phone] Encounter Details Date Type Department Care Team (Late st Contact Info) Description 11/15/2023 Abstract Congestive Heart Failure Program at [address] [place] [address] Referring, No Social History Tobacco Use Types Packs/Day Years Used Date Smoking Tobacco: Never Assessed Comments Unknown Sex and Gender Information Value Date Recorded Sex Assigned at Not on file Legal Sex Female 3:26 PM EST Gender Identity Female 11/15/2023 5:00 PM EST Sexual Orientation Lesbian or Ryan 11/15/2023 5: 00 PM EST documented as of this encounter Plan of Treatment Not on file documented as of this encounter Visit Diagnoses Not on filedocumented in this encounter Care Teams Radiology Asst Relationship Specialty Start Date End Date Murray Dumont MD [address] [place] [address] [place] [address] PCP - General Internal Medicine 11/15/23 documented as of this encounter
--- OUTSIDE RECORDS SUMMARY | 2025-06-06 09:55 | XMS_ITS | Patient Health Record ---
Author Organization [employer]. Address [address] [place] [address] Care Team Providers Care Regulatory And Compliance Technician Name Role Phone Herbert Sinha Primary Care Provider Andrew Muñoz Unavailable [phone] Mary Ridley Unavailable [phone] Eyad Gordon Unavailable Paola Denise Unavailable Allergies Allergen (clinical drug ingredient) Drug/Non Drug Allergy documented on EMR Reaction Allergy Type Onset Date Status Flexeril Unknown Drug Allergy 12/06/2024 Active Guava Flavor hives Drug Allergy Acti ve Latex Latex hives Allergy Active Results Component Value Reference Range Notes CHEST X-RAY (PA/LATERAL) Reviewed date:11/13/2024 07:50:15 AM Interpretation: Performing Lab: Notes/Report: US TRANSVAGINAL NON-OB Reviewed date:02/17/2025 10:18:00 AM Interpretation: Performing Lab: Notes/Report: PT and PTT-LC Reviewed date:12/16/2024 07:51:42 AM Interpretation: Performing Lab:[facility], [address] [place] [id number], Phone - [phone], Director - Henok Notes/Report: INR 1.0 0.9-1.2 Reference interval is for non-anticoagulated patients. . Suggested INR therapeutic range for Vitamin K antagonist therapy: Standard Dose (moderate intensity therapeutic range): 2.0 - 3.0 Higher intensity therapeutic range 2.5 - 3.5 Prothrombin Time 11.1 9.1-12.0 sec aPTT 29 24-33 sec This test has not been validated for monitoring unfractionated heparin therapy. aPTT-based therapeutic ranges for unfractionated heparin therapy have not been established. For general guidelines on Heparin monitoring, refer to the [facility] Directory of Services. Hemoglobin A1C Reviewed date:11/05/2024 02:17:07 PM Interpretation: Performing Lab:[address] [id number], Phone - [phone], Director - Henok Notes/Report: Hemoglobin A1c 5.2 4.8-5.6 % . Prediabetes: 5.7 - 6.4 Diabetes: >6.4 Glycemic control for adults with diabetes: <7.0 Cardiovascular Risk Assessme nt Reviewed date:11/05/2024 02:19:32 PM Interpretation: Performing Lab:[address] [id number], Phone - [phone], Director - Henok Notes/Report: Interpretation Note Supplemental report is available. PDF . Microalbumin/Creatinine Rati o, Random Urine-LC Reviewed date:11/05/2024 02:19:51 PM Interpretation: Performing Lab:[address] [id number], Phone - [phone], Director - Henok Notes/Report: Creatinine, Urine 374.3 Not Estab. mg/dL Albumin, Urine 45.8 Not Estab. ug/mL Alb/Creat Ratio 12 0-29 mg/g creat Normal: 0 - 29 Moderately increased: 30 - 300 Severely increased: >300 CBC With Differential/Platel et-LC-Q Reviewed date:11/07/2024 08:57:28 AM Interpretation: Performing Lab:[address] [id number], Phone - [phone], Director - Henok Notes/Report: WBC 5.9 3.4-10.8 x10E3/uL RBC 5.05 3.77-5.28 x10E6/uL Hemoglobin 11.3 11.1-15.9 g/dL Hematocrit 37.4 34.0-46.6 % MCV 74 79-97 fL MCH 22.4 26.6-33.0 pg MCHC 30.2 31.5-35.7 g/dL RDW 17.3 11.7-15.4 % Platelets 368 150-450 x10E3/uL Neutrophils 74 Not Estab. % Lymphs 16 Not Estab. % Monocytes 7 Not Estab. % Eos 2 Not Estab. % Basos 1 Not Estab. % Neutrophils (Absolute) 4.4 1.4-7.0 x10E3/uL Lymphs (Absolute) 1.0 0.7-3.1 x10E3/uL Monocytes(Absolute) 0.4 0.1-0.9 x10E3/uL Eos (Absolute) 0.1 0.0-0.4 x10E3/uL Baso (Absolute) 0.0 0.0-0.2 x10E3/uL Immature Granulocytes 0 Not Estab. % Immature Grans (Abs) 0.0 0.0-0.1 x10E3/uL Urinalysis, Fgdmsbmp-CB-O Reviewed date:11/07/2024 08:57:10 AM Interpretation: Performing Lab:[facility], [address] [place] [id number], Phone - [phone], Director - Henok Notes/Report: Specific Clinton 1.024 1.005-1.030 pH 5.5 5.0-7.5 Urine-Color Yellow Yellow Appearance Turbid Clear WBC Esterase Trace Negative Protein 1+ Negative/Trace Glucose Negative Negative Ketones Negative Negative Occult Blood 2+ Negative Bilirubin Negative Negative Urobilinogen,Semi-Qn 0.2 0.2-1.0 mg/dL Nitrite, Urine Negative Negative Microscopic Examination See below: Micr oscopic was indicated and was performed. WBC 6-10 0 - 5 /hpf RBC 3-10 0 - 2 /hpf Epithelial Cells (non renal) 0-10 0 - 10 /hpf Casts None seen None seen /lpf Bacteria Few None seen/Few Comprehensive Metabolic Pane l 14+eGFR-LC-Q Reviewed date:11/05/2024 02:16:40 PM Interpretation: Performing Lab:[facility] [place] [address] [address] [place], [place] [id number], Phone - [phone], Director - MDAlexis Notes/Report: Glucose 82 70-99 mg/dL BUN 10 6-20 mg/dL Creatinine 0.77 0.57-1.00 mg/dL eGFR 107 >59 mL/min/1.73 BUN/Creatinine Ratio 13 9-23 Sodium 142 134-144 mmol/L Potassium 3.7 3.5-5.2 mmol/L Chloride 102 96-106 mmol/L Carbon Dioxide, Total 27 20-29 mmol/L Calcium 9.3 8.7-10.2 mg/dL Protein, Total 7.5 6.0-8.5 g/dL Albumin 4.1 4.0-5.0 g/dL Globulin, Total 3.4 1.5-4.5 g/dL Bilirubin, Total 0.6 0.0-1.2 mg/dL Alkaline Phosphatase 64 44-121 IU/L AST (SGOT) 16 0-40 IU/L ALT (SGPT) 13 0-32 IU/L Lipid Panel-Q-LC Reviewed date:11/05/2024 02:16:30 PM Interpretation: Performing Lab:[facility], [address] [place] [id number], Phone - [phone], Director - Henok Notes/Report: Cholesterol, Total 152 100-199 mg/dL Triglycerides 68 0-149 mg/dL HDL Cholesterol 54 >39 mg/dL VLDL Cholesterol Yamil 13 5-40 mg/dL LDL Chol Calc (NIH) 85 0-99 mg/dL Reason For Referral Reason Please fax consul t notes and/or results of procedure approved to [phone]. Thanks! ~Annual Eye Exam~ Diagnosis 1 Encounter for examin ation of eyes and vision without abnormal findings (Z01.00) Referral Organization [facility] Referring Provider First Name Paola Referring Provider Last Name Jonnathan Saul stewart Referring Provider Speciality General Pr actice Referred Provider [employer] Referred Provider Specialty Inspector Balance Truing Referral Priority Routine Reason Please fax consul t notes and/or results of procedure approved to [phone]. Thanks! ~Annual Eye Exam~ Diagnosis 1 Encounter for examin ation of eyes and vision without abnormal findings (Z01.00) Referral Organization [facility] Referring Provider First Name Paola Referring Provider Last Name Jonnathan Saul stewart Referring Provider Speciality General Pr actice Referred Provider [employer] Referred Provider Specialty Inspector Balance Truing Referral Priority Routine Reason If additional scout ting is needed, please refer back to PCP. Please fax consult notes and/or results of procedure approved to [phone]. Thanks! ONE VISIT [id number] NEW PATIENT CONSULT ONLY - MANAGED CARE Diagnosis 1 Intramural leiomyoma of uterus (D25.1) Referral Organization [facility] ical P Referring Provider First Name Eyad Referring Provider Last Name Alvaro kang Referring Provider Speciality Nurse Sheree hudson Referred Provider Mikey Hodge ([place]) Referred Provider Specialty OB - Gynecol ogy Referral Priority Routine Medications Medication SIG (Take, Route, Frequency, Duration) Notes Start Date End Date Status tiZANidine HCl 4 MG 1 tablet at bedtime as needed Orally Once a day; Duration: 30 days 12/19/2024 Active Multivitamin - 1 tablet Orally Once a day Active Sertraline HCl 25 MG 1 tablet Orally Onc e a day; Duration: 30 days 10/25/2024 Active metFORMIN HCl 500 MG 1 tablet with a carmen l Orally Once a day 10/25/2024 Active Lisinopril 2.5 MG 1 tablet Orally Once a day Active Potassium Chloride ER 10 MEQ 1 tablet wi th food Orally Twice a day; Duration: 30 days 12/09/2024 Active Metoprolol Succinate 25 MG 1 capsule Ora lly Once a day Active Atorvastatin Calcium 10 MG 1 tablet Oral ly Once a day 10/25/2024 Active oxyCODONE-Acetaminophen 5-325 MG 1 tablet as needed Orally every 6 hrs Active traZODone HCl 50 MG 1 tablet at bedtime as needed Orally Once a day Active Sulfamethoxazole-Trimethopri m 800-160 MG 1 tablet Orally Twice a day; Duration: 7 days 12/06/2024 Active Eliquis 5 MG as directed Orally Active Protonix 40 MG 1 tablet 1/2 to 1 ho ur before morning meal Orally Once a day Active Spironolactone 50 MG 1 tablet Orally Onc e a day Active Farxiga 10 MG 1 tablet Orally Once a day Active Torsemide 20 MG 1 tablet Orally Once a day Active Immunizations Vaccine Route Administration Date Status Comme nts FLU VACC FLUCELVAX QUAD Unknown 10/25/2024 Refused Social History Tobacco Use: Social History Observation Description Date Details (start date - stop date) Never Smoker NA - NA Sexual History Question Answer Notes Had sex in the past 12 months (vaginal, oral, or anal)? Yes with Women only Have you ever had a Sexually transmitted disease ? No Last menstrual period Tobacco Control (Standard) Question Answer Notes Tobacco use: Nonsmoker AUDIT-C (Standard) Question Answer Notes Did you have a drink containing alcohol in the p ast year? No Points 0 Interpretation Negative Problems Problem Type SNOMED Code ICD Code Onset Dates Problem Status W/U Status Risk Notes Problem Morbid obesity (disorder) (849378607) Morbid (severe) obesity due to excess calories (E66.01) Active confirmed Problem Hypertensive heart failure (57188429) Hypertensive heart disease with heart failure (I11.0) Active confirmed Problem Long-term current use of anticoagulant (903265100) Anticoagulant long-term use (Z79.01) Active confirmed Problem Body mass index 40+ - severely obese (373122770) Body mass index (BMI) of 40.0 to 44.9 in adult (Z68.41) Active confirmed Problem Type 2 diabetes mellitus with other specified complication, without long-term current use of insulin (E11.69) Active confirmed Problem History of heart valve repair with prosthesis (492838985785461) History of heart valve replacement (Z95.2) Active confirmed Problem Moderate major depression (890228) Moderate major depression (F32.1) Active confirmed Problem Heart failure (96209687) Congestive heart failure, unspecified HF chronicity, unspecified heart failure type (I50.9) Active confirmed Problem Fibroids (22231270) Fibroids (D21.9) Active confirmed Vital Signs Temperature 98.7 degrees Fahrenheit 02/17/2025 Respiratory Rate 19 /min 02/17/2025 Blood pressure diastolic 80 mm Hg 02/17/2025 Oximetry 98 % 02/17/2025 Height 5 ft 6 in in 02/17/2025 Blood pressure systolic 129 mm Hg 02/17/2025 Weight 265 lbs 02/17/2025 BMI 42.77 kg/m2 02/17/2025 Encounters Encounter Location Date Provider Diagnosis [facility] [address] [place] [address] 10/30/2024 [facility] [address] [place] [address] 10/30/[address] [place] [address] 12/13/2024 Andrew Cage [facility] [address] [facility] [address] [place] [address] 10/25/2024 Paola Jonnathan Portillo Type 2 diabetes mellitus with other specified complication, without long-term current use of insulin E11.69 ; Encounter for general adult medical examination with abnormal findings Z00.01 ; Moderate major depression F32.1 ; Essential hypertension I10 ; Morbid obesity E66.01 ; Dietary counseling and surveillance Z71.3 ; Exercise counseling Z71.82 ; Encounter for screening for depression Z13.31 ; Body mass index (BMI) of 40.0 to 44.9 in adult Z68.41 ; Encounter for examination of eyes and vision without abnormal findings Z01.00 and Flu vaccine need Z23 [address] [place] [address] 12/06/2024 Andrew Cage Fibroids D21.9 ; Urinary tract infection without hematuria, site unspecified N39.0 ; Hypertensive heart disease with heart failure I11.0 ; Congestive heart failure, unspecified HF chronicity, unspecified heart failure type I50.9 ; Type 2 diabetes mellitus with other specified complication, without long-term current use of insulin E11.69 ; Morbid (severe) obesity due to excess calories E66.01 ; History of heart valve replacement Z95.2 ; Anticoagulant long-term use Z79.01 and Body mass index (BMI) of 40.0 to 44.9 in adult Z68.[address] [place] [address] 01/07/2025 Andrew Cage Hypertensive heart disease with heart failure I11.0 ; Congestive heart failure, unspecified HF chronicity, unspecified heart failure type I50.9 ; Type 2 diabetes mellitus with other specified complication, without long-term current use of insulin E11.69 ; Morbid (severe) obesity due to excess calories E66.01 ; History of heart valve replacement Z95.2 ; Hospital discharge follow-up Z09 and Body mass index (BMI) of 40.0 to 44.9 in adult Z68.[address] [place] [address] 01/14/2025 Andrew Cage Congestive heart failure, unspecified HF chronicity, unspecified heart failure type I50.9 ; Hypertensive heart disease with heart failure I11.0 ; Type 2 diabetes mellitus with other specified complication, without long-term current use of insulin E11.69 ; Morbid (severe) obesity due to excess calories E66.01 ; History of heart valve replacement Z95.2 ; Hospital discharge follow-up Z09 and Body mass index (BMI) of 40.0 to 44.9 in adult Z68.[address] [place] [place] [address] 02/17/2025 Eyad Franks Intramural leiomyoma of uterus D25.1 ; Hypertensive heart disease with heart failure I11.0 ; Congestive heart failure, unspecified HF chronicity, unspecified heart failure type I50.9 ; Type 2 diabetes mellitus with other specified complication, without long-term current use of insulin E11.69 ; Morbid (severe) obesity due to excess calories E66.01 and Body mass index (BMI) of 40.0 to 44.9 in adult Z68.41 [facility] [address] [facility] [address] [place] [address] 04/30/2025 [facility] [address] [address] 12/09/2024 Andrew Cage Congestive heart failure, unspecified HF chronicity, unspecified heart failure type I50.9 [facility] [address] [address] 12/19/20[address] [facility] [address] [facility] [address] [place] [address] 02/18/[address] [facility] [address] [facility] [address] [place] [address] 03/04/2025 [facility] [address] [address] 03/28/2025 Herbert Sinha Congestive heart failure, unspecified HF chronicity, unspecified heart failure type I50.9 Assessments Encounter Date Diagnosis (ICD Code) Assessment Notes Treatment Notes Treatment Clinical Notes Section Notes 10/25/2024 Encounter for general adult medical examination with abnormal findings (ICD-10 - Z00.01) 10/25/2024 Type 2 diabetes mellitus with other specified complication, without long-term current use of insulin (ICD-10 - E11.69) Morbid obesity due to Diabetes Mellitus (DM) 12/06/2024 Urinary tract infection without hematuria, site unspecified (ICD-10 - N39.0) 12/06/2024 Fibroids (ICD-10 - D21.9) 12/09/2024 Congestive heart failure, unspecified HF chronicity, unspecified heart failure type (ICD-10 - I50.9) 01/07/2025 Hypertensive heart disease with heart failure (ICD-10 - I11.0) Heart Disease due to HTN. Blood pressure control and daily exercise as tolerated is recommended. Will continue to monitor. 01/07/2025 Congestive heart failure, unspecified HF chronicity, unspecified heart failure type (ICD-10 - I50.9) Strict blood pressure control recommended. Will continue to monitor patient. 01/14/2025 Hypertensive heart disease with heart failure (ICD-10 - I11.0) Heart Disease due to HTN. Blood pressure control and daily exercise as tolerated is recommended. Will continue to monitor. 01/14/2025 Congestive heart failure, unspecified HF chronicity, unspecified heart failure type (ICD-10 - I50.9) Strict blood pressure control recommended. Will continue to monitor patient. 02/17/2025 Intramural leiomyoma of uterus (ICD-10 - D25.1) 02/17/2025 Hypertensive heart disease with heart failure (ICD-10 - I11.0) Heart Disease due to HTN. Blood pressure control and daily exercise as tolerated is recommended. Will continue to monitor. 03/28/2025 Congestive heart failure, unspecified HF chronicity, unspecified heart failure type (ICD-10 - I50.9) 02/17/2025 Congestive heart failure, unspecified HF chronicity, unspecified heart failure type (ICD-10 - I50.9) Strict blood pressure control recommended. Will continue to monitor patient. 01/14/2025 Type 2 diabetes mellitus with other specified complication, without long-term current use of insulin (ICD-10 - E11.69) Morbid obesity due to Diabetes Mellitus (DM) 01/07/2025 Type 2 diabetes mellitus with other specified complication, without long-term current use of insulin (ICD-10 - E11.69) Morbid obesity due to Diabetes Mellitus (DM) 12/06/2024 Hypertensive heart disease with heart failure (ICD-10 - I11.0) Heart Failure due to HTN. Blood pressure control and daily exercise as tolerated is recommended. Will continue to monitor. 10/25/2024 Moderate major depression (ICD-10 - F32.1) Recommended to patient avoid stressful situations. Will continue to monitor. 10/25/2024 Essential hypertension (ICD-10 - I10) Blood pressure control and daily exercise as tolerated is recommended. Will continue to monitor. 12/06/2024 Congestive heart failure, unspecified HF chronicity, unspecified heart failure type (ICD-10 - I50.9) [facility] 09/23/2024. Will continue to monitor. Strict blood pressure control, low fat diet and daily exercise as tolerated recommended. 01/07/2025 Morbid (severe) obesity due to excess calories (ICD-10 - E66.01) Patient has comorbid conditions HTN, Type II DM and bmi > 35. Avoid overeating, eating too quickly, eating high-fat foods, eating during stressful situations, or drinking too much alcohol or coffee. Counseled patient on adequate diet and exercise as tolerant. 01/14/2025 Morbid (severe) obesity due to excess calories (ICD-10 - E66.01) Patient has comorbid conditions HTN and Type II DM. Avoid overeating, eating too quickly, eating high-fat foods, eating during stressful situations, or drinking too much alcohol or coffee. Counseled patient on adequate diet and exercise as tolerant. 02/17/2025 Type 2 diabetes mellitus with other specified complication, without long-term current use of insulin (ICD-10 - E11.69) Patient has comorbid conditions HTN and Type II DM. Avoid overeating, eating too quickly, eating high-fat foods, eating during stressful situations, or drinking too much alcohol or coffee. Counseled patient on adequate diet and exercise as tolerant. 01/14/2025 History of heart valve replacement (ICD-10 - Z95.2) 02/17/2025 Morbid (severe) obesity due to excess calories (ICD-10 - E66.01) Patient has comorbid conditions HTN, Type II DM and bmi > 35. Avoid overeating, eating too quickly, eating high-fat foods, eating during stressful situations, or drinking too much alcohol or coffee. Counseled patient on adequate diet and exercise as tolerant. 01/07/2025 History of heart valve replacement (ICD-10 - Z95.2) 10/25/2024 Morbid obesity (ICD-10 - E66.01) Patient has comorbid conditions HTN and Type II DM BMI 41.96. Avoid overeating, eating too quickly, eating high-fat foods, eating during stressful situations, or drinking too much alcohol or coffee. Counseled patient on adequate diet and exercise as tolerant. 12/06/2024 Type 2 diabetes mellitus with other specified complication, without long-term current use of insulin (ICD-10 - E11.69) Morbid obesity due to Diabetes Mellitus (DM) 12/06/2024 Morbid (severe) obesity due to excess calories (ICD-10 - E66.01) Avoid overeating, eating too quickly, eating high-fat foods, eating during stressful situations, or drinking too much alcohol or coffee. Counseled patient on adequate diet and exercise as tolerant. 10/25/2024 Dietary counseling and surveillance (ICD-10 - Z71.3) Diet and exercise reviewed with patient. Patient oriented about nutrition healthy: eat three balanced meals, healthy snacks, weight control education and drink 1-2 glasses of water with each meal, as possible. 01/07/2025 Hospital discharge follow-up (ICD-10 - Z09) Hospital records requested 01/14/2025 Hospital discharge follow-up (ICD-10 - Z09) Hospital records requested 02/17/2025 Body mass index (BMI) of 40.0 to 44.9 in adult (ICD-10 - Z68.41) 01/14/2025 Body mass index (BMI) of 40.0 to 44.9 in adult (ICD-10 - Z68.41) 01/07/2025 Body mass index (BMI) of 40.0 to 44.9 in adult (ICD-10 - Z68.41) 10/25/2024 Exercise counseling (ICD-10 - Z71.82) Patient is oriented about physical health prevention exercise, weight control, and calcium supplement. Patient oriented on importance of physical activities, jogging, swimming, walking at least 30 minutes per day or 3 times per week as tolerated. 12/06/2024 History of heart valve replacement (ICD-10 - Z95.2) [facility] 09/23/2024. Will continue to monitor patient 12/06/2024 Anticoagulant long-term use (ICD-10 - Z79.01) Continue Eliquis 5 MG Tablet, 10/25/2024 Encounter for screening for depression (ICD-10 - Z13.31) 10/25/2024 Body mass index (BMI) of 40.0 to 44.9 in adult (ICD-10 - Z68.41) 12/06/2024 Body mass index (BMI) of 40.0 to 44.9 in adult (ICD-10 - Z68.41) 10/25/2024 Encounter for examination of eyes and vision without abnormal findings (ICD-10 - Z01.00) 10/25/2024 Flu vaccine need (ICD-10 - Z23) Plan Of Treatment Pending Test Test Name Order Date EKG Electrocardiogram 10/25/2024 PROTHROMBIN W/INR + PARTIAL THROMBOPLAST IN TIMES 12/06/2024 MICROALBUMIN, RANDOM URINE (W/CREATININE ) 10/25/2024 Insurance Providers Payer Name Payer Address Payer Phone Subscriber Number Group Number Insured Name Patient Relationship to Insured Coverage Start Date Coverage End Date [facility] [address] [address] [place] [address] [phone] [id number] BELKYS GLOVER Self - patient is the insured Medical (General) History Medical History History ICD Code depression anxiety Complex post-traumatic stress disorder heart failure diabetic hypertension Surgical History Surgery Date(Month/Year) lvad heartmate 3 device 2023
--- OUTSIDE RECORDS SUMMARY | 2025-06-06 09:55 | XMS_ITS | Clinical Summary ---
Author Organization [employer] [facility] Address [address] [place] [address] Care Team Providers Care Varnish Cooker Name Role Phone Murray Dumont MD Primary Care Provider [phone] Allergies Active Allergy Reactions Criticality Noted Date [...] age to complete this topic Care Teams Varnish Cooker Relationship Specialty Start Date End Date Murray Dumont MD [address] [place] [address] PCP - General Internal Medicine 05/02/22
--- OUTSIDE RECORDS SUMMARY | 2025-06-06 09:55 | XMS_ITS | Clinical Summary ---
Author Organization [address] Address [address] [place] [phone] Phone Care Team Providers Care Rn Home Health Name Role Phone Murray Dumont MD Primary Care Provider [phone] Surgical History Surgery Date Site/Laterality Comments OTHER SURGICAL HISTORY PROCEDURE: HISTORY OTHER; COMMENT: Gallstone Extraction OTHER SURGICAL HISTORY 05/04/2022 PROCEDURE: HISTORICAL ICD Medical History Medical History Date Comments Diabetes ([facility] V24, [facility] V28) DX:Diabetes (HCC) Morbid obesity ([facility]/HCC V24, [facility] V28) DX:Morbid obesity (HCC) Chest pain DX:Chest pain; C OMMENT: D/C'd from [facility] on 01/08/22 History of non-insulin depen dent diabetes mellitus DX:History of non-insulin de pendent diabetes mellitus; COMMENT: D/C'd from [facility] on 01/08/22 Anxiety and depression DX:Anxiet y and depression; COMMENT: D/C'd from [facility] on 01/08/22 Insomnia DX:Insomnia; COM MENT: D/C'd from [facility] on 01/08/22 DVT prophylaxis DX:DVT prophylax is; COMMENT: D/C'd from [facility] on 01/08/22 Atypical pneumonia DX:Atypical p neumonia; COMMENT: D/C'd from [facility] on 11/10/21 Hypoxia DX:Hypoxia; COMM ENT: D/C'd from [facility] on 11/10/21 Hypomagnesemia DX:Hypomagnesemi a Hypokalemia DX:Hypokalemia URI (upper respiratory infection) DX:URI (upper respiratory infection) Cardiac device in situ DX:Cardia c device in situ Pneumonia DX:Pneumonia Acute COVID-19 DX:Acute COVID-1 9 Type 2 diabetes mellitus (CM S/[facility] V24, [facility] V28) DX:Type 2 diabetes mellitus (HCC) Obesity DX:Obesity Neutropenia ([facility] V24) DX:Tonny tropenia (HCC) Covid-19 DX:COVID-19 Vomiting DX:Vomiting Severe obesity (CMS/[facility] V24, [facility] V28) DX:Severe obesity (HCC) Prediabetes DX:Prediabetes Family [...] LAB CHEMISTRY METHOD 08/29/2024 4:42 PM EST [facility] Alkaline Phosphatase 78 42 - 121 unit/L LAB CHEMISTRY METHOD 08/29/2024 4:42 PM EST [facility] Total Protein 8.1(H) 6.0 - 8.0 g/dL LAB CHEMISTRY METHOD 08/29/2024 4:42 PM EST [facility] Albumin 3.6 3.2 - 5.0 g/dL LAB CHEMISTRY METHOD 08/29/2024 4:42 PM EST [facility] Total Bilirubin 0.5 0.0 - 1.4 mg/dL LAB CHEMISTRY METHOD 08/29/2024 4:42 PM EST [facility] Blood Venous blood specimen / Unknown 08/29/2024 08/29/2024 3:40 PM EST us Catarina Riley NP LAB BLOOD ORDERABLES Final Res ult [facility] [address] [place] [address], from Last 3 Months or Most Recently Relevant to Health Maintenance Insurance [facility] MEDICARE ADVANTAGE Advance Directives Documents on File Type Date Recorded Patient Psychiatric Technician Assistant Expl anation Health Care Decision (hx) 05/05/2022 [...] (hx) 05/05/2022 AD RADER DIRECTIVE Care Teams Rn Home Health Relationship Specialty Start Date End Date Murray Dumont MD [address] [place] [phone] PCP - General Internal Medicine 01/19/22
--- OUTSIDE RECORDS SUMMARY | 2025-06-06 09:55 | XMS_ITS | Clinical Summary ---
Author Organization [facility] Address [address] [place] [address] Care Team Providers Care Evidence Technician Name Role Phone Unknown Primary Care Provider [phone] Allergies Active Allergy Reactions Criticality Noted Date Comments Cyclobenzaprine Unknown/Patient and Family Unable to Define Medium 11/01/2021 Medications ferrous gluconate (FERGON) 324 MG tablet Take 324 mg by mouth every morning with breakfast. Take 2 hours before or 4 hours after acid reducers. Active empagliflozin (JARDIANCE) 10 MG tabletIndicatio ns:HFrEF (heart failure with reduced ejection fraction) ([facility]) Take 1 tablet (10 mg total) by mouth daily. 30 tablet 11/10/2021 Active carvedilol (COREG) 12.5 MG tabletIndicatio ns:HFrEF (heart failure with reduced ejection fraction) ([facility]) Take 1 tablet (12.5 mg total) by mouth 2 (two) times a day. 60 tablet 11/10/2021 Active spironolactone (ALDACTONE) 25 MG tabletIndicatio ns:HFrEF (heart failure with reduced ejection fraction) ([facility]) Take 1 tablet (25 mg total) by mouth daily. 30 tablet 11/10/2021 Active torsemide (DEMADEX) 20 MG tabletIndicatio ns:HFrEF (heart failure with reduced ejection fraction) ([facility]) Take 2 tablets (40 mg total) by mouth daily. 60 tablet 11/10/2021 Active sacubitril-vals kylie (ENTRESTO) 24-26 mg per tabletIndicatio ns:HFrEF (heart failure with reduced ejection fraction) ([facility]) Take 1 tablet by mouth 2 (two) [...] (1 of 3 - 19+ 3-dose series) 12/08 Pneumococcal Vaccine: Pediat jose (0-5 Years) and At-Risk Patients (6 to 49 Years) (1 of 2 - PCV) 2014 Pap Smear (Ages 21-65) 01/02/2016 HPV Vaccines (1 - 3-dose SCDM series) 2022 COVID-19 Vaccine (1 - 2023- season) 2024 Influenza Vaccine 05/09/2025 HIV Screening Completed 11/02/2021 Procedures Procedure Name Priority Date/Time Associated Diagnosis Comments HIV 1/2 AG/AB CMIA REFLEX TO CONFIRMATION STAT 11/02/2021 4:50 PM EST from Last 3 Months or Most Recently Relevant to Health Maintenance Results * HIV 1/2 Ag/Ab CMIA Reflex to Confirmation (11/02/2021 4:50 PM EST) HIV 1/2 Ag/Ab CMIA Nonreactive Nonreactive 11/03/2021 11:32 AM EST [email or web address] Comment:Results show no evid ence of infection by HIV 1/2. If clinically indicated, repeat CMIA or test by nucleic acid amplification. Blood specimen (specimen) Serum specimen / Unknown 11/02/2021 4:50 PM EST 11/02/2021 5:14 PM EST Kehinde Moffett PA-C LAB BLOOD ORDERABLES Final Re sult Performing Organization Address City/State/[facility] Co de Phone Number HOSPITAL LAB [facility] [address] [place] [address] from Last 3 Months or Most Recently Relevant to Health Maintenance [place] [facility] [place] Directives * Full Code (Latest Code Status on File) Date Activated Date Inactivated Comments 11/01/2021 3:56 PM Care Teams Evidence Technician Relationship Specialty Start Date End Date Unknown Unknow Provider Address PCP - General 11/01/21
--- OUTSIDE RECORDS SUMMARY | 2025-06-06 09:55 | XMS_ITS | Encounter Summary ---
Author Organization [facility] Address [address] [place] [address] Care Team Providers Care Business Development Engineer Name Role Phone Murray Dumont MD Primary Care Provider [phone] Encounter Details Date Type Department Care Team (Late st Contact Info) Description 08/29/2024 Lab Requisition [facility] [address] [facility] [place] [address] Catarina Riley, EUGENIO [address] [place] [address] Essential (primary) hypertension Social History Tobacco Use Types Packs/Day Years [...] Name Priority Date/Time Associated Diagnosis Comments CBC WITH AUTO DIFFERENTIAL Routine 08/29/2024 12:00 AM EST Essential (primary) hypertension PROTHROMBIN TIME WITH INR Routine 08/29/2024 12:00 AM EST Essential (primary) hypertension CBC AND DIFFERENTIAL Routine 08/29/2024 12:00 AM EST Essential (primary) hypertension MAGNESIUM Routine 08/29/2024 12:00 AM EST Essential (primary) hypertension LACTATE DEHYDROGENASE Routine 08/29/2024 12:00 AM EST Essential (primary) hypertension COMPREHENSIVE METABOLIC PANEL Routine 08/29/2024 12:00 AM EST Essential (primary) hypertension documented in this encounter Results * (ABNORMAL) CBC auto differential (08/29/2024 12:00 AM EST) [facility] WBC 6.4 4.8 - 10.8 K/mcL LAB HEMETOLOGY METHOD 08/29/2024 3:50 PM [facility] RBC 5.20(H) 3.80 - 4.80 M/mcL LAB HEMETOLOGY METHOD 08/29/2024 3:50 PM [facility] Hemoglobin 10.9(L) 11.5 - 16.0 g/dL LAB HEMETOLOGY METHOD 08/29/2024 3:50 PM [facility] Hematocrit 36.5 35.0 - 47.0 % LAB HEMETOLOGY METHOD 08/29/2024 3:50 PM [facility] MCV 70.6(L) 79.0 - 98.0 FL LAB HEMETOLOGY METHOD 08/29/2024 3:50 PM [facility] MCH 21.1(L) 27.0 - 32.0 pcg LAB HEMETOLOGY METHOD 08/29/2024 3:50 PM [facility] MCHC 29.9(L) 32.0 - 37.0 g/dL LAB HEMETOLOGY METHOD 08/29/2024 3:50 PM [facility] RDW 16.5(H) 11.0 - 15.0 % LAB HEMETOLOGY METHOD 08/29/2024 3:50 PM [facility] Platelets 352 130 - 400 K/mcL LAB HEMETOLOGY METHOD 08/29/2024 3:50 PM [facility] MPV 8.9 7.0 - 11.0 FL LAB HEMETOLOGY METHOD 08/29/2024 3:50 PM [facility] NRBC 0.0 <1.0 % LAB HEMETOLOGY METHOD 08/29/2024 3:50 PM [facility] NRBC Absolute 0.00 <0.10 K/mcL LAB HEMETOLOGY METHOD 08/29/2024 3:50 PM [facility] Neutrophils Relative 73.8 % LAB HEMETOLOGY METHOD 08/29/2024 3:50 PM [facility] Lymphocytes Relative 18.1 % LAB HEMETOLOGY METHOD 08/29/2024 3:50 PM [facility] Monocytes Relative 5.7 % LAB HEMETOLOGY METHOD 08/29/2024 3:50 PM [facility] Eosinophils Relative 1.6 % LAB HEMETOLOGY METHOD 08/29/2024 3:50 PM [facility] Basophils Relative 0.5 % LAB HEMETOLOGY METHOD 08/29/2024 3:50 PM [facility] Immature Granulocytes Relative 0.3 % LAB HEMETOLOGY METHOD 08/29/2024 3:50 PM [facility] Neutrophils Absolute 4.69 1.50 - 7.00 K/mcL LAB HEMETOLOGY METHOD 08/29/2024 3:50 PM [facility] Lymphocytes Absolute 1.15 1.00 - 5.00 K/mcL LAB HEMETOLOGY METHOD 08/29/2024 3:50 PM [facility] Monocytes Absolute 0.36 0.20 - 1.00 K/mcL LAB HEMETOLOGY METHOD 08/29/2024 3:50 PM [facility] Eosinophils Absolute 0.10 0.00 - 0.50 K/mcL LAB HEMETOLOGY METHOD 08/29/2024 3:50 PM [facility] Basophils Absolute 0.03 0.00 - 0.20 K/mcL LAB HEMETOLOGY METHOD 08/29/2024 3:50 PM EST [facility] Immature Granulocytes Absolute 0.02 0.00 - 0.03 K/[facility] LAB HEMETOLOGY METHOD 08/29/2024 3:50 PM EST [facility] Blood Venous blood specimen / Unknown 08/29/2024 08/29/2024 3:40 PM EST us Catarina Riley NP LAB BLOOD ORDERABLES Final Res ult [facility] [address] [place] [address], [place] [phone] * (ABNORMAL) Prothrombin time with INR (08/29/2024 12:00 AM EST) Protime 15.1(H) 10.6 - 13.9 sec LAB COAGULATION METHOD 08/29/2024 4:12 PM EST [facility] INR 1.2 LAB COAGULATION METHOD 08/29/2024 4:12 PM EST [facility] Blood Venous blood specimen / Unknown 08/29/2024 08/29/2024 3:40 PM EST us Catarina Riley NP LAB BLOOD ORDERABLES Final Res ult [facility] [address] [place] [address], [place] [phone] * Magnesium (08/29/2024 12:00 AM EST) Magnesium 2.1 1.9 - 2.6 mg/dL LAB CHEMISTRY METHOD 08/29/2024 4:42 PM EST [facility] Blood Venous blood specimen / Unknown 08/29/2024 08/29/2024 3:40 PM EST us Catarina Riley NP LAB BLOOD ORDERABLES Final Res ult Performing Organization Address City/[facility]/ZIP Co de Phone Number [facility] [address] [place] [address], [place] [phone] * (ABNORMAL) Lactate dehydrogenase (08/29/2024 12:00 AM EST) LDH 248(H) 120 - 246 unit/L LAB CHEMISTRY METHOD 08/29/2024 4:42 PM [facility] Blood Venous blood specimen / Unknown 08/29/2024 08/29/2024 3:40 PM EST us Catarina Riley NP LAB BLOOD ORDERABLES Final Res ult Performing Organization Address [facility]/ZIP Co de Phone Number [facility] [address] [place] [address], [place] [phone] * (ABNORMAL) Comprehensive metabolic panel (08/29/2024 12:00 AM EST) Pathologist [facility] Sodium 138 133 - 145 mmol/L LAB CHEMISTRY METHOD 08/29/2024 4:42 PM [facility] Potassium 3.6 3.5 - 5.5 mmol/L LAB CHEMISTRY METHOD 08/29/2024 4:42 PM [facility] Chloride 104 96 - 110 mmol/L LAB CHEMISTRY METHOD 08/29/2024 4:42 PM [facility] CO2 26 21 - 32 mmol/L LAB CHEMISTRY METHOD 08/29/2024 4:42 PM [facility] Anion Gap 8 3 - 11 LAB CHEMISTRY METHOD 08/29/2024 4:42 PM [facility] Glucose 157(H) 70 - 100 mg/dL LAB CHEMISTRY METHOD 08/29/2024 4:42 PM [facility] BUN 11 5 - 25 mg/dL LAB CHEMISTRY METHOD 08/29/2024 4:42 PM [facility] Creatinine 0.80 0.50 - 1.10 mg/dL LAB CHEMISTRY METHOD 08/29/2024 4:42 PM [facility] eGFR 102 >=60 mL/min/1. 73m2 LAB CHEMISTRY METHOD 08/29/2024 4:42 PM [facility] Comment:Calculation based on the Chronic Kidney Disease Epidemiology Collaboration (CKD-EPI) equation refit without adjustment for race. BUN/Creatinine Ratio 13.8 LAB CHEMISTRY METHOD 08/29/2024 4:42 PM [facility] Calcium 9.4 8.5 - 10.5 mg/dL LAB CHEMISTRY METHOD 08/29/2024 4:42 PM [facility] AST (SGOT) 22 10 - 42 unit/L LAB CHEMISTRY METHOD 08/29/2024 4:42 PM [facility] ALT (SGPT) 33 10 - 60 unit/L LAB CHEMISTRY METHOD 08/29/2024 4:42 PM [facility] Alkaline Phosphatase 78 42 - 121 unit/L LAB CHEMISTRY METHOD 08/29/2024 4:42 PM [facility] Total Protein 8.1(H) 6.0 - 8.0 g/dL LAB CHEMISTRY METHOD 08/29/2024 4:42 PM [facility] Albumin 3.6 3.2 - 5.0 g/dL LAB CHEMISTRY METHOD 08/29/2024 4:42 PM [facility] Total Bilirubin 0.5 0.0 - 1.4 mg/dL LAB CHEMISTRY METHOD 08/29/2024 4:42 PM [facility] Blood Venous blood specimen / Unknown 08/29/2024 08/29/2024 3:40 PM EST us Catarina Riley SPECIMEN COLLECTOR LAB BLOOD ORDERABLES Final Res ult [facility] [address] [place] [address], documented in this encounter Visit Diagnoses Diagnosis Essential (primary) hypertension Unspecified essential hypertension documented in this encounter Care Teams Business Development Engineer Relationship Specialty Start Date End Date Murray Dumont MD [address] [place] [address] PCP - General Internal Medicine 01/19/22 documented as of this encounter
--- OUTSIDE RECORDS SUMMARY | 2025-06-06 09:55 | XMS_ITS | Encounter Summary ---
Author Organization [facility] Address [address] [facility] [address] [place] [address] Care Team Providers Care Cloth Mercerizer Operator Name Role Phone Murray Dumont MD Primary Care Provider [phone] [employer] production service manager Unavailable Unavailable Tesha SpencerD Unavailable [phone] Daren Chaidez MD Unavailable Nilda Navarrete Unavailable [phone] Elijah Mcbride MD Unavailable [phone] Hyun Chappell MD Unavailable Encounter Details Date Type Department Care Team (Late st Contact Info) Description 04/28/2023 Lab Requisition [address] [place] [phone] Eliana Dunn MD [address] [place] [address] Social History Tobacco Use Types Packs/Day Years Used Date Smoking Tobacco: Never Smokeless Tobacco: Never Alcohol Use Standard Drinks/Week Comments Not Currently 0 (1 standard drink = 0.6 oz pure alcohol) only on holidays , one drink. AUDIT-C Answer Date Recorded Q1: How often do you have a drink containing alc ohol? Monthly or less 03/25/2023 Q2: How many drinks containi ng alcohol do you have on a typical day when you are drinking? 1 or 2 03/25/2023 Q3: How often do you have si x or more drinks on one occasion? Never 03/25/2023 PHQ-2 Answer Date Recorded Patient Health Questionnaire-2 Score 2 04/14/2023 Comments Unknown Sex and Gender Information Value Date Recorded Sex Assigned at Female 01/13/2022 3:44 PM EDT Legal Sex Female 3:04 PM EDT Gender Identity Female 01/13/2022 3:44 PM EDT Sexual Orientation Bisexual 06/09/2023 11 :54 PM EDT Travel History Travel Start Travel End [place] 04/13/2025 05/07/2025 documented as of this encounter Functional Status * Are you deaf or do you have serious difficulty hearing? Answer Date of Assessment Author No 03/25/2023 4:01 AM EDT * Are you blind or do you have serious difficulty seeing, even when wearing glasses? Answer Date of Assessment Author No 03/25/2023 4:01 AM EDT * Do you have serious difficulty walking or climbing stairs? Answer Date of Assessment Author No 03/25/2023 4:01 AM EDT * Do you have serious difficulty dressing or bathing? Answer Date of Assessment Author No 03/25/2023 4:01 AM EDT * Because of a physical, mental, or emotional condition, do you have serious difficulty doing errandsalone such as visiting the doctor? Answer Date of Assessment Author No 03/25/2023 4:01 AM EDT documented as of this encounter Mental Status * Because of a physical, mental, or emotional condition, do you have serious difficulty concentrating, remembering, or making decisions? (5 years old or older) Answer Entry Date Author No 03/25/2023 4:01 AM EDT documented in this encounter Plan of Treatment Upcoming Encounters Date Type Department Care Team (Late st Contact Info) Description 10/06/2025 10:00 AM EST Telemedicine [facility] [address] [place] [address] Corine Rolle PA [address] [place] [phone] documented as of this encounter Visit Diagnoses Not on filedocumented in this encounter Additional Health Concerns Assessment Noted Time PHQ-9 Depression Total Score: 4 04/14/20 23 1:04 PM EDT documented as of this encounter Care Teams Cloth Mercerizer Operator Relationship Specialty Start Date End Date Murray Dumont MD [address] [place] [address] PCP - General 01/13/22 [facility] CPhT Printed Circuit Board Drafter Pharmacy 03/29/23 01/14/25 Tesha Spencer, PharmD [address] [place] [address] Pharmacist Pharmacy 01/18/24 01/14/25 Daren Chaidez MD [address] [place] [address] Stand Up Forklift Operator/Gynecologi 02/06/24 Nilda Navarrete PA [address] [place] [phone] 1st Contact Physician Director Educational Radio 02/16/24 Elijah Mcbride MD [address] [place] [address] Internet Sales Representative Forging Machine Hand 02/11/25 Hyun Chappell MD [address] [place] [phone] Consulting Physician Advanced Heart Failure and Transplant Cardiology 06/04/25 documented as of this encounter
--- OUTSIDE RECORDS SUMMARY | 2025-06-06 09:55 | XMS_ITS | Encounter Summary ---
Author Organization [facility] Address [address] [facility] [address] [place] [address] Care Team Providers Care Wine Merchant Name Role Phone Murray Dumont MD Primary Care Provider [phone] [employer] wind operations supervisor Unavailable Unavailable Tesha SpencerD Unavailable [phone] Daren Chaidez MD Unavailable Nilda Navarrete Unavailable Elijah Mcbride MD Unavailable Hyun Chappell MD Unavailable Reason for Visit * Reason Comments Med Change Request Encounter Details Date Type Department Care Team (Late st Contact Info) Description 08/08/2024 Refill [facility] Cardiac Subspecialty [address] [facility] 6th [place] [address] Terry Potter MD [address] [place] [address] LVAD (left ventricular assist device) present (Multi-HCC) Social History Tobacco Use Types Packs/Day Years [...] place to sleep or slept in a longterm (including now)? No 05/15/2024 Comments No Sex and Gender Information Value Date Recorded Sex Assigned at Female 01/13/2022 3:44 PM EDT Legal Sex Female 3:04 PM EDT Gender Identity Female 01/13/2022 3:44 PM EDT Sexual Orientation Bisexual 06/09/2023 11 :54 PM EDT Travel History Travel Start Travel End [place] 04/13/2025 05/07/2025 documented as of this encounter [...] Montgomery ra, RN documented in this encounter Miscellaneous Notes * Telephone Encounter - Melissa Patel RN - 08/15/2024 11:03 AM EST [facility] is unable to fill this order. We are reaching out to a medical supply company documented in this encounter Plan of Treatment Upcoming Encounters Date Type Department Care Team (Late st Contact Info) Description 10/06/2025 10:00 AM EST Telemedicine [facility] [address] [facility] [address] [place] [address] Corine Rolle PA [address] [place] [phone] documented as of this encounter Visit Diagnoses Diagnosis LVAD (left ventricular assist device) present (Multi-HCC) documented in this encounter Additional Health Concerns Assessment Noted Time PHQ-9 Depression Total Score: 4 04/14/20 23 1:04 PM EDT documented as of this encounter Care Teams Wine Merchant Relationship Specialty Start Date End Date Murray Dumont MD [address] [place] [address] PCP - General 01/13/22 Fish [employer]su, wind operations supervisor Complaint Investigations Officer Pharmacy 03/29/23 01/14/25 Tesha Spencer, PharmD [address] [place] [address] Pharmacist Pharmacy 01/18/24 01/14/25 Daren Chaidez MD [address] [place] [phone] Flight Radio Officer/Gynecologi 02/06/24 Nilda Navarrete, PA [address] [place] [address] 1st Contact Physician Ict Educator 02/16/24 Elijah Mcbride MD [address] [place] [address] Transformation Analyst Automatic Buffer 02/11/25 Hyun Chappell MD [address] [facility] [address] [place] [address] Consulting Physician Advanced Heart Failure and Transplant Cardiology 06/04/25 documented as of this encounter
--- OUTSIDE RECORDS SUMMARY | 2025-06-06 09:55 | XMS_ITS | Encounter Summary ---
Author Organization [employer] Address [address] [place] [address] Care Team Providers Care Hydroelectric Machinery Mechanic Helper Name Role Phone Murray Dumont MD Primary Care Provider [phone] Encounter Details Date Type Department Care Team (Late st Contact Info) Description 08/20/2024 Lab Requisition [facility] - Main Lab [address] [facility] [place] [address] Catarina Riley, EUGENIO [address] [place] [address] Chronic systolic (congestive) heart failure (CMS/HCC V24, CMS/HCC V28) Social History Tobacco Use Types Packs/Day Years [...] Diagnosis Comments CBC WITH AUTO DIFFERENTIAL Routine 08/20/2024 1:30 PM EST Chronic systolic (congestive) heart failure (CMS/HCC) PROTHROMBIN TIME WITH INR Routine 08/20/2024 1:30 PM EST Chronic systolic (congestive) heart failure (CMS/HCC) CBC AND DIFFERENTIAL Routine 08/20/2024 1:30 PM EST Chronic systolic (congestive) heart failure (CMS/HCC) MAGNESIUM Routine 08/20/2024 1:30 PM EST Chronic systolic (congestive) heart failure (CMS/HCC) LACTATE DEHYDROGENASE Routine 08/20/2024 1:30 PM EST Chronic systolic (congestive) heart failure (CMS/HCC) COMPREHENSIVE METABOLIC PANEL Routine 08/20/2024 1:30 PM EST Chronic systolic (congestive) heart failure (CMS/HCC) documented in this encounter Results * (ABNORMAL) CBC auto differential (08/20/2024 1:30 PM EST) [facility] WBC 5.5 4.8 - 10.8 K/mcL LAB HEMETOLOGY METHOD 08/20/2024 7:17 PM [facility] RBC 5.00(H) 3.80 - 4.80 M/mcL LAB HEMETOLOGY METHOD 08/20/2024 7:17 PM [facility] Hemoglobin 10.7(L) 11.5 - 16.0 g/dL LAB HEMETOLOGY METHOD 08/20/2024 7:17 PM [facility] Hematocrit 37.0 35.0 - 47.0 % LAB HEMETOLOGY METHOD 08/20/2024 7:17 PM [facility] MCV 73.7(L) 79.0 - 98.0 FL LAB HEMETOLOGY METHOD 08/20/2024 7:17 PM [facility] MCH 21.3(L) 27.0 - 32.0 pcg LAB HEMETOLOGY METHOD 08/20/2024 7:17 PM [facility] MCHC 28.9(L) 32.0 - 37.0 g/dL LAB HEMETOLOGY METHOD 08/20/2024 7:17 PM [facility] RDW 16.2(H) 11.0 - 15.0 % LAB HEMETOLOGY METHOD 08/20/2024 7:17 PM [facility] Platelets 358 130 - 400 K/mcL LAB HEMETOLOGY METHOD 08/20/2024 7:17 PM [facility] MPV 8.7 7.0 - 11.0 FL LAB HEMETOLOGY METHOD 08/20/2024 7:17 PM [facility] NRBC 0.0 <1.0 % LAB HEMETOLOGY METHOD 08/20/2024 7:17 PM [facility] NRBC Absolute 0.00 <0.10 K/mcL LAB HEMETOLOGY METHOD 08/20/2024 7:17 PM [facility] Neutrophils Relative 71.3 % LAB HEMETOLOGY METHOD 08/20/2024 7:17 PM [facility] Lymphocytes Relative 17.0 % LAB HEMETOLOGY METHOD 08/20/2024 7:17 PM [facility] Monocytes Relative 9.0 % LAB HEMETOLOGY METHOD 08/20/2024 7:17 PM [facility] Eosinophils Relative 1.8 % LAB HEMETOLOGY METHOD 08/20/2024 7:17 PM [facility] Basophils Relative 0.5 % LAB HEMETOLOGY METHOD 08/20/2024 7:17 PM [facility] Immature Granulocytes Relative 0.4 % LAB HEMETOLOGY METHOD 08/20/2024 7:17 PM [facility] Neutrophils Absolute 3.90 1.50 - 7.00 K/mcL LAB HEMETOLOGY METHOD 08/20/2024 7:17 PM [facility] Lymphocytes Absolute 0.93(L) 1.00 - 5.00 K/mcL LAB HEMETOLOGY METHOD 08/20/2024 7:17 PM [facility] Monocytes Absolute 0.49 0.20 - 1.00 K/mcL LAB HEMETOLOGY METHOD 08/20/2024 7:[address] [facility] Eosinophils Absolute 0.10 0.00 - 0.50 K/mcL LAB HEMETOLOGY METHOD 08/20/2024 7:[address] [facility] Basophils Absolute 0.03 0.00 - 0.20 K/mcL LAB HEMETOLOGY METHOD 08/20/2024 7:[address] [facility] Immature Granulocytes Absolute 0.02 0.00 - 0.03 K/mcL LAB HEMETOLOGY METHOD 08/20/2024 7:[address] [facility] Blood Venous blood specimen / Unknown 08/20/2024 1:30 PM EST 08/20/2024 6:29 PM EST us Catarina Riley NP LAB BLOOD ORDERABLES Final Res ult Performing Organization Address City/[facility]/ZIP Co de Phone Number [facility] [address] [place] [address], [place] [phone] * (ABNORMAL) Prothrombin time with INR (08/20/2024 1:30 PM EST) Protime 31.1(H) 10.6 - 13.9 sec LAB COAGULATION METHOD 08/20/2024 7:[address] [facility] INR 2.5 LAB COAGULATION METHOD 08/20/2024 7:[address] [facility] Blood Venous blood specimen / Unknown 08/20/2024 1:30 PM EST 08/20/2024 6:29 PM EST us Catarina Riley NP LAB BLOOD ORDERABLES Final Res ult [facility] [address] [place] [address], [place] [phone] * Magnesium (08/20/2024 1:30 PM EST) Magnesium 2.1 1.9 - 2.6 mg/dL LAB CHEMISTRY METHOD 08/20/2024 7:[address] [facility] Blood Venous blood specimen / Unknown 08/20/2024 1:30 PM EST 08/20/2024 6:29 PM EST Catarina Riley NP LAB BLOOD ORDERABLES Final Res ult Performing Organization Address City[facility]/ZIP Co de Phone Number [facility] [address] [place] [address], [place] [phone] * (ABNORMAL) Lactate dehydrogenase (08/20/2024 1:30 PM EST) Pathologist [facility] LDH 280(H) 120 - 246 unit/L LAB CHEMISTRY METHOD 08/20/2024 7:20 PM [facility] Blood Venous blood specimen / Unknown 08/20/2024 1:30 PM EST 08/20/2024 6:29 PM EST Catarina Riley NP LAB BLOOD ORDERABLES Final Res ult Performing Organization Address [facility] Co de Phone Number [facility] [address] [place] [address], [place] [phone] * (ABNORMAL) Comprehensive metabolic panel (08/20/2024 1:30 PM EST) Sodium 136 133 - 145 mmol/L LAB CHEMISTRY METHOD 08/21/2024 12:24 PM [facility] Potassium 3.4(L) 3.5 - 5.5 mmol/L LAB CHEMISTRY METHOD 08/21/2024 12:24 PM [facility] Chloride 101 96 - 110 mmol/L LAB CHEMISTRY METHOD 08/21/2024 12:24 PM [facility] CO2 32 21 - 32 mmol/L LAB CHEMISTRY METHOD 08/21/2024 12:24 PM [facility] Anion Gap 3 3 - 11 LAB CHEMISTRY METHOD 08/21/2024 12:24 PM [facility] Glucose 75 70 - 100 mg/dL LAB CHEMISTRY METHOD 08/21/2024 12:24 PM [facility] BUN 8 5 - 25 mg/dL LAB CHEMISTRY METHOD 08/21/2024 12:24 PM [facility] Creatinine 0.73 0.50 - 1.10 mg/dL LAB CHEMISTRY METHOD 08/21/2024 12:24 PM [facility] eGFR 114 >=60 mL/min/1. 73m2 LAB CHEMISTRY METHOD 08/21/2024 12:24 PM [facility] Comment:Calculation based on the Chronic Kidney Disease Epidemiology Collaboration (CKD-EPI) equation refit without adjustment for race. BUN/Creatinine Ratio 11.0 LAB CHEMISTRY METHOD 08/21/2024 12:24 PM [facility] Calcium 8.9 8.5 - 10.5 mg/dL LAB CHEMISTRY METHOD 08/21/2024 12:24 PM [facility] AST (SGOT) 27 10 - 42 unit/L LAB CHEMISTRY METHOD 08/21/2024 12:24 PM [facility] ALT (SGPT) 30 10 - 60 unit/L LAB CHEMISTRY METHOD 08/21/2024 12:24 PM [facility] Alkaline Phosphatase 81 42 - 121 unit/L LAB CHEMISTRY METHOD 08/21/2024 12:24 PM [facility] Total Protein 8.4(H) 6.0 - 8.0 g/dL LAB CHEMISTRY METHOD 08/21/2024 12:24 PM [facility] Albumin 3.8 3.2 - 5.0 g/dL LAB CHEMISTRY METHOD 08/21/2024 12:24 PM [facility] Total Bilirubin 0.4 0.0 - 1.4 mg/dL LAB CHEMISTRY METHOD 08/21/2024 12:24 PM [facility] Blood Venous blood specimen / Unknown 08/20/2024 1:30 PM EST 08/20/2024 6:29 PM EST us Catarina Riley TEXTURING MACHINE FIXER LAB BLOOD ORDERABLES Edited Re sult - Final [facility] [address] [place] [address], documented in this encounter Visit Diagnoses Diagnosis Chronic systolic (congestive) heart failure (CMS/HCC V24, CMS/HCC V28) documented in this encounter Care Teams Hydroelectric Machinery Mechanic Helper Relationship Specialty Start Date End Date Murray Dumont MD [address] [place] [address] PCP - General Internal Medicine 01/19/22 documented as of this encounter
--- OUTSIDE RECORDS SUMMARY | 2025-06-06 09:55 | XMS_ITS | Encounter Summary ---
Author Organization [facility] Address [address] [facility] [address] [place] [address] Care Team Providers Care Manager Play Name Role Phone Murray Dumont MD Primary Care Provider Fish [employer] treasury accountant Unavailable Unavailable Tesha SpencerD Unavailable Daren Chaidez MD Unavailable Nilda Navarrete Unavailable [phone] Elijah Mcbride MD Unavailable [phone] Hyun Chappell MD Unavailable Encounter Details Date Type Department Care Team (Late st Contact Info) Description 05/24/2023 Orders Only [facility] Cardiac Subspecialty [address] [address] Theodora Wilkins, EUGENIO [address] [place] [phone] Chronic systolic heart failure Social History Tobacco Use Types Packs/Day Years Used Date Smoking Tobacco: Never Smokeless Tobacco: Never Alcohol Use Standard Drinks/Week Comments Not Currently 0 (1 standard drink = 0.6 oz pure alcohol) only on holidays , one drink. AUDIT-C Answer Date Recorded Q1: How often do you have a drink containing alc ohol? Monthly or less 05/03/2023 Q2: How many drinks containi ng alcohol do you have on a typical day when you are drinking? 1 or 2 05/03/2023 Q3: How often do you have si x or more drinks on one occasion? Never 05/03/2023 PHQ-2 Answer Date Recorded Patient Health Questionnaire-2 [...] Info) Description 10/06/2025 10:00 AM EST Telemedicine [facility] [address] [place] [address] [address] [place] [address] Corine Rolle PA [address] [place] [address] documented as of this encounter Visit Diagnoses Diagnosis Chronic systolic heart failure (Multi-HCC) Chronic systolic heart failure documented in this encounter Additional Health Concerns Assessment Noted Time PHQ-9 Depression Total Score: 4 04/14/20 23 1:04 PM EDT documented as of this encounter Care Teams Manager Play Relationship Specialty Start Date End Date Murray Dumont MD [address] [place] [address] PCP - General 01/13/22 Fish Hsu CPhT [facility] 03/29/23 01/14/25 Tesha Spencer, PharmD [address] [place] [address] Pharmacist Pharmacy 01/18/24 01/14/25 Daren Chaidez MD [address] [place] [address] Psychologist Developmental/Gynecologi 02/06/24 Nilda Navarrete PA [address] [place] [phone] 1st Contact Physician Strategy Associate 02/16/24 Elijah Mcbride MD [address] [place] [address] Elevator Conductor Cardiovascular Operating Room Nurse 02/11/25 Hyun Chappell MD [address] [facility] [address] [place] [address] Consulting Physician Advanced Heart Failure and Transplant Cardiology 06/04/25 documented as of this encounter
[2025-06-06 10:22] LABS: Hematocrit 36.6 % (37.0-47.0); Hemoglobin 11.7 g/dl (12.0-16.0); Mean Corpuscular HGB Conc 32.0 g/dl (31.0-35.0); Mean Corpuscular Hemoglobin 23.4 pg (27.0-33.0); Mean Corpuscular Volume 73.2 fL (80.0-98.0); NRBC Abs Auto 0.000 X10*3/uL (0.0-0.012); NRBC Pct Auto 0.0 /100WBC (0.0-0.2); Platelet Count 316 X10*3/uL (160-400); Red Blood Count 5.00 X10*6/uL (4.20-5.50); White Blood Count 5.9 X10*3/uL (4.8-10.8)
[2025-06-07 06:33] LABS: Rubeola IgG (Measles) >300.00 AU/mL
[2025-06-10 10:17] LABS: TS Negative Control Passed; TS Panel A 0; TS Panel B 0; TS Positive Control Passed; TSpotTB Negative (Negative)
== END 2025-06-06 09:03 | disposition home or self-care (01) ==
LOC: HO.HMGCLDS 09:02
PROVIDERS: Obstetrics & Gynecology; PCP Internal Medicine; Visit Provider Internal Medicine
DX: Z01.84 Encounter for antibody response examination (principal); Z11.1 Encounter for screening for respiratory tuberculosis; N93.9 Abnormal uterine and vaginal bleeding, unspecified; Z78.9 Other specified health status; Z13.29 Encounter for screening for other suspected endocrine disorder
CPT/HCPCS: 36415; 84443; 85027; 86481; 86735; 86762; 86765

== ENCOUNTER 2025-06-14 09:53 | Outpatient (REF) | payer MEDICARE, MEDICAID, SELFPAY ==
--- OUTSIDE RECORDS SUMMARY | 2025-01-22 07:30 | XMS_ITS ---
Author Organization [facility], [facility]. Address [address] [place] [address] Care Team Providers Care Beam Machine Operator Name Role Phone Herbert Sinha Primary Care Provider [phone] Andrew Muñoz [phone] REASON FOR VISIT F/UP REFILL Encounters Encounter Location Date Provider Diagnosis [address] [place] [address] 01/22/2025 Andrew Cage Plan Of Treatment No Information Progress Notes * BELKYS GLOVERDOB:1995 ( 30 yo F)Acc No.[id number]:01/22/2025 Progress Notes Patient: Frandy WALTERSBELKYS Appointment Provider: BRANDON Philip :1995 A ge:30 Y S ex:Female Date:01/22/2025 Address:[address] [place], [place] [id number] Pcp:Herbert Sinha Subjective: * Chief Complaints: * 1 . F/UP REFILL. * Medical History: Objective: * Vitals: Assessment: Plan: * Treatment: * Images: Care Plan Details* * Electronic signature of Vidal Cage APRN on 06/14/2025 at 09:59 AM EDT Sign off status: Pending * Appointment Provider: BRANDON Philip Date: 01/22/2025 Generated for Printing/Faxing/eTransmitting on: 0 06/14/2025 09:59 AM EDT
--- OUTSIDE RECORDS SUMMARY | 2025-02-11 05:45 | XMS_ITS ---
Author Organization [facility], [facility] Address [address] [place] [address] Care Team Providers Care Grinder Brake Lining Name Role Phone Herbert Sinha Primary Care Provider Andrew Muñoz Unavailable [phone] Eyad Gordon Unavailable REASON FOR VISIT F/UP Encounters Encounter Location Date Provider Diagnosis [address] [place] [address] 02/11/2025 Eyad Franks Plan Of Treatment No Information Progress Notes * BELKYS GLOVERDOB:1995 ( 30 yo F)Acc No.[id number]:02/11/2025 Progress Notes Patient: BELKYS BORRERO Appointment Provider: EMIR Coronel :1995 A ge:30 Y S ex:Female Date:02/11/2025 Address:[address] [place], [place] [id number] Pcp:Herbert Sinha Subjective: * Chief Complaints: * 1 . F/UP. * Medical History: Objective: * Vitals: Assessment: Plan: * Treatment: * Images: Care Plan Details* * Electronic signature of Eyad Franks APRN on 06/14/2025 at 09:56 AM EDT Sign off status: Pending * Appointment Provider: EMIR Coronel Date: 02/11/2025 Generated for Printi ng/Faxing/eTransmitting on: 0 06/14/2025 09:56 AM EDT
--- OUTSIDE RECORDS SUMMARY | 2025-04-14 04:15 | XMS_ITS ---
Author Organization [facility], [facility] Address [address] [place] [address] Care Team Providers Care Chef Instructor Name Role Phone Herbert Sinha Primary Care Provider Andrew Muñoz Unavailable [phone] Eyad Gordon Unavailable [phone] REASON FOR VISIT PER DR Encounters Encounter Location Date Provider Diagnosis [address] [place] [address] 04/14/2025 Eyad Franks Plan Of Treatment No Information Progress Notes * BELKYS GLOVERDOB:1995 ( 30 yo F)Acc No.[id number]:04/14/2025 Progress Notes Patient: BELKYS BORRERO Appointment Provider: EMIR Coronel :1995 A ge:30 Y S ex:Female Date:04/14/2025 Address:[address] [place], [place] [id number] Pcp:Herbert Sinha Subjective: * Chief Complaints: * 1 . PER DRJeniffer * Medical History: Objective: * Vitals: Assessment: Plan: * Treatment: * Images: Care Plan Details* * Electronic signature of Eyad Franks APRN on 06/14/2025 at 09:56 AM EDT Sign off status: Pending * Appointment Provider: EMIR Coronel Date: 04/14/2025 Generated for Printi ng/Faxing/eTransmitting on: 0 06/14/2025 09:56 AM EDT
--- OUTSIDE RECORDS SUMMARY | 2025-04-22 11:15 | XMS_ITS ---
Author Organization [facility] Frandy cortez Location Address [address] [address] Care Team Providers Care Event Staff Member Name Role Phone Madelin De Santiago [phone] REASON FOR VISIT new gynecologic visit Encounters Encounter Location Date Provider Diagnosis [facility] [place] Location [address] [address] 04/22/2025 Madelin De Santiago Plan Of Treatment No Information Progress Notes * BELKYS GLOVERDOB:1995 ( 30 yo F)Acc No.[id number]:04/22/2025 Progress Notes Patient: BELKYS BORRERO Provider: Hailey De Santiago NP :1995 A ge:30 Y S ex:Female Date:04/22/2025 [facility] Subjective: * Chief Complaints: * N ew gynecologic visit * Electronic signature of Ellis De Santiago APRN on 06/14/2025 at 09:59 AM EDT Sign off status: Pending * Provider: Hailey De Santiago NP Date: 04/22/2025 Generated for Williei ng/Faxing/eTransmitting on: 0 06/14/2025 09:59 AM EDT
--- OUTSIDE RECORDS SUMMARY | 2025-06-14 09:56 | XMS_ITS | Encounter Summary ---
Author Organization [facility] Address [address] [place] [address] Care Team Providers Care Roll Forming Supervisor Name Role Phone Murray Dumont MD Primary Care Provider [phone] Encounter Details Date Type Department Care Team (Late st Contact Info) Description 05/01/2025 Results Follow-Up [facility] Cardiology [facility] [address] [place] [phone] Dolly Jeong, DNP, [employer]ILERS [employer]ESS[employer]ESSELS INSPECTOR [address] [facility] [address] [place], [place] [id number] Basic Metabolic Panel Social History Tobacco Use Types Packs/Day Years Used Date Smoking Tobacco: Never Passive Smoke Exposure: Current Smokeless Tobacco: Never Alcohol Use Standard Drinks/Week Comments Not Currently 0 (1 standard drink = 0.6 oz pur e alcohol) Utilities Answer Date Recorded In the past 12 months has [employer], gas, oil, or water [employer] threatened to shut off services in your [...] any time in the past 12 m [facility], were you homeless or living [...] on filedocumented in this encounter Care Teams Roll Forming Supervisor Relationship Specialty Start Date End Date Murray Dumont MD [address] [place] [address] [place] [address] PCP - General Family Medicine 11/18/24 documented as of this encounter
--- OUTSIDE RECORDS SUMMARY | 2025-06-14 09:56 | XMS_ITS | Clinical Summary ---
Author Organization [facility] [address] [place] [address] [place] [phone] Phone Care Team Providers Care Livestock Commission Agent Name Role Phone Murray Dumont MD Primary Care Provider Surgical History Surgery Date Site/Laterality Comments OTHER SURGICAL HISTORY PROCEDURE: HISTORY OTHER; COMMENT: Gallstone Extraction OTHER SURGICAL HISTORY 05/04/2022 PROCEDURE: HISTORICAL ICD Medical History Medical History Date Comments Diabetes ([facility] V24, [facility] V28) DX:Diabetes (HCC) Morbid obesity (CMS/HCC V24, [facility] V28) DX:Morbid obesity (HCC) Chest pain DX:Chest pain; C OMMENT: D/C'd from [facility] on 01/08/22 History of non-insulin depen dent diabetes mellitus DX:History of non-insulin de pendent diabetes mellitus; COMMENT: D/C'd from [facility] on 01/08/22 Anxiety and depression DX:Anxiet y and depression; COMMENT: D/C'd from [facility] on 01/08/22 Insomnia DX:Insomnia; COM MENT: D/C'd from [facility] on 01/08/22 DVT prophylaxis DX:DVT prophylax is; COMMENT: D/C'd from [facility] on 01/08/22 Atypical pneumonia DX:Atypical p neumonia; COMMENT: D/C'd from [facility] on 11/10/21 Hypoxia DX:Hypoxia; COMM ENT: D/C'd from [facility] on 11/10/21 Hypomagnesemia DX:Hypomagnesemi a Hypokalemia DX:Hypokalemia URI (upper respiratory infection) DX:URI (upper respiratory infection) Cardiac device in situ DX:Cardia c device in situ Pneumonia DX:Pneumonia Acute COVID-19 DX:Acute COVID-1 9 Type 2 diabetes mellitus ([facility] V24, [facility] V28) DX:Type 2 diabetes mellitus (HCC) Obesity DX:Obesity Neutropenia ([facility] V24) DX:Tonny tropenia (HCC) Covid-19 DX:COVID-19 Vomiting DX:Vomiting Severe obesity ([facility] V24, [facility] V28) DX:Severe obesity (HCC) Prediabetes DX:Prediabetes Family [...] Diabetes: Annual Urine Albumin-Creatinine Ratio (uACR) 09/21/2022 Hepatitis B Vaccines (2 of 3 - 19+ 3-dose series) 06/15/2024 05/18/2024 Depression Screening 10/09/2024 Diabetes: Blood Sugar Control Test (HGBA1C) 01/28/2025 07/30/2024, 05/15/2024 COVID-19 Vaccine ( season) 2025 08/20/2023, 01/17/2022, 04/05/2021, Additional history exists Influenza Vaccine (#1) 2025 , 12/06/2022, 07/17/2022, [...] mmol/L LAB CHEMISTRY METHOD 08/29/2024 4:42 PM [facility] Potassium 3.6 3.5 - 5.5 mmol/L LAB CHEMISTRY METHOD 08/29/2024 4:42 PM [facility] Chloride 104 96 - 110 mmol/L LAB CHEMISTRY METHOD 08/29/2024 4:42 PM [facility] CO2 26 21 - 32 mmol/L LAB CHEMISTRY METHOD 08/29/2024 4:42 PM [facility] Anion Gap 8 3 - 11 LAB CHEMISTRY METHOD 08/29/2024 4:42 PM [facility] Glucose 157(H) 70 - 100 mg/dL LAB CHEMISTRY METHOD 08/29/2024 4:42 PM [facility] BUN 11 5 - 25 mg/dL LAB CHEMISTRY METHOD 08/29/2024 4:42 PM [facility] Creatinine 0.80 0.50 - 1.10 mg/dL LAB CHEMISTRY METHOD 08/29/2024 4:42 PM [facility] eGFR 102 >=60 mL/min/1. 73m2 LAB CHEMISTRY METHOD 08/29/2024 4:42 PM [facility] Comment:Calculation based on the Chronic Kidney Disease Epidemiology Collaboration (CKD-EPI) equation refit without adjustment for race. BUN/Creatinine Ratio 13.8 LAB CHEMISTRY METHOD 08/29/2024 4:42 PM [facility] Calcium 9.4 8.5 - 10.5 mg/dL LAB CHEMISTRY METHOD 08/29/2024 4:42 PM [facility] AST (SGOT) 22 10 - 42 unit/L LAB CHEMISTRY METHOD 08/29/2024 4:42 PM [facility] ALT (SGPT) 33 10 - 60 unit/L LAB CHEMISTRY METHOD 08/29/2024 4:42 PM EST [facility] Alkaline Phosphatase 78 42 - 121 unit/L LAB CHEMISTRY METHOD 08/29/2024 4:42 PM EST [facility] Total Protein 8.1(H) 6.0 - 8.0 g/dL LAB CHEMISTRY METHOD 08/29/2024 4:42 PM EST [facility] Albumin 3.6 3.2 - 5.0 g/dL LAB CHEMISTRY METHOD 08/29/2024 4:42 PM EST [facility] Total Bilirubin 0.5 0.0 - 1.4 mg/dL LAB CHEMISTRY METHOD 08/29/2024 4:42 PM EST [facility] Blood Venous blood specimen / Unknown 08/29/2024 08/29/2024 3:40 PM EST us Catarina Riley NP LAB BLOOD ORDERABLES Final Res ult [facility] [address] [place] [address], from Last 3 Months or Most Recently Relevant to Health Maintenance Insurance [facility] MEDICARE ADVANTAGE Advance Directives Documents on File Type Date Recorded Patient [employer] Weaver Expl anation Health Care Decision (hx) 05/05/2022 [...] (hx) 05/05/2022 AD RADER DIRECTIVE Care Teams Livestock Commission Agent Relationship Specialty Start Date End Date Murray Dumont MD [address] [place] [phone] PCP - General Internal Medicine 01/19/22
--- OUTSIDE RECORDS SUMMARY | 2025-06-14 09:58 | XMS_ITS | Clinical Summary ---
Author Organization [address] [address] Phone Care Team Providers Care Ingredient Scaler Name Role Phone Murray Dumont MD Primary Care Provider [phone] Social History Tobacco Use Types Packs/Day Years [...] 02/15/2021 02/15/2011 Covid-19 vaccine series ( season) 2025 08/20/2023 Influenza vaccine 06/09/2025 08/20/2023, , 07/17/2022, [...] GENERIC COMMERCIAL GENERIC COMMERCIAL GENERIC Care Teams Ingredient Scaler Relationship Specialty Start Date End Date Murray Dumont MD [address] [facility] [place] [address] PCP - General Internal Medicine 11/15/23
--- OUTSIDE RECORDS SUMMARY | 2025-06-14 09:58 | XMS_ITS | Clinical Summary ---
Author Organization [facility] Address [address] [place] [address] Care Team Providers Care Associate Professor Of Biostatistics Name Role Phone Jose Quick MD Unavailable [phone] Pcp, No Primary Care Provider Unavailabl [...] patient's age to complete this topic Insurance [facility] MEDICAID Care Teams Associate Professor Of Biostatistics Relationship Specialty Start Date End Date Pcp, No PCP - General 10/15/24 Jose Quick MD [address] [facility] [address] [place] [address] Referring Physician Cardiology 10/14/24
--- OUTSIDE RECORDS SUMMARY | 2025-06-14 09:58 | XMS_ITS | Encounter Summary ---
Author Organization [facility] Address [address] [place] [phone] Care Team Providers Care Highballer Name Role Phone Murray Dumont MD Primary Care Provider [phone] Encounter Details Date Type Department Care Team (Late st Contact Info) Description 11/15/2023 Abstract Congestive Heart Failure Program at [address] [place] [address] Referring, No Social History Tobacco Use Types [...] on filedocumented in this encounter Care Teams Highballer Relationship Specialty Start Date End Date Murray Dumont MD [address] [place] [address] [place] [address] PCP - General Internal Medicine 11/15/23 documented as of this encounter
--- OUTSIDE RECORDS SUMMARY | 2025-06-14 09:58 | XMS_ITS | Patient Health Record ---
Author Organization [facility] Location Address [address] [place] [phone] Care Team Providers Care Inside Meter Tester Name Role Phone Madelin De Santiago Unavailable [phone] Reason For Referral No Information Plan Of Treatment No Information Insurance Providers Payer Name Payer Address Payer Phone Subscriber Number Group Number Insured Name Patient Relationship to Insured Coverage Start Date Coverage End Date [employer] Medicaid [facility] [address] [address] [place] [address] [phone] [id number] BELKYS GLOVER Self - patient is the insured
--- OUTSIDE RECORDS SUMMARY | 2025-06-14 09:59 | XMS_ITS | Clinical Summary ---
Author Organization [facility] Address [address] [place] [address] Care Team Providers Care Hot Frame Tender Name Role Phone Murray Dumont MD Primary Care Provider [phone] Allergies Active Allergy Reactions Criticality Noted Date [...] Take 2.5 mg by mouth daily. 4 Active metoprolol succinate (TOPROL-XL) 25 MG Oral [...] by mouth 2 times daily. 20 capsule Active Additional Information Patient not taking.Reported on 04/30/2025 Active Problems Patient Care Coordination No te Formatting of this note is d ifferent from the original. HeartMate 3 Implant Date: 05/28/24 @ [facility] Important Alerts DME [employer] INR Range On Eliquis Managed by INR Company GABRIELLE Antiplatelet Therapy Primary Ext Lab Pending VAD Coordinator Joanne Smith Dr. Patient Goals: [facility] VAD Coordinator #: [phone] Problem Noted Date Diagnosed Date Chronic systolic heart failure (CMS-HCC: 226) NICM (nonischemic cardiomyopathy) (CMS-HCC: 227) 01/29/2025 ICD (implantable cardioverter-defibrillator) in place 01/29/2025 LVAD (left ventricular assist device) present CHF (congestive heart failure) Encounters Date Type Department Care Team Description 05/01/2025 Results Follow-Up [place] [address] Dolly Jeong, DNP, LABORATORY MACHINIST Basic Metabolic Panel 04/30/2025 9:15 AM EDT Office Visit [place] [address] Elijah Mcbride MD Chronic systolic heart failure (CMS-HCC: 226); NICM (nonischemic cardiomyopathy) (CMS-HCC: 227); LVAD (left ventricular assist device) present; ICD (implantable cardioverter-defibril lator) in place 04/30/2025 8:49 AM EDT - 04/30/2025 11:59 PM EDT Hospital Encounter LAB - [facility] OUTPATIENT [address] [place] [address] Elijah Mcbride MD NICM (nonischemic cardiomyopathy) (CMS-HCC: 227); LVAD (left ventricular assist device) present Discharge Disposition: Discharge to Home or Self Care 04/30/2025 Documentation Encounter [address] [address] Kiya Moreno, AGUSTIN VAD DLES 04/07/2025 Documentation Encounter [place] [address] Elijah Mcbride MD External Labs 03/31/2025 Results Follow-Up [place] [address] Dolly Jeong DNP, LABORATORY MACHINIST Culture, Wound 03/27/2025 1:30 PM EDT Office Visit [place] [address] 03/27/2025 1:00 PM EDT Documentation Encounter [place] [address] Elijah Mcbride MD Rickman, Allison, HA Cardiovascular Genetic Counseling 03/27/2025 9:00 AM EDT - 03/27/2025 11:59 PM EDT Hospital Encounter ECHO CARDIOGRAPHY - ADULT (UB) [address] [place] [address] Joanne Smith, OTIS Chronic systolic heart failure (CMS-HCC: 226); SOB (shortness of breath) Discharge Disposition: Discharge to Home or Self Care 03/27/2025 8:30 AM EDT - 03/27/2025 9:00 AM EDT Surgery CARDIAC CLINICAL CYTOGENETICIST SCIENTIST (UB) [address] [place] [address] Elijah Mcbride MD RIGHT HEART CATHETERIZATION w/ Echo @ bedside 03/27/2025 7:14 AM EDT - 03/27/2025 10:56 AM EDT Hospital Encounter [facility] Heart and [facility] Operating Room [address] [place] [address] Elijah Mcbride MD Chronic systolic heart failure (CMS-HCC: 226); LVAD (left ventricular assist device) present Discharge Disposition: Discharge to Home or Self Care 03/27/2025 Documentation Encounter [facility] Cardiology [facility] [address] [place] [address] Kiya Moreno, AGUSTIN VAD AYADES 03/27/2025 Orders Only [facility] [address] [place] [phone] Dolly Jeong, CHUY, LABORATORY MACHINIST LVAD (left ventricular assist device) present from Last 3 Months Family History Medical [...] the past 12 months has th e [place], gas, oil, or water [employer] threatened to shut off services in your [...] any time in the past 12 m [facility], were you homeless or living in a senior living (including now)? No 03/27/2025 Comments No Sex [...] CARDIAC CATHETERIZATION 03/27/2025 9:16 AM EDT POC [id number] OXIMETRY Routine 9:13 AM EDT POC [id number] OXIMETRY Routine 9:04 AM EDT RIGHT HEART CATHETERIZATION - [id number] 03/27/2025 8:20 AM EDT Chronic systolic heart failure (CMS-HCC: 226) LVAD (left ventricular assist device) present Special Needs [place] [address] [facility] w/ECHO arrive 0730 opDx Chronic systolic heart failure (CMS-HCC: 85) [I50.22]Cpt 28081Ro Ahmed 02/25 cdw/18 Confirmed. cdw from Last 3 Months Results [...] 04/30/2025 8:54 AM EDT Dolly Jeong DNP, LABORATORY MACHINIST BLOOD ORDERABLES Final Result [facility] [address] [place] [address] * Lactate Dehydrogenase (04/30/2025 8:54 AM EDT) Only the most recent of2 resultswithin the time period is included. LD Total 214 135 - 225 IU/L 04/30/2025 11:47 AM EDT [facility] Blood Venipuncture / Unknown 04/30/2025 8:54 AM EDT 04/30/2025 8:54 AM EDT Dolly Jeong DNP, LABORATORY MACHINIST BLOOD ORDERABLES Final Result [facility] [address] [place] [address] * Basic Metabolic Panel (04/30/2025 8:54 AM [...] on the Chronic Kidney Disease Epidemiology Collaboration ([id number]) equation refit without adjustment for race Blood Venipuncture / Unknown 04/30/2025 8:54 AM EDT 04/30/2025 8:54 AM EDT us Dolly Jeong DNP, LABORATORY MACHINIST BLOOD ORDERABLES Final Result [facility] [address] [place] [address] * PROTIME-INR (04/04/2025 1:52 PM EDT) INR 1.0 EXTERNAL LAB Blood us Elijah Mcbride MD BLOOD ORDERABLES Final Result EXTERNAL LAB * CARDIOLOGY TESTING (03/27/2025 8:51 PM EDT) Narrative 03/27/2025 8:51 PM EDT Ordered by an unspecified provider. us Document Onb Scanned SCANNED ORDERS Final Resul t * Culture, Wound (03/27/2025 11:45 AM EDT) Culture Result 4+ Normal lindy SARITA 03/31/2025 9:53 AM EDT CORE LAB [facility] Other SPECIMEN FROM WOUND / Unknown Collection / Unknown 03/27/2025 11:45 AM EDT 03/27/2025 1:41 PM EDT us Dolly Jeong DNP, LABORATORY MACHINIST MICROBIOLOGY - G ENERAL ORDERABLES Final Result [facility] [address] [place] [address] * CTA Cardiac Structures IVcon wo/w (03/27/2025 [...] 11:10 AM EDT Version: 1 Study ID: [id number] Echocardiography Laboratory Adult [facility] [address] [place], [place] Postal Code : [address] Name: BELEN, Study Date: BP: 84 / 46 mmHg BELKYS ECHEVERRIA 03/27/2025, 9:53 AM HR: 83 bpm : 1995 Gender: Height: 170.18 cm Female Age: 30 Years Weight: 113.4 kg BSA: 2.22 m2 Performed By: ANTONIO Moses,RVS Reason For Study: Chronic systolic heart failure ([facility]- HCC: 85) Conclusions No prior study for [...] Montilla MD - 03/27/2025 Version: 1 Study ID:[id number] Echocardiography Laboratory Adult [address] [place], [place] Postal Code : [address] Name: BELEN, Study Date: BP: 84 / 46mmHg BELKYS ECHEVERRIA 03/27/2025, 9:53 AM HR: 83 bpm : 1995 Gender: Height: 170.18cm Female Age: 30 Years Weight: 113.4kg BSA: 2.22 m2 Performed By: ANTONIO Moses,RVS [...] Mitral Valve Tricuspid Valve + + Electronically Abrry 03/27/2025, 11:10 AM signed by: Thanh hart MD Joanne Smith LABORATORY MACHINIST CARD [facility] ECH ORDERABLES Edited Result - Final * CARDIAC CATHETERIZATION (03/27/2025 9:24 AM EDT) 03/27/2025 8:31 AM EDT Narrative ANNA-XPER - 03/27/2025 9:44 AM EDT Cardiac Catheterization Lab [facility] [place] [address] Procedure Report: Right Heart Catheterization Patient Name: BELEN RIZVI Accession Number: [id number] Date of : 1995 Age: 30 years [...] to one independent trained observer. PROCEDURE(S) PERFORMED RH - 78944 Ultrasound guidance for vascular access - 23788 LVAD RAMP Study U1575 DESCRIPTION OF PROCEDURE [...] 10 mls COMPLICATION No Complications EQUIPMENT /DEVICES [employer] Cardiac Cath Pack Medline Right Heart Manifold Kit [employer] 5F STIFF Micropuncture 10cm [employer] 5F Switchback 10cm Introducer edjing Sharon Jono 5F Pressure Catheter SUMMARY OF HEMODYNAMIC DATA Time AIR REST ECG 08:42:29 RA 13/14 (11) SV 09:04:32 RV 53/11, 10 09:04:53 PW 30 (26) PV 09:07:42 PA 59/23 (40) PA [...] MD - 03/27/2025 Cardiac Catheterization Lab [address] [place] [address] Procedure Report: Right Heart Catheterization Patient Name: BELEN RIZVI Accession Number: [id number] Date of : 1995 Age: 30 years Gender: female Attending Physician(s): Elijah Mcbride MD Fellow(s): Date of Study: 03/27/2025 Height: 67 in/170 cm Weight: 253.9 lbs/115 kg BSA : 2.23 BMI: 39.8 Referring Physician: RONNI 1) Baseline hemodynamics obtained on continuous support with a QI7RYJJ at 6000 RPM and a MAP 70mmHg. [...] and direct patient observation were [facility] for a total of 30 minutes and required the presence of a one to one independent trained observer. PROCEDURE(S) PERFORMED RH - 43500 Ultrasound guidance for vascular access - 83884 LVAD RAMP Study U1575 DESCRIPTION OF PROCEDURE [...] 10 mls COMPLICATION No Complications EQUIPMENT /DEVICES [employer] Cardiac Cath Pack Medline Right Heart Manifold Kit [employer] 5F STIFF Micropuncture 10cm [email or web address] 5F Switchback 10cm Introducer [place] [employer] Sharon Jono 5F Pressure Catheter SUMMARY OF HEMODYNAMIC [...] 03/27/2025 10:06 AM EDT [facility] Creatinine 0.55 0.38 - 1.02 mg/dL 03/27/2025 10:06 AM EDT [facility] BUN/Creatinine Ratio 16.4 (CALC) 03/27/2025 10:06 AM EDT [facility] Glucose 92 65 - 99 mg/dL 03/27/2025 10:06 AM EDT [facility] Calcium 8.8 8.4 - 10.2 mg/dL 03/27/2025 10:06 AM EDT [facility] Total Protein 7.3 6.4 - 8.3 g/dL 03/27/2025 10:06 AM EDT [facility] Albumin 3.8 3.5 - 5.2 g/dL 03/27/2025 10:06 AM EDT [facility] Calc Total Globulin 3.5 g/dL 03/27/2025 10:06 AM EDT [facility] Albumin/Globulin Ratio 1.1 (CALC) 03/27/2025 10:06 AM EDT [facility] Total Bilirubin 0.4 0.0 - 1.0 mg/dL 03/27/2025 10:06 AM EDT [facility] Alkaline Phosphatase 47 33 - 133 IU/L 03/27/2025 10:06 AM EDT [facility] AST 15 0 - 37 IU/L 03/27/2025 10:06 AM EDT [facility] ALT 8 0 - 35 IU/L 03/27/2025 10:06 AM EDT [facility] Anion Gap 7(L) 8 - 16 mmol/L 03/27/2025 10:06 AM EDT [facility] EGFR (CKD-EPI) 126 >=60 mL/min/1.7 3m2 03/27/2025 10:06 AM EDT [facility] Comment:Calculation based on the Chronic Kidney Disease Epidemiology Collaboration ([id number]) equation refit without adjustment for race Blood Venipuncture / Unknown 03/27/2025 9:18 AM EDT 03/27/2025 9:28 AM EDT us Elijah Mcbride MD BLOOD ORDERABLES Final Result Performing Organization Address City/[facility]/ZIP Co de Phone Number [facility] [address] [place] [address] * CARDIAC CATHETERIZATION (03/27/2025 9:16 AM EDT) Narrative 03/27/2025 9:16 AM EDT Ordered by an unspecified provider. us Document Onb Scanned SCANNED ORDERS Edited Resu lt - Final * (ABNORMAL) [id number] (03/27/2025 9:13 AM EDT) Only the most recent of2 resultswithin the time period is included. Oxyhgb saturation 73.5(L) 95.0 - 99.0 % 03/27/2025 9:13 AM EDT [facility] Oxygen content 10.8 mL O2/dL% 03/27/2025 9:13 AM EDT [facility] Tl Hemoglobin 10.5(L) 12.0 - 16.0 g/dL 03/27/2025 9:13 AM EDT [facility] Technologist ID (Point of Care) [id number] 03/27/2025 9:13 AM EDT [facility] Blood 03/27/2025 9:13 AM EDT 03/27/2025 9:12 AM EDT us Elijah Mcbride MD BLOOD ORDERABLES Final Result [facility] [address] [place] [address] from Last 3 Months Insurance MEDICAID [employer] [facility] MEDICARE PART A AND B Advance Directives For more information, please contact: [phone] Healthcare Agents on File Name Relationship Healthcare Agent Relationshi p Communication Calista Pack [facility] dilan. Health Care Surrogate Care Teams Hot Frame Tender Relationship Specialty Start Date End Date Murray Dumont MD [address] [place] [address] PCP - General Family Medicine 11/18/24
--- OUTSIDE RECORDS SUMMARY | 2025-06-14 09:59 | XMS_ITS | Patient Health Record ---
Author Organization [facility] Address [address] [place] [address] [place] [address] Care Team Providers Care Oven Builder Name Role Phone SinhaHerbert Primary Care Provider Andrew Muñoz Unavailable [phone] Mary Ridley Unavailable [phone] Eyad Gordon Unavailable [phone] Paola Denise Unavailable [phone] Allergies Allergen (clinical drug ingredient) Drug/Non Drug Allergy documented on EMR Reaction Allergy Type Onset Date Status Flexeril Unknown Drug Allergy 12/06/2024 Active Guava Flavor hives Drug Allergy Acti ve Latex Latex hives Allergy Active Results Component Value Reference Range Notes US TRANSVAGINAL NON-OB Reviewed date:02/17/2025 10:18:00 AM Interpretation: Performing Lab: Notes/Report: PT and PTT-LC Reviewed date:12/16/2024 07:51:42 AM Interpretation: Performing Lab:[facility] [id number], Phone - [phone], Director - Henok Notes/Report: INR 1.0 0.9-1.2 [...] guidelines on Heparin monitoring, refer to the [facility] Directory of Services. CHEST X-RAY (PA/LATERAL) Reviewed date:11/13/2024 07:50:15 AM Interpretation: Performing Lab: Notes/Report: Cardiovascular Risk Assessme nt Reviewed date:11/05/2024 02:19:32 PM Interpretation: Performing Lab:[facility] [id number], Phone - [phone], Director - Henok Notes/Report: Interpretation Note Supplemental report is available. PDF . Microalbumin/Creatinine Rati o, Random Urine-LC Reviewed date:11/05/2024 02:19:51 PM Interpretation: Performing Lab:[facility] [address] [id number], Phone - [phone], Director - Henok Notes/Report: Creatinine, Urine 374.3 Not Estab. mg/dL Albumin, Urine 45.8 Not Estab. ug/mL Alb/Creat Ratio 12 0-29 mg/g creat Normal: 0 - 29 Moderately increased: 30 - 300 Severely increased: >300 Hemoglobin A1C Reviewed date:11/05/2024 02:17:07 PM Interpretation: Performing Lab:[facility] [address] [id number], Phone - [phone], Director - Henok Notes/Report: Hemoglobin A1c 5.2 4.8-5.6 % . Prediabetes: 5.7 - 6.4 Diabetes: >6.4 Glycemic control for adults with diabetes: <7.0 CBC With Differential/Platel et-LC-Q Reviewed date:11/07/2024 08:57:28 AM Interpretation: Performing Lab:[facility] [address] [id number], Phone - [phone], Director - Henok Notes/Report: WBC 5.9 3.4-10.8 [...] Immature Grans (Abs) 0.0 0.0-0.1 x10E3/uL Urinalysis, Eslmjaro-TG-W Reviewed date:11/07/2024 08:57:10 AM Interpretation: Performing Lab:[facility] [place], [address] [place] [id number], Phone - [phone], Director - Henok Notes/Report: Specific [place] 1.024 1.005-1.030 pH 5.5 5.0-7.5 Urine-Color Yellow [...] 14+eGFR-LC-Q Reviewed date:11/05/2024 02:16:40 PM Interpretation: Performing Lab:[facility] [place] [address] [address] [place], [place] [id number], Phone - [phone], Director - MDAlexis Notes/Report: Glucose 82 70-99 [...] Reviewed date:11/05/2024 02:16:30 PM Interpretation: Performing Lab:[facility] [place], [address] [place] [id number], Phone - [phone], Director - Henok Notes/Report: Cholesterol, Total 152 100-199 mg/dL Triglycerides 68 0-149 mg/dL HDL Cholesterol 54 >39 mg/dL VLDL Cholesterol Yamil 13 5-40 mg/dL LDL Chol Calc (NIH) 85 0-99 mg/dL Reason For Referral Reason Please fax consul t notes and/or results of procedure approved to [phone]. Thanks! ~Annual Eye Exam~ Diagnosis 1 Encounter for examin ation of eyes and vision without abnormal findings (Z01.00) Referral Organization [facility] Referring Provider First Name Paola Referring Provider Last Name Jonnathan Saul stewart Referring Provider Speciality General Pr actice Referred Provider [employer], [employer] Referred Provider Specialty Painting Worker Referral Priority Routine Reason Please fax consul t notes and/or results of procedure approved to [phone]. Thanks! ~Annual Eye Exam~ Diagnosis 1 Encounter for examin ation of eyes and vision without abnormal findings (Z01.00) Referral Organization [facility] Referring Provider First Name Paola Referring Provider Last Name Jonnathan Saul stewart Referring Provider Speciality General Pr actice Referred Provider [employer], [employer] Referred Provider Specialty Painting Worker Referral Priority Routine Reason If additional scout ting is needed, please refer back to PCP. Please fax consult notes and/or results of procedure approved to [phone]. Thanks! ONE VISIT [address] NEW PATIENT CONSULT ONLY - MANAGED CARE Diagnosis 1 Intramural leiomyoma of uterus (D25.1) Referral Organization [facility] ical P Referring Provider First Name [...] Status Risk Notes Problem Morbid obesity (disorder) (093951176) Morbid (severe) obesity due to excess calories (E66.01) Active confirmed Problem Hypertensive heart failure (07730755) Hypertensive heart disease with heart failure (I11.0) Active confirmed Problem Long-term current use of anticoagulant (554224254) Anticoagulant long-term use (Z79.01) Active confirmed Problem Body mass index 40+ - severely obese (757334585) Body mass index (BMI) of 40.0 to 44.9 in adult (Z68.41) Active confirmed Problem Type 2 diabetes mellitus with other specified complication, without long-term current use of insulin (E11.69) Active confirmed Problem History of heart valve repair with prosthesis (350935245854981) History of heart valve replacement (Z95.2) Active confirmed Problem Moderate major depression (320227) Moderate major depression (F32.1) Active confirmed Problem Heart failure (25140089) Congestive heart failure, unspecified HF chronicity, unspecified heart failure type (I50.9) Active confirmed Problem Fibroids (49441215) Fibroids (D21.9) Active confirmed Vital Signs Temperature 98.7 degrees Fahrenheit 02/17/2025 Respiratory Rate 19 /min 02/17/2025 Blood pressure diastolic 80 mm Hg 02/17/2025 Oximetry 98 % 02/17/2025 Height 5 ft 6 in in 02/17/2025 Blood pressure systolic 129 mm Hg 02/17/2025 Weight 265 lbs 02/17/2025 BMI 42.77 kg/m2 02/17/2025 Encounters Encounter Location Date Provider Diagnosis [facility] [address] [place] [address] 10/30/2024 [facility] [address] [place] [address] 10/30/[address] [place] [address] 12/13/2024 Andrew Cage [facility] [address] [facility] [address] [place] [address] 10/25/2024 Paola Jonnathan Portillo Type 2 diabetes [...] findings Z01.00 and Flu vaccine need Z23 [address] [place] [address] 12/06/2024 Andrew Cage Fibroids D21.9 ; Urinary [...] of 40.0 to 44.9 in adult Z68.[address] [place] [address] 01/07/2025 Andrew Cage Hypertensive heart disease with [...] of 40.0 to 44.9 in adult Z68.[address] [place] [address] 01/14/2025 Andrew Cage Congestive heart failure, unspecified [...] of 40.0 to 44.9 in adult Z68.[address] [place] [address] 02/17/2025 Eyad Franks Intramural leiomyoma of uterus [...] of 40.0 to 44.9 in adult Z68.41 [facility] [address] [facility] [address] [place] [address] 04/30/2025 [facility] [address] [address] 12/09/2024 Andrew Cage Congestive heart failure, unspecified HF chronicity, unspecified heart failure type I50.9 [facility] [address] [address] 12/19/2024 [facility] [address] [facility] [address] [place] [address] 02/18/2025 [facility] [address] [facility] [address] [place] [address] 03/04/2025 [facility] [address] [address] 03/28/2025 Herbert Sinha Congestive heart failure, unspecified [...] unspecified heart failure type (ICD-10 - I50.9) [facility] 09/23/2024. Will continue to monitor. Strict blood [...] of heart valve replacement (ICD-10 - Z95.2) [facility] 09/23/2024. Will continue to monitor patient 12/06/2024 [...] Coverage Start Date Coverage End Date Aena [facility] [address] [address] [place] [address] [id number] BELKYS GLOVER Self - patient is the insured Medical (General) History Medical History History ICD Code depression anxiety Complex post-traumatic stress disorder heart failure diabetic hypertension Surgical History Surgery Date(Month/Year) lvad heartmate 3 device 2023
--- OUTSIDE RECORDS SUMMARY | 2025-06-14 09:59 | XMS_ITS | Encounter Summary ---
Author Organization [facility] Address [address] [id number] Care Team Providers Care Talent Buyer Name Role Phone Murray Dumont MD Primary Care Provider [phone] Encounter Details Date Type Department Care Team (Late st Contact Info) Description 01/30/2025 Prep For Surgery [facility] [address] [place] [address] Eli[facility] Mcbride MD [address] [facility] [id number] [place] [address] Chronic systolic heart failure (CMS-HCC: 226); LVAD [...] situ documented in this encounter Care Teams Talent Buyer Relationship Specialty Start Date End Date Murray Dumont MD [facility] [address] PCP - General Family Medicine 11/18/24 documented as of this encounter
--- OUTSIDE RECORDS SUMMARY | 2025-06-14 09:59 | XMS_ITS | Encounter Summary ---
Author Organization nfon Address [address] [place] [address] Care Team Providers Care Professional Golf Tournament Player Name Role Phone Murray Dumont MD Primary Care Provider [phone] Encounter Details Date Type Department Care Team (Late st Contact Info) Description 08/29/2024 Lab Requisition [facility] - Main Lab [address] [facility] [place] [address] Catarina Riley, EUGENIO [address] [place] [address] Essential (primary) hypertension Social History [...] CBC auto differential (08/29/2024 12:00 AM EST) [facility] WBC 6.4 4.8 - 10.8 K/mcL LAB HEMETOLOGY METHOD 08/29/2024 3:50 PM [facility] LAB RBC 5.20(H) 3.80 - 4.80 M/mcL LAB HEMETOLOGY METHOD 08/29/2024 3:50 PM [facility] LAB Hemoglobin 10.9(L) 11.5 - 16.0 g/dL LAB HEMETOLOGY METHOD 08/29/2024 3:50 PM [facility] LAB Hematocrit 36.5 35.0 - 47.0 % LAB HEMETOLOGY METHOD 08/29/2024 3:50 PM [facility] LAB MCV 70.6(L) 79.0 - 98.0 FL LAB HEMETOLOGY METHOD 08/29/2024 3:50 PM [facility] LAB MCH 21.1(L) 27.0 - 32.0 pcg LAB HEMETOLOGY METHOD 08/29/2024 3:50 PM [facility] LAB MCHC 29.9(L) 32.0 - 37.0 g/dL LAB HEMETOLOGY METHOD 08/29/2024 3:50 PM [facility] LAB RDW 16.5(H) 11.0 - 15.0 % LAB HEMETOLOGY METHOD 08/29/2024 3:50 PM [facility] LAB Platelets 352 130 - 400 K/mcL LAB HEMETOLOGY METHOD 08/29/2024 3:50 PM [facility] LAB MPV 8.9 7.0 - 11.0 FL LAB HEMETOLOGY METHOD 08/29/2024 3:50 PM [facility] LAB NRBC 0.0 <1.0 % LAB HEMETOLOGY METHOD 08/29/2024 3:50 PM [facility] LAB NRBC Absolute 0.00 <0.10 K/mcL LAB HEMETOLOGY METHOD 08/29/2024 3:50 PM [facility] LAB Neutrophils Relative 73.8 % LAB HEMETOLOGY METHOD 08/29/2024 3:50 PM [facility] LAB Lymphocytes Relative 18.1 % LAB HEMETOLOGY METHOD 08/29/2024 3:50 PM [facility] LAB Monocytes Relative 5.7 % LAB HEMETOLOGY METHOD 08/29/2024 3:50 PM [facility] LAB Eosinophils Relative 1.6 % LAB HEMETOLOGY METHOD 08/29/2024 3:50 PM [facility] LAB Basophils Relative 0.5 % LAB HEMETOLOGY METHOD 08/29/2024 3:50 PM [facility] LAB Immature Granulocytes Relative 0.3 % LAB HEMETOLOGY METHOD 08/29/2024 3:50 PM [facility] LAB Neutrophils Absolute 4.69 1.50 - 7.00 K/mcL LAB HEMETOLOGY METHOD 08/29/2024 3:50 PM [facility] LAB Lymphocytes Absolute 1.15 1.00 - 5.00 K/mcL LAB HEMETOLOGY METHOD 08/29/2024 3:50 PM [facility] LAB Monocytes Absolute 0.36 0.20 - 1.00 K/mcL LAB HEMETOLOGY METHOD 08/29/2024 3:50 PM [facility] LAB Eosinophils Absolute 0.10 0.00 - 0.50 K/mcL LAB HEMETOLOGY METHOD 08/29/2024 3:50 PM [facility] LAB Basophils Absolute 0.03 0.00 - 0.20 K/mcL LAB HEMETOLOGY METHOD 08/29/2024 3:50 PM EST [facility] LAB Immature Granulocytes Absolute 0.02 0.00 - 0.03 K/[facility] LAB HEMETOLOGY METHOD 08/29/2024 3:50 PM EST [facility] LAB Blood Venous blood specimen / Unknown 08/29/2024 08/29/2024 3:40 PM EST us Catarina Riley NP LAB BLOOD ORDERABLES Final Res ult [facility] LAB [address] [place] [address], [place] [phone] * (ABNORMAL) Prothrombin time with INR (08/29/2024 12:00 AM EST) Protime 15.1(H) 10.6 - 13.9 sec LAB COAGULATION METHOD 08/29/2024 4:12 PM EST [facility] LAB INR 1.2 LAB COAGULATION METHOD 08/29/2024 4:12 PM EST [facility] LAB Blood Venous blood specimen / Unknown 08/29/2024 08/29/2024 3:40 PM EST us Catarina Riley NP LAB BLOOD ORDERABLES Final Res ult [facility] [address] [place] [address], [place] [phone] * Magnesium (08/29/2024 12:00 AM EST) Magnesium 2.1 1.9 - 2.6 mg/dL LAB CHEMISTRY METHOD 08/29/2024 4:42 PM EST [facility] LAB Blood Venous blood specimen / Unknown 08/29/2024 08/29/2024 3:40 PM EST us Catarina Riley NP LAB BLOOD ORDERABLES Final Res ult Performing Organization Address City/[facility]/ZIP Co de Phone Number [facility] LAB [address] [place] [address], [place] [phone] * (ABNORMAL) Lactate dehydrogenase (08/29/2024 12:00 AM EST) LDH 248(H) 120 - 246 unit/L LAB CHEMISTRY METHOD 08/29/2024 4:42 PM [facility] LAB Blood Venous blood specimen / Unknown 08/29/2024 08/29/2024 3:40 PM EST us Catarina Riley NP LAB BLOOD ORDERABLES Final Res ult Performing Organization Address [facility]/ZIP Co de Phone Number [facility] LAB [address] [place] [address], [place] [phone] * (ABNORMAL) Comprehensive metabolic panel (08/29/2024 12:00 AM EST) Pathologist [facility] Sodium 138 133 - 145 mmol/L LAB CHEMISTRY METHOD 08/29/2024 4:42 PM [facility] LAB Potassium 3.6 3.5 - 5.5 mmol/L LAB CHEMISTRY METHOD 08/29/2024 4:42 PM [facility] LAB Chloride 104 96 - 110 mmol/L LAB CHEMISTRY METHOD 08/29/2024 4:42 PM [facility] LAB CO2 26 21 - 32 mmol/L LAB CHEMISTRY METHOD 08/29/2024 4:42 PM [facility] Anion Gap 8 3 - 11 LAB CHEMISTRY METHOD 08/29/2024 4:42 PM [facility] LAB Glucose 157(H) 70 - 100 mg/dL LAB CHEMISTRY METHOD 08/29/2024 4:42 PM [facility] BUN 11 5 - 25 mg/dL LAB CHEMISTRY METHOD 08/29/2024 4:42 PM [facility] LAB Creatinine 0.80 0.50 - 1.10 mg/dL LAB CHEMISTRY METHOD 08/29/2024 4:42 PM [facility] LAB eGFR 102 >=60 mL/min/1. 73m2 LAB CHEMISTRY METHOD 08/29/2024 4:42 PM [facility] LAB Comment:Calculation based on the Chronic Kidney Disease Epidemiology Collaboration (CKD-EPI) equation refit without adjustment for race. BUN/Creatinine Ratio 13.8 LAB CHEMISTRY METHOD 08/29/2024 4:42 PM [facility] LAB Calcium 9.4 8.5 - 10.5 mg/dL LAB CHEMISTRY METHOD 08/29/2024 4:42 PM [facility] AST (SGOT) 22 10 - 42 unit/L LAB CHEMISTRY METHOD 08/29/2024 4:42 PM [facility] LAB ALT (SGPT) 33 10 - 60 unit/L LAB CHEMISTRY METHOD 08/29/2024 4:42 PM [facility] LAB Alkaline Phosphatase 78 42 - 121 unit/L LAB CHEMISTRY METHOD 08/29/2024 4:42 PM [facility] Total Protein 8.1(H) 6.0 - 8.0 g/dL LAB CHEMISTRY METHOD 08/29/2024 4:42 PM [facility] LAB Albumin 3.6 3.2 - 5.0 g/dL LAB CHEMISTRY METHOD 08/29/2024 4:42 PM [facility] Total Bilirubin 0.5 0.0 - 1.4 mg/dL LAB CHEMISTRY METHOD 08/29/2024 4:42 PM [facility] LAB Blood Venous blood specimen / Unknown 08/29/2024 08/29/2024 3:40 PM EST us Catarina Riley FINANCIAL INSTITUTION VICE PRESIDENT LAB BLOOD ORDERABLES Final Res ult [facility] [address] [place] [address], documented in this encounter Visit Diagnoses Diagnosis Essential (primary) hypertension Unspecified essential hypertension documented in this encounter Care Teams Professional Golf Tournament Player Relationship Specialty Start Date End Date Murray Dumont MD [address] [place] [address] PCP - General Internal Medicine 01/19/22 documented as of this encounter
--- OUTSIDE RECORDS SUMMARY | 2025-06-14 09:59 | XMS_ITS | Referral Summary ---
Author Organization [facility] Address [address] [place] [address] Care Team Providers Care Automated Weaver Name Role Phone Murray Dumont MD Primary Care Provider [phone] Encounters Date Type Department Care Team Description 05/01/2025 Results Follow-Up [place] [id number] Dolly Jeong, DNP, MACHINE SHOP REPAIR TECHNICIAN Basic Metabolic Panel 04/30/2025 Documentation Encounter [place] [address] Kiya Moreno RN VAD DLES 04/30/2025 8:49 AM EDT - 04/30/2025 11:59 PM EDT Hospital Encounter LAB - UB OUTPATIENT [address] [place] [address] Elijah Mcbride MD NICM (nonischemic cardiomyopathy) (CMS-HCC: 227); LVAD (left ventricular assist device) present Discharge Disposition: Discharge to Home or Self Care 04/30/2025 9:15 [place] [address] Elijah Mcbride MD Chronic systolic heart failure (CMS-HCC: 226); NICM (nonischemic cardiomyopathy) (CMS-HCC: 227); LVAD (left ventricular assist device) present; ICD (implantable cardioverter-defibril lator) in place 04/07/2025 [place] [address] Elijah Mcbride MD External Labs 03/31/2025 [place] [address] Dolly Jeong DNP, MACHINE SHOP REPAIR TECHNICIAN Culture, Wound 03/27/2025 [place] [address] Kiya Moreno, AGUSTIN VAD DLES 03/27/2025 [place] [address] Dolly Jeong DNP, MACHINE SHOP REPAIR TECHNICIAN LVAD (left ventricular assist device) present 03/27/2025 1:30 [place] [address] 03/27/2025 8:30 AM EDT - 03/27/2025 9:00 AM EDT Surgery CARDIAC SENIOR C SOFTWARE ENGINEER (UB) [address] [place] [address] Elijah Mcbride MD RIGHT HEART CATHETERIZATION w/ Echo @ bedside 03/27/2025 9:00 AM EDT - 03/27/2025 11:59 PM EDT Hospital Encounter ECHO CARDIOGRAPHY - ADULT (UB) [address] [place] [address] Joanne Smith, OTIS Chronic systolic heart failure (CMS-HCC: 226); SOB (shortness of breath) Discharge Disposition: Discharge to Home or Self Care 03/27/2025 1:00 PM EDT [place] [address] Elijah Mcbride MD Rickman, Allison, GC Cardiovascular Genetic Counseling 03/27/2025 7:14 AM EDT - 03/27/2025 10:56 AM EDT Hospital Encounter [facility] Operating Room [address] [place] [id number] Elijah Mcbride MD Chronic systolic heart failure (CMS-HCC: 226); LVAD (left ventricular assist device) present Discharge Disposition: Discharge to Home or Self Care from Last 3 Months Allergies Active Allergy [...] original. HeartMate 3 Implant Date: 05/28/24 @ [facility] Important Alerts DME [employer] INR Range On Eliquis Managed by [employer] GABRIELLE Antiplatelet Therapy Primary Ext Lab Pending VAD Coordinator Joanne Smith Dr. Patient Goals: [facility] VAD Coordinator #: [phone] Problem Noted Date Diagnosed Date Chronic systolic heart failure ([facility]-HCC: 226) NICM (nonischemic cardiomyopathy) ([facility]) 01/29/2025 ICD (implantable cardioverter-defibrillator) in place [...] the past 12 months has th e electric, gas, oil, or water company threatened to shut off services in your [...] any time in the past 12 m [facility], were you homeless or living in a snf (including now)? No 03/27/2025 Comments No Sex [...] CARDIAC CATHETERIZATION 03/27/2025 9:16 AM EDT POC [id number] OXIMETRY Routine 9:13 AM EDT POC [id number] OXIMETRY Routine 9:04 AM EDT RIGHT HEART CATHETERIZATION - [id number] 03/27/2025 8:20 AM EDT Chronic systolic heart failure (CMS-HCC: 226) LVAD (left ventricular assist device) present Special Needs [place] [address] Rh w/ECHO arrive 0730 opDx Chronic systolic heart failure (CMS-HCC: 85) [I50.22]Cpt 03038Re Ahmed 02/25 cdw03/26 Confirmed. cdw from Last [...] 04/30/2025 8:54 AM EDT Dolly Jeong DNP, MACHINE SHOP REPAIR TECHNICIAN BLOOD ORDERABLES Final Result [facility] [address] [place] [id number] * Lactate Dehydrogenase (04/30/2025 8:54 AM EDT) Only the most recent of2 resultswithin the time period is included. LD Total 214 135 - 225 IU/L 04/30/2025 11:47 AM EDT [facility] Blood Venipuncture / Unknown 04/30/2025 8:54 AM EDT 04/30/2025 8:54 AM EDT Dolly Jeong DNP, MACHINE SHOP REPAIR TECHNICIAN BLOOD ORDERABLES Final Result [facility] [address] [place] [address] * Basic Metabolic Panel (04/30/2025 8:54 AM [...] on the Chronic Kidney Disease Epidemiology Collaboration ([id number]-3576) equation refit without adjustment for race Blood Venipuncture / Unknown 04/30/2025 8:54 AM EDT 04/30/2025 8:54 AM EDT us Dolly Jeong DNP, MACHINE SHOP REPAIR TECHNICIAN BLOOD ORDERABLES Final Result [facility] [address] [place] [address] * PROTIME-INR (04/04/2025 1:52 PM EDT) INR [...] SARITA 03/31/2025 9:53 AM EDT CORE [facility] Other SPECIMEN FROM WOUND / Unknown Collection / Unknown 03/27/2025 11:45 AM EDT 03/27/2025 1:41 PM EDT us Dolly Jeong DNP, MACHINE SHOP REPAIR TECHNICIAN MICROBIOLOGY - G ENERAL ORDERABLES Final Result [facility] [address] [place] [address] * CTA Cardiac Structures IVcon wo/w (03/27/2025 [...] 11:10 AM EDT Version: 1 Study ID: [id number] Echocardiography Laboratory Adult [facility] [address] [place], [place] Postal Code : [address] Name: BELEN, Study Date: BP: 84 / 46 mmHg BELKYS ECHEVERRIA 03/27/2025, 9:53 AM HR: 83 bpm : 1995 Gender: Height: 170.18 cm Female Age: 30 Years Weight: 113.4 kg BSA: 2.22 m2 Performed By: ANTONIO Moses,GIO Reason For Study: Chronic systolic heart failure [...] Barry 03/27/2025, 11:10 AM signed by: Thanh bey MD Procedure Note Barry Montilla MD - 03/27/2025 Version: 1 Study ID:[id number] Echocardiography Laboratory Adult [address] [place], [place] Postal Code : [address] Name: BELEN Study Date: BP: 84 / 46mmHg BELKYS ECHEVERRIA 03/27/2025, 9:53 AM HR: 83 bpm : 1995 Gender: Height: 170.18cm Female Age: 30 Years Weight: 113.4kg BSA: 2.22 m2 Performed By: ANTONIO Moses,RVS Reason For Study: Chronic systolic heart failure ([facility]- HCC: 85) Conclusions No prior study for [...] Barry 03/27/2025, 11:10 AM signed by: Thanh bey MD Joanne Smith MACHINE SHOP REPAIR TECHNICIAN CARD UF ECH ORDERABLES Edited Result - Final * CARDIAC CATHETERIZATION (03/27/2025 9:24 AM EDT) 03/27/2025 8:31 AM EDT Narrative ANNA-XPER - 03/27/2025 9:44 AM EDT Cardiac Catheterization Lab [facility] [place] [address] Procedure Report: Right Heart Catheterization Patient Name: BELEN RIZVI Accession Number: [id number] Date of : 1995 Age: 30 years [...] independent trained observer. PROCEDURE(S) PERFORMED RH - 43851 Ultrasound guidance for vascular access - 36808 LVAD RAMP Study U1575 DESCRIPTION OF PROCEDURE [...] 10 mls COMPLICATION No Complications EQUIPMENT /DEVICES [employer] Cardiac Cath Pack Medline Right Heart Manifold Kit [employer] 5F STIFF Micropuncture 10cm [employer] 5F [place] 10cm Introducer [email or web address] Killeen Jono 5F Pressure Catheter SUMMARY OF HEMODYNAMIC DATA Time AIR REST ECG 08:42:29 RA 13/14 (11) SV 09:04:32 RV 53/11, 10 09:04:53 PW 2030 (26) PV 09:07:42 PA 59/23 (40) PA 09:08:51 Condition 2 PA 54/25 (37) PA 09:15:32 RA 8/11 (8) SV 09:15:32 PW 20 (19) PV 09:16:12 Type SV CO (l/m) [...] MD - 03/27/2025 Cardiac Catheterization Lab [address] [place] [address] Procedure Report: Right Heart Catheterization Patient Name: BELEN RIZVI Accession Number: [id number] Date of : 1995 Age: 30 years Gender: female Attending Physician(s): Elijah Mcbride MD Fellow(s): Date of Study: 03/27/2025 Height: 67 in/170 cm Weight: 253.9 lbs/115 kg BSA : 2.23 BMI: 39.8 Referring Physician: CONCLUSIONS 1) Baseline hemodynamics obtained on continuous support with a GS3NWRU at 6000 RPM and a MAP 70mmHg. [...] and direct patient observation were [facility] provider for a total of 30 minutes and required the presence of a one to one independent trained observer. PROCEDURE(S) PERFORMED RHC - 56642 Ultrasound guidance for vascular access - 99652 LVAD RAMP Study U1575 DESCRIPTION OF PROCEDURE [...] 10 mls COMPLICATION No Complications EQUIPMENT /DEVICES [employer] Cardiac Cath Pack Medline Right Heart Manifold Kit [employer] 5F STIFF Micropuncture 10cm Echolocation 5F [place] 10cm Introducer [email or web address] Killeen Jono 5F Pressure Catheter SUMMARY OF HEMODYNAMIC DATA Time AIR REST ECG 08:42:29 RA 13/14 (11) SV 09:04:32 RV 53/11, 10 09:04:53 PW 20/30 (26) PV 09:07:42 PA 59/23 (40) PA 09:08:51 Condition 2 PA 54/25 (37) PA 09:15:32 RA 8/11 (8) SV 09:15:32 PW 20/29 (19) PV 09:16:12 Type SV CO (l/m) [...] this procedure and theinterpretation of the results. Joanne Smith APRN CV CARDIAC CATH ORDERDilan ARCHIBALD Edited Result - Final ANNA-XPER * (ABNORMAL) [...] on the Chronic Kidney Disease Epidemiology Collaboration ([id number]) equation refit without adjustment for race Blood Venipuncture / Unknown 03/27/2025 9:18 AM EDT 03/27/2025 9:28 AM EDT Elijah Mcbride MD BLOOD ORDERABLES Final Result Performing Organization Address [facility] Co de Phone Number [facility] [address] [place] [address] * CARDIAC CATHETERIZATION (03/27/2025 9:16 AM EDT) Narrative 03/27/2025 9:16 AM EDT Ordered by an unspecified provider. us Document Onb Scanned SCANNED ORDERS Edited Resu lt - Final * (ABNORMAL) [id number] (03/27/2025 9:13 AM EDT) Only the most recent of2 resultswithin the time period is included. Oxyhgb saturation 73.5(L) 95.0 - 99.0 % 03/27/2025 9:13 AM EDT [facility] Oxygen content 10.8 mL O2/dL% 03/27/2025 9:13 AM EDT [facility] Tl Hemoglobin 10.5(L) 12.0 - 16.0 g/dL 03/27/2025 9:13 AM EDT [facility] Technologist ID (Point of Care) [id number] 03/27/2025 9:13 AM EDT [facility] Blood 03/27/2025 9:13 AM EDT 03/27/2025 9:12 AM EDT us Elijah Mcbride MD BLOOD ORDERABLES Final Result Performing Organization Address [facility] Co de Phone Number [facility] [address] [place] [address] from Last 3 Months Insurance MEDICAID [employer] [facility] [place] [address] Advance Directives For more information, please contact: [phone] Healthcare Agents on File Name Relationship Healthcare Agent Relationsmn p Communication Calista Pakc Mother dilan. Health Care Surrogate Care Teams Automated Weaver Relationship Specialty Start Date End Date Murray Dumont MD [facility] [place] [address] PCP - General Family Medicine 11/18/24
--- OUTSIDE RECORDS SUMMARY | 2025-06-14 09:59 | XMS_ITS | Encounter Summary ---
Author Organization [employer] Address [address] [place] [address] Care Team Providers Care Environmental Services Lead Name Role Phone Murray Dumont MD Primary Care Provider [phone] Encounter Details Date Type Department Care Team (Late st Contact Info) Description 08/20/2024 Lab Requisition [facility] - Main Lab [address] [facility] [place] [address] Catarina Riley, EUGENIO [address] [place] [address] Chronic systolic (congestive) heart failure [...] CBC auto differential (08/20/2024 1:30 PM EST) [facility] WBC 5.5 4.8 - 10.8 K/mcL LAB [...] LAB HEMETOLOGY METHOD 08/20/2024 7:17 PM EST [facility] LAB Eosinophils Absolute 0.10 0.00 - 0.50 K/mcL LAB HEMETOLOGY METHOD 08/20/2024 7:17 PM EST [facility] LAB Basophils Absolute 0.03 0.00 - 0.20 K/mcL LAB HEMETOLOGY METHOD 08/20/2024 7:17 PM EST [facility] LAB Immature Granulocytes Absolute 0.02 0.00 - 0.03 K/mcL LAB HEMETOLOGY METHOD 08/20/2024 7:17 PM EST [facility] LAB Blood Venous blood specimen / Unknown 08/20/2024 1:30 PM EST 08/20/2024 6:29 PM EST us Catarina Riley NP LAB BLOOD ORDERABLES Final Res ult Performing Organization Address City/[facility]/ZIP Co de Phone Number [facility] LAB [address] [place] [address], [place] [phone] * (ABNORMAL) Prothrombin time with INR (08/20/2024 1:30 PM EST) Protime 31.1(H) 10.6 - 13.9 sec LAB COAGULATION METHOD 08/20/2024 7:18 PM EST [facility] LAB INR 2.5 LAB COAGULATION METHOD 08/20/2024 7:18 PM EST [facility] Blood Venous blood specimen / Unknown 08/20/2024 1:30 PM EST 08/20/2024 6:29 PM EST us Catarina Riley NP LAB BLOOD ORDERABLES Final Res ult [facility] [address] [place] [address], [place] [phone] * Magnesium (08/20/2024 1:30 PM EST) Magnesium 2.1 1.9 - 2.6 mg/dL LAB CHEMISTRY METHOD 08/20/2024 7:20 PM EST [facility] LAB Blood Venous blood specimen / Unknown 08/20/2024 1:30 PM EST 08/20/2024 6:29 PM EST Catarina Riley NP LAB BLOOD ORDERABLES Final Res ult Performing Organization Address City/[facility]/ZIP Co de Phone Number [facility] [address] [place] [address], [place] [phone] * (ABNORMAL) Lactate dehydrogenase (08/20/2024 1:30 PM EST) Pathologist [facility] LDH 280(H) 120 - 246 unit/L LAB CHEMISTRY METHOD 08/20/2024 7:20 PM [facility] LAB Blood Venous blood specimen / Unknown 08/20/2024 1:30 PM EST 08/20/2024 6:29 PM EST Catarina Riley NP LAB BLOOD ORDERABLES Final Res ult Performing Organization Address [facility] Co de Phone Number [facility] [address] [place] [address], [place] [phone] * (ABNORMAL) Comprehensive metabolic panel (08/20/2024 1:30 [...] 08/20/2024 6:29 PM EST us Catarina Riley MANAGER CAR LAB BLOOD ORDERABLES Edited Re sult - Final [facility] ([facility] [address] [place] [address], documented in this encounter Visit Diagnoses Diagnosis Chronic systolic (congestive) heart failure (CMS/HCC V24, CMS/HCC V28) documented in this encounter Care Teams Environmental Services Lead Relationship Specialty Start Date End Date Murray Dumont MD [address] [place] [address] PCP - General Internal Medicine 01/19/22 documented as of this encounter
--- OUTSIDE RECORDS SUMMARY | 2025-06-14 09:59 | XMS_ITS | Clinical Summary ---
Author Organization [employer] [facility] Address [address] [place] [address] Care Team Providers Care Mill Operator Name Role Phone Murray Dumont MD Primary Care Provider [phone] Allergies Active Allergy Reactions Criticality Noted Date [...] age to complete this topic Care Teams Mill Operator Relationship Specialty Start Date End Date Murray Dumont MD [address] [place] [address] PCP - General Internal Medicine 05/02/22
--- OUTSIDE RECORDS SUMMARY | 2025-06-14 09:59 | XMS_ITS | Clinical Summary ---
Author Organization [facility] Address [address] [place] [address] Care Team Providers Care International Freight Forwarder Name Role Phone Unknown Primary Care Provider Allergies Active Allergy Reactions Criticality Noted Date Comments Cyclobenzaprine Unknown/Patient and Family Unable to Define Medium 11/01/2021 Medications ferrous gluconate (FERGON) 324 MG tablet Take 324 mg by mouth every morning with breakfast. Take 2 hours before or 4 hours after acid reducers. Active empagliflozin (JARDIANCE) 10 MG tabletIndicatio ns:HFrEF (heart failure with reduced ejection fraction) ([facility]) Take 1 tablet (10 mg total) by mouth daily. 30 tablet 11/10/2021 Active carvedilol (COREG) 12.5 MG tabletIndicatio ns:HFrEF (heart failure with reduced ejection fraction) ([facility]) Take 1 tablet (12.5 mg total) by mouth 2 (two) times a day. 60 tablet 11/10/2021 Active spironolactone (ALDACTONE) 25 MG tabletIndicatio ns:HFrEF (heart failure with reduced ejection fraction) ([facility]) Take 1 tablet (25 mg total) by mouth daily. 30 tablet 11/10/2021 Active torsemide (DEMADEX) 20 MG tabletIndicatio ns:HFrEF (heart failure with reduced ejection fraction) ([facility]) Take 2 tablets (40 mg total) by mouth daily. 60 tablet 11/10/2021 Active sacubitril-vals kylie (ENTRESTO) 24-26 mg per tabletIndicatio ns:HFrEF (heart failure with reduced ejection fraction) ([facility]) Take 1 tablet by mouth [...] CMIA Nonreactive Nonreactive 11/03/2021 11:32 AM EST [facility] Comment:Results show no evid ence of infection by HIV 1/2. If clinically indicated, repeat CMIA or test by nucleic acid amplification. Blood specimen (specimen) Serum specimen / Unknown 11/02/2021 4:50 PM EST 11/02/2021 5:14 PM EST Kehinde Moffett PA-C LAB BLOOD ORDERABLES Final Re sult Performing Organization Address City/State/[facility] Co de Phone Number [facility] [address] [place] [address] from Last 3 Months or Most Recently Relevant to Health Maintenance Insurance MEDICAID OUT OF STATE [facility] Advance Directives * Full Code (Latest Code Status on File) Date Activated Date Inactivated Comments 11/01/2021 3:56 PM Care Teams International Freight Forwarder Relationship Specialty Start Date End Date Unknown Unknow Provider Address PCP - General 11/01/21
--- OUTSIDE RECORDS SUMMARY | 2025-06-14 09:59 | XMS_ITS ---
Author Organization [facility] Address [address] [id number] Care Team Providers Care Claims Account Specialist Name Role Phone Murray Dumont MD Primary Care Provider [phone] Transplant Episode Heart Candidate Referred on 11/18/2024 Marked as Active on 11/18/2024 Heart CoordinatorDolly Jeong DNP, SAMPLE PREP TECHNICIAN Email: N/A Care Team Name Role Phone Fax Email Dolly Jeong DNP, SAMPLE PREP TECHNICIAN Quality Control Representative [phone] N/A Elijah Mcbride MD [employer] [phone] N/A Mirian Turner Transplant Location Analyst N/A N/A N/A Joanne Smith APRN VAD/HF/Transplant [place] [phone] N/A Events Pre-Transplant Referred: 11/18/2024
[2025-06-16 03:44] LABS: HBS Num1 191.22 mIU/mL (0-7.99); ~Hepatitis B Surface Antibody REACTIVE (Nonreactive)
== END 2025-06-14 09:54 | disposition home or self-care (01) ==
LOC: HO.HMGCLDS 09:53
PROVIDERS: PCP Internal Medicine; Visit Provider Internal Medicine
DX: Z78.9 Other specified health status (principal)
CPT/HCPCS: 36415; 86706

== ENCOUNTER 2025-07-03 08:44 | Outpatient (AMB) | payer MEDICARE, MEDICAID, SELFPAY ==
--- OUTSIDE RECORDS SUMMARY | 2025-01-22 07:30 | XMS_ITS ---
Author Organization [facility], [facility]. Address [address] [place] [address] Care Team Providers Care Customer Service Advisor Name Role Phone Herbert Sinha Primary Care Provider Andrew Muñoz [phone] REASON FOR VISIT F/UP REFILL Encounters Encounter Location Date Provider Diagnosis [address] [place] [address] 01/22/2025 Andrew Cage Plan Of Treatment No Information Progress Notes * BELKYS GLOVERDOB:1995 ( 30 yo F)Acc No.[id number]:01/22/2025 Progress Notes Patient: Frandy WALTERSBELKYS Appointment Provider: BRANDON Philip :1995 A ge:30 Y S ex:Female Date:01/22/2025 Address:[address] [place], [place] [phone] Pcp:Herbert Sinha Subjective: * Chief Complaints: * 1 . F/UP REFILL. * Medical History: Objective: * Vitals: Assessment: Plan: * Treatment: * Images: Care Plan Details* * Electronic signature of Vidal Cage APRN on 07/03/2025 at 09:18 AM EDT Sign off status: Pending * Appointment Provider: BRANDON Philip Date: 01/22/2025 Generated for Printing/Faxing/eTransmitting on: 0 07/03/2025 09:18 AM EDT
--- OUTSIDE RECORDS SUMMARY | 2025-02-11 05:45 | XMS_ITS ---
Author Organization [facility], [facility] Address [address] [place] [address] Care Team Providers Care Direct Care Counselor Name Role Phone Herbert Sinha Primary Care Provider [phone] Andrew Muñoz Unavailable [phone] Eyad Gordon Unavailable [phone] REASON FOR VISIT F/UP Encounters Encounter Location Date Provider Diagnosis [address] [place] [address] 02/11/2025 Eyad Franks Plan Of Treatment No Information Progress Notes * BELKYS GLOVERDOB:1995 ( 30 yo F)Acc No.[id number]:02/11/2025 Progress Notes Patient: BELKYS BORRERO Appointment Provider: EMIR Coronel :1995 A ge:30 Y S ex:Female Date:02/11/2025 Address:[address] [place], [place] [id number] Pcp:Herbert Sinha Subjective: * Chief Complaints: * 1 . F/UP. * Medical History: Objective: * Vitals: Assessment: Plan: * Treatment: * Images: Care Plan Details* * Electronic signature of Eyad Franks APRN on 07/03/2025 at 09:17 AM EDT Sign off status: Pending * Appointment Provider: EMIR Coronel Date: 0 02/11/2025 Generated for Printi ng/Faxing/eTransmitting on: 0 07/03/2025 09:17 AM EDT
--- OUTSIDE RECORDS SUMMARY | 2025-04-14 04:15 | XMS_ITS ---
Author Organization [facility], [facility] Address [address] [place] [address] Care Team Providers Care Chain Maker Hand Name Role Phone Herbert Sinha Primary Care Provider Andrew Muñoz Unavailable [phone] Eyad Gordon Unavailable [phone] REASON FOR VISIT PER DR Encounters Encounter Location Date Provider Diagnosis [address] [place] [address] 04/14/2025 Eyad Franks Plan Of Treatment No Information Progress Notes * BELKYS GLOVERDOB:1995 ( 30 yo F)Acc No.[id number]:04/14/2025 Progress Notes Patient: Frandy WALTERS BELKYS Appointment Provider: EMIR Coronel :1995 A ge:30 Y S ex:Female Date:04/14/2025 Address:[address] [place], [place] [phone] Pcp:Herbert Sinha Subjective: * Chief Complaints: * 1 . PER DRJeniffer * Medical History: Objective: * Vitals: Assessment: Plan: * Treatment: * Images: Care Plan Details* * Electronic signature of Eyad Franks APRN on 07/03/2025 at 09:17 AM EDT Sign off status: Pending * Appointment Provider: EMIR Coronel Date: 04/14/2025 Generated for Printi ng/Faxing/eTransmitting on: 0 07/03/2025 09:17 AM EDT
--- OUTSIDE RECORDS SUMMARY | 2025-04-22 11:15 | XMS_ITS ---
Author Organization [facility] Franyd cortez Location Address [address] [address] Care Team Providers Care Regional Retail Sales Manager Name Role Phone Madelin De Santiago [phone] REASON FOR VISIT new gynecologic visit Encounters Encounter Location Date Provider Diagnosis [facility] [place] Location [address] [address] 04/22/2025 Madelin De Santiago Plan Of Treatment No Information Progress Notes * BELKYS GLOVERDOB:1995 ( 30 yo F)Acc No.[id number]:04/22/2025 Progress Notes Patient: BELKYS BORRERO Provider: Hailey De Santiago NP :1995 A ge:30 Y S ex:Female Date:04/22/2025 [facility] Subjective: * Chief Complaints: * N ew gynecologic visit * Electronic signature of Ellis De Santiago APRN on 07/03/2025 at 09:17 AM EDT Sign off status: Pending * Provider: Hailey De Santiago NP Date: 04/22/2025 Generated for Williei ng/Faxing/eTransmitting on: 0 07/03/2025 09:17 AM EDT
--- OUTSIDE RECORDS SUMMARY | 2025-07-03 09:17 | XMS_ITS | Clinical Summary ---
Author Organization [facility] Address [address] [place] [address] Care Team Providers Care Contact Center Consultant Name Role Phone Murray Dumont MD Primary Care Provider [phone] Allergies Active Allergy Reactions Criticality Noted Date [...] original. HeartMate 3 Implant Date: 05/28/24 @ [facility] Important Alerts DME [employer] INR Range On Eliquis Managed by INR Company GAB[employer]ELLE Antiplatelet Therapy Primary Ext Lab Pending VAD Coordinator Joanne Smith Dr. Patient Goals: [facility] VAD Coordinator #: [phone] Problem Noted Date Diagnosed Date Chronic systolic heart failure (CMS-HCC: 226) NICM (nonischemic cardiomyopathy) (CMS-HCC: 227) 01/29/2025 ICD (implantable cardioverter-defibrillator) in place 01/29/2025 LVAD (left ventricular assist device) present CHF (congestive heart failure) Encounters Date Type Department Care Team Description 05/01/2025 Results Follow-Up [place] [address] Dolly Jeong, DNP, BUSINESS OPERATIONS ANALYST Basic Metabolic Panel 04/30/2025 9:15 [place] [address] Elijah Mcbride MD Chronic systolic heart failure (CMS-HCC: 226); NICM (nonischemic cardiomyopathy) (CMS-HCC: 227); LVAD (left ventricular assist device) present; ICD (implantable cardioverter-defibr illator) in place 04/30/2025 8:49 AM EDT - 04/30/2025 11:59 PM EDT Hospital Encounter LAB - [facility] OUTPATIENT [address] [place] [address] Elijah Mcbride MD NICM (nonischemic cardiomyopathy) (CMS-HCC: 227); LVAD (left ventricular assist device) present Discharge Disposition: Discharge to Home or Self Care 04/30/2025 Documentation Encounter [place] [id number] Kiya Moreno RN VAD DLES 04/07/2025 Documentation Encounter [facility] [address] [id number] Elijah Mcbride MD External Labs from Last 3 Months Family History Medical History Relation Comments Heart Disease Father Hypertension Father Relation Status Comments Father Alive Mother Alive Social History Tobacco Use Types Packs/Day Years Used Date Smoking Tobacco: Never Passive Smoke Exposure: Current Smokeless Tobacco: Never Tobacco Cessation:Counseling Given: Not Answered Alcohol Use Standard Drinks/Week Comments Not Currently 0 (1 standard drink = 0.6 oz pur e alcohol) [facility] Utilities Answer Date Recorded In the past [...] any time in the past [address] [facility], were you homeless or living in a residential (including now)? No 03/27/2025 Comments No Sex [...] present PROTIME-INR Routine 04/04/2025 1:52 PM EDT from Last 3 Months Results * (ABNORMAL) CBC with Differential panel result (04/30/2025 8:54 AM EDT) WBC 6.2 4.0 - 10.0 x10E3/ L [...] 04/30/2025 8:54 AM EDT Dolly Jeong DNP, BUSINESS OPERATIONS ANALYST BLOOD ORDERABLES Final Result [facility] [address] [place] [address] * Lactate Dehydrogenase (04/30/2025 8:54 AM EDT) Pathologist [facility] LD Total 214 135 - 225 IU/L 04/30/2025 11:47 AM EDT [facility] Blood Venipuncture / Unknown 04/30/2025 8:54 AM EDT 04/30/2025 8:54 AM EDT Dolly Jeong DNP, BUSINESS OPERATIONS ANALYST BLOOD ORDERABLES Final Result [facility] [address] [place] [address] * Basic Metabolic Panel (04/30/2025 8:54 AM EDT) Pathologist [facility] Sodium 139 136 - 145 mmol/L 04/30/2025 [...] 04/30/2025 11:47 AM EDT [facility] Comment:Calculation based on the Chronic Kidney Disease Epidemiology Collaboration ([id number]) equation refit without adjustment for race Blood Venipuncture / Unknown 04/30/2025 8:54 AM EDT 04/30/2025 8:54 AM EDT Dolly Jeong DNP, BUSINESS OPERATIONS ANALYST BLOOD ORDERABLES Final Result [facility] [address] [id number] * PROTIME-INR (04/04/2025 1:52 PM EDT) INR 1.0 EXTERNAL LAB Blood Elijah Mcbride MD BLOOD ORDERABLES Final Result EXTERNAL LAB from Last 3 Months Insurance MEDICAID [employer] [facility] MEDICARE PART A AND B Advance Directives For more information, please contact: [phone] Healthcare Agents on File Name Relationship Healthcare Agent Relationshi p Communication Calista Pack Mother dilan. Health Care Surrogate Care Teams Contact Center Consultant Relationship Specialty Start Date End Date Murray Dumont MD [facility] [address] PCP - General Family Medicine 11/18/24
--- OUTSIDE RECORDS SUMMARY | 2025-07-03 09:17 | XMS_ITS ---
Author Organization [facility] Address [address] [id number] Care Team Providers Care Wall Steamer Name Role Phone Murray Dumont MD Primary Care Provider [phone] Transplant Episode Heart Candidate Referred on 11/18/2024 Marked as Active on 11/18/2024 Heart CoordinatorDolly Jeong DNP, TABBER Email: N/A Care Team Name Role Phone Fax Email Dolly Jeong DNP, TABBER Child Specialist [phone] N/A Elijah Mcbride MD Heel Builder [phone] N/A Mirian Turner Transplant Public Policy Coordinator N/A N/A N/A Joanne Smith APRN VAD/HF/Transplant [place] [phone] N/A Events Pre-Transplant Referred: 11/18/2024
--- OUTSIDE RECORDS SUMMARY | 2025-07-03 09:17 | XMS_ITS | Encounter Summary ---
Author Organization [facility] Address [address] [place] [address] Care Team Providers Care Creel Clerk Name Role Phone Murray Dumont MD Primary Care Provider [phone] Encounter Details Date Type Department Care Team (Late st Contact Info) Description 08/20/2024 Lab Requisition [facility] - Main Lab [address] [facility] [place] [address] Catarina Riley, EUGENIO [address] [place] [address] Chronic systolic (congestive) heart failure [...] CBC auto differential (08/20/2024 1:30 PM EST) [facility] WBC 5.5 4.8 - 10.8 K/mcL LAB HEMETOLOGY METHOD 08/20/2024 7:17 PM [facility] RBC 5.00(H) 3.80 - 4.80 M/mcL LAB HEMETOLOGY METHOD 08/20/2024 7:17 PM [facility] Hemoglobin 10.7(L) 11.5 - 16.0 g/dL LAB HEMETOLOGY METHOD 08/20/2024 7:17 PM [facility] Hematocrit 37.0 35.0 - 47.0 % LAB HEMETOLOGY METHOD 08/20/2024 7:17 PM [facility] MCV 73.7(L) 79.0 - 98.0 FL LAB HEMETOLOGY METHOD 08/20/2024 7:17 PM [facility] MCH 21.3(L) 27.0 - 32.0 pcg LAB HEMETOLOGY METHOD 08/20/2024 7:17 PM [facility] MCHC 28.9(L) 32.0 - 37.0 g/dL LAB HEMETOLOGY METHOD 08/20/2024 7:17 PM [facility] RDW 16.2(H) 11.0 - 15.0 % LAB HEMETOLOGY METHOD 08/20/2024 7:17 PM [facility] Platelets 358 130 - 400 K/mcL LAB HEMETOLOGY METHOD 08/20/2024 7:17 PM [facility] MPV 8.7 7.0 - 11.0 FL LAB HEMETOLOGY METHOD 08/20/2024 7:17 PM [facility] NRBC 0.0 <1.0 % LAB HEMETOLOGY METHOD 08/20/2024 7:17 PM [facility] NRBC Absolute 0.00 <0.10 K/mcL LAB HEMETOLOGY METHOD 08/20/2024 7:17 PM [facility] Neutrophils Relative 71.3 % LAB HEMETOLOGY METHOD 08/20/2024 7:17 PM [facility] Lymphocytes Relative 17.0 % LAB HEMETOLOGY METHOD 08/20/2024 7:17 PM [facility] Monocytes Relative 9.0 % LAB HEMETOLOGY METHOD 08/20/2024 7:17 PM [facility] Eosinophils Relative 1.8 % LAB HEMETOLOGY METHOD 08/20/2024 7:17 PM [facility] Basophils Relative 0.5 % LAB HEMETOLOGY METHOD 08/20/2024 7:17 PM [facility] Immature Granulocytes Relative 0.4 % LAB HEMETOLOGY METHOD 08/20/2024 7:17 PM [facility] Neutrophils Absolute 3.90 1.50 - 7.00 K/mcL LAB HEMETOLOGY METHOD 08/20/2024 7:17 PM [facility] Lymphocytes Absolute 0.93(L) 1.00 - 5.00 K/mcL LAB HEMETOLOGY METHOD 08/20/2024 7:17 PM [facility] Monocytes Absolute 0.49 0.20 - 1.00 K/mcL LAB HEMETOLOGY METHOD 08/20/2024 7:17 PM EST [facility] Eosinophils Absolute 0.10 0.00 - 0.50 K/mcL LAB HEMETOLOGY METHOD 08/20/2024 7:17 PM EST [facility] Basophils Absolute 0.03 0.00 - 0.20 K/mcL LAB HEMETOLOGY METHOD 08/20/2024 7:17 PM EST [facility] Immature Granulocytes Absolute 0.02 0.00 - 0.03 K/mcL LAB HEMETOLOGY METHOD 08/20/2024 7:17 PM EST [facility] Blood Venous blood specimen / Unknown 08/20/2024 1:30 PM EST 08/20/2024 6:29 PM EST us Catarina Riley NP LAB BLOOD ORDERABLES Final Res ult Performing Organization Address City/[facility]/ZIP Co de Phone Number [facility] [address] [place] [address], [place] [phone] * (ABNORMAL) Prothrombin time with INR (08/20/2024 1:30 PM EST) Protime 31.1(H) 10.6 - 13.9 sec LAB COAGULATION METHOD 08/20/2024 7:18 PM EST [facility] INR 2.5 LAB COAGULATION METHOD 08/20/2024 7:18 PM EST [facility] Blood Venous blood specimen / Unknown 08/20/2024 1:30 PM EST 08/20/2024 6:29 PM EST us Catarina Riley NP LAB BLOOD ORDERABLES Final Res ult [facility] [address] [place] [address], [place] [phone] * Magnesium (08/20/2024 1:30 PM EST) Magnesium 2.1 1.9 - 2.6 mg/dL LAB CHEMISTRY METHOD 08/20/2024 7:20 PM EST [facility] Blood Venous blood specimen / Unknown 08/20/2024 1:30 PM EST 08/20/2024 6:29 PM EST Catarina Riley NP LAB BLOOD ORDERABLES Final Res ult Performing Organization Address City/[facility]/ZIP Co de Phone Number [facility] [address] [place] [address], [place] [phone] * (ABNORMAL) Lactate dehydrogenase (08/20/2024 1:30 PM EST) Pathologist [facility] LDH 280(H) 120 - 246 unit/L LAB CHEMISTRY METHOD 08/20/2024 7:20 PM [facility] Blood Venous blood specimen / Unknown 08/20/2024 1:30 PM EST 08/20/2024 6:29 PM EST Catarina Riley NP LAB BLOOD ORDERABLES Final Res ult Performing Organization Address [facility] Co de Phone Number [facility] [address] [place] [address], [place] [phone] * (ABNORMAL) Comprehensive metabolic panel (08/20/2024 1:30 PM EST) Sodium 136 133 - 145 mmol/L LAB CHEMISTRY METHOD 08/21/2024 12:24 PM [facility] Potassium 3.4(L) 3.5 - 5.5 mmol/L LAB CHEMISTRY METHOD 08/21/2024 12:24 PM [facility] Chloride 101 96 - 110 mmol/L LAB CHEMISTRY METHOD 08/21/2024 12:24 PM [facility] CO2 32 21 - 32 mmol/L LAB CHEMISTRY METHOD 08/21/2024 12:24 PM [facility] Anion Gap 3 3 - 11 LAB CHEMISTRY METHOD 08/21/2024 12:24 PM [facility] Glucose 75 70 - 100 mg/dL LAB CHEMISTRY METHOD 08/21/2024 12:24 PM [facility] BUN 8 5 - 25 mg/dL LAB CHEMISTRY METHOD 08/21/2024 12:24 PM [facility] Creatinine 0.73 0.50 - 1.10 mg/dL LAB CHEMISTRY METHOD 08/21/2024 12:24 PM [facility] eGFR 114 >=60 mL/min/1. 73m2 LAB CHEMISTRY METHOD 08/21/2024 12:24 PM [facility] Comment:Calculation based on the Chronic Kidney Disease Epidemiology Collaboration (CKD-EPI) equation refit without adjustment for race. BUN/Creatinine Ratio 11.0 LAB CHEMISTRY METHOD 08/21/2024 12:24 PM [facility] Calcium 8.9 8.5 - 10.5 mg/dL LAB CHEMISTRY METHOD 08/21/2024 12:24 PM [facility] AST (SGOT) 27 10 - 42 unit/L LAB CHEMISTRY METHOD 08/21/2024 12:24 PM [facility] ALT (SGPT) 30 10 - 60 unit/L LAB CHEMISTRY METHOD 08/21/2024 12:24 PM [facility] Alkaline Phosphatase 81 42 - 121 unit/L LAB CHEMISTRY METHOD 08/21/2024 12:24 PM [facility] Total Protein 8.4(H) 6.0 - 8.0 g/dL LAB CHEMISTRY METHOD 08/21/2024 12:24 PM [facility] Albumin 3.8 3.2 - 5.0 g/dL LAB CHEMISTRY METHOD 08/21/2024 12:24 PM [facility] Total Bilirubin 0.4 0.0 - 1.4 mg/dL LAB CHEMISTRY METHOD 08/21/2024 12:24 PM [facility] Blood Venous blood specimen / Unknown 08/20/2024 1:30 PM EST 08/20/2024 6:29 PM EST us Catarina Riley PSYCHOLOGICAL OPERATIONS LAB BLOOD ORDERABLES Edited Re sult - Final [facility] [address] [place] [address], documented in this encounter Visit Diagnoses Diagnosis Chronic systolic (congestive) heart failure (CMS/HCC V24, CMS/HCC V28) documented in this encounter Care Teams Creel Clerk Relationship Specialty Start Date End Date Murray Dumont MD [address] [place] [address] PCP - General Internal Medicine 01/19/22 documented as of this encounter
--- OUTSIDE RECORDS SUMMARY | 2025-07-03 09:17 | XMS_ITS | Clinical Summary ---
Author Organization [facility] Address [address] [place] [address] Care Team Providers Care Curriculum Advisory Teacher Name Role Phone Jose Quick MD Unavailable [phone] Pcp, No Primary Care Provider Unavailabl [...] patient's age to complete this topic Insurance [facility] MEDICAID Care Teams Curriculum Advisory Teacher Relationship Specialty Start Date End Date Pcp, No PCP - General 10/15/24 Jose Quick MD [address] [facility] [address] [place] [address] Referring Physician Cardiology 10/14/24
--- OUTSIDE RECORDS SUMMARY | 2025-07-03 09:17 | XMS_ITS | Encounter Summary ---
Author Organization [facility] Address [address] [id number] Care Team Providers Care Career Technical Education Instructor Name Role Phone Murray Dumont MD Primary Care Provider [phone] Reason for Visit * Reason Onset Date Comments External Labs 04/04/2025 Encounter Details Date Type Department Care Team (Late st Contact Info) Description 04/07/2025 Documentation Encounter [facility] Cardiology [facility] [address] [place] [address] Elijah Mcbride MD [address] [facility] [address] [place] [address] External Labs Social History Tobacco Use Types Packs/Day Years Used Date Smoking Tobacco: Never Passive Smoke Exposure: Current Smokeless Tobacco: Never Alcohol Use Standard Drinks/Week Comments Not Currently 0 (1 standard drink = 0.6 oz pur e alcohol) [facility] Utilities Answer Date Recorded In the past 12 months has [employer] electric, gas, oil, or water Locality threatened to shut off services in your [...] any time in the past 12 m [facility], were you homeless or living in a chcf (including now)? No 03/27/2025 Comments No Sex [...] on filedocumented in this encounter Care Teams Career Technical Education Instructor Relationship Specialty Start Date End Date Murray Dumont MD [address] [place] [address] [place] [address] PCP - General Family Medicine 11/18/24 documented as of this encounter
--- OUTSIDE RECORDS SUMMARY | 2025-07-03 09:17 | XMS_ITS | Clinical Summary ---
Author Organization [address] [address] Phone Care Team Providers Care Health Promotion Manager Name Role Phone Murray Dumont MD Primary Care Provider [phone] Social History Tobacco Use Types Packs/Day Years [...] adult (Td q 10,TDAP once) 02/15/2021 02/15/2011 Influenza vaccine 05/09/2025 08/20/2023, , 07/17/2022, Additional history exists Covid-19 vaccine series ( - 2024- season) 2025 08/20/2023 RSV Immunization (1 - 1-dose 75+ series) [...] GENERIC COMMERCIAL GENERIC COMMERCIAL GENERIC Care Teams Health Promotion Manager Relationship Specialty Start Date End Date Murray Dumont MD [address] [place] [address] PCP - General Internal Medicine 11/15/23
--- OUTSIDE RECORDS SUMMARY | 2025-07-03 09:17 | XMS_ITS | Encounter Summary ---
Author Organization [facility] Address [address] [place] [address] Care Team Providers Care Cat Swamper Name Role Phone Murray Dumont MD Primary Care Provider [phone] Encounter Details Date Type Department Care Team (Late st Contact Info) Description 05/01/2025 Results Follow-Up [facility] Cardiology [facility] [address] [place] [id number] Dolly Jeong, DNP, SCIENTIFIC ASSOCIATE [address] [facility] [address] [place], [place] [id number] Basic Metabolic Panel Social History Tobacco Use Types Packs/Day Years Used Date Smoking Tobacco: Never Passive Smoke Exposure: Current Smokeless Tobacco: Never Alcohol Use Standard Drinks/Week Comments Not Currently 0 (1 standard drink = 0.6 oz pur e alcohol) [facility] Utilities Answer Date Recorded In the past 12 months has [employer] gas, oil, or water [employer] threatened to shut off services in your [...] any time in the past 12 m [facility], were you homeless or living in a intermediate (including now)? No 03/27/2025 Comments No Sex and Gender Information Value Date Recorded Sex Assigned at Not on file Legal Sex Female 2:32 PM EST Gender Identity Not on file Sexual Orientation Not on file documented as of this encounter Plan of Treatment Not on file documented as of this encounter Visit Diagnoses Not on filedocumented in this encounter Care Teams Cat Swamper Relationship Specialty Start Date End Date Murray Dumont MD [facility] [place] [address] PCP - General Family Medicine 11/18/24 documented as of this encounter
--- OUTSIDE RECORDS SUMMARY | 2025-07-03 09:17 | XMS_ITS | Encounter Summary ---
Author Organization [facility] Address [address] [place] [address] Care Team Providers Care Talent Acquisition Program Manager Name Role Phone Murray Dumont MD Primary Care Provider [phone] Encounter Details Date Type Department Care Team (Late st Contact Info) Description 11/15/2023 Abstract Congestive Heart Failure Program at [address] [place] [address] Referring, No Social History Tobacco Use Types [...] on filedocumented in this encounter Care Teams Talent Acquisition Program Manager Relationship Specialty Start Date End Date Murray Dumont MD [address] [place] [address] [place] [address] PCP - General Internal Medicine 11/15/23 documented as of this encounter
--- OUTSIDE RECORDS SUMMARY | 2025-07-03 09:17 | XMS_ITS | Encounter Summary ---
Author Organization [facility] Address [address] [place] [address] Care Team Providers Care Garment Cutter Name Role Phone Murray Dumont MD Primary Care Provider [phone] Encounter Details Date Type Department Care Team (Late st Contact Info) Description 08/29/2024 Lab Requisition [facility] - Main Lab [address] [facility] [place] [address] Catarina Riley, EUGENIO [address] [place] [address] Essential (primary) hypertension Social History [...] CBC auto differential (08/29/2024 12:00 AM EST) [facility] WBC 6.4 4.8 - 10.8 K/mcL LAB HEMETOLOGY METHOD 08/29/2024 3:50 PM [facility] RBC 5.20(H) 3.80 - 4.80 M/mcL LAB HEMETOLOGY METHOD 08/29/2024 3:50 PM [facility] Hemoglobin 10.9(L) 11.5 - 16.0 g/dL LAB HEMETOLOGY METHOD 08/29/2024 3:50 PM [facility] Hematocrit 36.5 35.0 - 47.0 % LAB HEMETOLOGY METHOD 08/29/2024 3:50 PM [facility] MCV 70.6(L) 79.0 - 98.0 FL LAB HEMETOLOGY METHOD 08/29/2024 3:50 PM [facility] MCH 21.1(L) 27.0 - 32.0 pcg LAB HEMETOLOGY METHOD 08/29/2024 3:50 PM [facility] MCHC 29.9(L) 32.0 - 37.0 g/dL LAB HEMETOLOGY METHOD 08/29/2024 3:50 PM [facility] RDW 16.5(H) 11.0 - 15.0 % LAB HEMETOLOGY METHOD 08/29/2024 3:50 PM [facility] Platelets 352 130 - 400 K/mcL LAB HEMETOLOGY METHOD 08/29/2024 3:50 PM [facility] MPV 8.9 7.0 - 11.0 FL LAB HEMETOLOGY METHOD 08/29/2024 3:50 PM [facility] NRBC 0.0 <1.0 % LAB HEMETOLOGY METHOD 08/29/2024 3:50 PM [facility] NRBC Absolute 0.00 <0.10 K/mcL LAB HEMETOLOGY METHOD 08/29/2024 3:50 PM [facility] Neutrophils Relative 73.8 % LAB HEMETOLOGY METHOD 08/29/2024 3:50 PM [facility] Lymphocytes Relative 18.1 % LAB HEMETOLOGY METHOD 08/29/2024 3:50 PM [facility] Monocytes Relative 5.7 % LAB HEMETOLOGY METHOD 08/29/2024 3:50 PM [facility] Eosinophils Relative 1.6 % LAB HEMETOLOGY METHOD 08/29/2024 3:50 PM [facility] Basophils Relative 0.5 % LAB HEMETOLOGY METHOD 08/29/2024 3:50 PM [facility] Immature Granulocytes Relative 0.3 % LAB HEMETOLOGY METHOD 08/29/2024 3:50 PM [facility] Neutrophils Absolute 4.69 1.50 - 7.00 K/mcL LAB HEMETOLOGY METHOD 08/29/2024 3:50 PM [facility] Lymphocytes Absolute 1.15 1.00 - 5.00 K/mcL LAB HEMETOLOGY METHOD 08/29/2024 3:50 PM [facility] Monocytes Absolute 0.36 0.20 - 1.00 K/mcL LAB HEMETOLOGY METHOD 08/29/2024 3:50 PM [facility] Eosinophils Absolute 0.10 0.00 - 0.50 K/mcL LAB HEMETOLOGY METHOD 08/29/2024 3:50 PM [facility] Basophils Absolute 0.03 0.00 - 0.20 K/mcL LAB HEMETOLOGY METHOD 08/29/2024 3:50 PM EST [facility] Immature Granulocytes Absolute 0.02 0.00 - 0.03 K/[facility] LAB HEMETOLOGY METHOD 08/29/2024 3:50 PM EST [facility] Blood Venous blood specimen / Unknown 08/29/2024 08/29/2024 3:40 PM EST us Catarina Riley NP LAB BLOOD ORDERABLES Final Res ult [facility] [address] [place] [address], [place] [phone] * (ABNORMAL) Prothrombin time with INR (08/29/2024 12:00 AM EST) Protime 15.1(H) 10.6 - 13.9 sec LAB COAGULATION METHOD 08/29/2024 4:12 PM EST [facility] INR 1.2 LAB COAGULATION METHOD 08/29/2024 4:12 PM EST [facility] Blood Venous blood specimen / Unknown 08/29/2024 08/29/2024 3:40 PM EST us Catarina Riley NP LAB BLOOD ORDERABLES Final Res ult [facility] [address] [place] [address], [place] [phone] * Magnesium (08/29/2024 12:00 AM EST) Magnesium 2.1 1.9 - 2.6 mg/dL LAB CHEMISTRY METHOD 08/29/2024 4:42 PM EST [facility] Blood Venous blood specimen / Unknown 08/29/2024 08/29/2024 3:40 PM EST us Catarina Riley NP LAB BLOOD ORDERABLES Final Res ult Performing Organization Address City/[facility]/ZIP Co de Phone Number [facility] [address] [place] [address], [place] [phone] * (ABNORMAL) Lactate dehydrogenase (08/29/2024 12:00 AM EST) LDH 248(H) 120 - 246 unit/L LAB CHEMISTRY METHOD 08/29/2024 4:42 PM [facility] Blood Venous blood specimen / Unknown 08/29/2024 08/29/2024 3:40 PM EST us Catarina Riley NP LAB BLOOD ORDERABLES Final Res ult Performing Organization Address [facility]/ZIP Co de Phone Number [facility] [address] [place] [address], [place] [phone] * (ABNORMAL) Comprehensive metabolic panel (08/29/2024 12:00 AM EST) Pathologist [facility] Sodium 138 133 - 145 mmol/L LAB CHEMISTRY METHOD 08/29/2024 4:42 PM [facility] Potassium 3.6 3.5 - 5.5 mmol/L LAB CHEMISTRY METHOD 08/29/2024 4:42 PM [facility] Chloride 104 96 - 110 mmol/L LAB CHEMISTRY METHOD 08/29/2024 4:42 PM [facility] CO2 26 21 - 32 mmol/L LAB CHEMISTRY METHOD 08/29/2024 4:42 PM [facility] Anion Gap 8 3 - 11 LAB CHEMISTRY METHOD 08/29/2024 4:42 PM [facility] Glucose 157(H) 70 - 100 mg/dL LAB CHEMISTRY METHOD 08/29/2024 4:42 PM [facility] BUN 11 5 - 25 mg/dL LAB CHEMISTRY METHOD 08/29/2024 4:42 PM [facility] Creatinine 0.80 0.50 - 1.10 mg/dL LAB CHEMISTRY METHOD 08/29/2024 4:42 PM [facility] eGFR 102 >=60 mL/min/1. 73m2 LAB CHEMISTRY METHOD 08/29/2024 4:42 PM [facility] Comment:Calculation based on the Chronic Kidney Disease Epidemiology Collaboration (CKD-EPI) equation refit without adjustment for race. BUN/Creatinine Ratio 13.8 LAB CHEMISTRY METHOD 08/29/2024 4:42 PM [facility] Calcium 9.4 8.5 - 10.5 mg/dL LAB CHEMISTRY METHOD 08/29/2024 4:42 PM [facility] AST (SGOT) 22 10 - 42 unit/L LAB CHEMISTRY METHOD 08/29/2024 4:42 PM [facility] ALT (SGPT) 33 10 - 60 unit/L LAB CHEMISTRY METHOD 08/29/2024 4:42 PM [facility] Alkaline Phosphatase 78 42 - 121 unit/L LAB CHEMISTRY METHOD 08/29/2024 4:42 PM [facility] Total Protein 8.1(H) 6.0 - 8.0 g/dL LAB CHEMISTRY METHOD 08/29/2024 4:42 PM [facility] Albumin 3.6 3.2 - 5.0 g/dL LAB CHEMISTRY METHOD 08/29/2024 4:42 PM [facility] Total Bilirubin 0.5 0.0 - 1.4 mg/dL LAB CHEMISTRY METHOD 08/29/2024 4:42 PM [facility] Blood Venous blood specimen / Unknown 08/29/2024 08/29/2024 3:40 PM EST us Catarina Riley BIOLOGICAL PHOTOGRAPHER LAB BLOOD ORDERABLES Final Res ult [facility] [address] [place] [address], documented in this encounter Visit Diagnoses Diagnosis Essential (primary) hypertension Unspecified essential hypertension documented in this encounter Care Teams Garment Cutter Relationship Specialty Start Date End Date Murray Dumont MD [address] [place] [address] PCP - General Internal Medicine 01/19/22 documented as of this encounter
--- OUTSIDE RECORDS SUMMARY | 2025-07-03 09:17 | XMS_ITS | Patient Health Record ---
Author Organization [facility] Location Address [address] [address] Care Team Providers Care Licensing Registration Examiner Name Role Phone Madelin De Santiago Unavailable [phone] Reason For Referral No Information Plan Of Treatment No Information Insurance Providers Payer Name Payer Address Payer Phone Subscriber Number Group Number Insured Name Patient Relationship to Insured Coverage Start Date Coverage End Date Aetna Medicaid [facility] Health [address] [address] [place] [address] [phone] [id number] BELKYS GLOVER Self - patient is the insured
--- OUTSIDE RECORDS SUMMARY | 2025-07-03 09:17 | XMS_ITS | Clinical Summary ---
Author Organization [employer] [address] [place] [address] [place] [address] Phone Care Team Providers Care Electric Organ Inspector And Repairer Name Role Phone Murray Dumont MD Primary Care Provider [phone] Surgical History Surgery Date Site/Laterality Comments OTHER SURGICAL HISTORY PROCEDURE: HISTORY OTHER; COMMENT: Gallstone Extraction OTHER SURGICAL HISTORY 05/04/2022 PROCEDURE: HISTORICAL ICD Medical History Medical History Date Comments Diabetes ([facility] V24, [facility] V28) DX:Diabetes (HCC) Morbid obesity ([facility]/HCC V24, [facility] V28) DX:Morbid obesity (HCC) Chest pain DX:Chest pain; C OMMENT: D/C'd from [facility] on 01/08/22 History of non-insulin depen dent diabetes mellitus DX:History of non-insulin de pendent diabetes mellitus; COMMENT: D/C'd from [facility] on 01/08/22 Anxiety and depression DX:Anxiet y and depression; COMMENT: D/C'd from [facility] on 01/08/22 Insomnia DX:Insomnia; COM MENT: D/C'd from [facility] on 01/08/22 DVT prophylaxis DX:DVT prophylax is; COMMENT: D/C'd from [facility] on 01/08/22 Atypical pneumonia DX:Atypical p neumonia; COMMENT: D/C'd from [facility] on 11/10/21 Hypoxia DX:Hypoxia; COMM ENT: D/C'd from [facility] on 11/10/21 Hypomagnesemia DX:Hypomagnesemi a Hypokalemia DX:Hypokalemia URI (upper respiratory infection) DX:URI (upper respiratory infection) Cardiac device in situ DX:Cardia c device in situ Pneumonia DX:Pneumonia Acute COVID-19 DX:Acute COVID-1 9 Type 2 diabetes mellitus ([facility] V24, [facility] V28) DX:Type 2 diabetes mellitus (HCC) Obesity DX:Obesity Neutropenia ([facility] V24) DX:Tonny tropenia (HCC) Covid-19 DX:COVID-19 Vomiting DX:Vomiting Severe obesity ([facility] V24, [facility] V28) DX:Severe obesity (HCC) Prediabetes DX:Prediabetes Family [...] - Td or Tdap) 05/18/2034 05/18/2024, 02/15/2011 RSV Immunization Adult Patients (1 - 1-dose 75+ series) 2070 Hepatitis C Screening Completed 05/15/2024 Pneumococcal Vaccine: [...] 4:42 PM EST [facility] Alkaline Phosphatase 78 42 - 121 unit/L LAB CHEMISTRY METHOD 08/29/2024 4:42 PM EST [facility] Total Protein 8.1(H) 6.0 - 8.0 g/dL LAB CHEMISTRY METHOD 08/29/2024 4:42 PM EST [facility] Albumin 3.6 3.2 - 5.0 g/dL LAB CHEMISTRY METHOD 08/29/2024 4:42 PM EST [facility] Total Bilirubin 0.5 0.0 - 1.4 mg/dL LAB CHEMISTRY METHOD 08/29/2024 4:42 PM [facility] Blood Venous blood specimen / Unknown 08/29/2024 08/29/2024 3:40 PM EST us Catarina Riley ALLOCATION ANALYST LAB BLOOD ORDERABLES Final Res ult [facility] [address] [place] [address], from Last 3 Months or Most Recently Relevant to Health Maintenance Insurance [facility] MEDICARE ADVANTAGE Advance Directives Documents on File Type Date Recorded Patient Artists' Model Expl anation Health Care Decision (hx) 05/05/2022 [...] (hx) 05/05/2022 AD RADER DIRECTIVE Care Teams Electric Organ Inspector And Repairer Relationship Specialty Start Date End Date Murray Dumont MD [address] [place] [address] [place] [phone] PCP - General Internal Medicine 01/19/22
--- OUTSIDE RECORDS SUMMARY | 2025-07-03 09:18 | XMS_ITS | Encounter Summary ---
Author Organization [facility] Address [address] [id number] Care Team Providers Care Supervisor Powder And Primer Canning Name Role Phone Murray Dumont MD Primary Care Provider [phone] Encounter Details Date Type Department Care Team (Late st Contact Info) Description 01/30/2025 Prep For Surgery [facility] [address] [place] [address] Elijah Mcbride MD [address] [facility] [id number] [place] [address] Chronic systolic heart failure (CMS-HCC: 226); LVAD [...] situ documented in this encounter Care Teams Supervisor Powder And Primer Canning Relationship Specialty Start Date End Date Murray Dumont MD [facility] [place] [address] PCP - General Family Medicine 11/18/24 documented as of this encounter
--- OUTSIDE RECORDS SUMMARY | 2025-07-03 09:18 | XMS_ITS | Clinical Summary ---
Author Organization [employer] [facility] Address [address] [place] [address] Care Team Providers Care Medication Manager Name Role Phone Murray Dumont MD Primary Care Provider [phone] Allergies Active Allergy Reactions Criticality Noted Date [...] age to complete this topic Care Teams Medication Manager Relationship Specialty Start Date End Date Murray Dumont MD [address] [place] [address] PCP - General Internal Medicine 05/02/22
--- OUTSIDE RECORDS SUMMARY | 2025-07-03 09:18 | XMS_ITS | Patient Health Record ---
Author Organization [employer] Address [address] [place] [address] Care Team Providers Care Supervisor Phosphorus Processing Name Role Phone Herbert Sinha Primary Care Provider [phone] Andrew Muñoz Unavailable [phone] Mary Ridley Unavailable [phone] Eyad Gordon Unavailable Paola Denise Unavailable [phone] Allergies Allergen (clinical drug ingredient) Drug/Non Drug Allergy documented on EMR Reaction Allergy Type Onset Date Status Flexeril Unknown Drug Allergy 12/06/2024 Active Guava Flavor hives Drug Allergy Acti ve Latex Latex hives Allergy Active Results Component Value Reference Range Notes PT and PTT-LC Reviewed date:12/16/2024 07:51:42 AM Interpretation: Performing Lab:[address] [id number], Phone - [phone], Director - Henok Notes/Report: INR 1.0 0.9-1.2 [...] guidelines on Heparin monitoring, refer to the [facility] Directory of Services. CHEST X-RAY (PA/LATERAL) Reviewed date:11/13/2024 07:50:15 AM Interpretation: Performing Lab: Notes/Report: Hemoglobin A1C Reviewed date:11/05/2024 02:17:07 PM Interpretation: Performing Lab:[facility] [address] [id number], Phone - [phone], Director - Henok Notes/Report: Hemoglobin A1c 5.2 4.8-5.6 % . Prediabetes: 5.7 - 6.4 Diabetes: >6.4 Glycemic control for adults with diabetes: <7.0 CBC With Differential/Platel et-LC-Q Reviewed date:11/07/2024 08:57:28 AM Interpretation: Performing Lab:[facility] [address] [id number], Phone - [phone], Director - Henok Notes/Report: WBC 5.9 3.4-10.8 [...] Immature Grans (Abs) 0.0 0.0-0.1 x10E3/uL Urinalysis, Gohwdhvc-WK-G Reviewed date:11/07/2024 08:57:10 AM Interpretation: Performing Lab:[facility] [address] [id number], Phone - [phone], Director - Henok Notes/Report: Specific [place] 1.024 1.005-1.030 pH 5.5 5.0-7.5 Urine-Color Yellow [...] 14+eGFR-LC-Q Reviewed date:11/05/2024 02:16:40 PM Interpretation: Performing Lab:[facility], [address] [place] [id number], Phone - [phone], [facility] Notes/Report: Glucose 82 70-99 mg/dL BUN 10 [...] Reviewed date:11/05/2024 02:16:30 PM Interpretation: Performing Lab:[facility], [address] [place] [id number], Phone - [phone], Director [facility] Notes/Report: Cholesterol, Total 152 100-199 mg/dL Triglycerides 68 0-149 mg/dL HDL Cholesterol 54 >39 mg/dL VLDL Cholesterol Yamil 13 5-40 mg/dL LDL Chol Calc (NIH) 85 0-99 mg/dL US TRANSVAGINAL NON-OB Reviewed date:02/17/2025 10:18:00 AM Interpretation: Performing Lab: Notes/Report: Cardiovascular Risk Assessme nt Reviewed date:11/05/2024 02:19:32 PM Interpretation: Performing Lab:[facility], [facility] [address] [place], [place] [id number], Phone - [phone], Director - Henok Notes/Report: Interpretation Note Supplemental report is available. PDF . Microalbumin/Creatinine Rati o, Random Urine-LC Reviewed date:11/05/2024 02:19:51 PM Interpretation: Performing Lab:[facility], [address] [place] [id number], Phone - [phone], Director - Henok Notes/Report: Creatinine, Urine 374.3 Not Estab. mg/dL Albumin, Urine 45.8 Not Estab. ug/mL Alb/Creat Ratio 12 0-29 mg/g creat Normal: 0 - 29 Moderately increased: 30 - 300 Severely increased: >300 Reason For Referral Reason Please fax consul t notes and/or results of procedure approved to [phone]. Thanks! ~Annual Eye Exam~ Diagnosis 1 Encounter for examin ation of eyes and vision without abnormal findings (Z01.00) Referral Organization [facility] Referring Provider First Name Paola Referring Provider Last Name Jonnathan Saul stewart Referring Provider Speciality General Pr actice Referred Provider [employer] Referred Provider Specialty Environmental Scientist Referral Priority Routine Reason Please fax consul t notes and/or results of procedure approved to [phone]. Thanks! ~Annual Eye Exam~ Diagnosis 1 Encounter for examin ation of eyes and vision without abnormal findings (Z01.00) Referral Organization [facility] Referring Provider First Name Paola Referring Provider Last Name Jonnathan Saul [email or web address] Referring Provider Speciality General Pr actice Referred Provider [employer] [employer] Referred Provider Specialty Environmental Scientist Referral Priority Routine Reason If additional scout ting is needed, please refer back to PCP. Please fax consult notes and/or results of procedure approved to [phone]. Thanks! ONE VISIT 23545 NEW PATIENT CONSULT ONLY - MANAGED CARE Diagnosis 1 Intramural leiomyoma of uterus (D25.1) Referral Organization [facility] ical P Referring Provider First Name [...] Status Risk Notes Problem Morbid obesity (disorder) (863626119) Morbid (severe) obesity due to excess calories (E66.01) Active confirmed Problem Hypertensive heart failure (57688322) Hypertensive heart disease with heart failure (I11.0) Active confirmed Problem Long-term current use of anticoagulant (478363029) Anticoagulant long-term use (Z79.01) Active confirmed Problem Body mass index 40+ - severely obese (288096780) Body mass index (BMI) of 40.0 to 44.9 in adult (Z68.41) Active confirmed Problem Type 2 diabetes mellitus with other specified complication, without long-term current use of insulin (E11.69) Active confirmed Problem History of heart valve repair with prosthesis (766572389697564) History of heart valve replacement (Z95.2) Active confirmed Problem Moderate major depression (200061) Moderate major depression (F32.1) Active confirmed Problem Heart failure (80685891) Congestive heart failure, unspecified HF chronicity, unspecified heart failure type (I50.9) Active confirmed Problem Fibroids (60716504) Fibroids (D21.9) Active confirmed Vital Signs Temperature 98.7 degrees Fahrenheit 02/17/2025 Respiratory Rate 19 /min 02/17/2025 Oximetry 98 % 02/17/2025 Blood pressure diastolic 80 mm Hg 02/17/2025 Height 5 ft 6 in in 02/17/2025 Blood pressure systolic 129 mm Hg 02/17/2025 Weight 265 lbs 02/17/2025 BMI 42.77 kg/m2 02/17/2025 Encounters Encounter Location Date Provider Diagnosis [facility] [address] [place] [address] 10/30/2024 Mary Ridley [facility] [address] [facility] [place] [address] 12/13/2024 Andrew Cage [facility] [address] [facility] [address] [place] [address] 10/25/2024 Paola Jonnathan Portillo Type 2 diabetes [...] findings Z01.00 and Flu vaccine need Z23 [address] [place] [address] 12/06/2024 Andrew Cage Fibroids D21.9 ; Urinary [...] of 40.0 to 44.9 in adult Z68.[address] [place] [address] 01/07/2025 Andrew Cage Hypertensive heart disease with [...] of 40.0 to 44.9 in adult Z68.[address] [place] [address] 01/14/2025 Andrew Cage Congestive heart failure, unspecified [...] of 40.0 to 44.9 in adult Z68.[address] [place] [address] 02/17/2025 Eyad Franks Intramural leiomyoma of uterus [...] of 40.0 to 44.9 in adult Z68.41 [facility] [address] [facility] [facility] [address] [place] [address] 04/30/[address] [facility] [address] [facility] [address] [place] [address] 12/09/2024 Andrew Cage Congestive heart failure, unspecified HF chronicity, unspecified heart failure type I50.9 [facility] [address] [address] 12/19/[address] [facility] [address] [facility] [address] [place] [address] 02/18/[address] [facility] [address] [facility] [address] [place] [address] 03/04/2025 [facility] S [address] [address] 03/28/2025 [facility] Congestive heart failure, unspecified HF chronicity, unspecified [...] unspecified heart failure type (ICD-10 - I50.9) [facility] 09/23/2024. Will continue to monitor. Strict [...] of heart valve replacement (ICD-10 - Z95.2) [facility] 09/23/2024. Will continue to monitor patient [...] Coverage Start Date Coverage End Date [employer] [facility] [address] [address] [place] [address] [phone] [id number] BELKYS GLOVER Self - patient is the insured Medical (General) History Medical History History ICD Code depression anxiety Complex post-traumatic stress disorder heart failure diabetic hypertension Surgical History Surgery Date(Month/Year) lvad heartmate 3 device 2023
--- OUTSIDE RECORDS SUMMARY | 2025-07-03 09:18 | XMS_ITS | Clinical Summary ---
Author Organization [facility] Address [address] [place] [id number] Care Team Providers Care Metal Milling Machine Operator Name Role Phone Unknown Primary Care Provider [phone] Allergies Active Allergy Reactions Criticality Noted Date Comments Cyclobenzaprine Unknown/Patient and Family Unable to Define Medium 11/01/2021 Medications ferrous gluconate (FERGON) 324 MG tablet Take 324 mg by mouth every morning with breakfast. Take 2 hours before or 4 hours after acid reducers. Active empagliflozin (JARDIANCE) 10 MG tabletIndicatio ns:HFrEF (heart failure with reduced ejection fraction) ([facility]) Take 1 tablet (10 mg total) by mouth daily. 30 tablet 11/10/2021 Active carvedilol (COREG) 12.5 MG tabletIndicatio ns:HFrEF (heart failure with reduced ejection fraction) ([facility]) Take 1 tablet (12.5 mg total) by mouth 2 (two) times a day. 60 tablet 11/10/2021 Active spironolactone (ALDACTONE) 25 MG tabletIndicatio ns:HFrEF (heart failure with reduced ejection fraction) ([facility]) Take 1 tablet (25 mg total) by mouth daily. 30 tablet 11/10/2021 Active torsemide (DEMADEX) 20 MG tabletIndicatio ns:HFrEF (heart failure with reduced ejection fraction) ([facility]) Take 2 tablets (40 mg total) by mouth daily. 60 tablet 11/10/2021 Active sacubitril-vals kylie (ENTRESTO) 24-26 mg per tabletIndicatio ns:HFrEF (heart failure with reduced ejection fraction) ([facility]) Take 1 tablet by mouth [...] PCV) 2014 Pap Smear (Ages 21-65) 01/02/2016 Influenza Vaccine 05/09/2025 COVID-19 Vaccine (1 - season) 2025 HIV Screening Completed 11/02/2021 HPV Vaccines (No Doses Required) Completed Procedures Procedure Name Priority Date/Time Associated Diagnosis Comments HIV 1/2 AG/AB CMIA REFLEX TO CONFIRMATION STAT 11/02/2021 4:50 PM EST from Last 3 Months or Most Recently Relevant to Health Maintenance Results * HIV 1/2 Ag/Ab CMIA Reflex to Confirmation (11/02/2021 4:50 PM EST) HIV 1/2 Ag/Ab CMIA Nonreactive Nonreactive 11/03/2021 11:32 AM EST [facility] Comment:Results show no evid ence of infection by HIV 1/2. If clinically indicated, repeat CMIA or test by nucleic acid amplification. Blood specimen (specimen) Serum specimen / Unknown 11/02/2021 4:50 PM EST 11/02/2021 5:14 PM EST Kehidne Moffett PA-C LAB BLOOD ORDERABLES Final Re sult [facility] [address] [place] [address] from Last 3 Months or Most Recently Relevant to Health Maintenance Insurance MEDICAID OUT OF STATE [facility] Advance Directives * Full Code (Latest Code Status on File) Date Activated Date Inactivated Comments 11/01/2021 3:56 PM Care Teams Metal Milling Machine Operator Relationship Specialty Start Date End Date Unknown Unknow Provider Address PCP - General 11/01/21
--- NOTE | 2025-07-03 10:37 | A.OFFPC_ITS ---
Intake Visit Reasons: back pain [phone] Allergies cyclobenzaprine (From Flexeril) Adverse Reaction (Unknown, Verified 05/21/25 10:12) syncope Medication List - Last Reconciled 07/03/25 by Murray Dumont MD acetaminophen 650 mg PO Q4H PRN apixaban (Eliquis) 5 mg PO BID aripiprazole 2 mg PO DAILY blood sugar diagnostic (FreeStyle Lite Strips) Use to check blood sugar daily once a day blood-glucose meter (FreeStyle Lite Meter kit) Use to check blood sugar daily buspirone 10 mg PO TID dapagliflozin propanediol (Farxiga) 10 mg PO DAILY lancets (FreeStyle Lancets) Check blood sugar once a day lisinopril 2.5 mg PO DAILY ondansetron 4 mg PO ONCE PRN 90 days pantoprazole 40 mg PO DAILY potassium chloride ER 10 mEq PO BID spironolactone 50 mg PO DAILY torsemide 60 mg PO trazodone 50 mg PO BEDTIME Tobacco use date assessed: 05/21/25 Dental Screening Dental Screen Date: 05/21/25 HPI back pain [id number] HPI Details History of Present Illness The patient is a 30-year-old female presenting with back pain. Back Pain: - Presented with complaints of back pain primarily located in the upper and lower back regions. - Described pain as feeling like knots, with a pulling sensation. - Upper back pain positioned around the upper right area, possibly involving trapezius muscle strain, exacerbated by carrying heavy books and a laptop due to commuting and moving. - Lower back pain described as near the tailbone, with concerns about potential scoliosis recurrence. - Previously attempted management with T ylenol, which has not provided adequate relief. - Avoids certain muscle relaxers like Fl exeril due to history of adverse effects related to blood pressure, specifically leading to syncope. - Tried tizanidine with little effect. - Not yet tried baclofen; plan to consid er use at night after receiving prescription. - Back pain possibly linked to recent in creased physical activity related to moving into a dorm. Medical History: - History of scoliosis. . Medications: - Tylenol for back pain. Social History: - Enrolled in college and has recently m edwina into dormitory. - Engages in frequent commuting, carryin g heavy academic materials including a laptop and books. Problem List - Upper back pain due to trapezius muscl e strain. - Lower back pain. - Scoliosis. - muscle spasms. Patient Instructions - Take baclofen, starting with half a ta blet at bedtime, to help with back pain. - Begin physical therapy as ordered. - avoid heavy lifting and carrying to he lp avoid exacerbation of back pain. - Follow up as needed based on improveme nt or persistence of symptoms. Review of Systems - General: No fever no chills - Neurological: No headaches no dizziness - Ear nose throat: No sore throat no hearing difficulty no ear pain - Cardiovascular: No syncope, no chest pain, no palpitations - Gastrointestinal: No nausea vomiting or diarrhea PFSH Medical History Congestive heart failure Nausea Surgical History History of surgery Family History Father Diabetes mellitus Mother No problems noted. Maternal Grandfather No problems noted. Maternal Grandmother No problems noted. Paternal Grandmother Diabetes mellitus Paternal Grandfather No problems noted. Brother No problems noted. Brother No problems noted. Sister No problems noted. Social History Housing: Apartment Alcohol intake: never Patient Tobacco Use Status: Never used Tobacco e-Cigarette/Vaping Use: Never Used Second Hand Smoke Exposure: No Current occupational status: unemployed Cognitive needs: No Hearing needs: No Vision needs: No Questionnaire Thrive Questionnaire Date Thrive assessed: 05/18/25 I am a: Patient What is your living situation today?: I do not have a steady places to live I am temporarily staying with others Within the past 12 months, did the food you bought not last and you didn't have the money to get more?: Often true Within the past 12 months, did you worry whether your food would run out before you got money to buy more?: Sometimes True Do you have trouble paying for medicines?: No Do you have trouble getting transportation to medical appointments?: Yes Do you have trouble paying your heating and electricity bill?: No Do you have trouble taking care of your child, family member or friend?: No Do you have trouble with day-to-day activities such as bathing, preparing meals, shopping, managing finances, etc.?: No Are you currently unemployed and looking for a job?: No Are you interested in more education?: Yes Currently or been in a relationship where the following occur: No concerns reported THRIVE Score: 4 BHARGAVI-7 AMB Questionnaire BHARGAVI-7 Date BHARGAVI - 7 assessed: 05/21/25 Source: Developed by Drs. Lex Rocha, Marianne Trevino, Eitan Davila and colleagues, with an educational abigail from [employer]. Physical exam (Primary Care) Tobacco/Smoking Status: Tobacco use Status Tobacco use date assessed 05/21/25 07/03/25 10:37 Patient Tobacco Use Status Never used Tobacco 07/03/25 10:37 e-Cigarette/Vaping Use Never Used 07/03/25 10:37 Thrive Assessment: Date of Thrive Assessment Date Thrive assessed 05/18/25 07/03/25 10:37 Currently or been in a relationship where the following occur: No concerns re ported Telehealth Telehealth Telehealth Platform: [facility] Location of provider rendering services: practice address Location of patient: address on file Patient Identification confirmed using: Name, : Yes Telehealth method: video (attempted) Patient verbally consented to treatment: Yes Patient verbally consented to billing insurance company: Yes Patient informed of any privacy concerns related to visit: Yes Minutes spent on Phone/Video with Pt.: 13 Coding Level of Care Code Tele Est Pt Level 3 (06008) Diagnoses Lumbar paraspinal muscle spasm M62.830 Lumbar pain M54.5 Strain of right trapezius muscle, initial encounter S46.811A Encounter type: initial encounter Assessment & Plan Assessment & Plan (1) Lumbar paraspinal muscle spasm: Code(s): M62.830 - Muscle spasm of back Category: Medical (2) Lumbar pain: Code(s): M54.5 - Low back pain Category: Medical (3) Strain of right trapezius muscle: Code(s): S46.811A - Strain of other muscles, fascia and tendons at shoulder and upper arm level, right arm, initial encounter Category: Medical Qualifiers: Encounter type: initial encounter Qualified Code(s): S46.811A - Strain of other muscles, fascia and tendons at shoulder and upper arm level, right arm, initial encounter Plan History of Present Illness The patient is a 30-year-old female presenting with back pain. Back Pain: - Presented with complaints of back pain primarily located in the upper and lower back regions. - Described pain as feeling like knots, with a pulling sensation. - Upper back pain positioned around the upper right area, possibly involving trapezius muscle strain, exacerbated by carrying heavy books and a laptop due to commuting and moving. - Lower back pain described as near the tailbone, with concerns about potential scoliosis recurrence. - Previously attempted management with Tylenol, which has not provided adequate relief. - Avoids certain muscle relaxers like Flexeril due to history of adverse effects related to blood pressure, specifically leading to syncope. - Tried tizanidine with little effect. - Not yet tried baclofen; plan to consider use at night after receiving prescription. - Back pain possibly linked to recent increased physical activity related to moving into a dorm. Medical History: - History of scoliosis. . Medications: - Tylenol for back pain. Social History: - Enrolled in college and has recently moved into dormitory. - Engages in frequent commuting, carrying heavy academic materials including a laptop and books. Problem List - Upper back pain due to trapezius muscle strain. - Lower back pain. - Scoliosis. - muscle spasms. Patient Instructions - Take baclofen, starting with half a tablet at bedtime, to help with back pain. - Begin physical therapy as ordered. - avoid heavy lifting and carrying to help avoid exacerbation of back pain. - Follow up as needed based on improvement or persistence of symptoms. Orders: Orders PT Evaluation and Treatment Today M54.5 - Low back pain, S46.811A - Strain of other muscles, fascia and tendons at shoulder and upper arm level, right arm, initial encounter Medications: New baclofen 5 mg PO BEDTIME 14 tabs 0RF
== END 2025-07-03 09:28 | disposition home or self-care (01) ==
PROVIDERS: PCP Internal Medicine; Visit Provider Internal Medicine
DX: M62.830 Muscle spasm of back (principal); M54.50 Low back pain, unspecified; S46.811A Strain of other muscles, fascia and tendons at shoulder and upper arm level, right arm, initial encounter

== ENCOUNTER 2025-07-25 11:14 | Outpatient (AMB) | payer MEDICARE, MEDICAID, SELFPAY ==
--- OUTSIDE RECORDS SUMMARY | 2025-01-03 06:15 | XMS_ITS ---
Author Organization [facility], [facility]. Address [address] [place] [address] Care Team Providers Care Autos Disassembler Name Role Phone Herbert Sinha Primary Care Provider Andrew Muñoz [phone] REASON FOR VISIT F/UP RESULTS Encounters Encounter Location Date Provider Diagnosis [address] [place] [address] 01/03/2025 Andrew Cage Plan Of Treatment No Information Progress Notes * BELKYS GLOVERDOB:1995 ( 30 yo F)Acc No.[id number]:01/03/2025 Progress Notes Patient: Frandy WALTERSBELKYS Appointment Provider: BRANDON Philip :1995 A ge:30 Y S ex:Female Date:01/03/2025 Address:[address] [place], [place] [id number] Pcp:Herbert Sinha Subjective: * Chief Complaints: * 1 . F/UP RESULTS. * Medical History: Objective: * Vitals: Assessment: Plan: * Treatment: * Images: Care Plan Details* * Electronic signature of Vidal Cage APRN on 07/25/2025 at 02:00 PM EDT Sign off status: Pending * Appointment Provider: BRANDON Philip Date: 0 01/03/2025 Generated for Printing/Faxing/eTransmitting on: 1 02:00 PM EDT
--- OUTSIDE RECORDS SUMMARY | 2025-01-07 04:00 | XMS_ITS ---
Author Organization [facility], [facility]. Address [address] [place] [address] Care Team Providers Care Air And Water Tester Name Role Phone Herbert Sinha Primary Care Provider [phone] Andrew Muñoz [phone] REASON FOR VISIT rib pain Encounters Encounter Location Date Provider Diagnosis [address] [place] [address] 01/07/2025 Andrew Cage Plan Of Treatment No Information Progress Notes * BELKYS GLOVERDOB:1995 ( 30 yo F)Acc No.[id number]:01/07/2025 Physical Visit Patient: BELKYS BORRERO Appointment Provider: BRANDON Philip :1995 A ge:30 Y S ex:Female Date:01/07/2025 Address:[address] [place], [place] [id number] Pcp:Herbert Sinha Subjective: * Chief Complaints: * 1 . Rib pain. * Medical History: Objective: * Vitals: Assessment: Plan: * Treatment: Care Plan: * Problems: * Images: * Electronic signature of Vidal Cage APRN on 07/25/2025 at 02:00 PM EDT Sign off status: Pending * Appointment Provider: BRANDON Philip Date: 0 01/07/2025 Generated for Printing/Faxing/eTransmitting on: 1 02:00 PM EDT
--- OUTSIDE RECORDS SUMMARY | 2025-01-17 07:30 | XMS_ITS ---
Author Organization [facility], [facility]. Address [address] [place] [address] Care Team Providers Care Painter Barrel Name Role Phone Herbert Sinha Primary Care Provider Andrew Muñoz Unavailable [phone] Mary Ridley Unavailable [phone] REASON FOR VISIT 3 month f/u/ REFILL Encounters Encounter Location Date Provider Diagnosis [address] [place] [address] 01/17/2025 Mary Ridley Plan Of Treatment No Information Progress Notes * BELKYS GLOVERDOB:1995 ( 30 yo F)Acc No.[id number]:01/17/2025 Progress Notes Patient: BELKYS BORRERO Provider: Saul Ridley MD :1995 A ge:30 Y S ex:Female Date:01/17/2025 Address:[address] [place], [place] [id number] Pcp:Herbert Sinha Subjective: * Chief Complaints: * 1 . 3 month f/u/ REFILL. * Medical History: Objective: * Vitals: Assessment: Plan: * Treatment: * Images: Care Plan Details* * Electronic signature of Gemma Ridley MD on 07/25/2025 at 02:00 PM EDT Sign off status: Pending * Provider: Saul Ridley MD Date: 0 01/17/2025 Generated for Printi ng/Faxing/eTransmitting on: 1 02:00 PM EDT
--- OUTSIDE RECORDS SUMMARY | 2025-01-22 07:30 | XMS_ITS ---
Author Organization [facility], [facility]. Address [address] [place] [address] Care Team Providers Care Platform Stapler Name Role Phone Herbert Sinha Primary Care Provider [phone] Andrew Muñoz [phone] REASON FOR VISIT F/UP REFILL Encounters Encounter Location Date Provider Diagnosis [address] [place] [address] 01/22/2025 Andrew Cage Plan Of Treatment No Information Progress Notes * BELKYS GLOVERDOB:1995 ( 30 yo F)Acc No.[id number]:01/22/2025 Progress Notes Patient: Frandy WALTERSBELKYS Appointment Provider: BRANDON Philip :1995 A ge:30 Y S ex:Female Date:01/22/2025 Address:[address] [place], [place] [id number] Pcp:Herbert Sinha Subjective: * Chief Complaints: * 1 . F/UP REFILL. * Medical History: Objective: * Vitals: Assessment: Plan: * Treatment: * Images: Care Plan Details* * Electronic signature of Vidal Cage APRN on 07/25/2025 at 02:01 PM EDT Sign off status: Pending * Appointment Provider: BRANDON Philip Date: 0 01/22/2025 Generated for Printing/Faxing/eTransmitting on: 1 02:01 PM EDT
--- OUTSIDE RECORDS SUMMARY | 2025-02-11 05:45 | XMS_ITS ---
Author Organization [facility], [facility] Address [address] [place] [address] Care Team Providers Care Boat Joiner Name Role Phone Herbert Sinha Primary Care Provider Andrew Muñoz Unavailable [phone] Eyad Gordon Unavailable REASON FOR VISIT F/UP Encounters Encounter Location Date Provider Diagnosis [address] [place] [address] 02/11/2025 Eyad Franks Plan Of Treatment No Information Progress Notes * BELKYS GLOVERDOB:1995 ( 30 yo F)Acc No.[id number]:02/11/2025 Progress Notes Patient: BELKYS BORRERO Appointment Provider: EMIR Coronel :1995 A ge:30 Y S ex:Female Date:02/11/2025 Address:[address] [place], [place] [id number] Pcp:Herbert Sinha Subjective: * Chief Complaints: * 1 . F/UP. * Medical History: Objective: * Vitals: Assessment: Plan: * Treatment: * Images: Care Plan Details* * Electronic signature of Eyad Franks APRN on 07/25/2025 at 02:01 PM EDT Sign off status: Pending * Appointment Provider: EMIR Coronel Date: 0 02/11/2025 Generated for Printi ng/Faxing/eTransmitting on: 1 02:01 PM EDT
--- OUTSIDE RECORDS SUMMARY | 2025-04-14 04:15 | XMS_ITS ---
Author Organization [facility], [facility] Address [address] [place] [address] Care Team Providers Care Inspector Toys Name Role Phone Herbert Sinha Primary Care Provider [phone] Andrew Muñoz Unavailable [phone] Eyad Gordon Unavailable [phone] REASON FOR VISIT PER DR Encounters Encounter Location Date Provider Diagnosis [address] [place] [address] 04/14/2025 Eyad Franks Plan Of Treatment No Information Progress Notes * BELKYS GLOVERDOB:1995 ( 30 yo F)Acc No.[id number]:04/14/2025 Progress Notes Patient: Frandy WALTERS BELKYS Appointment Provider: EMIR Coronel :1995 A ge:30 Y S ex:Female Date:04/14/2025 Address:[address] [place], [place] [id number] Pcp:Herbert Sinha Subjective: * Chief Complaints: * 1 . PER DRJeniffer * Medical History: Objective: * Vitals: Assessment: Plan: * Treatment: * Images: Care Plan Details* * Electronic signature of Eyad Franks APRN on 07/25/2025 at 02:00 PM EDT Sign off status: Pending * Appointment Provider: EMIR Coronel Date: 0 04/14/2025 Generated for Printi ng/Faxing/eTransmitting on: 1 02:00 PM EDT
--- OUTSIDE RECORDS SUMMARY | 2025-04-22 11:15 | XMS_ITS ---
Author Organization [facility] Frandy cortez Location Address [address] [address] Care Team Providers Care Him Clerk Name Role Phone Madelin De Santiago [phone] REASON FOR VISIT new gynecologic visit Encounters Encounter Location Date Provider Diagnosis [facility] [place] Location [address] [address] 04/22/2025 Madelin De Santiago Plan Of Treatment No Information Progress Notes * BELKYS GLOVERDOB:1995 ( 30 yo F)Acc No.[id number]:04/22/2025 Progress Notes Patient: BELKYS BORRERO Provider: Hailey De Santiago NP :1995 A ge:30 Y S ex:Female Date:04/22/2025 [facility] Subjective: * Chief Complaints: * N ew gynecologic visit * Electronic signature of Ellis De Santiago APRN on 07/25/2025 at 02:01 PM EDT Sign off status: Pending * Provider: Hailey De Santiago NP Date: 0 04/22/2025 Generated for Williei ng/Faxing/eTransmitting on: 1 02:01 PM EDT
--- NOTE | 2025-07-25 11:31 | MHC.PC.OV ---
Vital Signs 07/25/25 11:32 Height 5 ft 8 in Weight 263 lb BMI 40.0 BP 126/80 Blood Pressure Location Rt brachial Position Sitting Pulse 76 Pulse Source Pulse Oximeter Pulse Oximetry (%) 100 Oxygen Delivery Method Room Air Intake Visit Reasons: fup, back pain Allergies cyclobenzaprine (From Flexeril) Adverse Reaction (Unknown, Verified 07/25/25 11:35) syncope Medication List - Last Reconciled 07/25/25 by Murray Dumont MD acetaminophen 650 mg PO Q4H PRN apixaban (Eliquis) 5 mg PO BID aripiprazole 2 mg PO DAILY baclofen 5 mg PO BEDTIME blood sugar diagnostic (FreeStyle Lite Strips) Use to check blood sugar daily once a day blood-glucose meter (FreeStyle Lite Meter kit) Use to check blood sugar daily buspirone 10 mg PO TID dapagliflozin propanediol (Farxiga) 10 mg PO DAILY lancets (FreeStyle Lancets) Check blood sugar once a day lisinopril 2.5 mg PO DAILY ondansetron 4 mg PO ONCE PRN 90 days pantoprazole 40 mg PO DAILY potassium chloride ER 10 mEq PO BID spironolactone 50 mg PO DAILY torsemide 60 mg PO trazodone 50 mg PO BEDTIME Tobacco use date assessed: 05/21/25 Dental Screening Dental Screen Date: 05/21/25 HPI fup, back pain HPI Details History of Present Illness The patient is a 30-year-old female presenting with medication coverage issues and chronic back pain. Chronic Back Pain: - Patient reports persistent chronic back pain located on the right side. - Baclofen was prescribed for management, but the patient was unable to obtain the medication due to pharmacy coverage issues. - Patient states the pain persists without any medication alleviation. Medical History: - Severe cardiomyopathy with stable congestive heart failure. - Diet-controlled diabetes mellitus, with current hemoglobin A1c of 5.0. - Morbid obesity with a BMI of 40.0. - Severe depression. - Chronic gastroesophageal reflux disease (GERD). - Chronic back pain. Social History: - Currently a student, experiencing increased tiredness due to midterm exams. - Resides in a single dormitory with specific accommodations due to medical equipment needs, including a private bathroom to minimize infection risk. - Uses an elevator and is instructed to avoid more than 10 steps on stairs. - Adheres to a low sodium and low sugar diet. Diagnostic Results: - Labs: - Hemoglobin A1c: 5.0% Problem List - Severe cardiomyopathy - Congestive heart failure (stable) - Diet-controlled diabetes mellitus - Morbid obesity - Severe depression - Chronic gastroesophageal reflux disease (GERD) - Chronic back pain - Vaccination due for tetanus Plan - Chronic back pain: Address prescription coverage issues for Baclofen by ensuring the pharmacy is informed about insurance coverage and resubmit prescription for a 90-day supply. - Cardiomyopathy and heart failure: Continue current heart failure management regimen. No acute changes discussed; continue regular follow-ups with the general education instructor. - Diabetes mellitus: Continue current diet-controlled management with ongoing monitoring of hemoglobin A1c levels. Current A1c is well-controlled at 5.0%. - Obesity: Maintain current dietary restrictions and monitor weight management strategies. - Depression: Continue current medications and follow up regularly with psychiatry; next visit scheduled for the following day. - GERD: Continue pantoprazole. - Vaccinations: Administer tetanus vaccine, and recommend pneumococcal vaccination two weeks after the tetanus due to heart condition risk factors. - Ensure all medical and equipment access restrictions are in place at her dormitory living arrangements. Review of Systems - General: No fever no chills - Neurological: No headaches no dizziness - Ear nose throat: No sore throat no hearing difficulty no ear pain - Cardiovascular: No syncope, no chest pain, no palpitations - Gastrointestinal: No nausea vomiting or diarrhea Physical Exam General: No acute distress HEENT: No acute findings Neck: Supple Respiratory system: Unable to assess due to loud heart equipment Cardiovascular: S1-S2 Gastrointestinal: No pain Extremities: No new findings STOREROOM SUPERVISOR: Alert awake oriented x3 motor intact Skin: Normal turgor [facility] Medical History Congestive heart failure Nausea Surgical History History of surgery Family History Father Diabetes mellitus Mother No problems noted. Maternal Grandfather No problems noted. Maternal Grandmother No problems noted. Paternal Grandmother Diabetes mellitus Paternal Grandfather No problems noted. Brother No problems noted. Brother No problems noted. Sister No problems noted. Social History Housing: Apartment Alcohol intake: never Patient Tobacco Use Status: Never used Tobacco e-Cigarette/Vaping Use: Never Used Second Hand Smoke Exposure: No Current occupational status: unemployed Cognitive needs: No Hearing needs: No Vision needs: No Questionnaire Thrive Questionnaire Date Thrive assessed: 05/18/25 I am a: Patient What is your living situation today?: I do not have a steady places to live I am temporarily staying with others Within the past 12 months, did the food you bought not last and you didn't have the money to get more?: Often true Within the past 12 months, did you worry whether your food would run out before you got money to buy more?: Sometimes True Do you have trouble paying for medicines?: No Do you have trouble getting transportation to medical appointments?: Yes Do you have trouble paying your heating and electricity bill?: No Do you have trouble taking care of your child, family member or friend?: No Do you have trouble with day-to-day activities such as bathing, preparing meals, shopping, managing finances, etc.?: No Are you currently unemployed and looking for a job?: No Are you interested in more education?: Yes Currently or been in a relationship where the following occur: No concerns reported THRIVE Score: 4 BHARGAVI-7 AMB Questionnaire BHARGAVI-7 Date BHARGAVI - 7 assessed: 05/21/25 Source: Developed by Drs. Lex Rocha, Marianne Trevino, Eitan Davila and colleagues, with an educational abigail from [employer]. Physical exam (Primary Care) Vital Signs: Last Vital Signs Pulse 76 07/25/25 11:32 BP 126/80 07/25/25 11:32 Pulse Ox 100 07/25/25 11:32 Oxygen Delivery Method Room Air 07/25/25 11:32 BMI result Body Mass Index 40.0 Tobacco/Smoking Status: Tobacco use Status Tobacco use date assessed 05/21/25 07/25/25 11:33 Patient Tobacco Use Status Never used Tobacco 07/25/25 11:33 e-Cigarette/Vaping Use Never Used 07/25/25 11:33 Thrive Assessment: Date of Thrive Assessment Date Thrive assessed 05/18/25 07/25/25 11:33 Currently or been in a relationship where the following occur: No concerns reported Results AMB Hemoglobin A1c AMB Hemoglobin A1c 5.0 % Last Edit by Jamie Sue CMA on 07/25/25 11:51 Immunizations Boostrix Tdap 2.5 Lf unit-8 mcg-5 Lf/0.5 mL intramuscular syringe Performing Provider: Murray Dmuont MD Performing [place] [facility] Administered by: Jamie Sue CMA on 07/25/25 12:02 Dose Route Admin Location Dispensed Lot Number Expiration Date N[employer] Die Repair Machinist 0.5 mL IM Left Deltoid 0.5 mL [id number] 08/01/27 [id number] [employer] Total Dispensed Waste 0.5 mL 0 % VIS Given Date VIS Provided VIS Publication Date 07/25/25 Single Vaccine 21 Eligibility Eligibility Date Funding Source Not [facility] Eligible 07/25/25 Private Results Reviewed Results Reviewed: Laboratory Last Values Hgb A1c (Clinic) 5.0 % (4.0-6.0) 07/25/25 11:51 Coding Level of Care Code Est Pt Level 4 (95267) Diagnoses Diabetes 1.5, managed as type 2 E13.9 Lumbar paraspinal muscle spasm M62.830 Levoscoliosis of lumbar spine M41.86 Left ventricular assist device present Z95.811 Ejection fraction < 50% R94.30 History of implantable cardioverter-defibrillator (ICD) placement Z95.810 Hypertension, essential I10 Recurrent major depressive disorder, in partial remission F33.41 Active/Remission status: in partial remission Assessment & Plan Assessment & Plan (1) Diabetes 1.5, managed as type 2: Code(s): E13.9 - Other specified diabetes mellitus without complications Category: Medical (2) Lumbar paraspinal muscle spasm: Code(s): M62.830 - Muscle spasm of back Category: Medical (3) Levoscoliosis of lumbar spine: Code(s): M41.86 - Other forms of scoliosis, lumbar region Category: Medical (4) Left ventricular assist device present: Code(s): Z95.811 - Presence of heart assist device Category: Medical (5) Ejection fraction < 50%: Code(s): R94.30 - Abnormal result of cardiovascular function study, unspecified Category: Medical (6) History of implantable cardioverter-defibrillator (ICD) placement: Code(s): Z95.810 - Presence of automatic (implantable) cardiac defibrillator Category: Surgical (7) Hypertension, essential: Code(s): I10 - Essential (primary) hypertension Category: Medical (8) Major depression, recurrent: Code(s): F33.9 - Major depressive disorder, recurrent, unspecified Category: Medical Qualifiers: Active/Remission status: in partial remission Qualified Code(s): F33.41 - Major depressive disorder, recurrent, in partial remission Plan . Chronic Back Pain: - Patient reports persistent chronic back pain located on the right side. - Baclofen was prescribed for management, but the patient was unable to obtain the medication due to pharmacy coverage issues. - Patient states the pain persists without any medication alleviation. Medical History: - Severe cardiomyopathy with stable congestive heart failure. - Diet-controlled diabetes mellitus, with current hemoglobin A1c of 5.0. - Morbid obesity with a BMI of 40.0. - Severe depression. - Chronic gastroesophageal reflux disease (GERD). - Chronic back pain. Social History: - Currently a student, experiencing increased tiredness due to midterm exams. - Resides in a single dormitory with specific accommodations due to medical equipment needs, including a private bathroom to minimize infection risk. - Uses an elevator and is instructed to avoid more than 10 steps on stairs. - Adheres to a low sodium and low sugar diet. Diagnostic Results: - Labs: - Hemoglobin A1c: 5.0% Problem List - Severe cardiomyopathy - Congestive heart failure (stable) - Diet-controlled diabetes mellitus - Morbid obesity - Severe depression - Chronic gastroesophageal reflux disease (GERD) - Chronic back pain - Vaccination due for tetanus Plan - Chronic back pain: Address prescription coverage issues for Baclofen by ensuring the pharmacy is informed about insurance coverage and resubmit prescription for a 90-day supply. - Cardiomyopathy and heart failure: Continue current heart failure management regimen. No acute changes discussed; continue regular follow-ups with the general education instructor. - Diabetes mellitus: Continue current diet-controlled management with ongoing monitoring of hemoglobin A1c levels. Current A1c is well-controlled at 5.0%. - Obesity: Maintain current dietary restrictions and monitor weight management strategies. - Depression: Continue current medications and follow up regularly with psychiatry; next visit scheduled for the following day. - GERD: Continue pantoprazole. - Vaccinations: Administer tetanus vaccine, and recommend pneumococcal vaccination two weeks after the tetanus due to heart condition risk factors. - Ensure all medical and equipment access restrictions are in place at her dormitory living arrangements. Orders: Orders AMB Hemoglobin A1c Today Z13.9 - Encounter for screening, unspecified TDaP Immunization Today Z23 - Encounter for immunization Medications: Changed From baclofen 5 mg PO BEDTIME 14 tabs 0RF To baclofen 5 mg PO BEDTIME PRN 90 tabs 0RF muscle spasm
[2025-07-25 11:32] VITALS: BP 126/80; PULSE 76; O2SAT 100; BMI 40.0
--- OUTSIDE RECORDS SUMMARY | 2025-07-25 14:00 | XMS_ITS | Encounter Summary ---
Author Organization [facility] Address [address] [place] [id number] Care Team Providers Care Junior High Math Teacher Name Role Phone Murray Dumont MD Primary Care Provider [phone] Encounter Details Date Type Department Care Team (Late st Contact Info) Description 11/15/2023 Abstract Congestive Heart Failure Program at [address] [place] [address] Referring, No Social History Tobacco Use Types [...] on filedocumented in this encounter Care Teams Junior [employer] Math Teacher Relationship Specialty Start Date End Date uMrray Dumont MD [address] [place] [address] [place] [id number] PCP - General Internal Medicine 11/15/23 documented as of this encounter
--- OUTSIDE RECORDS SUMMARY | 2025-07-25 14:00 | XMS_ITS | Clinical Summary ---
Author Organization [address] [address] Phone Care Team Providers Care Manager Cargo Name Role Phone Murray Dumont MD Primary Care Provider [phone] Social History Tobacco Use Types Packs/Day Years [...] GENERIC COMMERCIAL GENERIC COMMERCIAL GENERIC Care Teams Manager Cargo Relationship Specialty Start Date End Date Murray Dumont MD [address] [facility] [place] [address] PCP - General Internal Medicine 11/15/23
--- OUTSIDE RECORDS SUMMARY | 2025-07-25 14:00 | XMS_ITS | Patient Health Record ---
Author Organization [facility] Location Address [address] [place] [address] Care Team Providers Care Apparel Trimmings Sales Representative Name Role Phone Madelin De Santiago Unavailable [phone] Reason For Referral No Information Plan Of Treatment No Information Insurance Providers Payer Name Payer Address Payer Phone Subscriber Number Group Number Insured Name Patient Relationship to Insured Coverage Start Date Coverage End Date A[employer] Medicaid [facility] [address] [address] [place] [address] [phone] [id number] BELKYS GLOVER Self - patient is the insured
--- OUTSIDE RECORDS SUMMARY | 2025-07-25 14:00 | XMS_ITS | Encounter Summary ---
Author Organization [facility] Address 800 [facility] [address] [place] [address] Care Team Providers Care Rope Twisting Machine Operator Name Role Phone Murray Dumont MD Primary Care Provider [phone] [employer] aircraft structural fitter Unavailable Unavailable Tesha SpencerD Unavailable [phone] Daren Chaidez MD Unavailable Nilda Navarrete Unavailable [phone] Elijah Mcbride MD Unavailable [phone] Hyun Chappell MD Unavailable Reason for Visit * Reason Comments Med Refill Encounter Details Date Type Department Care Team (Late st Contact Info) Description 09/27/2024 Refill [facility] Cardiac Subspecialty [address] [address] Catarina Riley, EUGENIO 800 [place] [address] Awaiting organ transplant Social History [...] place to sleep or slept in a long-term (including now)? No 05/15/2024 Comments No Sex and Gender Information Value Date Recorded Sex Assigned at Female 01/13/2022 3:44 PM EDT Legal Sex Female 3:04 PM EDT Gender Identity Female 01/13/2022 3:44 PM EDT Sexual Orientation Bisexual 06/09/2023 11 :54 PM EDT documented as of this encounter Functional Status [...] Care Team (Late st Contact Info) Description 08/15/2025 10:00 AM EST Office Visit [facility] 91 [facility] 208 [place] [address] Elke Lomeli PA 41 [place] [address] 09/19/2025 11:30 AM EST Office Visit [facility] Cardiac Subspecialty [address] [address] Catarina Riley, EUGENIO 800 [place] [address] 12/05/2025 11:30 AM EST Telemedicine [facility] Neurology [place] [address] [facility] [address] [place] [address] Mariah Dickson MD 170 [place] [address] documented as of this encounter Visit Diagnoses Diagnosis Awaiting organ transplant Awaiting organ transplant status documented in this encounter Additional Health Concerns Assessment Noted Time PHQ-9 Depression Total Score: 4 04/14/20 23 1:04 PM EDT documented as of this encounter Care Teams Rope Twisting Machine Operator Relationship Specialty Start Date End Date Murray Dumont MD [address] [place] [address] PCP - General 01/13/22 [employer], aircraft structural fitter Social Media Sr Strategy Manager Pharmacy 03/29/23 01/14/25 Tesha Spencer, PharmD 800 [place] [address] Pharmacist Pharmacy 01/18/24 01/14/25 Daren Chaidez MD [address] [place] [address] [place] [address] Electronic Bench Technician/Gynecologi 02/06/24 Nilda Navarrete PA 800 [place] [address] 1st Contact Physician Trials Manager 02/16/24 Elijah Mcbride MD 1600 [place] [address] Felt Hat Steamer Senior Enterprise Architect 02/11/25 Hyun Chappell MD 800 [facility] [address] [place] [address] Consulting Physician Advanced Heart Failure and Transplant Cardiology 06/04/25 documented as of this encounter
--- OUTSIDE RECORDS SUMMARY | 2025-07-25 14:00 | XMS_ITS ---
Author Organization [facility] Address 800 [facility] [address] [place] [address] Care Team Providers Care Commercial Correspondent Name Role Phone Murray Dumont MD Primary Care Provider Daren Chaidez MD Unavailable Nilda Navarrete PA Unavailable [phone] Elijah Mcbride MD Unavailable [phone] Hyun Chappell MD Unavailable RxSp Cardiology Status:Enrolled (Active) Start date:06/05/2025 Enrollment date:06/06/2025 Current support & services provided:Clinical Management, Refill Management, Benefits and PA Management Primary medications:tirzepatide (Active) Continued Care and Services Coordination
--- OUTSIDE RECORDS SUMMARY | 2025-07-25 14:01 | XMS_ITS | Encounter Summary ---
Author Organization [facility] Address 800 [facility] [address] [place] [address] Care Team Providers Care A Class Lineman Name Role Phone Murray Dumont MD Primary Care Provider [phone] Daren Chaidez MD Unavailable Nilda Navarrete Unavailable [phone] Elijah Mcbride MD Unavailable [phone] Hyun Chappell MD Unavailable Encounter Details Date Type Department Care Team (Late st Contact Info) Description 07/18/2025 Telephone [facility] Cardiac Subspecialty [address] [address] Dwain Walton LICSW Social History Tobacco Use Types Packs/Day Years Used Date Smoking Tobacco: Never Smokeless Tobacco: Never Alcohol Use Standard Drinks/Week Comments Not Currently 0 (1 standard drink = 0.6 oz pure alcohol) only on holidays , one drink. [facility] Utilities Answer Date Recorded In the past 12 months has [employer], gas, oil, or water [employer] threatened to shut off services in your [...] to sleep or slept in a senior care (including now)? No 05/15/2024 Housing Stability Vital Sign Answer Brayan e Recorded Unable to Pay for Housing in the Last Year Not o n file 05/14/2025 Number of Times Moved in the Last Year Not on fi le 05/14/2025 At any time in the past 12 m [facility], were you homeless or living in a senior care (including now)? No 05/14/2025 Comments No Sex [...] Entry Date Author No 05/14/2025 6:16 AM EDT Marcellus Moyer RN documented in this encounter Miscellaneous Notes * Telephone Encounter - BHAVNA Gerber - 07/18/2025 11:31 AM EDT SW RS consulted by Nusrat Murray LCSW to contact pt regarding a PT-1 referral for her new address, updated phone number, and a new PT-1 referral for appointments to [facility] at [address] [place] [address]. This RS successfully contacted pt by phone and confirmed the request. Pt reported that she is currently residing at her school's dormitory at [address] [place] [address] and has changed her phone number to [phone]. Pt stated that she will remain at this location until she secures permanent housing. Pt expressed that the process has been challenging and that she has applied for RAFT and CHAMP assistance programs.RS informed pt that she will need [facility] directly to update her address ad phone number with them. Pt also inquired about additional housing and food resources that SW may have. Pt reported receiving EBT food stamps and SSI benefits. RS provided websites for the [employer] [facility], [employer], and the [employer] who are able to help with Housing; RS shared websites for [employer], [employer], and [employer] who are able to helpwith Food. RS successfully submitted PT-1 referrals, PT-1 ID #[id number] (to [facility]) and PT-1 ID #[id number] (to [facility]). PT-1 information and available housing and food resources were sent to pt via email. No other RS needs at this time. documented in this encounter Plan of Treatment Upcoming Encounters Date Type Department Care Team (Late st Contact Info) Description 08/15/2025 10:00 AM EST Office Visit [facility] Wellness 91 [facility] 208 [place] [address] Elke Lomeli PA 41 [place] [address] 09/19/2025 11:30 AM EST Office Visit [facility] Cardiac Subspecialty 860 [facility] 6th [place] [phone] Catarina Riley, EUGENIO [address] [place] [address] 12/05/2025 11:30 AM EST Telemedicine [facility] Neurology [place] 170 [facility] 258 [place] [phone] Mariah Dickson MD 170 [place] [address] documented as of this encounter Visit Diagnoses Not on filedocumented in this encounter Additional Health Concerns Assessment Noted Time PHQ-9 Depression Total Score: 4 04/14/20 23 1:04 PM EDT documented as of this encounter Care Teams A Class Lineman Relationship Specialty Start Date End Date Murray Dumont MD [address] [place] [address] PCP - General 01/13/22 Daren Chaidez MD [address] [place] [address] Provider Relations Coordinator/Gynecologi st 02/06/24 Nilda Navarrete PA [address] [place] [address] 1st Contact Physician Finishing Area Supervisor 02/16/24 Elijah Mcbride MD 1600 [place] [address] Before School Babysitter Health Sciences Department Chair 02/11/25 Hyun Chappell MD [address] [address] Consulting Physician Advanced Heart Failure and Transplant Cardiology 06/04/25 documented as of this encounter
--- OUTSIDE RECORDS SUMMARY | 2025-07-25 14:01 | XMS_ITS | Encounter Summary ---
Author Organization [facility] Address 800 [facility] 520 [place] [address] Care Team Providers Care Tankage Supervisor Name Role Phone Murray uDmont MD Primary Care Provider [phone] [employer] call center representative Unavailable Unavailable Tesha SpencerD Unavailable Draen Chaidez MD Unavailable Nilda Navarrete Unavailable Elijah Mcbride MD Unavailable [phone] Hyun Chappell MD Unavailable Encounter Details Date Type Department Care Team (Late st Contact Info) Description 05/24/2023 Orders Only [facility] Cardiac Subspecialty [address] [address] Theodora Wilkins, EUGENIO 800 [place] [address] Chronic systolic heart failure Social History Tobacco [...] Description 08/15/2025 10:00 AM EST Office Visit [facility]ness 91 [facility] 208 [place] [address] Elke Lomeli PA [address] [place] [address] 09/19/2025 11:30 AM EST Office Visit [facility] Cardiac Subspecialty [address] [phone] Catarina Riley, EUGENIO 800 [place] [address] 12/05/2025 11:30 AM EST Telemedicine [facility] Neurology [place] [address] [facility] [address] [place] [phone] Mariah Dickson MD 170 [place] [address] documented as of this encounter Visit Diagnoses Diagnosis Chronic systolic heart failure documented in this encounter Additional Health Concerns Assessment Noted Time PHQ-9 Depression Total Score: 4 04/14/20 23 1:04 PM EDT documented as of this encounter Care Teams Tankage Supervisor Relationship Specialty Start Date End Date Murray Dumont MD 262 [place] [address] PCP - General 01/13/22 Fish [employer] [facility] Environmental Permitting Specialist Pharmacy 03/29/23 01/14/25 Tesha Spencer, PharmD 800 [place] [address] Pharmacist Pharmacy 01/18/24 01/14/25 Daren Chaidez MD [address] [address] Market News Reporter/Gynecologi 02/06/24 Nilda Navarrete PA 800 [place] [address] 1st Contact Physician Director Of Acquisition Marketing 02/16/24 Elijah Mcbride MD 1600 [place] [address] Order Worker Direct Service Provider 02/11/25 Hyun Chappell MD 800 [facility] [address] [place] [address] Consulting Physician Advanced Heart Failure and Transplant Cardiology 06/04/25 documented as of this encounter
--- OUTSIDE RECORDS SUMMARY | 2025-07-25 14:01 | XMS_ITS | Encounter Summary ---
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.] in a retirement (including now)? No 05/15/2024 Comments No Sex [...] Patel RN - 08/15/2024 11:[address] [facility] is unable to fill this order. We are reaching out to a medical [employer] company documented in this encounter Plan of Treatment Upcoming Encounters Date Type Department Care Team (Late st Contact Info) Description 08/15/2025 10:00 AM EST Office Visit [facility] Weight and Wellness 91 [facility] 208 [place] [address] Elke Lomeli PA 41 [place] [address] 09/19/2025 11:30 AM EST Office Visit [facility] Cardiac Subspecialty 860 [facility] 6th [place] [address] Catarina Riley NP 800 [place] [address] 12/05/2025 11:30 AM EST Telemedicine [facility] Neurology [place] 170 [facility] 258 [place] [address] Mariah Dickson MD 170 [place] [address] documented as of this encounter Visit Diagnoses Diagnosis LVAD (left ventricular assist device) present documented in this encounter Additional Health Concerns Assessment Noted Time PHQ-9 Depression Total Score: 4 04/14/20 23 1:04 PM EDT documented as of this encounter Care Teams Cardiac Surgeon Relationship Specialty Start Date End Date Murray Dumont MD 262 [place] [address] PCP - General 01/13/22 [employer] CPhT Personnel Coordinator Pharmacy 03/29/23 01/14/25 Tesha Spencer, PharmD 800 [place] [address] Pharmacist Pharmacy 01/18/24 01/14/25 Daren Chaidez MD [address] [place] [address] Signal Intelligence/Electronic Warfare/Gynecologi 02/06/24 Nilda Navarrete, ADRIANNE 800 [place] [address] 1st Contact Physician Client Experience Consultant 02/16/24 Elijah Mcbride MD 1600 [place] [address] Egg Crater Sound Engineering Technician 02/11/25 Hyun Chappell MD 800 [facility] [address] [place] [address] Consulting Physician Advanced Heart Failure and Transplant Cardiology 06/04/25 documented as of this encounter
--- OUTSIDE RECORDS SUMMARY | 2025-07-25 14:01 | XMS_ITS | Clinical Summary ---
Author Organization [employer] [facility] Address [address] [place] [address] Care Team Providers Care Workers Compensation Manager Name Role Phone Murray Dumont MD Primary Care Provider Allergies Active Allergy Reactions [...] age to complete this topic Care Teams Workers Compensation Manager Relationship Specialty Start Date End Date Murray Dumont MD [address] [place] [address] PCP - General Internal Medicine 05/02/22
--- OUTSIDE RECORDS SUMMARY | 2025-07-25 14:01 | XMS_ITS | Clinical Summary ---
Author Organization [facility] Address [address] [facility] [address] [place] [address] Care Team Providers Care Primer Waterproofing Machine Operator Name Role Phone Murray Dumont MD Primary Care Provider Daren Chaidez MD Unavailable Nilda Navarrete Unavailable Elijah Mcbride MD Unavailable [phone] Hyun Chappell MD Unavailable Allergies Active Allergy Reactions Criticality Noted Date Comments Cyclobenzaprine Unknown Medium 11/01/2021 Passed out Fish Containing Products 03/25/2023 Guava Diarrhea,Rash,Nausea / Vomiting Low 04/14/2023 Latex Itching,Rash Low 03/10/2022 Medications traZODone (Desyrel) 50 mg tablet Take 50 mg by mouth if needed at bedtime. 3-4 times per week 4 Active dapagliflozin propanediol (Farxiga) 10 mgIndications:H eart failure Take 1 tablet (10 mg) by mouth once daily. 30 tablet 3 09/09/2024 1:17 PM EST 4 Active acetaminophen (Tylenol) 325 mg capsule Take 650 mg by mouth every 6 (six) hours if needed for pain score 1-3. Taking as needed for pain Active metoprolol succinate XL (Toprol XL) 25 mg 24 hr tabletIndicatio ns:LVAD (left ventricular assist device) present Take 0.5 tablets (12.5 mg) by mouth once daily. Do not crush or chew. 15 tablet 11 4 08/26/20 25 Active pantoprazole (ProtoNix) 40 mg EC tabletIndicatio ns:Other dysphagia TAKE 1 TABLET BY MOUTH EVERY DAY 90 tablet 3 4 Active spironolactone (Aldactone) 50 mg tabletIndicatio ns:LVAD (left ventricular assist device) present Take 1 tablet (50 mg) by mouth once daily. 90 tablet 09/30/2024 3:37 PM EST 4 Active apixaban (Eliquis) 5 mg tabletIndicatio ns:LVAD (left ventricular assist device) present Take 1 tablet (5 mg) by mouth twice daily. 180 tablet 4 Active ARIPiprazole (Abilify) 2 mg tablet Take 2 mg by mouth once daily. Active HYDROcodone-belia taminophen (Ten Sleep) 5-325 mg tablet Take 1 tablet by mouth every 4 (four) hours if needed for pain score 7-10 (severe) (acute pain). Active busPIRone (Buspar) 10 mg tablet Take 10 mg by mouth three times daily. Active potassium chloride ER (Micro-K) 10 mEq ER capsule Take 10 mEq by mouth twice daily. Do not crush or chew. Active torsemide (Demadex) 20 mg tabletIndicatio ns:Bilateral lower extremity edema,LVAD (left ventricular assist device) present Take 3 tablets (60 mg) by mouth in the morning. May also take 3 tablets (60 mg) if needed at bedtime (Take additional 60mg of Torsemide in afternoon if noticing increased swelling in legs). Take 60 mg by mouth every morning. Take additional 60mg of torsemide in afternoon if noticing worsening swelling in legs. 90 tablet 3 5 Active valsartan (Diovan) 40 mg tabletIndicatio ns:Chronic systolic (congestive) heart failure Take 0.5 tablets (20 mg) by mouth twice daily. 30 tablet 11 5 06/13/20 26 Active tirzepatide (Mounjaro) 2.5 mg/0.5 mL pen injectorIndicat ions:type 2 diabetes mellitus Inject 0.5 mL (2.5 mg) under the skin 1 (one) time per week for 28 days. 2 mL 07/14/2025 4:24 PM EDT 5 08/11/20 Active tirzepatide (Mounjaro) 2.5 mg/0.5 mL pen injectorIndicat ions:type 2 diabetes mellitus Inject 0.5 mL (2.5 mg) under the skin 1 (one) time per week for 28 days. 2 mL 06/10/2025 2:28 PM EDT 5 07/03/20 Discontin ued(Reord er) Active Problems Problem Noted Date Diagnosed Date Bilateral lower extremity edema 05/14/2025 Iron deficiency 08/27/2024 Nonintractable headache 07/15/2024 Rib pain on left side 07/15/2024 Pericardial effusion 06/19/2024 Assessment & Plan (06/25/2024 11:38 AM [...] infection LVAD (left ventricular assist device) present Assessment & Plan (06/25/2024 11:37 AM EDT): [...] nutrition team in the past. Nonischemic cardiomyopathy 02/08/2024 Pain, dental 02/07/2024 Assessment & Plan (02/07/2024 3:44 PM EDT): Right upper tooth is bothering her. No obvious abscess. She is seeing dentist next week. Advised she can use tylenol PRN per bottle instructions but should see emergency dental care if any pus or acute changes. Seizure-like activity 11/12/2023 Assessment & Plan (02/07/2024 3:40 PM EDT): One time episode as noted in HPI. This happened within 48 hr of first trulicity dose. Discussed with our pharmacist who noted Trulicity isn't commonly known to cause seizure unless associated with hypoglycemia, though given timing, Belkys Goyal wishes to avoid. [facility], who did not feel she needed antiepileptic [...] she did see a local [facility] yesterday[facility]. There are currently no notes visible in care everywhere, however per Erlinda, the recommendation was to get an MRI and the neurology office is reaching out to [facility] to inquire regarding MRI safety with [...] 40 mEq BID. Acute on chronic systolic (congestive) heart hemal lure 03/25/2023 Assessment & Plan (05/05/2024 9:16 PM [...] be lower for transplant, working with transplant orthodontic technician assistant. Reports prior intolerance of Ozempic due to severe nausea/vomiting with 1 dose only, but she is willing to try an alternate agent and [facility] approved so will have pharmacy- driven GLP-1 [...] She has had phone follow-up with transplant orthodontic technician assistant who recommended referral to [facility]. [...] PM EDT): I referred her to our orthodontic technician assistant to discuss weight loss strategies. I also [...] her for Mitra[employer]. Chronic systolic heart failure 11/10/2021 Assessment & Plan (06/25/2024 11:42 AM EDT): niCMP with icdzk-tz-jyyhixz systolic HF, now s/p HM3 LVAD as [...] Plan (06/19/2024 12:09 PM EDT): niCMP with zighp-ez-iaidyky systolic HF, now s/p HM3 LVAD as [...] BMP. Weight has trended down somewhat on but BMI still > 40, so she [...] been drawn in recent weeks. I called [facility] reference labs and sent an add-on order [...] PICC line infection and was hospitalized at [facility] for 3 days. She looks euvolemic on exam, but her weight is down about 2 kg from last week. She reports she was on lower dose of torsemide 20 mg daily at [facility] but felt she should return to her [...] dental appointment due to her admission to [facility]. This was rescheduled for 06/06, though she [...] capsules. We will look into a local GARMENT PRESSER referral. Assessment & Plan (04/14/2023 3:38 PM [...] factors, though her PET perfusion scan from [facility] did show a fixed defect. While CTA [...] be indicated. Her QRS is narrow, so STUDENT ADVISOR is not appropriate. She and her mother [...] to be eligible. I will have our orthodontic technician assistant reach out to her to discuss weight loss strategies. Finally I counseled her that many of the medications she is taking are teratogenic, and if she were considering conception, she would need to call me or her local publishing manager to discuss the safety of and how [...] 2.5 mg daily. CTM. DM (diabetes mellitus) Assessment & Plan (10/30/2023 3:37 PM EST): Recent HA1C 5.8% Resolved Problems Problem Noted Date Diagnosed Date Resolved Date Nausea & vomiting 02/16/2024 09/24/2024 Needs peripherally inserted central catheter (PICC) 06/10/2023 06/19/2024 Problem with vascular access 05/03/2023 05/05/2023 Infection of peripherally in serted central venous catheter (PICC) 04/14/2023 05/05/2024 Assessment & Plan (04/20/2023 4:51 PM EDT): Line replaced at [facility] during recent admission, she completed prescribed course of Keflex today and her new PICC line looks well. I am not able to see final blood culture results from [facility], so we will see if we can [...] Encounters Date Type Department Care Team Description 07/18/2025 Telephone [facility] Cardiac Subspecialty [address] [phone] Dwain Walton LICSW 07/03/2025 Refill [facility] Cardiac Subspecialty [address] [place] [phone] Hyun Chappell MD LVAD (left ventricular assist device) present ([facility]); Morbid obesity with BMI of 40.0-44.9, adult ([facility]); Type 2 diabetes mellitus without complication, without long-term current use of insulin ([facility]) 07/01/2025 Telephone [facility] Cardiac Subspecialty [address] [place] [phone] Catarina Montgomery, AGUSTIN 06/13/2025 Telephone [facility] Cardiac Subspecialty [address] [place] [phone] Diamante Talley Appointment 06/11/2025 Telephone [facility] Cardiac Subspecialty [address] [place] [phone] Other (obesity) 06/04/2025 12:00 PM EDT Office Visit [facility] Cardiac Subspecialty [address] [phone] Hyun Chappell MD Chronic systolic (congestive) heart failure (Multi-HCC) (Primary Dx); LVAD (left ventricular assist device) present (Multi-HCC); Other intermediate designer (current) drug therapy; Class 2 obesity due to excess calories with body mass index (BMI) of 38.0 to 38.9 in adult, unspecified whether serious comorbidity present 06/04/2025 Travel 05/22/2025 Telephone [facility] Primary Care [place] [address] [place] [address] Jeni Vaca RN 05/20/2025 Orders Only [facility] Cardiac Subspecialty [address] [phone] Catarina Montgomery RN LVAD (left ventricular assist device) present (Multi-HCC) 05/20/2025 Telephone [facility] Cardiac Subspecialty [address] [phone] Eliana Melgar Med Refill 05/14/2025 5:45 AM EDT - 05/15/2025 1:53 PM EDT Hospital Encounter [facility] Cardiology [address] [place] [phone] Kristen Hair MD Bilateral lower extremity edema (Primary Dx); Heart failure (Multi-HCC) Discharge Disposition: Home or self care 05/14/2025 Travel 05/13/2025 Telephone [facility] Cardiac Echo [address] [facility] [address] [place] [phone] Faisal Miranda MD from Last 3 Months Immunizations Immunization Administration Dates Next Due HPV 9-Valent 05/16/2025 Hep B, adult 05/18/2024 Influenza, injectable, quadr ivalent, preservative free 12/06/2022,07/21/2021 Influenza, seasonal, injectable 08/20/20 23,07/17/2022,07/21/2021,2018 Pneumococcal Conjugate Pcv 20 05/18/2024 Spikevax COVID-19 [...] alcohol) only on holidays , one drink. [facility] Utilities Answer Date Recorded In the past 12 months has th e [employer], gas, oil, or water [employer] threatened to shut off services in your [...] place to sleep or slept in a fdc (including now)? No 05/15/2024 Housing Stability Vital Sign Answer Brayan e Recorded Unable to Pay for Housing in the Last Year Not o n file 05/14/2025 Number of Times Moved in the Last Year Not on fi le 05/14/2025 At any time in the past 12 m [facility], were you homeless or living in a fdc (including now)? No 05/14/2025 Comments No Sex and Gender Information Value Date Recorded Sex Assigned at Female 01/13/2022 3:44 PM EDT Legal Sex Female 3:04 PM EDT Gender Identity Female 01/13/2022 3:44 PM EDT Sexual Orientation Bisexual 06/09/2023 11 :54 PM EDT Last Filed Vital Signs Vital Sign Reading [...] Description 08/15/2025 10:00 AM EST Office Visit [facility] [address] [place] [address] Elke Lomeli PA [address] [place] [address] 09/19/2025 11:30 AM EST Office Visit [facility] Cardiac Subspecialty [address] [phone] Catarina Riley, EUGENIO [address] [place] [phone] 12/05/2025 11:30 AM EST Telemedicine [facility] Neurology [place] [address] [place] [address] Mariah Dickson MD [address] [place], [place] [phone] Health Maintenance Due Date Last Done Comments Welcome to Medicare Visit (IPPE) 1995 Diabetes: Retinopathy Screening 1995 MMR Vaccines (1 of 1 - Standard series) 01/02/1996 Diabetes: Foot Exam 2005 Varicella Vaccines (1 of 2 - 13+ 2-dose series) 01/02/2008 Pap Smear 01/02/2016 Diabetes: Urine Protein Screening 03/30/2024 03/30/2023, 03/25/2023 Hepatitis B Vaccines (2 of 3 - 19+ 3-dose series) 06/15/2024 05/18/2024 Depression Screening 10/09/2024 04/14/2023 Cervical Cancer Screening 2025 HPV/Cotest 2025 High Risk LDL 06/03/2025 06/03/2024, 08/0 04/2024, 03/25/2023 Lipid Panel 06/03/2025 06/03/2024, 08/0 04/2024, 03/25/2023 COVID-19 Vaccine ( season) 2025 08/20/2023, 01/17/2022, [...] this topic Medical Devices Implanted Type Area [employer] Manager Device Identifier Shelf Expiration Date Model / Serial / Lot Kit Powerline Cath 6f 2lum - [id number] Implanted:Qty: 1 on 10/30/2023 by Bill Alvarado MD at [facility] Central/Per ipheral Catheter and Port Right: Vein [employer] 01/06/2026 [id number] / / [id number] Description:6FR DL Powerline Right IJ Kit Powerline Cath 6f 2lum - [id number] Implanted:Qty: 1 on 02/19/2024 by Deion Glass MD at [facility] Central/Per ipheral Catheter and Port Right: Vein [employer] SYSTEM[employer] 05/08/2027 [id number] / / [id number] Description:6FR DL POWERLINE Membrane Preclude [id number] - [id number] - [id number] Implanted:Qty: 1 on 05/28/2024 by Buck Baptiste MD at [facility] Heart Valve N/A: Heart [employer] 03/24/2029 [id number] / [id number] / Membrane Preclude [id number] - [id number] - [id number] Implanted:Qty: 1 on 05/28/2024 by Buck Baptiste MD at [facility] Heart Valve N/A: Heart [employer] 03/09/2029 [id number] / [id number] / Icd-04/08/2022 Implanted:04/08 (Quantity not on file) ICD Left: Chest Wall Description:SICD placed April 2022 Heartmate 3 Apical Cuff - [id number] - [id number] Implanted:Qty: 1 on 05/28/2024 by Buck Baptiste MD at [facility] LVAD N/A: Heart [employer] 01/24/2027 [id number] / [id number] / Heartmate 3 Sealed Outflow Graft With Bend Relief - [id number] - [id number] Implanted:Qty: 1 on 05/28/2024 by Buck Baptiste MD at [facility] LVAD N/A: Heart [employer] 12/08/2025 [id number] / [id number] / Heartmate 3 Ventricular Assist Device - Blood Pump - [id number] - [id number] Implanted:Qty: 1 on 05/28/2024 by Buck Baptiste MD at [facility] LVAD N/A: Heart [employer] 01/24/2027 [id number] / [id number] / Procedures Procedure Name Priority Date/Time Associated [...] COMPLETE 2D W/ SPECTRAL AND COLOR DOPPLER (26385) Routine 05/14/2025 11:27 AM EDT URIC ACID [...] - 35.7 Seconds 05/15/2025 6:27 AM EDT [facility] Blood Venous blood specimen / Unknown Venipuncture / Unknown 05/15/2025 5:29 AM EDT 05/15/2025 6:10 AM EDT us Kristen Hair MD LAB BLOOD ORDERABLES Final Res ult [facility] [address] [place] [address], * Protime-INR (05/15/2025 5:29 AM EDT) Only the most recent of2 resultswithin the time period is included. Protime 12.3 9.7 - 14.0 seconds 05/15/2025 6:27 AM EDT [facility] INR 1.07 See Comment 05/15/2025 6:27 AM EDT [facility] Comment: NORMAL PATIENTS NOT ON ANTICOAGULANTS: INR: 0.9-1.3 RECOMMENDED INR WITH WARFARIN/COUMADIN THERAPY: INR: 2.00-3.00 Deep vein thrombosis Atrial Fibrillation Tissue Prosthetic Valve Stroke Prevention INR:2.50-3.50 Mechanical Prosthetic Valve and Recurrent Systemic Embolism Blood Venous blood specimen / Unknown Venipuncture / Unknown 05/15/2025 5:29 AM EDT 05/15/2025 6:10 AM EDT us Kristen Hair MD LAB BLOOD ORDERABLES Final Res ult [facility] [address] [place] [address], * (ABNORMAL) CBC (05/15/2025 5:29 AM EDT) WBC 5.7 4.0 - 11.0 K/uL 05/15/2025 6:19 AM EDT [facility] RBC 5.21(H) 3.70 - 5.20 M/uL 05/15/2025 6:19 AM EDT [facility] Hemoglobin 12.4 11.0 - 16.0 g/dL 05/15/2025 6:19 AM EDT [facility] Hematocrit 39.8 32.0 - 47.0 % 05/15/2025 6:19 AM EDT [facility] MCV 76.4(L) 80.0 - 100.0 fL 05/15/2025 6:19 AM EDT [facility] MCH 23.8(L) 26.0 - 34.0 pg 05/15/2025 6:19 AM EDT [facility] MCHC 31.2 31.0 - 37.0 g/dL 05/15/2025 6:19 AM EDT [facility] RDW-SD 39.1 35.0 - 51.0 fL 05/15/2025 6:19 AM EDT [facility] RDW-CV 14.3 11.5 - 14.5 % 05/15/2025 6:19 AM EDT [facility] Platelets 339 150 - 400 K/uL 05/15/2025 6:19 AM EDT [facility] MPV 8.9(L) 9.1 - 12.4 fL 05/15/2025 6:19 AM EDT [facility] NRBC % 0.0 0.0 - 0.0 % 05/15/2025 6:19 AM EDT [facility] NRBC Absolute 0.00 0.00 - 2.00 K/uL 05/15/2025 6:19 AM EDT [facility] Blood Venous blood specimen / Unknown Venipuncture / Unknown 05/15/2025 5:29 AM EDT 05/15/2025 6:10 AM EDT Kristen Hair MD LAB BLOOD ORDERABLES Final Res ult Performing Organization Address City/[facility]/ZIP Co de Phone Number [facility] [address] [place] [address], [place] * Phosphorus (05/15/2025 5:29 AM EDT) Only the most recent of2 resultswithin the time period is included. Phosphorus 3.9 2.4 - 4.9 mg/dL 05/15/2025 7:08 AM EDT [facility] Blood Venous blood specimen / Unknown Venipuncture / Unknown 05/15/2025 5:29 AM EDT 05/15/2025 6:10 AM EDT Kristen Hair MD LAB BLOOD ORDERABLES Final Res ult Performing Organization Address [facility] Co de Phone Number [facility] [address] [place] [address], [place] * Magnesium (05/15/2025 5:29 AM EDT) Only the most recent of2 resultswithin the time period is included. Magnesium 2.4 1.6 - 2.6 mg/dL 05/15/2025 7:08 AM EDT [facility] Blood Venous blood specimen / Unknown Venipuncture / Unknown 05/15/2025 5:29 AM EDT 05/15/2025 6:10 AM EDT Kristen Hair MD LAB BLOOD ORDERABLES Final Res ult Performing Organization Address City/[facility] Co de Phone Number [facility] [address] [place] [address], [place] * Hepatic function panel (05/15/2025 5:29 AM EDT) Only the most recent of2 resultswithin the time period is included. Albumin 4.1 3.2 - 5.0 g/dL 05/15/2025 7:08 AM EDT [facility] Bilirubin, total 0.4 0.2 - 1.2 mg/dL 05/15/2025 7:08 AM EDT [facility] Bilirubin, direct 0.1 0.0 - 0.5 mg/dL 05/15/2025 7:08 AM EDT [facility] Alkaline phosphatase 72 30 - 130 U/L 05/15/2025 7:08 AM EDT [facility] AST 26 6 - 42 U/L 05/15/2025 7:08 AM EDT [facility] ALT 26 0 - 55 U/L 05/15/2025 7:08 AM EDT [facility] Protein, total 8.1 6.0 - 8.4 g/dL 05/15/2025 7:08 AM EDT [facility] Blood Venous blood specimen / Unknown Venipuncture / Unknown 05/15/2025 5:29 AM EDT 05/15/2025 6:10 AM EDT us Kristen Hair MD LAB BLOOD ORDERABLES Final Res ult [facility] [address] [place] [address], * Basic metabolic panel (05/15/2025 5:29 AM EDT) Only the most recent of3 resultswithin the time period is included. Pathologist [facility] Sodium 136 135 - 146 mmol/L 05/15/2025 7:08 AM EDT [facility] Potassium 4.2 3.6 - 5.2 mmol/L 05/15/2025 7:08 AM EDT [facility] Chloride 102 98 - 110 mmol/L 05/15/2025 7:08 AM EDT [facility] CO2 (Bicarbonate) 22 20 - 32 mmol/L 05/15/2025 7:08 AM EDT [facility] Anion Gap 12 3 - 14 mmol/L 05/15/2025 7:08 AM EDT [facility] BUN 14 6 - 24 mg/dL 05/15/2025 7:08 AM EDT [facility] Creatinine 0.74 0.55 - 1.30 mg/dL 05/15/2025 7:08 AM EDT [facility] eGFRcr 112 >=60 mL/min/1.7 3m*2 05/15/2025 7:08 AM EDT [facility] Comment:Calculated using CKD -EPI 2020 creatinine equation. Glucose 111 70 - 139 mg/dL 05/15/2025 7:08 AM EDT [facility] Fasting? Unknown [facility] OMAYRA INFINITY 05/15/2025 7:08 AM EDT [facility] Calcium 9.3 8.5 - 10.5 mg/dL 05/15/2025 7:08 AM EDT [facility] Blood Venous blood specimen / Unknown Venipuncture / Unknown 05/15/2025 5:29 AM EDT 05/15/2025 6:10 AM EDT us Kristen Hair MD LAB BLOOD ORDERABLES Final Res ult Performing Organization Address City/State/[facility] Co de Phone Number [facility] [address] [place] [address], * Vascular US lower extremity venous duplex right (05/14/2025 2:30 PM EDT) Anatomical Region Laterality Modality Lower Extremities Other 05/14/2025 2:31 PM EDT Narrative 05/14/2025 4:23 PM EDT NAME: BELKYS GLOVER : 1995 AGE: 30 years GENDER: Female ORD PHYS: KRISTEN HAIR LOCATION: [facility] 05/14/2025 2:30 PM EDT [id number] ([facility] US LOWER EXTREMITY VENOUS DUPLEX RIGHT) [id number] [facility] US LOWER EXTREMITY VENOUS DUPLEX RIGHT PERFORMED [...] GENDER: Female ORD PHYS: KRISTEN HAIR LOCATION: [facility] 05/14/2025 2:30 PM EDT [id number] ([facility] US LOWER EXTREMITY VENOUS DUPLEX RIGHT) [id number] [facility] US LOWER EXTREMITY VENOUS DUPLEX RIGHT PERFORMED [...] 30 years GENDER: Female ORD PHYS: KRISTEN BERRYTAMMY LOCATION: [facility] 05/14/2025 2:02 PM EDT [id number] (XR ANKLE RIGHT 3+ VIEWS) [id number] History: right ankle swelling and pain COMPARISONS: None FINDINGS: No acute fracture or malalignment is seen. There is diffuse soft tissue prominence. No significant degenerative changes. No suspicious bone lesions. No soft tissue emphysema or radiopaque foreign body. Procedure Note Katerina Hernandez MD - 05/14/2025 NAME: BELKYS GLOVER : 1995 AGE: 30 years GENDER: Female ORD PHYS: KRISTEN HAIR LOCATION: [facility] 05/14/2025 2:02 PM EDT [id number] (XR ANKLE RIGHT 3+ VIEWS) [id number] History: right ankle swelling and pain COMPARISONS: [...] GENDER: Female ORD PHYS: KRISTEN HAIR LOCATION: [facility] 05/14/2025 2:02 PM EDT [id number] (XR CHEST 2 VIEWS) [id number] REASON FOR STUDY: evaluate lung parenchyma TECHNIQUE: [...] GENDER: Female ORD PHYS: KRISTEN HAIR LOCATION: [facility] 05/14/2025 2:02 PM EDT [id number] (XR CHEST 2 VIEWS) [id number] REASON FOR STUDY: evaluate lung parenchyma TECHNIQUE: [...] RADIOLOGIST: AMALIA JOHNSON 05/14/2025 2:07 PM EDT us Kristen Hair MD IMG XR PROCEDURES Final Result * TTE COMPLETE 2D W/ SPECTRAL AND COLOR DOPPLER ([id number]) (05/14/2025 11:27 AM EDT) Anatomical Region Laterality Modality Other 05/14/2025 10:4 4 AM EDT Narrative 05/14/2025 1:17 PM EDT Cardiovascular [facility] [address] [place] [address] Transthoracic Echocardiogram Name: BELKYS GLOVER Study Date: 05/14/2025 10:44 AM : 1995 Gender: Female Age: 30 yrs Ethnicity: Patient Location: [facility]^P807^[id number]^[facility] Referring Physician: UNKNOWN, UNKNOWN Performed By: Daria Medellin Ordering Physician: KRISTEN HAIR Reason For Study: Hx of Heart failure with LE Edema, evaluation of LVAD placement Height: 67 in Weight: 260 lb BSA: 2.3 m2 BP: 74/ mmHg CPT/Quality/Location Complete 2D TTE with spectral and color Doppler (69826). Location performed: Floor. MMode/2D Measurements & Calculations [...] Yadav MD - 05/14/2025 [facility] [address] [place] [address] TransthoracicEchocardiogram Name: BELKYS GLOVER Study Date:05/14/2025 10:44 AM : 1995 Gender: Female Age: 30 yrs Ethnicity: Patient Location: [facility]^P807^[id number]^[facility] [place] Referring Physician: UNKNOWN, UNKNOWN Performed By: Daria Medellin Ordering Physician: KRISTEN HAIR Reason For Study: Hx of Heart failure with LE Edema, evaluation of LVADplacement Height: 67 in Weight: 260 lb BSA: 2.3 m2 BP:74/ mmHg CPT/Quality/Location Complete 2D TTE with spectral and color Doppler (77052). Locationperformed: Floor. MMode/2D Measurements & Calculations IVSd: [...] signed by:Abhijeet Yadav M.D. 05/14/2025 01:17 PM Kristen Hair MD CV ECHO PROCEDURES Final Resul t * (ABNORMAL) CBC w/ Differential (05/14/2025 7:21 AM EDT) WBC 5.6 4.0 - 11.0 K/uL 05/14/2025 7:41 AM EDT [facility] RBC 4.81 3.70 - 5.20 M/uL 05/14/2025 7:41 AM EDT [facility] Hemoglobin 11.4 11.0 - 16.0 g/dL 05/14/2025 7:41 AM EDT [facility] Hematocrit 36.4 32.0 - 47.0 % 05/14/2025 7:41 AM EDT [facility] MCV 75.7(L) 80.0 - 100.0 fL 05/14/2025 7:41 AM EDT [facility] MCH 23.7(L) 26.0 - 34.0 pg 05/14/2025 7:41 AM EDT [facility] MCHC 31.3 31.0 - 37.0 g/dL 05/14/2025 7:41 AM EDT [facility] RDW-CV 14.3 11.5 - 14.5 % 05/14/2025 7:41 AM EDT [facility] RDW-SD 38.6 35.0 - 51.0 fL 05/14/2025 7:41 AM EDT [facility] Platelets 285 150 - 400 K/uL 05/14/2025 7:41 AM EDT [facility] MPV 8.5(L) 9.1 - 12.4 fL 05/14/2025 7:41 AM EDT [facility] Neutrophil % 70.7 % 05/14/2025 7:41 AM EDT [facility] Lymphocyte % 16.6 % 05/14/2025 7:41 AM EDT [facility] Monocytes % 9.4 % 05/14/2025 7:41 AM EDT [facility] Eosinophils % 2.7 % 05/14/2025 7:41 AM EDT [facility] Basophils % 0.4 % 05/14/2025 7:41 AM EDT [facility] Immature Granulocytes % 0.2 % 05/14/2025 7:41 AM EDT [facility] NRBC % 0.0 0.0 - 0.0 % 05/14/2025 7:41 AM EDT [facility] Neutrophils Absolute 3.97 1.50 - 7.95 K/uL 05/14/2025 7:41 AM EDT [facility] Lymphocytes Absolute 0.93 0.70 - 4.00 K/uL 05/14/2025 7:41 AM EDT [facility] Monocytes Absolute 0.53 0.36 - 0.77 K/uL 05/14/2025 7:41 AM EDT [facility] Eosinophils Absolute 0.15 0.00 - 0.50 K/uL 05/14/2025 7:41 AM EDT [facility] Basophils Absolute 0.02 0.00 - 0.22 K/uL 05/14/2025 7:41 AM EDT [facility] Immature Granulocytes Absolute 0.01 0.00 - 0.10 K/uL 05/14/2025 7:41 AM EDT [facility] NRBC Absolute 0.00 0.00 - 2.00 K/uL 05/14/2025 7:41 AM EDT [facility] Blood Venous blood specimen / Unknown Venipuncture / Unknown 05/14/2025 7:21 AM EDT 05/14/2025 7:37 AM EDT us Kristen Hair MD LAB BLOOD ORDERABLES Final Res ult [facility] [address] [place] [address], * (ABNORMAL) NT pro BNP (05/14/2025 7:21 AM EDT) NT-proBNP 1,394(H) 0 - 125 pg/mL 05/14/2025 11:10 AM EDT [facility] Blood Venous blood specimen / Unknown Venipuncture / Unknown 05/14/2025 7:21 AM EDT 05/14/2025 7:36 AM EDT Narrative [facility] - 05/14/2025 11:10 AM EDT The 2020 [place] Definition and Classification of Heart Failure states [...] al. J Cardiac Fail 202;27:387-413 (2) Ava JL et al. J Am Irma Cardiol 2018;71:4092-2969. us Kristen Hair MD LAB BLOOD ORDERABLES Final Res ult [facility] [address] [place] [address], * Uric acid (05/14/2025 7:21 AM EDT) Uric Acid 6.6 2.6 - 8.0 mg/dL 05/14/2025 11:21 AM EDT [facility] Blood Venous blood specimen / Unknown Venipuncture / Unknown 05/14/2025 7:21 AM EDT 05/14/2025 7:36 AM EDT Narrative [facility] - 05/14/2025 11:21 AM EDT Although the reference interval for men extends up to 8.0 mg/dL, patients with gout may benefit from uric acid levels <6.0 mg/dL. Kristen Hair MD LAB BLOOD ORDERABLES Final Res ult Performing Organization Address City/[facility]/ZIP Co de Phone Number [facility] [address] [place] [address], [place] * LDH (05/14/2025 7:21 AM EDT) LDH 237 110 - 250 U/L 05/14/2025 8:04 AM EDT [facility] Blood Venous blood specimen / Unknown Venipuncture / Unknown 05/14/2025 7:21 AM EDT 05/14/2025 7:36 AM EDT Kristen Hair MD LAB BLOOD ORDERABLES Final Res ult Performing Organization Address [facility] Co de Phone Number [facility] [address] [place] [address], [place] * XR CHEST PORTABLE (05/14/2025 7:18 AM EDT) Anatomical Region Laterality Modality Chest Right Computed Radiogr aphy 05/14/2025 8:43 AM EDT Impressions 05/14/2025 8:45 AM EDT No new congestion or new right pleural effusion. APPROVED BY STAFF RADIOLOGIST: AMALIA JOHNSON 05/14/2025 8:45 AM EDT Narrative 05/14/2025 8:45 AM EDT NAME: BELKYS GLOVER : 1995 AGE: 30 years GENDER: Female ORD PHYS: KRISTEN HAIR LOCATION: [facility] 05/14/2025 7:18 AM EDT [id number] (XR CHEST PORTABLE) [id number] REASON FOR STUDY: Concern for volume overload [...] GENDER: Female ORD PHYS: KRISTEN HAIR LOCATION: [facility] 05/14/2025 7:18 AM EDT [id number] (XR CHEST PORTABLE) [id number] REASON FOR STUDY: Concern for volume overload [...] - 07/31/2024 5:45 AM EDT Performed at: - [facility] [id number] Data Storage Specialist: Catalina Guzman MD, Phone: [phone] us Catarina Riley NP LAB BLOOD ORDERABLES Final Resul t [facility] [address] [place] [address], [facility] 1 * HIV Ab/Ag screen (05/15/2024 6:57 PM EDT) Pathologist [facility] HIV-1/2 Ab/Ag, P24 Ag screen Non Reactive Non Reactive 05/15/2024 7:48 PM EDT [facility] Comment:This assay was perfo rmed using the 4th generation HIV test (Omayra mattie), measuring both HIV-1 and HIV-2 antibodies, and p24 antigen. Blood Venous blood specimen / Unknown Venipuncture / Unknown 05/15/2024 6:57 PM EDT 05/15/2024 7:01 PM EDT Natalia Gates MD LAB BLOOD ORDERABLES Idania l Result Performing Organization Address [facility] de Phone Number [facility] [address] [place] [address], * Hepatitis C antibody (05/15/2024 6:57 PM EDT) Pathologist [facility] Hepatitis C antibody Non Reactive Non Reactive 05/15/2024 7:48 PM EDT [facility] Comment: Antibodies to HCV not detected; [...] ORDERABLES Idania l Result Performing Organization Address City/[facility] Co de Phone Number [facility] [address] [place] [address], [place] * Lipid panel (05/15/2024 6:57 PM EDT) Pathologist [facility] Triglycerides 63 <=150 mg/dL 05/15/2024 8:04 PM EDT [facility] Cholesterol 159 <=200 mg/dL 05/15/2024 8:04 PM EDT [facility] HDL cholesterol 49 >=40 mg/dL 8:04 PM EDT [facility] LDL cholesterol, calculated 97 0 - 130 mg/dL 05/15/2024 8:04 PM EDT [facility] Cholesterol/HDL Ratio 3.2 05/15/2024 8:04 PM EDT [facility] Non-HDL Calculation 110 <160 mg/dL 05/15/2024 8:04 PM EDT [facility] Comment:Non-HDL cholesterol is simply total cholesterol [...] ORDERABLES Idania l Result Performing Organization Address [facility] de Phone Number [facility] [address] [place] [address], * (ABNORMAL) Albumin, Urine, Random (Microalbumin Random, Including Creatinine) (03/30/2023 4:35 PM EDT) Albumin, urine (INT/EXT) 2.9 mg/dL 03/30/2023 5:07 PM EDT [facility] Creatinine, urine, random (INT/EXT) 31.50 15.00 - 328.00 mg/dL 03/30/2023 5:07 PM EDT [facility] Albumin/Creatin ine ratio 92(H) <=30 mg/g Creat 03/30/2023 5:07 PM EDT [facility] Urine Urine specimen / Unknown Non-blood Collection / Unknown 03/30/2023 4:35 PM EDT 03/30/2023 4:38 PM EDT Maureen Posey NP LAB URINE ORDERABLES Final Resul t Performing Organization Address [facility] Co de Phone Number [facility] [address] [place] [address], from Last 3 Months or Most Recently Relevant to Health Maintenance Insurance MEDICAID STANDARD MEDICARE PART A AND B MEDICAID STANDARD Advance Directives Documents on File Type Date Recorded Patient Academic Computing Director Expl yanet Health Care Proxy 05/17/2025 11:56 AM Health Care Proxy 04/09/2023 11:50 PM Advance Directives and Living Will 05/15/2025 Health Care Proxy Advance Directives and Living Will 03/28/2023 Calista Oliva Health Care Proxy * Full Code [...] glover Mother Health Care Agent Care Teams Primer Waterproofing Machine Operator Relationship Specialty Start Date End Date Murray Dumont MD [address] [place] [address] PCP - General 01/13/22 Daren Chaidez MD [address] [place] [id number] Surgical Corsetier/Gynecologi 02/06/24 Nilda Navarrete PA [address] [place] [phone] 1st Contact Physician Postal Clerk 02/16/24 Elijah Mcbride MD [address] [place] [address] Neurologist Furnace Attendant 02/11/25 Hyun Chappell MD [address] [facility] [address] [place] [phone] Consulting Physician Advanced Heart Failure and Transplant Cardiology 06/04/25
--- OUTSIDE RECORDS SUMMARY | 2025-07-25 14:01 | XMS_ITS | Encounter Summary ---
Author Organization [facility] Address [address] [facility] [address] [place] [address] Care Team Providers Care Math Teacher Name Role Phone Murray Dumont MD Primary Care Provider [phone] [employer] mold maker helper Unavailable Unavailable Tesha SpencerD Unavailable [phone] Daren Chaidez MD Unavailable Nilda Navarrete Unavailable Elijah Mcbride MD Unavailable [phone] Hyun Chappell MD Unavailable Encounter Details Date Type Department Care Team (Late st Contact Info) Description 04/28/2023 Lab Requisition [address] [place] [id number] Eliana Dunn MD [address] [place] [address] Social History Tobacco Use Types Packs/Day Years [...] Description 08/15/2025 10:00 AM EST Office Visit [facility] [address] [facility] [address] [place] [address] Elke Lomeli PA [address] [place] [id number] 09/19/2025 11:30 AM EST Office Visit [facility] Cardiac Subspecialty [address] [facility] 6th [place] [address] Catarina Riley NP [address] [place] [address] 12/05/2025 11:30 AM EST Telemedicine [facility] Neurology [place] [address] [facility] [address] [place] [phone] Mariah Dickson MD [address] [place] [address] documented as of this encounter Visit Diagnoses Not on filedocumented in this encounter Additional Health Concerns Assessment Noted Time PHQ-9 Depression Total Score: 4 04/14/20 23 1:04 PM EDT documented as of this encounter Care Teams Math Teacher Relationship Specialty Start Date End Date Murray Dumont MD [address] [place] [address] PCP - General 01/13/22 Fish H[employer] mold maker helper Venue Coordinator Pharmacy 03/29/23 01/14/25 Tesha Spencer, PharmD [address] [place] [address] Pharmacist Pharmacy 01/18/24 01/14/25 Daren Chaidez MD [address] [place] [address] Hr Business Partner Consultant/Gynecologi 02/06/24 Nilda Navarrete PA [address] [place] [address] 1st Contact Physician Safety Security Officer 02/16/24 Elijah Mcbride MD [address] [place] [address] Websphere Commerce Architect Internal Control Analyst 02/11/25 Hyun Chappell MD [address] [facility] [address] [place] [address] Consulting Physician Advanced Heart Failure and Transplant Cardiology 06/04/25 documented as of this encounter
--- OUTSIDE RECORDS SUMMARY | 2025-07-25 14:02 | XMS_ITS | Clinical Summary ---
Author Organization [facility] Address [address] [place] [address] Care Team Providers Care Fast Food Shift Lead Name Role Phone Unknown Primary Care Provider [phone] Allergies Active Allergy Reactions Criticality Noted Date Comments Cyclobenzaprine Unknown/Patient and Family Unable to Define Medium 11/01/2021 Medications ferrous gluconate (FERGON) 324 MG tablet Take 324 mg by mouth every morning with breakfast. Take 2 hours before or 4 hours after acid reducers. Active empagliflozin (JARDIANCE) 10 MG tabletIndicatio ns:HFrEF (heart failure with reduced ejection fraction) ([facility]) Take 1 tablet (10 mg total) by mouth daily. 30 tablet 11/10/2021 Active carvedilol (COREG) 12.5 MG tabletIndicatio ns:HFrEF (heart failure with reduced ejection fraction) ([facility]) Take 1 tablet (12.5 mg total) by mouth 2 (two) times a day. 60 tablet 11/10/2021 Active spironolactone (ALDACTONE) 25 MG tabletIndicatio ns:HFrEF (heart failure with reduced ejection fraction) ([facility]) Take 1 tablet (25 mg total) by mouth daily. 30 tablet 11/10/2021 Active torsemide (DEMADEX) 20 MG tabletIndicatio ns:HFrEF (heart failure with reduced ejection fraction) ([facility]) Take 2 tablets (40 mg total) by mouth daily. 60 tablet 11/10/2021 Active sacubitril-vals kylie (ENTRESTO) 24-26 mg per tabletIndicatio ns:HFrEF (heart failure with reduced ejection fraction) ([facility]) Take 1 tablet by mouth 2 [...] CMIA Nonreactive Nonreactive 11/03/2021 11:32 AM EST [facility] Comment:Results show no evid ence of infection by HIV 1/2. If clinically indicated, repeat CMIA or test by nucleic acid amplification. Blood specimen (specimen) Serum specimen / Unknown 11/02/2021 4:50 PM EST 11/02/2021 5:14 PM EST Kehinde [place] PA-C LAB BLOOD ORDERABLES Final Re sult [facility] [address] [place] [address] from Last 3 Months or Most Recently Relevant to Health Maintenance Insurance [place] [facility] Advance Directives * Full Code (Latest Code Status on File) Date Activated Date Inactivated Comments 11/01/2021 3:56 PM Care Teams Fast Food Shift Lead Relationship Specialty Start Date End Date Unknown Unknow Provider Address PCP - General 11/01/21
--- OUTSIDE RECORDS SUMMARY | 2025-07-25 14:02 | XMS_ITS | Patient Health Record ---
Author Organization [employer]. Address [address] [place] [address] [place] [address] Care Team Providers Care Health Records Technology Teacher Name Role Phone SinhaHerbert Primary Care Provider [phone] Andrew Muñoz Unavailable [phone] Mary Ridley Unavailable [phone] Eyad Gordon Unavailable Paola Denise Unavailable Allergies [...] PTT-LC Reviewed date:12/16/2024 07:51:42 AM Interpretation: Performing Lab:[facility] [place], [place] [id number], Phone - [phone], Director - Henok Notes/Report: INR 1.0 0.9-1.2 antagonist therapy: Standard Dose (moderate intensity Reference interval is for non-anticoagulated patients. therapeutic range): 2.0 - 3.0 Higher intensity therapeutic range 2.5 - 3.5 . Suggested INR therapeutic range for Vitamin K Prothrombin Time 11.1 9.1-12.0 sec aPTT 29 24-33 sec therapy have not been established. For general guidelines on Heparin monitoring, refer to the [facility] Directory of Services. This test has not been validated for monitoring unfractionated heparin therapy. aPTT-based therapeutic ranges for unfractionated heparin CHEST X-RAY (PA/LATERAL) Reviewed date:11/13/2024 07:50:15 AM Interpretation: Performing Lab: Notes/Report: Hemoglobin A1C Reviewed date:11/05/2024 02:17:07 PM Interpretation: Performing Lab:[facility] [address] [place] [id number], Phone - [phone], Director - Henok Notes/Report: Hemoglobin A1c 5.2 4.8-5.6 % Diabetes: >6.4 Glycemic control for adults with diabetes: <7.0 . Prediabetes: 5.7 - 6.4 CBC With Differential/Platel et-LC-Q Reviewed date:11/07/2024 08:57:28 AM Interpretation: Performing [facility] [address] [place] [id number], Phone - [phone], Director - Henok Notes/Report: WBC 5.9 3.4-10.8 [...] Immature Grans (Abs) 0.0 0.0-0.1 x10E3/uL Urinalysis, Qmbnujtl-EE-G Reviewed date:11/07/2024 08:57:10 AM Interpretation: Performing Lab:[address] [id number], Phone - [phone], Director - Henok Notes/Report: Specific [place] 1.024 1.005-1.030 pH 5.5 5.0-7.5 Urine-Color Yellow [...] 14+eGFR-LC-Q Reviewed date:11/05/2024 02:16:40 PM Interpretation: Performing Lab:[address] [id number], Phone - [phone], Director - Henok Notes/Report: Glucose 82 70-99 mg/dL BUN 10 [...] Panel-Q-LC Reviewed date:11/05/2024 02:16:30 PM Interpretation: Performing Lab:[address] [id number], Phone - [phone], Director - Henok Notes/Report: Cholesterol, Total 152 100-199 mg/dL Triglycerides 68 0-149 mg/dL HDL Cholesterol 54 >39 mg/dL VLDL Cholesterol Yamil 13 5-40 mg/dL LDL Chol Calc ([facility]) 85 0-99 mg/dL Cardiovascular Risk Assessme nt Reviewed date:11/05/2024 02:19:32 PM Interpretation: Performing Lab:[facility], [address] [place] [id number], Phone - [phone], Director - Henok Notes/Report: Interpretation Note Supplemental report is available. PDF . Microalbumin/Creatinine Rati o, Random Urine-LC Reviewed date:11/05/2024 02:19:51 PM Interpretation: Performing Lab:[facility], [address] [place] [id number], Phone - [phone], Director - Henok Notes/Report: Creatinine, Urine 374.3 Not Estab. mg/dL Albumin, Urine 45.8 Not Estab. ug/mL Alb/Creat Ratio 12 0-29 mg/g creat Severely increased: >300 Normal: 0 - 29 Moderately increased: 30 - 300 Reason For Referral Reason Please fax consul t notes and/or results of procedure approved to [phone]. Thanks! ~Annual Eye Exam~ Diagnosis 1 Encounter for examin ation of eyes and vision without abnormal findings (Z01.00) Referral Organization [facility] Referring Provider First Name Paola Referring Provider Last Name Jonnathan Saul stewart Referring Provider Speciality General Pr actice Referred Provider [employer] Referred Provider Specialty Associate Professor Of Physics Referral Priority Routine Reason Please fax consul t notes and/or results of procedure approved to [phone]. Thanks! ~Annual Eye Exam~ Diagnosis 1 Encounter for examin ation of eyes and vision without abnormal findings (Z01.00) Referral Organization [facility] Referring Provider First Name Paola Referring Provider Last Name Jonnathan Saul stewart Referring Provider Speciality General Pr actice Referred Provider [employer] [place] Referred Provider Specialty Associate Professor Of Physics Referral Priority Routine Reason If additional scout ting is needed, please refer back to PCP. Please fax consult notes and/or results of procedure approved to [phone]. Thanks! ONE VISIT 00145 NEW PATIENT CONSULT ONLY - MANAGED CARE Diagnosis 1 Intramural leiomyoma of uterus (D25.1) Referral Organization [facility] ical P Referring Provider First Name Eyad Referring Provider Last Name Alvaro kang Referring Provider Speciality Nurse Sheree hudson Referred Provider Dilan Hodge ([place]) Referred Provider Specialty OB - [...] Status Risk Notes Problem Morbid obesity (disorder) (120659359) Morbid (severe) obesity due to excess calories (E66.01) Active confirmed Problem Hypertensive heart failure (08654712) Hypertensive heart disease with heart failure (I11.0) Active confirmed Problem Long-term current use of anticoagulant (452753166) Anticoagulant long-term use (Z79.01) Active confirmed Problem Body mass index 40+ - severely obese (048304611) Body mass index (BMI) of 40.0 to 44.9 in adult (Z68.41) Active confirmed Problem Type 2 diabetes mellitus with other specified complication, without long-term current use of insulin (E11.69) Active confirmed Problem History of heart valve repair with prosthesis (848013009024881) History of heart valve replacement (Z95.2) Active confirmed Problem Moderate major depression (951782) Moderate major depression (F32.1) Active confirmed Problem Heart failure (39622819) Congestive heart failure, unspecified HF chronicity, unspecified heart failure type (I50.9) Active confirmed Problem Fibroids (81126760) Fibroids (D21.9) Active confirmed Vital Signs Temperature 98.7 degrees Fahrenheit 02/17/2025 Respiratory Rate 19 /min 02/17/2025 Oximetry 98 % 02/17/2025 Blood pressure diastolic 80 mm Hg 02/17/2025 Height 5 ft 6 in in 02/17/2025 Blood pressure systolic 129 mm Hg 02/17/2025 Weight 265 lbs 02/17/2025 BMI 42.77 kg/m2 02/17/2025 Encounters Encounter Location Date Provider Diagnosis [facility] [address] [place] [address] 10/30/2024 Mary Ridley [facility] [address] [facility] [facility] [place] [address] 12/13/2024 Andrew Cage [facility] [address] [facility] [address] [place] [address] 10/25/2024 Paola Jonnathan Portillo Type 2 diabetes [...] findings Z01.00 and Flu vaccine need Z23 [address] [place] [address] 12/06/2024 Andrew Cage Fibroids D21.9 ; Urinary [...] of 40.0 to 44.9 in adult Z68.[address] [place] [address] 01/07/2025 Andrew Cage Hypertensive heart disease with [...] of 40.0 to 44.9 in adult Z68.[address] [place] [address] 01/14/2025 Andrew Cage Congestive heart failure, unspecified [...] of 40.0 to 44.9 in adult Z68.[address] [place] [address] 02/17/2025 Eyad Franks Intramural leiomyoma of uterus [...] of 40.0 to 44.9 in adult Z68.41 [facility] [address] [address] 04/30/2025 [facility] [address] [place] [address] 12/09/2024 Andrew Cage Congestive heart failure, unspecified HF chronicity, unspecified heart failure type I50.9 [facility] [address] [address] 12/19/2024 [facility] [address] [address] [place] [address] 02/18/2025 [facility] [address] [facility] [address] [place] [address] 03/04/2025 [facility] S [address] [address] 03/28/2025 [facility] Congestive heart failure, unspecified HF chronicity, unspecified heart failure type I50.9 Assessments Encounter Date Diagnosis (ICD Code) Assessment Notes Treatment Notes Treatment Clinical Notes Section Notes 12/09/2024 Congestive heart failure, unspecified HF chronicity, [...] control recommended. Will continue to monitor patient. 03/28/2025 Congestive heart failure, unspecified HF chronicity, unspecified heart failure type (ICD-10 - I50.9) 02/17/2025 Intramural leiomyoma of uterus (ICD-10 - D25.1) 02/17/2025 Hypertensive heart disease with heart failure (ICD-10 - I11.0) Heart Disease due to HTN. Blood pressure control and daily exercise as tolerated is recommended. Will continue to monitor. 12/06/2024 Urinary tract infection without hematuria, site unspecified (ICD-10 - N39.0) 12/06/2024 Fibroids (ICD-10 - D21.9) 10/25/2024 Encounter for general adult medical examination with abnormal findings (ICD-10 - Z00.01) 10/25/2024 Type 2 diabetes mellitus with other specified complication, without long-term current use of insulin (ICD-10 - E11.69) Morbid obesity due to Diabetes Mellitus (DM) 10/25/2024 Moderate major depression (ICD-10 - F32.1) Recommended to patient avoid stressful situations. Will continue to monitor. 12/06/2024 Hypertensive heart disease with heart failure (ICD-10 - I11.0) Heart Failure due to HTN. Blood pressure control and daily exercise as tolerated is recommended. Will continue to monitor. 02/17/2025 Congestive heart failure, unspecified HF chronicity, [...] Morbid obesity due to Diabetes Mellitus (DM) 01/14/2025 Morbid (severe) obesity due to excess calories (ICD-10 - E66.01) Patient has comorbid conditions HTN and Type II DM. Avoid overeating, eating too quickly, eating high-fat foods, eating during stressful situations, or drinking too much alcohol or coffee. Counseled patient on adequate diet and exercise as tolerant. 01/07/2025 Morbid (severe) obesity due to excess [...] adequate diet and exercise as tolerant. 12/06/2024 Congestive heart failure, unspecified HF chronicity, unspecified heart failure type (ICD-10 - I50.9) [facility] 09/23/2024. Will continue to monitor. Strict blood pressure control, low fat diet and daily exercise as tolerated recommended. 10/25/2024 Essential hypertension (ICD-10 - I10) Blood pressure control and daily exercise as tolerated is recommended. Will continue to monitor. 12/06/2024 Type 2 diabetes mellitus with other specified complication, without long-term current use of insulin (ICD-10 - E11.69) Morbid obesity due to Diabetes Mellitus (DM) 01/07/2025 History of heart valve replacement (ICD-10 - Z95.2) 01/14/2025 History of heart valve replacement (ICD-10 - Z95.2) 02/17/2025 Morbid (severe) obesity due to excess calories (ICD-10 - E66.01) Patient has comorbid conditions HTN, Type II DM and bmi > 35. Avoid overeating, eating too quickly, eating high-fat foods, eating during stressful situations, or drinking too much alcohol or coffee. Counseled patient on adequate diet and exercise as tolerant. 10/25/2024 Morbid obesity (ICD-10 - E66.01) Patient has comorbid conditions HTN and Type II DM BMI 41.96. Avoid overeating, eating too quickly, eating high-fat foods, eating during stressful situations, or drinking too much alcohol or coffee. Counseled patient on adequate diet and exercise as tolerant. 01/14/2025 Hospital discharge follow-up (ICD-10 - Z09) Hospital records requested 01/07/2025 Hospital discharge follow-up (ICD-10 - Z09) Hospital records requested 10/25/2024 Dietary counseling and surveillance (ICD-10 - Z71.3) Diet and exercise reviewed with patient. Patient oriented about nutrition healthy: eat three balanced meals, healthy snacks, weight control education and drink 1-2 glasses of water with each meal, as possible. 12/06/2024 Morbid (severe) obesity due to excess calories (ICD-10 - E66.01) Avoid overeating, eating too quickly, eating high-fat foods, eating during stressful situations, or drinking too much alcohol or coffee. Counseled patient on adequate diet and exercise as tolerant. 02/17/2025 Body mass index (BMI) of 40.0 to 44.9 in adult (ICD-10 - Z68.41) 12/06/2024 History of heart valve replacement (ICD-10 - Z95.2) [facility] 09/23/2024. Will continue to monitor patient 01/07/2025 Body mass index (BMI) of 40.0 [...] or 3 times per week as tolerated. 10/25/2024 Encounter for screening for depression (ICD-10 - Z13.31) 12/06/2024 Anticoagulant long-term use (ICD-10 - Z79.01) Continue Eliquis 5 MG Tablet, 12/06/2024 Body mass index (BMI) of 40.0 to 44.9 in adult (ICD-10 - Z68.41) 10/25/2024 Body mass index (BMI) of 40.0 [...] Coverage Start Date Coverage End Date [employer] [facility] [address] [address] [place] [address] [phone] [id number] BELKYS GLOVER Self - patient is the insured Medical (General) History Medical History History ICD Code depression anxiety Complex post-traumatic stress disorder heart failure diabetic hypertension Surgical History Surgery Date(Month/Year) lvad heartmate 3 device 2023
== END 2025-07-25 13:24 | disposition home or self-care (01) ==
LOC: HO.HMCC 11:15
PROVIDERS: PCP Internal Medicine; Visit Provider Internal Medicine
DX: E13.9 Other specified diabetes mellitus without complications (principal); M62.830 Muscle spasm of back; M41.86 Other forms of scoliosis, lumbar region; Z95.811 Presence of heart assist device; R94.30 Abnormal result of cardiovascular function study, unspecified; Z95.810 Presence of automatic (implantable) cardiac defibrillator; I10 Essential (primary) hypertension; F33.41 Major depressive disorder, recurrent, in partial remission; Z23 Encounter for immunization; Z13.9 Encounter for screening, unspecified

== ENCOUNTER 2025-07-25 11:14 | Outpatient (REF) | payer MEDICARE, MEDICAID, SELFPAY ==
[2025-07-25 13:39] LABS: Hematocrit 37.6 % (37.0-47.0); Hemoglobin 11.6 g/dl (12.0-16.0); Mean Corpuscular HGB Conc 30.9 g/dl (31.0-35.0); Mean Corpuscular Hemoglobin 23.2 pg (27.0-33.0); Mean Corpuscular Volume 75.2 fL (80.0-98.0); NRBC Abs Auto 0.000 X10*3/uL (0.0-0.012); NRBC Pct Auto 0.0 /100WBC (0.0-0.2); Platelet Count 332 X10*3/uL (160-400); Red Blood Count 5.00 X10*6/uL (4.20-5.50); White Blood Count 6.8 X10*3/uL (4.8-10.8)
[2025-07-25 16:06] LABS: Alanine Aminotransferase 24 U/L (0-31); Albumin Level 4.0 g/dL (3.5-5.0); Alkaline Phosphatase 62 U/L (39-117); Anion Gap 12 (12-20); Aspartate Amino Transferase 24 U/L (5-31); Blood Urea Nitrogen 13 mg/dL (9-16); Calcium 8.9 mg/dL (8.4-10.2); Carbon Dioxide 24 mmol/L (22-29); Chloride 108 mmol/L (96-108); Estimated Glomerular Filt Rate > 60; Potassium 4.2 mmol/L (3.3-5.1); Sodium 140 mmol/L (135-145); Total Protein 7.2 g/dL (6.5-8.0)
== END 2025-07-25 11:15 | disposition home or self-care (01) ==
LOC: HO.HMGCLDS 11:14
PROVIDERS: Absent Provider Nurse Practitioner Adult Health; PCP Internal Medicine; Visit Provider Internal Medicine
DX: Z23 Encounter for immunization (principal); E13.9 Other specified diabetes mellitus without complications; M62.830 Muscle spasm of back; M41.86 Other forms of scoliosis, lumbar region; R94.30 Abnormal result of cardiovascular function study, unspecified; I10 Essential (primary) hypertension; F33.41 Major depressive disorder, recurrent, in partial remission; Z95.811 Presence of heart assist device; Z95.810 Presence of automatic (implantable) cardiac defibrillator; Z79.01 Long term (current) use of anticoagulants; Z79.899 Other long term (current) drug therapy
CPT/HCPCS: 36415; 80053; 83036; 83615; 85027; 90471; 90715; 99212

== ENCOUNTER 2025-08-28 13:36 | Outpatient (REF) | payer MEDICARE, MEDICAID, SELFPAY ==
--- OUTSIDE RECORDS SUMMARY | 2025-01-03 05:15 | XMS_ITS ---
Author Organization [facility], [facility]. Address [address] [place] [address] Care Team Providers Care Instructional Developer Name Role Phone Herbert Sinha Primary Care Provider Andrew Muñoz [phone] REASON FOR VISIT F/UP RESULTS Encounters Encounter Location Date Provider Diagnosis [address] [place] [address] 01/03/2025 Andrew Cage Plan Of Treatment No Information Progress Notes * BELKYS GLOVERDOB:1995 ( 30 yo F)Acc No.[id number]:01/03/2025 Progress Notes Patient: Frandy WALTERSBELKYS Appointment Provider: BRANDON Philip :1995 A ge:30 Y S ex:Female Date:01/03/2025 Address:[address] [place], [place] [id number] Pcp:Herbert Sinha Subjective: * Chief Complaints: * 1 . F/UP RESULTS. * Medical History: Objective: * Vitals: Assessment: Plan: * Treatment: * Images: Care Plan Details* * Electronic signature of Vidal Cage APRN on 08/28/2025 at 07:02 PM EST Sign off status: Pending * Appointment Provider: BRANDON Philip Date: 0 01/03/2025 Generated for Printing/Faxing/eTransmitting on: 10/28/2024 07:02 PM EST
--- OUTSIDE RECORDS SUMMARY | 2025-01-07 03:00 | XMS_ITS ---
Author Organization [facility], [facility]. Address [address] [place] [address] Care Team Providers Care Miller First Name Role Phone Herbert Sinha Primary Care Provider Andrew Muñoz [phone] REASON FOR VISIT rib pain Encounters Encounter Location Date Provider Diagnosis [address] [place] [address] 01/07/2025 Andrew Cage Plan Of Treatment No Information Progress Notes * BELKYS GLOVERDOB:1995 ( 30 yo F)Acc No.[id number]:01/07/2025 Physical Visit Patient: BELKYS BORRERO Appointment Provider: BRANDON Philip :1995 A ge:30 Y S ex:Female Date:01/07/2025 Address:[address] [place], [place] [id number] Pcp:Herbert Sinha Subjective: * Chief Complaints: * 1 . Rib pain. * Medical History: Objective: * Vitals: Assessment: Plan: * Treatment: Care Plan: * Problems: * Images: * Electronic signature of Vidal Cage APRN on 08/28/2025 at 07:03 PM EST Sign off status: Pending * Appointment Provider: BRANDON Philip Date: 0 01/07/2025 Generated for Printing/Faxing/eTransmitting on: 10/28/2024 07:03 PM EST
--- OUTSIDE RECORDS SUMMARY | 2025-01-17 06:30 | XMS_ITS ---
Author Organization [facility], [facility]. Address [address] [place] [address] Care Team Providers Care Chipper Name Role Phone Herbert Sinha Primary Care Provider Andrew Muñoz Unavailable [phone] Mary Ridley Unavailable [phone] REASON FOR VISIT 3 month f/u/ REFILL Encounters Encounter Location Date Provider Diagnosis [address] [place] [address] 01/17/2025 Mary Ridley Plan Of Treatment No Information Progress Notes * BELKYS GLOVERDOB:1995 ( 30 yo F)Acc No.[id number]:01/17/2025 Progress Notes Patient: BELKYS BORRERO Provider: Saul Ridley MD :1995 A ge:30 Y S ex:Female Date:01/17/2025 Address:[address] [place], [place] [address] Pcp:Herbert Sinha Subjective: * Chief Complaints: * 1 . 3 month f/u/ REFILL. * Medical History: Objective: * Vitals: Assessment: Plan: * Treatment: * Images: Care Plan Details* * Electronic signature of Gemma Ridley MD on 08/28/2025 at 07:04 PM EST Sign off status: Pending * Provider: Saul Ridley MD Date: 0 01/17/2025 Generated for Printi ng/Faxing/eTransmitting on: 1 10/28/2024 07:04 PM EST
--- OUTSIDE RECORDS SUMMARY | 2025-01-22 06:30 | XMS_ITS ---
Author Organization [facility], [facility]. Address [address] [place] [address] Care Team Providers Care Maintenance Director Name Role Phone Herbert Sinha Primary Care Provider [phone] Andrew Muñoz [phone] REASON FOR VISIT F/UP REFILL Encounters Encounter Location Date Provider Diagnosis [address] [place] [address] 01/22/2025 Andrew Cage Plan Of Treatment No Information Progress Notes * BELKYS GLOVERDOB:1995 ( 30 yo F)Acc No.[id number]:01/22/2025 Progress Notes Patient: Frandy WALTERSBELKYS Appointment Provider: BRANDON Philip :1995 A ge:30 Y S ex:Female Date:01/22/2025 Address:[address] [place], [place] [address] Pcp:Herbert Sinha Subjective: * Chief Complaints: * 1 . F/UP REFILL. * Medical History: Objective: * Vitals: Assessment: Plan: * Treatment: * Images: Care Plan Details* * Electronic signature of Vidal Cage APRN on 08/28/2025 at 07:03 PM EST Sign off status: Pending * Appointment Provider: BRANDON Philip Date: 0 01/22/2025 Generated for Printing/Faxing/eTransmitting on: 1 10/28/2024 07:03 PM EST
--- OUTSIDE RECORDS SUMMARY | 2025-02-11 04:45 | XMS_ITS ---
Author Organization [facility], [facility] Address [address] [place] [address] Care Team Providers Care Hourly Manager Name Role Phone Herbert Sinha Primary Care Provider Andrew Muñoz Unavailable [phone] Eyad Gordon Unavailable [phone] REASON FOR VISIT F/UP Encounters Encounter Location Date Provider Diagnosis [address] [place] [address] 02/11/2025 Eyad Franks Plan Of Treatment No Information Progress Notes * BELKYS GLOVERDOB:1995 ( 30 yo F)Acc No.[id number]:02/11/2025 Progress Notes Patient: BELKYS BORRERO Appointment Provider: EMIR Coronel :1995 A ge:30 Y S ex:Female Date:02/11/2025 Address:[address] [place], [place] [address] Pcp:Herbert Sinha Subjective: * Chief Complaints: * 1 . F/UP. * Medical History: Objective: * Vitals: Assessment: Plan: * Treatment: * Images: Care Plan Details* * Electronic signature of Eyad Franks APRN on 08/28/2025 at 07:03 PM EST Sign off status: Pending * Appointment Provider: EMIR Coronel Date: 0 02/11/2025 Generated for Printi ng/Faxing/eTransmitting on: 1 10/28/2024 07:03 PM EST
--- OUTSIDE RECORDS SUMMARY | 2025-04-14 03:15 | XMS_ITS ---
Author Organization [facility], [facility] Address [address] [place] [address] Care Team Providers Care Clinical Leader Name Role Phone Herbert Sinha Primary Care Provider Andrew Muñoz Unavailable [phone] Eyad Gordon Unavailable REASON FOR VISIT PER DR Encounters Encounter Location Date Provider Diagnosis [address] [place] [address] 04/14/2025 Eyad Franks Plan Of Treatment No Information Progress Notes * BELKYS GLOVERDOB:1995 ( 30 yo F)Acc No.[id number]:04/14/2025 Progress Notes Patient: Frandy WALTERS BELKYS Appointment Provider: EMIR Coronel :1995 A ge:30 Y S ex:Female Date:04/14/2025 Address:[address] [place], [place] [id number] Pcp:Herbert Sinha Subjective: * Chief Complaints: * 1 . PER DRJeniffer * Medical History: Objective: * Vitals: Assessment: Plan: * Treatment: * Images: Care Plan Details* * Electronic signature of Eyad Franks APRN on 08/28/2025 at 07:03 PM EST Sign off status: Pending * Appointment Provider: EMIR Coronel Date: 0 04/14/2025 Generated for Printi ng/Faxing/eTransmitting on: 1 10/28/2024 07:03 PM EST
--- OUTSIDE RECORDS SUMMARY | 2025-04-22 10:15 | XMS_ITS ---
Author Organization [facility] Frandy cortez Location Address [address] [address] Care Team Providers Care Rehabilitation Counsellor Name Role Phone Madelin De Santiago [phone] REASON FOR VISIT new gynecologic visit Encounters Encounter Location Date Provider Diagnosis [facility] [place] Location [address] [address] 04/22/2025 Madelin De Santiago Plan Of Treatment No Information Progress Notes * BELKYS GLOVERDOB:1995 ( 30 yo F)Acc No.[id number]:04/22/2025 Progress Notes Patient: BELKYS BORRERO Provider: Hailey De Santiago NP :1995 A ge:30 Y S ex:Female Date:04/22/2025 [facility] Subjective: * Chief Complaints: * N ew gynecologic visit * Electronic signature of Ellis De Santiago APRN on 08/28/2025 at 07:03 PM EST Sign off status: Pending * Provider: Hailey De Santiago NP Date: 0 04/22/2025 Generated for Williei ng/Facorneliusg/eTransmitting on: 10/28/2024 07:03 PM EST
--- NOTE | ~2025-08-28 | US_ITS ---
EXAMINATION: US PELVIS TRANSABDOMINAL AND TRANSVAGINAL HISTORY: N93.9 - Abnormal uterine and vaginal bleeding, unspecified COMPARISON: Comparison is made with the prior examination dated 07/01/2024. TECHNIQUE: Transabdominal and endovaginal real-time 2D carter-scale ultrasound was performed. FINDINGS: Uterus: The uterus is normal in size, measuring 9.0 x 6.1 x 11.2 cm. Myometrium has a normal echotexture. Multiple fibroids are again noted including a right fundal fibroid measuring 2.8 x 2.2 x 2.9 cm (previously 3.5 x 3.1 x 3.4 cm), a right uterine body fibroid measuring 1.3 x 1.0 x 1.1 cm (previously 1.9 x 1.0 x 2.2 cm), a fundal fibroid measuring 1.3 x 1.1 x 1.2 cm (previously 1.5 x 1.3 x 1.7 cm), and a left fundal fibroid measuring 8.9 x 9.3 x 6 9.7 cm (previously 7.6 x 7.6 x 8.0 cm). Endometrium: The endometrial stripe measures 21 mm in thickness. There are nabothian cysts in the cervix. Right ovary: The right ovary measures 5.6 x 2.3 x 2.9 cm. The right ovary is normal in size and echotexture. There is a complex cystic structure measuring 2.5 x 2.0 x 2.5 cm. This demonstrates septations and low-level internal echoes. Left ovary: The left ovary measures 3.5 x 2.6 x 1.6 cm. The left ovary is normal in size and echotexture. Pelvic fluid: none. US/US pelvic and transvaginal IMPRESSION: 1. Fibroid uterus as described. 2. 2.5 x 2.0 x 2.5 cm complex right ovarian cyst. A follow-up examination in 6, at a different time in the patient's menstrual cycle, is suggested to document resolution. Electronically signed by: Lex Paz MD 08/28/2025 03:18 PM [facility]
--- OUTSIDE RECORDS SUMMARY | 2025-08-28 19:03 | XMS_ITS | Patient Health Record ---
Author Organization [employer]. Address [address] [place] [address] Care Team Providers Care Food And Beverage Service Manager Name Role Phone Herbert Sinha Primary Care Provider [phone] Andrew Muñoz Unavailable [phone] Mary Ridley Unavailable [phone] Eyad Gordon Unavailable [phone] Paola Denise Unavailable Allergies Allergen (clinical drug ingredient) Drug/Non Drug Allergy documented on EMR Reaction Allergy Type Onset Date Status Flexeril Unknown Drug Allergy 12/06/2024 Active Guava Flavor hives Drug Allergy Acti ve Latex Latex hives Allergy Active Results Component Value Reference Range Notes PT and PTT-LC Reviewed date:12/16/2024 07:51:42 AM Interpretation: Performing Lab:[facility] [id number], Phone - [phone], Director - Henok Notes/Report: INR 1.0 0.9-1.2 [...] Reviewed date:11/05/2024 02:17:07 PM Interpretation: Performing Lab:[facility], [address] [place] [id number], Phone - [phone], Director - Henok Notes/Report: Hemoglobin A1c 5.2 4.8-5.6 % . Prediabetes: 5.7 - 6.4 Diabetes: >6.4 Glycemic control for adults with diabetes: <7.0 US TRANSVAGINAL NON-OB Reviewed date:02/17/2025 10:18:00 AM Interpretation: Performing Lab: Notes/Report: Cardiovascular Risk Assessme nt Reviewed date:11/05/2024 02:19:32 PM Interpretation: Performing Lab:[facility], [address] [place] [id number], Phone - [phone], Director - Henok Notes/Report: Interpretation Note Supplemental report is available. PDF . Microalbumin/Creatinine Rati o, Random Urine-LC Reviewed date:11/05/2024 02:19:51 PM Interpretation: Performing Lab:[facility] [address] [place] [id number], Phone - [phone], Director - Henok Notes/Report: Creatinine, Urine 374.3 Not Estab. mg/dL Albumin, Urine 45.8 Not Estab. ug/mL Alb/Creat Ratio 12 0-29 mg/g creat Normal: 0 - 29 Moderately increased: 30 - 300 Severely increased: >300 CBC With Differential/Platel et-LC-Q Reviewed date:11/07/2024 08:57:28 AM Interpretation: Performing Lab:[facility] [address] [place] [id number], Phone - [phone], Director - Henok Notes/Report: WBC 5.9 3.4-10.8 [...] Immature Grans (Abs) 0.0 0.0-0.1 x10E3/uL Urinalysis, Pjoofrti-RY-Y Reviewed date:11/07/2024 08:57:10 AM Interpretation: Performing Lab:[facility], [address] [place] [id number], Phone - [phone], Director - Henok Notes/Report: Specific [place] 1.024 1.005-1.030 pH 5.5 5.0-7.5 Urine-Color Yellow [...] 14+eGFR-LC-Q Reviewed date:11/05/2024 02:16:40 PM Interpretation: Performing Lab:[facility] [place] [address] [address] [place], [place] [id number], Phone - [phone], Director - MDAlexis Notes/Report: Glucose 82 70-99 [...] Reviewed date:11/05/2024 02:16:30 PM Interpretation: Performing Lab:[facility], [address] [place] [id number], Phone - [phone], Director - Henok Notes/Report: Cholesterol, Total 152 100-199 mg/dL Triglycerides 68 0-149 mg/dL HDL Cholesterol 54 >39 mg/dL VLDL Cholesterol Yamil 13 5-40 mg/dL LDL Chol Calc ([facility]) 85 0-99 mg/dL Reason For Referral Reason Please fax consul t notes and/or results of procedure approved to [phone]. Thanks! ~Annual Eye Exam~ Diagnosis 1 Encounter for examin ation of eyes and vision without abnormal findings (Z01.00) Referral Organization [facility] Referring Provider First Name Paola Referring Provider Last Name Jonnathan Saul stewart Referring Provider Speciality General Pr actice Referred Provider [employer], [place] Referred Provider Specialty Manpower Development Advisor Referral Priority Routine Reason Please fax consul t notes and/or results of procedure approved to [phone]. Thanks! ~Annual Eye Exam~ Diagnosis 1 Encounter for examin ation of eyes and vision without abnormal findings (Z01.00) Referral Organization [facility] Referring Provider First Name Paola Referring Provider Last Name Jonnathan Saul stewart Referring Provider Speciality General Pr actice Referred Provider [employer] [place] Referred Provider Specialty Manpower Development Advisor Referral Priority Routine Reason If additional scout ting is needed, please refer back to PCP. Please fax consult notes and/or results of procedure approved to [phone]. Thanks! ONE VISIT 57035 NEW PATIENT CONSULT ONLY - MANAGED CARE Diagnosis 1 Intramural leiomyoma of uterus (D25.1) Referral Organization [facility] ical P Referring Provider First Name Eyad [...] Status Risk Notes Problem Morbid obesity (disorder) (835212587) Morbid (severe) obesity due to excess calories (E66.01) Active confirmed Problem Hypertensive heart failure (55345169) Hypertensive heart disease with heart failure (I11.0) Active confirmed Problem Long-term current use of anticoagulant (675675958) Anticoagulant long-term use (Z79.01) Active confirmed Problem Body mass index 40+ - severely obese (568153898) Body mass index (BMI) of 40.0 to 44.9 in adult (Z68.41) Active confirmed Problem Type 2 diabetes mellitus with other specified complication, without long-term current use of insulin (E11.69) Active confirmed Problem History of heart valve repair with prosthesis (323514145862344) History of heart valve replacement (Z95.2) Active confirmed Problem Moderate major depression (053769) Moderate major depression (F32.1) Active confirmed Problem Heart failure (05780062) Congestive heart failure, unspecified HF chronicity, unspecified heart failure type (I50.9) Active confirmed Problem Fibroids (67419340) Fibroids (D21.9) Active confirmed Vital Signs Temperature 98.7 degrees Fahrenheit 02/17/2025 Respiratory Rate 19 /min 02/17/2025 Oximetry 98 % 02/17/2025 Blood pressure diastolic 80 mm Hg 02/17/2025 Height 5 ft 6 in in 02/17/2025 Blood pressure systolic 129 mm Hg 02/17/2025 Weight 265 lbs 02/17/2025 BMI 42.77 kg/m2 02/17/2025 Encounters Encounter Location Date Provider Diagnosis [facility] [address] [place] [address] 10/30/2024 Mary Ridley [facility] [address] [facility] [place] [address] 12/13/2024 Andrew Cage [facility] [address] [facility] [address] [place] [address] 10/25/2024 Paola Jonnathan Portillo Type 2 diabetes [...] findings Z01.00 and Flu vaccine need Z23 [address] [place] [address] 12/06/2024 Andrew Cage Fibroids D21.9 ; Urinary [...] of 40.0 to 44.9 in adult Z68.[address] [place] [address] 01/07/2025 Andrew Cage Hypertensive heart disease with [...] of 40.0 to 44.9 in adult Z68.[address] [place] [address] 01/14/2025 Andrew Cage Congestive heart failure, unspecified [...] of 40.0 to 44.9 in adult Z68.[address] [place] [address] 02/17/2025 Eyad Franks Intramural leiomyoma of uterus [...] of 40.0 to 44.9 in adult Z68.41 [facility] [address] [facility] [address] [place] [address] 04/30/2025 [facility] [address] [facility] [address] [facility] [address] 12/09/2024 Andrew Cage Congestive heart failure, unspecified HF chronicity, unspecified heart failure type I50.9 [facility] [address] [address] 12/19/2024 [facility] [address] [facility] [address] [facility] [address] 02/18/2025 [facility] [address] [facility] [address] [facility] [address] 03/04/2025 [facility] S [address] [address] 03/28/2025 [facility] Congestive heart failure, unspecified HF [...] unspecified heart failure type (ICD-10 - I50.9) [facility] 09/23/2024. Will continue to monitor. Strict [...] of heart valve replacement (ICD-10 - Z95.2) [facility] 09/23/2024. Will continue to monitor patient [...] Coverage Start Date Coverage End Date [employer] [facility] [address] [address] [place] [address] [id number] BELKYS GLOVER Self - patient is the insured Medical (General) History Medical History History ICD Code depression anxiety Complex post-traumatic stress disorder heart failure diabetic hypertension Surgical History Surgery Date(Month/Year) lvad heartmate 3 device 2023
--- OUTSIDE RECORDS SUMMARY | 2025-08-28 19:03 | XMS_ITS | Clinical Summary ---
Author Organization [facility] Address [address] [place] [id number] Care Team Providers Care Manager Corporate Name Role Phone Unknown Primary Care Provider [phone] Allergies Active Allergy Reactions Criticality Noted Date Comments Cyclobenzaprine Unknown/Patient and Family Unable to Define Medium 11/01/2021 Medications ferrous gluconate (FERGON) 324 MG tablet Take 324 mg by mouth every morning with breakfast. Take 2 hours before or 4 hours after acid reducers. Active empagliflozin (JARDIANCE) 10 MG tabletIndicatio ns:HFrEF (heart failure with reduced ejection fraction) ([facility]) Take 1 tablet (10 mg total) by mouth daily. 30 tablet 11/10/2021 Active carvedilol (COREG) 12.5 MG tabletIndicatio ns:HFrEF (heart failure with reduced ejection fraction) ([facility]) Take 1 tablet (12.5 mg total) by mouth 2 (two) times a day. 60 tablet 11/10/2021 Active spironolactone (ALDACTONE) 25 MG tabletIndicatio ns:HFrEF (heart failure with reduced ejection fraction) ([facility]) Take 1 tablet (25 mg total) by mouth daily. 30 tablet 11/10/2021 Active torsemide (DEMADEX) 20 MG tabletIndicatio ns:HFrEF (heart failure with reduced ejection fraction) ([facility]) Take 2 tablets (40 mg total) by mouth daily. 60 tablet 11/10/2021 Active sacubitril-vals kylie (ENTRESTO) 24-26 mg per tabletIndicatio ns:HFrEF (heart failure with reduced ejection fraction) ([facility]) Take 1 tablet by mouth 2 [...] CMIA Nonreactive Nonreactive 11/03/2021 11:32 AM EST [facility] Comment:Results show no evid ence of infection by HIV 1/2. If clinically indicated, repeat CMIA or test by nucleic acid amplification. Blood specimen (specimen) Serum specimen / Unknown 11/02/2021 4:50 PM EST 11/02/2021 5:14 PM EST Kehinde Moffett PA-C LAB BLOOD ORDERABLES Final Re sult [facility] [address] [place] [address] from Last 3 Months or Most Recently Relevant to Health Maintenance Insurance MEDICAID OUT OF [place] [facility] [place] [facility] Member Subscriber Plan / Payer (Ef fective 2021-Present) Name:Salina Pack Relation to Subscriber:Self Name:Salina Pack Payer ID:Not on file Group ID:Not on file Type:Not on file Address: [address] [place] [address] Advance Directives * Full Code (Latest Code Status on File) Date Activated Date Inactivated Comments 11/01/2021 3:56 PM Care Teams Manager Corporate Relationship Specialty Start Date End Date Unknown Unknow Provider Address PCP - General 11/01/21
--- OUTSIDE RECORDS SUMMARY | 2025-08-28 19:03 | XMS_ITS | Clinical Summary ---
Author Organization [facility] Address [address] [place] [address] Care Team Providers Care Software Analyst Name Role Phone Murray Dumont MD Primary Care Provider [phone] Allergies Active Allergy Reactions Criticality Noted Date [...] age to complete this topic Care Teams Software Analyst Relationship Specialty Start Date End Date Murray Dumont MD [address] [place] [address] PCP - General Internal Medicine 05/02/22
--- OUTSIDE RECORDS SUMMARY | 2025-08-28 19:04 | XMS_ITS | Patient Health Record ---
Author Organization [facility] Location Address [address] [address] Care Team Providers Care Station Master Name Role Phone Madelin De Santiago Unavailable [phone] Reason For Referral No Information Plan Of Treatment No Information Insurance Providers Payer Name Payer Address Payer Phone Subscriber Number Group Number Insured Name Patient Relationship to Insured Coverage Start Date Coverage End Date [employer] [facility] [address] [address] [place] [address] [id number] BELKYS GLOVER Self - patient is the insured
== END 2025-08-28 13:37 | disposition home or self-care (01) ==
LOC: HO.US 13:36
PROVIDERS: Visit Provider Obstetrics & Gynecology
DX: N93.9 Abnormal uterine and vaginal bleeding, unspecified (principal)
CPT/HCPCS: 76830; 76856

== ENCOUNTER → 2025-08-28 13:39 | Outpatient (BNV) | payer MEDICARE, MEDICAID, SELFPAY | PROVIDERS: Visit Provider Radiology Diagnostic Radiology | DX: D25.9 Leiomyoma of uterus, unspecified (principal); N83.201 Unspecified ovarian cyst, right side; N93.9 Abnormal uterine and vaginal bleeding, unspecified | CPT/HCPCS: 76830; 76856 ==

== ENCOUNTER 2025-09-15 11:36 | Outpatient (AMB) | payer MEDICARE, MEDICAID, SELFPAY ==
--- NOTE | 2025-09-15 11:38 | A.OFFVIS_ITS ---
Intake Visit Reasons: Ultra sound follow up Accompanied by: Self / Same As Patient Allergies cyclobenzaprine (From Flexeril) Adverse Reaction (Unknown, Verified 07/25/25 11:35) syncope HPI Comments Details: The patient is presenting for follow-up to discuss the results of her abnormal uterine bleeding workup and options of treatment. The following workup was done.: H&H= was 11.6/37.6 TSH,GC and chlamydia were negative. Co testing was done in 12/29 was negative. 08/28/2025 Pelvic ultrasound showed the following: IMPRESSION: 1. Fibroid uterus as described. 2. 2.5 x 2.0 x 2.5 cm complex right ovarian cyst. A follow-up examination in 6, at a different time in the patient's menstrual cycle, is suggested to document resolution. The patient has a OBGYN at [facility] and is in the process of transferring her OBGYN care to [facility]. [facility] Medical History Congestive heart failure Nausea Surgical History History of surgery Family History Father Diabetes mellitus Mother No problems noted. Maternal Grandfather No problems noted. Maternal Grandmother No problems noted. Paternal Grandmother Diabetes mellitus Paternal Grandfather No problems noted. Brother No problems noted. Brother No problems noted. Sister No problems noted. Social History Housing: Apartment Alcohol intake: never Patient Tobacco Use Status: Never used Tobacco e-Cigarette/Vaping Use: Never Used Second Hand Smoke Exposure: No Current occupational status: unemployed Cognitive needs: No Hearing needs: No Vision needs: No Review of Systems Const All systems reviewed & are unremarkable except as noted in HPI and below Reports as per HPI and Reports no additional complaints GI Reports no additional complaints Reports no additional complaints Assessment & Plan Assessment & Plan (1) Complex ovarian cyst: Code(s): N83.299 - Other ovarian cyst, unspecified side Category: Medical Plan: Discussed with the patient the complex ovarian cyst by ultrasound. Discussed with the patient the Ultrasound findings, the main limitation of transvaginal ultrasonography alone as a diagnostic tool to distinguish benign from malignant masses relates to its lack of specificity and low positive predictive value for cancer. The differential diagnosis discussed with the patient includes the following but not limited to: benign and malignant gynecological and non-gynecological causes. Laboratory evaluation include UPT and GC/CT , serum tumor marker CA 125 . Discussed with the patient options of treatment , including laparoscopy ovarian cystectomy/oophorectomy vs. expectant management with repeat US in repeating pelvic US in 6 weeks from previous US. If the ovarian complex cyst is persistent larger and / or more complex looking, will refer to gynecologic Oncology. All pros, cons, risks and benefits of each approach were discussed with the patient including but not limited to a delay in the diagnosis and treatment of ovarian cancer affecting the prognosis; The patient decided to go ahead with expectant management. Instructions given the patient to schedule a 6 week follow-up ultrasound appointment in case she had any difficulty getting in to see your OBGYN at [facility]. All questions were answered & the patient verbalized understanding and agreed with the plan. (2) Uterine myoma: Comment: increasing in size Code(s): D25.9 - Leiomyoma of uterus, unspecified Category: Medical Plan: Discussed with the patient the findings on pelvic ultrasound & the risk of myosarcoma; in addition reviewed with the patient that malignancy and pre malignancy cannot be ruled out without hysterectomy for pathological evaluation ; furthermore, explained to the patient the limitation of pelvic ultrasound and endometrial biopsy in the setting. Discussed with the patient the typical symptoms that are caused by myomas including but not limited to pelvic pain, pressure symptoms, abnormal uterine bleeding. In addition discussed with the patient options of treatment for myomas including: Serial ultrasounds periodically to follow-up on the size of the myoma while targeting the treatment against fibroids related symptoms (Mirena IUD, progesterone treatment, GnRH agonist/antagonist, uterine artery em bolization or endometrial ablation) versus surgical treatment including hysterectomy and /or myomectomy depending on future interest in fertility. All pros and cons, risks and benefits of all options were discussed with the patient. The patient understands that delay in surgical treatment in case of myosarcoma can affect her prognosis, after further discussion, the patient decided to think about it and get back to us next visit (3) Abnormal uterine bleeding: Comment: Cardiomyopathy Uterine myomas Code(s): N93.9 - Abnormal uterine and vaginal bleeding, unspecified Category: Medical Plan: Discussed with the patient the results, recommended endometrial biopsy to rule out endometrial pathology including endometrial hyperplasia and/or malignancy. The patient has already been established and is in the process of transferring her OBGYN care to [facility]. The patient would like to defer EMB to be done at her OBGYN at [facility]. Instructions given the patient to call or go to emergency room in case of heavy vaginal bleeding Orders: Orders US pelvic and transvaginal 6 Weeks N83.299 - Other ovarian cyst, unspecified side Coding Level of Care Code Est Pt Level 3 (49665) Diagnoses Complex ovarian cyst N83.299 Uterine myoma D25.9 Abnormal uterine bleeding N93.9
== END 2025-09-15 12:03 | disposition home or self-care (01) ==
LOC: HO.HWS 11:37
PROVIDERS: PCP Internal Medicine; Visit Provider Obstetrics & Gynecology
DX: N83.299 Other ovarian cyst, unspecified side (principal); D25.9 Leiomyoma of uterus, unspecified; N93.9 Abnormal uterine and vaginal bleeding, unspecified
CPT/HCPCS: 99213

== ENCOUNTER → 2025-09-15 11:36 | Outpatient (BNVA) | payer MEDICARE, MEDICAID, SELFPAY | PROVIDERS: PCP Internal Medicine; Visit Provider Obstetrics & Gynecology | DX: Z71.2 Person consulting for explanation of examination or test findings (principal); N83.201 Unspecified ovarian cyst, right side; D25.9 Leiomyoma of uterus, unspecified; N93.9 Abnormal uterine and vaginal bleeding, unspecified | CPT/HCPCS: 99212 ==